=== PATIENT | male | born 1935 | race Caucasian/White ===

== ENCOUNTER → 2017-07-23 14:13 | Outpatient (CLI) | payer OTHER, SELFPAY ==
--- NOTE | 2017-07-23 14:23 | RAD_ITS ---
STUDY: X-RAY CHEST REASON FOR EXAM: Male, 82 years old. COPD pleural effusion TECHNIQUE: Frontal and lateral views of the chest. COMPARISON: March 09, 2017 FINDINGS: Chronic appearing increased interstitial lung markings. Moderate left pleural effusion. Small right pleural effusion. Lower lobe atelectasis. Enlarged heart size. Normal mediastinum and rabia. Normal visualized pulmonary arteries. There is atherosclerotic calcification of the aortic arch with tortuosity. There are diffuse degenerative changes of the visualized thoracic spine. There is degenerative osteoarthritis of the bilateral shoulders. There is no demonstrated abnormality of the visualized soft tissue structures of the upper abdomen. RAD/Chest PA and Lateral IMPRESSION: Moderate left pleural effusion. Small right pleural effusion. Lower lobe atelectasis. Electronically Signed: Truman Wilhelm MD at 18:33 EST , Service support ,
--- NOTE | 2017-07-23 14:40 | RAD_ITS ---
STUDY: X-RAY CHEST REASON FOR EXAM: Male, 82 years old. copd, pleural effusion left side decub TECHNIQUE: Single decubitus view of the chest. COMPARISON: Study done earlier today FINDINGS: Chronic appearing increased interstitial lung markings. Moderate left pleural effusion. Small right pleural effusion. Lower lobe atelectasis. Enlarged heart size. Normal mediastinum and rabia. Normal visualized pulmonary arteries. There is atherosclerotic calcification of the aortic arch with tortuosity. There are diffuse degenerative changes of the visualized thoracic spine. There is degenerative osteoarthritis of the bilateral shoulders. There is no demonstrated abnormality of the visualized soft tissue structures of the upper abdomen. RAD/Special CXR (Obl/Decub/A/L) IMPRESSION: Moderate left pleural effusion. Small right pleural effusion. Lower lobe atelectasis. Electronically Signed: Truman Wilhelm MD at 18:37 EST , Service support ,
--- NOTE | 2017-07-23 14:40 | RAD_ITS ---
STUDY: X-RAY CHEST REASON FOR EXAM: Male, 82 years old. COPD pleural effusion TECHNIQUE: Single frontal right decubitus view of the chest. COMPARISON: CR Chest Mar 09 2017 3:42pm FINDINGS: Chronic appearing increased interstitial lung markings. There are small bilateral pleural effusions. The lung woodson are hyperexpanded. Enlarged heart size. Normal mediastinum and rabia. Normal visualized pulmonary arteries. There is atherosclerotic calcification of the aortic arch with tortuosity. There are diffuse degenerative changes of the visualized thoracic spine. There is degenerative osteoarthritis of the bilateral shoulders. There is no demonstrated abnormality of the visualized soft tissue structures of the upper abdomen. RAD/Special CXR (Obl/Decub/A/L) IMPRESSION: There are small bilateral pleural effusions. Electronically Signed: Truman Wilhelm MD at 16:14 EST , Service support ,
== END ==
PROVIDERS: Family Provider Family Medicine; PCP Family Medicine; Visit Provider Internal Medicine Pulmonary Disease
DX: J44.9 Chronic obstructive pulmonary disease, unspecified (principal); J90 Pleural effusion, not elsewhere classified
CPT/HCPCS: 71046

== ENCOUNTER → 2017-08-03 10:10 | Outpatient (CLI) | payer OTHER, SELFPAY ==
[2017-08-03 12:21] LABS: International Normalized Ratio 1.1; Prothrombin Time (Protime)PT. 14.1 SECONDS (11.7-14.9)
[2017-08-03 12:22] LABS: Partial Thromboplast Time 28.5 Seconds (24.1-36.2)
== END ==
PROVIDERS: Family Provider Family Medicine; PCP Family Medicine; Visit Provider Internal Medicine Pulmonary Disease
DX: Z51.81 Encounter for therapeutic drug level monitoring (principal); Z79.01 Long term (current) use of anticoagulants
CPT/HCPCS: 36415; 85610; 85730

== ENCOUNTER → 2017-08-05 09:46 | Outpatient (CLI) | payer MEDICARE, SELFPAY ==
--- NOTE | 2017-08-05 | FLU_PTH ---
PATIENT: LEILANI FAY LOC: [facility]#:[id number] AGE/SX: 89/M ROOM: RE08/05/[address]: Dr. Cesar El MD : 1935 BED: DIS: SPEC #: [id number] RECD: 08/05/17 11:54 STATUS: JARED LUQUE #: [id number] BENNY: 08/05/17 00:[address]: Cesar El V DEPT: CYTOLOGY RECD BY: Mario Gtz ENTERED: 08/05/17 14:11 SP TYPE: Fluid OTHR DR: Dr. Ilya Diaz, DO Tissues: THORACIC FLUID Procedures: Pap Stain (control) Special Stain Group II Surgery Specimen Level IV Cell Block Cytospin Fluid HEADER OPERATION: Thoracentesis PRE-OP DIAGNOSIS: Pleural effusion TISSUE SUBMITTED: Thoracentesis fluid for cytology DIAGNOSIS CYTOLOGY Thoracentesis fluid for cytology (cytospin and cell block): Negative for malignant cells. Consistent with lymphocytic effusion. See cytology study and comment. SJ:rg 08/06/17 COMMENT Correlation with clinical findings and appropriate follow up are necessary. Immunohistochemistry ([id number]) shows lymphocytes are predominantly T-cell in nature. CYTOLOGY STUDY Slides are reviewed. The specimen consists of numerous small lymphocytes, a few macrophages, mesothelial cells and neutrophils. CYTOLOGY GROSS Received is 950 ml of cloudy miguel a fluid labeled with the patient's name and and designated per the requisition as thoracentesis. Submitted for cytology preparation including cell block. / CC:cc 08/05/17 TC:5 CPT: 06500, 40413
--- NOTE | 2017-08-05 | IMM_PTH ---
PATIENT: LEILANI FAY LOC: [facility]#:[id number] AGE/SX: 89/M ROOM: RE08/05/[address]: Dr. Cesar El MD : 1935 BED: DIS: SPEC #: [id number] RECD: 08/06/17 11:07 STATUS: JARED RETex #: [id number] BENNY: 08/05/17 00:[address]: Cesar El V DEPT: IMMUNOHISTOCHEMISTRY RECD BY: Lucila Mazariegos ENTERED: 08/06/17 11:09 SP TYPE: IMMUNO OTHR DR: Dr. Ilya Diaz, Tissues: THORACIC FLUID Procedures: CD20 (add) CD45 (add) CD5 (add) CD79A (add) CD3 (initial) PHYSICIAN & INSTITUTION [place] [id number] SPECIMEN INFORMATION: Tissue Source: Thoracentesis fluid for cytology Clinical Info: Pleural effusion Specimen Number: [id number] CPT code: 91878, 62625 x4 METHODOLOGY: Deparaffinized sections of prefer/formalin-fixed tissue or PAP/DQ stained slides are incubated with monoclonal/polyclonal antibodies/oligonucleotide probes. Localization is made via biotin free immunoperoxidase method. Appropriate controls are performed and reacted as expected. Results on target cell population are indicated in the following table: RESULTS: ANTIBODY / CLONE RESULT CD3 (PS1) positive CD5 (SP10) positive CD45 (RP2/18) positive CD79a (11E3) positive, a few cells CD20 (L26) positive, a few cells These tests were developed and their performance characteristics determined by [facility]. They may not have been cleared or approved by the U.S. Food and Drug Administration. The FDA has determined that such clearance or approval is not necessary. INTERPRETATION: Thoracentesis fluid for cytology (cell block): Consistent with lymphocytic effusion, predominantly T-cell in nature. SJ:candy 08/07/17
--- NOTE | 2017-08-05 09:51 | US_ITS ---
STUDY: ULTRASOUND GUIDED LEFT THORACENTESIS. REASON FOR EXAM: Male, 82 years old. Left pleural effusion. TECHNIQUE: Under direct sonographic guidance, the pulmonary position performed a left thoracentesis. COMPARISON: None. FINDINGS: 960 mL of miguel a-colored fluid was removed. US/Thoracentesis W US IMPRESSION: Successful ultrasound-guided left thoracentesis. Electronically Signed: Miguel Woods MD at 12:41 EST Tel [phone], Service support ,
--- NOTE | 2017-08-05 11:05 | RAD_ITS ---
STUDY: X-RAY CHEST REASON FOR EXAM: Male, 82 years old. The patient is status post left thoracentesis. TECHNIQUE: Single AP upright view of the chest. COMPARISON: Comparison is made with prior study dated July 23, 2017. FINDINGS: The patient is status post left thoracentesis. There is no evidence of pneumothorax. Residual blunting of both constraint angles with findings suggestive of bibasilar atelectasis. RAD/Chest 1 View IMPRESSION: Status post left thoracentesis. There is no evidence of pneumothorax. Electronically Signed: Miguel Woods MD at 8:23 EST Tel [phone], Service support ,
--- NOTE | 2017-08-05 11:08 | PCM.OP.BLANK ---
Operative Report Procedures ultrasound-guided thoracentesis The indication: Pleural effusion Physician: Cesar El MD Procedure: After addressing the risks and benefits of the procedure including but not limited to pneumothorax, bleeding, infection, dyspnea, chest pain the patient was placed in the sitting position with his arms on a tray table and an ultrasound was utilized to evaluate the left and right chest. The right chest showed about 3 ounces of fluid with a left chest showed about 600 cc of fluid. That area of the left chest is marked prepped draped in a sterile manner using sterile drapes gowns gloves. A safety needle with 1% lidocaine is advanced over the rib border and 2 cc of straw-colored fluid was removed The safety needle then is advanced over the rib border after a small incision is made and the catheter was advanced 6 cm while the needle is withdrawn and 1050 cc of miguel a colored fluid is removed The patient tolerated the procedure well, residual pain after the procedure is noted in the left inferior chest. Chest x-ray is yet pending The fluid was sent for cytology LDH and protein, the most likely scenario is congestive heart failure.
[2017-08-05] MEDS: Acetaminophen 500 MG Tablet 1000 MG PO (11:48)
[2017-08-05 11:55] LABS: Cytology, Body Fluid / CSF SEE PATHOLOGY REPORT
[2017-08-05 12:05] VITALS: BP 128/39; PULSE 62; RESP 16; TEMP 36.8; O2SAT 95
--- NOTE | 2017-08-05 12:17 | NURSING ---
1210 vital signs obtained, assisted with dressing and to wheelchair. reviewed discharge instructions with pt and son copy given. Deny any other questions or concerns. pt stated pain was decreasing rating 1 to 3 with deep breath.
--- NOTE | 2017-08-05 12:20 | NURSING ---
1205 band aid to left lower back with scant red/brown. no bruising or reddness noted.
[2017-08-05 12:36] LABS: LDH,Body Fluid 115 Units/l (Not Establ.); Protein, Body Fluid 4.7 g/dL (Not Establ.)
== END ==
PROVIDERS: Family Provider Family Medicine; PCP Family Medicine; Visit Provider Internal Medicine Pulmonary Disease
DX: J90 Pleural effusion, not elsewhere classified (principal)
CPT/HCPCS: 32555; 71045; 83615; 84157; 88108; 88305; 88313; 88341; 88342

== ENCOUNTER → 2017-08-21 16:38 | Outpatient (CLI) | payer MEDICARE, SELFPAY ==
[2017-08-21 18:04] LABS: Albumin, Serum 3.4 g/dL (3.2-5.0); LDH 146 U/L (87-241)
[2017-08-21 18:10] LABS: BNP,B-Type NATRIURETIC PEPTIDE 77.9 pg/mL (0-100)
== END ==
PROVIDERS: Family Provider Family Medicine; PCP Family Medicine; Visit Provider Internal Medicine Pulmonary Disease
DX: J90 Pleural effusion, not elsewhere classified (principal)
CPT/HCPCS: 36415; 82040; 83615; 83880

== ENCOUNTER → 2017-12-10 05:00 | Outpatient (REF) | payer MEDICARE, SELFPAY ==
[2017-12-10 07:50] LABS: Prothrombin Time Fingerstick 23.2 SEC (11.9-14.4)
== END ==
DX: Z79.01 Long term (current) use of anticoagulants (principal)
CPT/HCPCS: 36416; 85610

== ENCOUNTER 2017-12-12 19:22 | Inpatient (IN) | payer MEDICARE, SELFPAY ==
[2017-12-12] VITALS (10 sets, daily range): BP systolic 144–155; BP diastolic 53–67; PULSE 62–66; RESP 12–34; TEMP 36.6–36.9; O2SAT 100; BMI 33.1; BMI 30.9
--- NOTE | 2017-12-12 19:29 | EKG12_ITS ---
Test Reason : Blood Pressure : / mmHG Vent. Rate : 064 BPM Atrial Rate : 064 BPM P-R Int : 170 ms QRS Dur : 088 ms QT Int : 450 ms P-R-T Axes : 018 016 015 degrees QTc Int : 464 ms Normal sinus rhythm Low voltage QRS Septal infarct , age undetermined Abnormal ECG Confirmed by DORIS BECKER, LINDA ([id number]), newspaper managing editor PENELOPE PRESTON ([id number]) on 12/14/2017 3:12:32 PM Referred By: ROSALBA Confirmed By:LINDA GEORGE MD
--- NOTE | 2017-12-12 19:35 | RAD_ITS ---
STUDY: X-RAY CHEST REASON FOR EXAM: Male, 82 years old. Chest pain TECHNIQUE: Shortness of breath COMPARISON: 08/05/2017 FINDINGS: There is airspace opacity noted throughout the right lung and in the left lower lobe. This may be due to infection or edema. Clinical correlation is recommended. There is a small right pleural effusion and moderate left pleural effusion. There is no pneumothorax. The heart is enlarged, but stable The visualized osseous structures are within normal limits. RAD/Chest 1 View (Portable) IMPRESSION: Airspace opacity noted throughout the right lung and in the left lower lobe. This may be due to infection or edema and clinical correlation is recommended. Small right pleural effusion and moderate left pleural effusion. Electronically Signed: Deni Alvares, at 19:56 EDT Tel , Service support ,
[2017-12-12] MEDS: Nitroglycerin Oint 1 INCH PACKET TRANSDERM. (19:39)
[2017-12-12] MEDS: Aspirin 81 MG TAB.CHEW 324 MG PO (19:40)
[2017-12-12 20:00] LABS: Absolute Lymphocyte Count 0.33 X10^3/ul (0.83-4.51); Absolute Neutrophil Count 6.2 X10^3/uL (2.0-7.7); Basophil# 0.02 X10^3/uL; Basophil% 0.3 % (0-1); Eosinophil# 0.03 X10^3/uL; Eosinophils% 0.4 % (0-5); Hematocrit 26.5 % (40-54); Hemoglobin 8.1 g/dl (13.0-16.5); Lymphocyte # 0.33 X10^3/ul (4.0); Lymphocyte % 4.5 % (19-41); Mean Corp Hgb Conc 30.6 g/gl (32-36); Mean Corpuscular Volume 85.2 fL (80-94); Mean Platelet Vol. 11.9 fl (6.2-12.0); Monocyte# 0.75 X10^3/uL; Monocyte% 10.2 % (0-10); Neutrophil # 6.23 X10^3/uL (2.7-7.7); Neutrophil % 84.5 % (47-70); POSITIVE COUNT NO; POSITIVE MORPHOLOGY NO; Platelet Count 263 K/mm3 (150-450); RBC Distribution Width CV 15.6 % (11.6-14.6); RBC Distribution Width SD 48.5 fl (35.1-43.9); Red Blood Count 3.11 M/mm3 (4.6-6.2); White Blood Count 7.4 K/mm3 (4.4-11.0)
[2017-12-12 20:07] LABS: International Normalized Ratio 1.7; Prothrombin Time (Protime)PT. 20.4 SECONDS (11.7-14.9)
[2017-12-12 20:08] LABS: Differential Indicated SCAN CRITERIA MET; POSITIVE DIFFERENTIAL YES
[2017-12-12 20:28] LABS: Anion Gap 6 (5-15); BUN 25 mg/dL (7-18); BUN/Creat Ratio 15.7 RATIO (10-20); Calcium,Total 8.2 mg/dL (8.5-10.1); Chloride 104 mmol/L (98-107); Creatinine, Serum 1.59 mg/dL (0.70-1.30); EST Glomerular Filtration Rate 44 mL/min (>60); Est Glom Filt Rate - Afr Amer 54 mL/min (>60); Estimated Creatinine Clearance 29.48 ml/min; Glucose 168 mg/dL (74-106); Potassium 4.7 mmol/L (3.5-5.1); Sodium Level 140 mmol/L (136-145)
[2017-12-12 20:29] LABS: BNP,B-Type NATRIURETIC PEPTIDE 267.5 pg/mL (0-100)
--- NOTE | 2017-12-12 20:32 | ED.DCSUM_ITS ---
- ER Visit Summary Date of Service: 12/12/17 Chief Complaint: Shortness of breath History of Present Illness: The patient is a 82 M 3 of CHF and COPD who is on 2 L of oxygen chronically and BiPAP at night presented with increasing dyspnea. Over the past 3 days, the patient has worsening dyspnea. He denies cough. He denies chest pain. He does admit increased leg swelling. He is also been constipated without any bowel movements over the past 3 days. He states that tonight, he does feel like he cannot comfortable. The patient was hypoxic with saturations in the low 80s on his 3 L. He has not had fever chills. He denies any other symptoms. Physical Examination: Vital signs reviewed General: Well-nourished, well-developed Head: Normocephalic, atraumatic Eyes: Pupils equal and reactive, extraocular muscles intact Neck, supple, no lymphadenopathy Heart: Regular rate and rhythm Respiratory: No distress, crackles in the bases bilaterally Abdomen: Soft, nontender, nondistended, no peritoneal signs Back: Nontender Extremities: Nontender, 1+ symmetric edema, no cords Skin: Normal color no rash Neuro: Alert and oriented, no focal or lateralizing deficits Test Results: [] Emergency Department Course and Treatment: The patient was on a nonrebreather on arrival. He was placed on BiPAP with improvement of his aeration. His chest x-ray does show evidence of volume overload. The patient does have anemia , and I have no old to compare to. He has no evidence of GI bleeding. EKG shows no acute ischemic change. Cardiac enzymes are normal. With the patient' s hypoxia, evidence of volume overload, pleural effusions, dyspnea I do feel that he will benefit from admission for diuresis. He is started on IV Lasix. He did have nitro placed on his chest. The patient was also given an enema for his constipation. He was discussed with the hospitalist will be admitted at this time. Treatment Plan: [] Disposition: Admission Impression: 1. Acute dyspnea 2. Exacerbation of CHF 3. Bilateral pleural effusions This note was generated with [employer] software. It may contain incorrect words, spelling, and punctuation that were not noted in review of the chart prior to signing ED Disposition - Plan for ED Patient: Chief Complaint: Shortness of Breath Referrals: Ilya Diaz DO [Primary Care Provider] -
[2017-12-12 20:33] LABS: Differential Comment SCANNED
[2017-12-12] MEDS: Furosemide 40 MG/4 ML Vial IV (21:04)
--- NOTE | 2017-12-12 21:52 | HP.PCM_ITS ---
Problem List (1) Anemia Status: Acute (2) Heart failure Status: Acute (3) SOB (shortness of breath) Status: Acute (4) CAD (coronary artery disease) Status: Acute (5) FRANK (acute kidney injury) Status: Acute History of Present Illness Date of Admission: 12/12/17 Chief Complaint: Hypoxic respiratory failure The patient is a 82 year old male w/ h/o CAD, afib, HTN, lipidemia and COPD admitted for SOB. He has been SOB for the past few days. SOB has worsened in the last 24 hours. No cough associated with SOB. SOB is constant and severe. No chest pain. No other symptoms. He also noted increase swelling in the legs. Past Medical History Allergies Penicillins Allergy (Verified 12/12/17 19:31) Unknown Home Medications: Ambulatory Orders Medication Instructions Recorded Acetaminophen [Tylenol Extra 1,000 mg PO Q6H PRN PRN 12/12/17 Strength] Albuterol Aerosols [Ventolin 2.5 mg INHALATION Q4H PRN PRN 12/12/17 Aerosols] Amiodarone HCl 200 mg PO DAILY 12/12/17 Antiarthritic Combination No.2 2 tab PO DAILY 12/12/17 [Glucosamine-Chondroitin] Budesonide/Formoterol 160/4.5 2 puff INHALATION BID 12/12/17 [Symbicort 160/4.5 Mcg Inhaler (SP)] Cholecalciferol (Vitamin D3) 2,000 unit PO DAILY 12/12/17 [Vitamin D3] Cyanocobalamin (Vitamin B-12) 1,000 mcg PO DAILY 12/12/17 [Vitamin B-12] Diltiazem HCl [Cartia Xt] 240 mg PO DAILY 12/12/17 Furosemide [Lasix] 40 mg PO DAILY 12/12/17 Levothyroxine Sodium [Synthroid] 88 mcg PO DAILY 12/12/17 Loratadine 10 mg PO DAILY PRN PRN 12/12/17 Magnesium 500 mg PO DAILY 12/12/17 Menthol/Lanolin/Calamine/Znox 1 applic TOPICAL PRN PRN 12/12/17 [Calmoseptine Ointment] Pantoprazole Sodium [Protonix] 40 mg PO DAILY 12/12/17 Potassium Chloride [K-Dur] 20 meq PO BID 12/12/17 Rosuvastatin Calcium [Crestor] 10 mg PO QHS 12/12/17 Tamsulosin HCl [Flomax] 0.4 mg PO DAILY 12/12/17 Warfarin [Coumadin ([facility])] 1 mg PO MOWEFR 12/12/17 Warfarin [Coumadin ([facility])] 2 mg PO SUTUTHSA 12/12/17 Docusate Sodium [Colace] 100 mg PO BID PRN 12/13/17 Magnesium Hydroxide [Milk Of 30 ml PO DAILY PRN PRN 12/13/17 Magnesia] Lives: Spouse/ Significant Other Smoking Status: Former smoker Alcohol: None Drugs: None Review of Systems Constitutional: Denies: Chills, Fever, Weight Change HEENT: Denies: Head Aches, Sinus Congestion, Sinus Drainage Cardiovascular: Denies: Chest Pain, Palpitations Respiratory: Denies: Cough, Shortness of breath at rest, Sputum production Gastrointestinal: Denies: Abdominal Pain, Nausea, Vomiting Genitourinary: Denies: Dysuria Musculoskeletal: Denies: Joint Pain, Joint Tenderness Skin: Denies: Rash, Wounds Neurological: Denies: Numbness, Tingling, Focal weakness Psychiatric: Denies: Anxiety, Depression, Homicidal Ideations, Suicidal Ideations Hematologic/ Lymphatic: Denies: Easy Bruising, Easy Bleeding VTE Information - Inpt Only VTE Present on Admission: No VTE Mechan Device Prophylaxis: SCD's VTE Pharm Prophylaxis ordered?: Yes Patient Problems: Active and Suspected Problems Anemia (Acute) Heart failure (Acute) SOB (shortness of breath) (Acute) CAD (coronary artery disease) (Acute) FRANK (acute kidney injury) (Acute) - Physical Exam General: Alert, Oriented x3 HEENT: Atraumatic, PERRLA, EOMI, Normocephalic Neck: Supple, No JVD, Negative Carotid Bruits Lungs: Short of Breath, Wheezes Cardiovascular: Regular rate, No murmurs Abdomen: Bowel Sounds Present, Soft, Non Tender Extremities: No edema, Capillary Refill Less than 3 Seconds Skin: No rashes, No breakdown Musculoskeletal: No Tenderness to Palpation of Joints or Extremities Neurological: Cranial nerves II-XII grossly intact Psych/Mental Status: Normal Affect, Appropriate Vital Signs Temp Pulse Resp BP Pulse Ox 98.4 F 63 33 H 144/53 H 100 12/12/17 19:29 12/12/17 21:06 12/12/17 21:06 12/12/17 21:06 12/12/17 21:06 Oxygen Delivery Method Bi-pap Weight: 87.6 kg Body Mass Index (BMI) 33.1 Laboratory Tests Past 24 Hrs 12/12/17 12/12/17 12/12/17 19:40 19:40 19:40 WBC 7.4 RBC 3.11 L Hgb 8.1 L Hct 26.5 L MCV 85.2 MCH 26.0 L MCHC 30.6 L RDW 15.6 H RDW Differential 48.5 H Plt Count 263 MPV 11.9 Immature Gran % (Auto) 0.100 Neut % (Auto) 84.5 H Lymph % (Auto) 4.5 L [place] % (Auto) 10.2 H Eos % (Auto) 0.4 Baso % (Auto) 0.3 Absolute Neuts (auto) 6.2 Absolute Lymphs (auto) 0.33 L Total Counted Not Reportable Differential Comment SCANNED PT 20.4 H INR 1.7 Sodium 140 Potassium 4.7 Chloride 104 Carbon Dioxide 30.0 Anion Gap 6 BUN 25 H Creatinine 1.59 H Estim Creat Clear Calc 29.48 Est GFR (MDRD) Af Amer 54 L Est GFR (MDRD) Non-Af 44 L BUN/Creatinine Ratio 15.7 Glucose 168 H Calcium 8.2 L Troponin I < 0.015 B-Natriuretic Peptide 12/12/17 19:40 WBC RBC Hgb Hct MCV MCH MCHC RDW RDW Differential Plt Count MPV Immature Gran % (Auto) Neut % (Auto) Lymph % (Auto) [place] % (Auto) Eos % (Auto) Baso % (Auto) Absolute Neuts (auto) Absolute Lymphs (auto) Total Counted Differential Comment PT INR Sodium Potassium Chloride Carbon Dioxide Anion Gap BUN Creatinine Estim Creat Clear Calc Est GFR (MDRD) Af Amer Est GFR (MDRD) Non-Af BUN/Creatinine Ratio Glucose Calcium Troponin I B-Natriuretic Peptide 267.5 H Assessment/Plan All Active Problems Anemia (Acute) Heart failure (Acute) SOB (shortness of breath) (Acute) CAD (coronary artery disease) (Acute) FRANK (acute kidney injury) (Acute) 82 year old male w/ h/o CAD, afib, HTN, lipidemia and COPD admitted for SOB. 1) Acute systolic heart failure: Chest xray disclosed pleural effusion and edema. 2+ edema in the lower extremity. Will start lasix IV. Will also get ECHO. Serial trops. Monitor. 2) Acute normocytic anemia: H and H trending down. Will repeat H and H. Monitor. 3) Acute hypoxic respiratory: C/w BIPAP. Diuresis. Monitor.
--- NOTE | 2017-12-12 22:02 | NURSING ---
Called ED discharge door operator, Liz at this time to confirm Pt okay to come to PCU.
[2017-12-12 23:46] LABS: Thyroid Stim Hormone (TSH) 0.66 uIU/mL (0.358-3.74)
[2017-12-13] VITALS (23 sets, daily range): BP systolic 112–147; BP diastolic 50–73; PULSE 54–82; RESP 12–25; TEMP 36.7–37.3; O2SAT 92–100
[2017-12-13 02:17] LABS: Hematocrit 23.3 % (40-54); Hemoglobin 7.1 g/dl (13.0-16.5); Mean Corp Hgb Conc 30.5 g/gl (32-36); Mean Corpuscular Hgb 25.9 pg (27.0-32.0); Platelet Count 239 K/mm3 (150-450); RBC Distribution Width CV 15.5 % (11.6-14.6); RBC Distribution Width SD 48.6 fl (35.1-43.9); Red Blood Count 2.74 M/mm3 (4.6-6.2); White Blood Count 7.9 K/mm3 (4.4-11.0)
[2017-12-13 02:20] LABS: Scan Indicated on CBC? Y/N NO
[2017-12-13 02:27] LABS: International Normalized Ratio 1.8; Prothrombin Time (Protime)PT. 21.3 SECONDS (11.7-14.9)
[2017-12-13 02:45] LABS: Anion Gap 7 (5-15); BUN 22 mg/dL (7-18); BUN/Creat Ratio 15.5 RATIO (10-20); Calcium,Total 7.9 mg/dL (8.5-10.1); Chloride 103 mmol/L (98-107); Cholesterol 112 mg/dL (200); Creatinine, Serum 1.42 mg/dL (0.70-1.30); EST Glomerular Filtration Rate 51 mL/min (>60); Est Glom Filt Rate - Afr Amer 61 mL/min (>60); Estimated Creatinine Clearance 34.29 ml/min; Glucose 104 mg/dL (74-106); High Density Lipoprotein 71 mg/dL; Sodium Level 140 mmol/L (136-145); Triglycerides 47 mg/dL; Very Low Density Lipoprotein 9 mg/dL (5-40)
[2017-12-13 02:46] LABS: BNP,B-Type NATRIURETIC PEPTIDE 275.6 pg/mL (0-100)
[2017-12-13] MEDS: Levothyroxine 88 MCG Tablet PO (05:26)
[2017-12-13 05:48] LABS: Absolute Lymphocyte Count 0.64 X10^3/ul (0.83-4.51); Absolute Neutrophil Count 5.8 X10^3/uL (2.0-7.7); Basophil# 0.04 X10^3/uL; Basophil% 0.5 % (0-1); Eosinophil# 0.21 X10^3/uL; Eosinophils% 2.7 % (0-5); Hemoglobin 6.8 g/dl (13.0-16.5); Lymphocyte # 0.64 X10^3/ul (4.0); Lymphocyte % 8.3 % (19-41); Mean Corp Hgb Conc 29.6 g/gl (32-36); Mean Corpuscular Hgb 25.8 pg (27.0-32.0); Mean Corpuscular Volume 87.1 fL (80-94); Mean Platelet Vol. 12.6 fl (6.2-12.0); Monocyte# 0.98 X10^3/uL; Monocyte% 12.8 % (0-10); Neutrophil % 75.6 % (47-70); Platelet Count 231 K/mm3 (150-450); RBC Distribution Width SD 46.1 fl (35.1-43.9); RET-HE 24.7 pg (30-35); Red Blood Count 2.64 M/mm3 (4.6-6.2); Reticulocyte Count 2.15 % (0.5-1.5); White Blood Count 7.7 K/mm3 (4.4-11.0)
[2017-12-13 05:54] LABS: POSITIVE COUNT NO; POSITIVE DIFFERENTIAL NO; POSITIVE MORPHOLOGY NO
--- NOTE | 2017-12-13 05:55 | ECHOCS_ITS ---
Reason For Study: CHF Procedure This was a 2D Doppler, Color Flow transthoracic echocardiogram. The study was technically difficult. Contrast injection was performed. Exam performed portable in patient room. Left Ventricle Normal LV size. Left ventricular systolic function is normal. The estimated ejection fraction is 60 %. Transmitral diastolic flow velocities suggest mild (stage 1) diastolic dysfunction (reversed pattern). No regional wall motion abnormalities noted. Right Ventricle Normal RV size. Atria The left atrium is moderately enlarged. Normal right atrium. Mitral Valve Normal mitral valve. Tricuspid Valve The tricuspid valve is not well visualized. Aortic Valve Normal aortic valve. Pericardium/Pleural No pericardial effusion. Medication Diluted definity 5ml given slow IV push to enhance endocardial definition. MMode/2D Measurements & Calculations LVIDd: 4.1 cm IVSd: 1.6 cm Ao root diam: 3.2 cm LVIDs: 2.6 cm LVPWd: 1.1 cm FS: 36.1 % LAV(MOD-sp4): 91.1 ml LA A4 area: 29.6 cm2 Time Measurements MV dec time: 0.56 sec Doppler Measurements & Calculations MV E max sami: 110.1 cm/sec Lat Peak E' Sami: 6.3 cm/sec Med Peak E' Sami: 4.5 cm/sec MV A max sami: 128.3 cm/sec E/E' lat: 17.6 E/E' med: 24.4 MV E/A: 0.86 MV V2 max: 151.2 cm/sec MV P1/2t max sami: 140.6 cm/sec Ao V2 max: 183.9 cm/sec MV max P.1 mmHg MV P1/2t: 137.1 msec Ao max P.5 mmHg MV V2 mean: 77.8 cm/sec MV dec slope: 300.3 cm/sec2 Ao V2 mean: 120.1 cm/sec MV mean P.9 mmHg MVA(P1/2t): 1.6 cm2 Ao mean P.6 mmHg MV V2 VTI: 65.9 cm Ao V2 VTI: 38.4 cm LV V1 max: 112.1 cm/sec PA V2 max: 116.5 cm/sec LV V1 max P.0 mmHg LV V1 mean P.6 mmHg LV V1 mean: 73.3 cm/sec LV V1 VTI: 27.0 cm Interpretation Summary Normal LV size. Left ventricular systolic function is normal. The estimated ejection fraction is 60 %. Transmitral diastolic flow velocities suggest mild (stage 1) diastolic dysfunction (reversed pattern). Contrast injection was performed. Ordering Physician: Lebron Sotelo Referring Physician: Ilya Diaz Performed By: Aaron Vieira RCS
[2017-12-13 06:23] LABS: Iron 15 ug/dL (65-175); Iron Binding Capacity,Total 274 ug/dL (250-450); PERCENT IRON SATURATION 5.5 % (15.0-55.0)
[2017-12-13] MEDS: Budesonide Respules 0.5 MG/2 ML AMPUL.NEB. INHALATION ×2 (06:50→18:34)
[2017-12-13] MEDS: Albuterol 2.5 MG/3 ML VIAL.NEB. INHALATION ×3 (06:50→18:34)
--- NOTE | 2017-12-13 09:10 | RAD_ITS ---
STUDY: X-RAY CHEST REASON FOR EXAM: Male, 82 years old. Respiratory failure, CHF TECHNIQUE: Frontal and lateral views COMPARISON: December 12, 2017 FINDINGS: The lungs are expanded. Bilateral pleural effusion, left lung and right similar to the previous study. Right upper lobe and basilar infiltrate similar to previous study. Left base infiltrate cannot be excluded. Stable cardiomegaly and slight central pulmonary vascular prominence. Normal mediastinum and rabia. Normal visualized aortic arch and descending thoracic aorta. Degenerative changes of the thoracic spine. Normal visualized ribs, clavicles, and shoulders. There is no demonstrated abnormality of the visualized soft tissue structures of the upper abdomen. RAD/Chest PA and Lateral IMPRESSION: Stable bilateral pleural effusion, left more than right. Stable infiltrate is noted. Stable cardiomegaly and central pulmonary vascular prominence. Electronically Signed: Guille Hsu DO at 9:27 EDT Tel [phone], Service support ,
[2017-12-13] MEDS: 0.9% NaCl Peripheral Flush Adult/Peds IV ×3 (09:28→17:56)
[2017-12-13] MEDS: Furosemide 100 MG/10 ML Vial 60 MG IV ×2 (09:28→17:56)
[2017-12-13] MEDS: Cyanocobalamin 500 MCG Tablet 1000 MCG PO (09:39)
[2017-12-13] MEDS: Pantoprazole Sodium 40 MG Tablet PO (09:39)
[2017-12-13] MEDS: Tamsulosin HCl 0.4 MG Capsule PO (09:40)
[2017-12-13] MEDS: dilTIAZem CD 240 MG Capsule PO (10:45)
[2017-12-13] MEDS: Amiodarone 200 MG Tablet PO (10:45)
--- NOTE | 2017-12-13 13:43 | CM.UR ---
Met face to face with patient. See attached RN case mgmt assessment. Plans on returning to [facility]. Denies anticipating any additional discharge needs. Giuseppe Larson RN, CCM.
--- NOTE | 2017-12-13 14:13 | PCM.PROGNOTE ---
Patient Problems: Active and Suspected Problems Anemia (Acute) Heart failure (Acute) SOB (shortness of breath) (Acute) FRANK (acute kidney injury) (Suspected) Subjective: Patient was seen and examined today, he has been weaned down to nasal cannula oxygen, I had a long conversation with him about his medical history, patient is very poor historian, I talked with his PCP by phone today and his PCP confirmed that the patient does have a history of anemia, last time patient had hemoglobin performed according to his PCPs records was last year and he had hemoglobin of 10.1 on 04/07/17. Patient's records show an echocardiogram performed in April 2017 with a preserved ejection fraction of 55-60%, no mention of pulmonary hypertension was noted. Patient's PCP also states that the patient has had a history of aortic stenosis in the past-it is unknown how severe the stenosis is. Patient also has a history of obstructive sleep apnea but does not know his BiPAP settings and a history of COPD. I personally reviewed the patient's chest x-ray today and it looks improved over the chest x-ray which was done on admission last night with less CHF present, there are still bilateral pleural effusions noted. Patient is receiving packed red blood cells, I have written for Venofer today in addition, patient's iron level was 15. Patient admits that he has not been taking iron at home because it makes his stool green. Patient does not know the last time he has had a colonoscopy, he thinks it was done in the past by Dr. Jean. Patient's INR was subtherapeutic on admission, I have elected to continue his Coumadin as the patient has a history in the past of atrial fibrillation. Patient agrees with a DNR comfort care arrest CODE STATUS - Physical Exam General: Alert, Oriented x3, Cooperative, No apparent distress, Well developed, - - Patient is a poor informant HEENT: Atraumatic, PERRLA, EOMI, Normocephalic Oral: Moist Mucosa Neck: Supple, No JVD, Negative Carotid Bruits, No Nuchal Rigidity, Trachea Midline, Thyroid Normal Size and Texture Lungs: No rhonchi, No wheeze, Diminished - Diminished breath sounds at the bases bilaterally Cardiovascular: Regular rate, Regular Rhythm, Normal S1, Normal S2, No murmurs, PMI Normal, No rub noted, No Gallop Abdomen: Bowel Sounds Present, Soft, Non Tender, Non-Distended, No hernias noted Extremities: No clubbing, No cyanosis, No edema, Capillary Refill Less than 3 Seconds Skin: No rashes, No breakdown Neurological: Cranial nerves II-XII grossly intact, Neuro grossly intact, Sensory exam intact to light touch and pain, Coordination normal Psych/Mental Status: Normal Affect, Appropriate, Alert and oriented to time, place, person, mood and affect Vital Signs Temp Pulse Resp BP Pulse Ox 98.9 F 79 21 H 121/58 H 98 12/13/17 12:51 12/13/17 13:41 12/13/17 13:41 12/13/17 12:51 12/13/17 12:51 Oxygen Flow Rate (L/min) 3 Oxygen Delivery Method Nasal Cannula Weight: 84.2 kg Body Mass Index (BMI) 30.9 Intake and Output for Last 24 Hours 12/11/17 12/12/17 12/13/17 23:59 23:59 23:59 Intake Total 292 / 292 943 / 943 Output Total 800 / 800 Balance 292 / 292 143 / 143 Microbiology Past 72 Hours 12/13/17 13:00 Stool Occult Blood (LUCINDA) - Final Stool Laboratory Tests Past 24 Hrs 12/12/17 12/13/17 12/13/17 23:27 02:05 02:05 WBC 7.9 RBC 2.74 L Hgb 7.1 L Hct 23.3 L MCV 85.0 MCH 25.9 L MCHC 30.5 L RDW 15.5 H RDW Differential 48.6 H Plt Count 239 MPV 11.0 Immature Gran % (Auto) Neut % (Auto) Lymph % (Auto) Benson % (Auto) Eos % (Auto) Baso % (Auto) Absolute Neuts (auto) Absolute Lymphs (auto) Total Counted Immature Plt Fraction Retic Count Immature Retic Fraction Retic Hgb Equivalent PT INR Sodium 140 Potassium 4.0 Chloride 103 Carbon Dioxide 30.0 Anion Gap 7 BUN 22 H Creatinine 1.42 H Estim Creat Clear Calc 34.29 Est GFR (MDRD) Af Amer 61 Est GFR (MDRD) Non-Af 51 L BUN/Creatinine Ratio 15.5 Glucose 104 Calcium 7.9 L Iron TIBC Iron Saturation Troponin I < 0.015 B-Natriuretic Peptide Triglycerides 47 Cholesterol 112 LDL Cholesterol 32 VLDL Cholesterol 9 HDL Cholesterol 71 Vitamin B12 Folate Blood Type Antibody Screen Crossmatch 12/13/17 12/13/17 12/13/17 02:05 02:05 02:05 WBC RBC Hgb Hct MCV MCH MCHC RDW RDW Differential Plt Count MPV Immature Gran % (Auto) Neut % (Auto) Lymph % (Auto) Benson % (Auto) Eos % (Auto) Baso % (Auto) Absolute Neuts (auto) Absolute Lymphs (auto) Total Counted Immature Plt Fraction Retic Count Immature Retic Fraction Retic Hgb Equivalent PT 21.3 H INR 1.8 Sodium Potassium Chloride Carbon Dioxide Anion Gap BUN Creatinine Estim Creat Clear Calc Est GFR (MDRD) Af Amer Est GFR (MDRD) Non-Af BUN/Creatinine Ratio Glucose Calcium Iron TIBC Iron Saturation Troponin I < 0.015 B-Natriuretic Peptide 275.6 H Triglycerides Cholesterol LDL Cholesterol VLDL Cholesterol HDL Cholesterol Vitamin B12 Folate Blood Type Antibody Screen Crossmatch 12/13/17 12/13/17 12/13/17 04:55 04:55 04:55 WBC 7.7 RBC 2.64 L Hgb 6.8 L Hct 23.0 L MCV 87.1 MCH 25.8 L MCHC 29.6 L RDW 15.0 H RDW Differential 46.1 H Plt Count 231 MPV 12.6 H Immature Gran % (Auto) 0.100 Neut % (Auto) 75.6 H Lymph % (Auto) 8.3 L Benson % (Auto) 12.8 H Eos % (Auto) 2.7 Baso % (Auto) 0.5 Absolute Neuts (auto) 5.8 Absolute Lymphs (auto) 0.64 L Total Counted Not Reportable Immature Plt Fraction 6.0 Retic Count 2.15 H Immature Retic Fraction 20.70 H Retic Hgb Equivalent 24.7 L PT INR Sodium Potassium Chloride Carbon Dioxide Anion Gap BUN Creatinine Estim Creat Clear Calc Est GFR (MDRD) Af Amer Est GFR (MDRD) Non-Af BUN/Creatinine Ratio Glucose Calcium Iron 15 L TIBC 274 Iron Saturation 5.5 L Troponin I B-Natriuretic Peptide Triglycerides Cholesterol LDL Cholesterol VLDL Cholesterol HDL Cholesterol Vitamin B12 Pending Folate 17.00 Blood Type Antibody Screen Crossmatch 12/13/17 05:44 WBC RBC Hgb Hct MCV MCH MCHC RDW RDW Differential Plt Count MPV Immature Gran % (Auto) Neut % (Auto) Lymph % (Auto) Benson % (Auto) Eos % (Auto) Baso % (Auto) Absolute Neuts (auto) Absolute Lymphs (auto) Total Counted Immature Plt Fraction Retic Count Immature Retic Fraction Retic Hgb Equivalent PT INR Sodium Potassium Chloride Carbon Dioxide Anion Gap BUN Creatinine Estim Creat Clear Calc Est GFR (MDRD) Af Amer Est GFR (MDRD) Non-Af BUN/Creatinine Ratio Glucose Calcium Iron TIBC Iron Saturation Troponin I B-Natriuretic Peptide Triglycerides Cholesterol LDL Cholesterol VLDL Cholesterol HDL Cholesterol Vitamin B12 Folate Blood Type A POSITIVE Antibody Screen NEGATIVE Crossmatch See Detail Medical Necessity - Tobacco Use Smoking Status: Former smoker Tobacco Use: Non-smoker Assessment/Plan All Active Problems Anemia (Acute) Heart failure (Acute) SOB (shortness of breath) (Acute) CAD (coronary artery disease) (Ruled-out) #1 acute diastolic congestive heart failure-patient will have an echocardiogram performed tomorrow, he will remain on IV Lasix, chest x-ray will be repeated tomorrow #2 Acute on chronic hypoxic respiratory failure-patient currently is on nasal cannula O2, he uses 2 L of nasal cannula oxygen chronically at home #3 chronic obstructive pulmonary disease #4 history of atrial fibrillation-now in sinus rhythm #5 iron deficiency anemia requiring blood transfusion-chronic in nature, I talked with the patient's POA who is his daughter, I relayed that I was concerned the patient was on Coumadin and had chronic anemia of unknown origin, she is agreed that the patient should go off his Coumadin for now, 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 Patient will be given IV Venofer again tomorrow, patient's Hemoccult of the stool is negative for blood, according to his PCP, he has had negative Hemoccult on his stool before. Patient states he believes he underwent a colonoscopy by Dr. Jean in the past, I do not have access to these records. #6 cognitive impairment-probably early dementia #7 pleural effusion-probably secondary to diastolic congestive heart failure Code Visit Inpatient E&M: 40017 Subs Hosp L2
[2017-12-13 18:10] LABS: Hematocrit 30.4 % (40-54); Hemoglobin 9.3 g/dl (13.0-16.5)
[2017-12-13] MEDS: Atorvastatin Calcium 20 MG Tablet PO (22:31)
[2017-12-13 23:33] LABS: Hematocrit 29.7 % (40-54); Hemoglobin 9.2 g/dl (13.0-16.5)
[2017-12-14] VITALS (15 sets, daily range): BP systolic 114–136; BP diastolic 48–82; PULSE 53–79; RESP 12–24; TEMP 36.9–37.2; O2SAT 93–100
--- NOTE | 2017-12-14 05:55 | RAD_ITS ---
STUDY: X-RAY CHEST REASON FOR EXAM: Male, 82 years old. Congestive heart failure. TECHNIQUE: AP and lateral views of the chest. COMPARISON: Comparison is made with prior study dated December 13, 2012. FINDINGS: EKG electrodes are seen. Stable left pleural effusion with underlying left basilar atelectasis and/or infiltration. Blunting of the right costophrenic angle. Stable atelectasis at the right lung base as well as in the right upper lobe. The vascular congestion has improved. Normal size heart. Normal mediastinum and rabia. Normal visualized pulmonary arteries. There is atherosclerotic tortuosity of the aortic arch and descending thoracic aorta. There are diffuse degenerative changes of the visualized thoracic spine. Normal visualized ribs, clavicles, and shoulders. There is no demonstrated abnormality of the visualized soft tissue structures of the upper abdomen. RAD/Chest PA and Lateral IMPRESSION: Since prior study, there has been improvement of the vascular congestion. Residual bilateral pleural effusions with bibasilar atelectasis and/or infiltrates persist worse on the left side. Stable infiltrate in the right upper lobe. Electronically Signed: Miugel Woods MD at 9:49 EDT Tel [phone], Service support ,
[2017-12-14] MEDS: Levothyroxine 88 MCG Tablet PO (06:21)
[2017-12-14 06:38] LABS: Hematocrit 29.6 % (40-54); Hemoglobin 9.5 g/dl (13.0-16.5)
[2017-12-14 06:49] LABS: Anion Gap 9 (5-15); BUN 24 mg/dL (7-18); BUN/Creat Ratio 14.5 RATIO (10-20); Calcium,Total 8.3 mg/dL (8.5-10.1); Chloride 98 mmol/L (98-107); Creatinine, Serum 1.65 mg/dL (0.70-1.30); EST Glomerular Filtration Rate 43 mL/min (>60); Est Glom Filt Rate - Afr Amer 51 mL/min (>60); Estimated Creatinine Clearance 29.51 ml/min; Glucose 99 mg/dL (74-106); Potassium 3.6 mmol/L (3.5-5.1); Sodium Level 141 mmol/L (136-145)
[2017-12-14] MEDS: Budesonide Respules 0.5 MG/2 ML AMPUL.NEB. INHALATION ×2 (07:20→19:27)
[2017-12-14] MEDS: Albuterol 2.5 MG/3 ML VIAL.NEB. INHALATION ×3 (07:20→19:27)
[2017-12-14] MEDS: Furosemide 100 MG/10 ML Vial 60 MG IV ×2 (08:25→17:34)
[2017-12-14] MEDS: Cyanocobalamin 500 MCG Tablet 1000 MCG PO (08:25)
[2017-12-14] MEDS: Amiodarone 200 MG Tablet PO (08:25)
[2017-12-14] MEDS: Pantoprazole Sodium 40 MG Tablet PO (08:25)
[2017-12-14] MEDS: Tamsulosin HCl 0.4 MG Capsule PO (08:26)
[2017-12-14] MEDS: dilTIAZem CD 240 MG Capsule PO (08:26)
[2017-12-14] MEDS: 0.9% NaCl Peripheral Flush Adult/Peds IV ×2 (08:32→17:34)
[2017-12-14 09:10] LABS: Vitamin B12 649 pg/mL (211-911)
--- NOTE | 2017-12-14 13:27 | CASEMGMT ---
Social Work Note PCU Reason for referral: Patient from assisted living/Discharge planning Summary: Chart reviewed, noting RN CM assessment. Patient is a current resident of [facility] an uses Oxygen at 2L continuously at the assisted living. Noted in record, that patient also used BIPAP at night and that moved into [facility] on 11-23-17. Interventions: Called [facility], spoke with nursing staff to confirm that patient can return to the assisted living when ready for discharge. Also called patient's daughter Uvaldo, listed as the POA, to confirm plan for return to the assisted living. Message left for Uvaldo at [phone] with this insurance underwriter sales's name and number to call back if needed. Plan: [facility] when ready for discharge. -RASHAD Velázquez, FUNERAL HOME GENERAL MANAGER
--- NOTE | 2017-12-14 17:46 | PN_ITS ---
Patient Problems: Active and Suspected Problems Anemia (Acute) Heart failure (Acute) SOB (shortness of breath) (Acute) FRANK (acute kidney injury) (Suspected) Subjective: Patient seen and examined today, he is currently on 2 L oxygen via nasal cannula , patient's chest x-ray today appeared improved with less CHF, there is still a significant left pleural effusion. Patient does not appear short of breath, echocardiogram was performed today and shows a normal EF without evidence of valvular problems. - Physical Exam General: Alert, Oriented x3, Cooperative, No apparent distress, Well developed, Well nourished HEENT: Atraumatic, PERRLA, EOMI, Normocephalic Oral: Moist Mucosa Neck: Supple, No JVD, No Nuchal Rigidity, Trachea Midline, Thyroid Normal Size and Texture Lungs: Clear to auscultation, No rhonchi, No wheeze, No rales, Diminished - Diminished breath sounds at the left base Cardiovascular: Regular rate, Regular Rhythm, Normal S1, Normal S2, No murmurs, No Ectopic Activity, PMI Normal, No rub noted, No Gallop Abdomen: Bowel Sounds Present, Soft, Non Tender, Non-Distended, No hernias noted Extremities: No edema, Capillary Refill Less than 3 Seconds Skin: No rashes, No breakdown Musculoskeletal: No Tenderness to Palpation of Joints or Extremities Neurological: Cranial nerves II-XII grossly intact, Neuro grossly intact, Sensory exam intact to light touch and pain, Coordination normal Psych/Mental Status: Normal Affect, Appropriate, Alert and oriented to time, place, person, mood and affect Vital Signs Temp Pulse Resp BP Pulse Ox 99.0 F 58 L 20 H 123/82 H 93 12/14/17 16:00 12/14/17 16:00 12/14/17 16:00 12/14/17 16:00 12/14/17 16:00 Oxygen Flow Rate (L/min) 2 Oxygen Delivery Method Nasal Cannula Weight: 80.6 kg Body Mass Index (BMI) 30.9 Intake and Output for Last 24 Hours 12/12/17 12/13/17 12/14/17 23:59 23:59 23:59 Intake Total 292 / 292 2233 / 2233 1009 / 1009 Output Total 2300 / 2300 Balance 292 / 292 -67 / -67 1009 / 1009 Microbiology Past 72 Hours 12/13/17 13:00 Stool Occult Blood (LUCINDA) - Final Stool Laboratory Tests Past 24 Hrs 12/13/17 12/13/17 12/13/17 04:55 05:44 17:58 Hgb 9.3 L Hct 30.4 L Sodium Potassium Chloride Carbon Dioxide Anion Gap BUN Creatinine Estim Creat Clear Calc Est GFR (MDRD) Af Amer Est GFR (MDRD) Non-Af BUN/Creatinine Ratio Glucose Calcium Vitamin B12 649 Crossmatch See Detail 12/13/17 12/14/17 12/14/17 23:22 06:15 06:15 Hgb 9.2 L 9.5 L Hct 29.7 L 29.6 L Sodium 141 Potassium 3.6 Chloride 98 Carbon Dioxide 34.0 H Anion Gap 9 BUN 24 H Creatinine 1.65 H Estim Creat Clear Calc 29.51 Est GFR (MDRD) Af Amer 51 L Est GFR (MDRD) Non-Af 43 L BUN/Creatinine Ratio 14.5 Glucose 99 Calcium 8.3 L Vitamin B12 Crossmatch Medical Necessity - Tobacco Use Smoking Status: Former smoker Tobacco Use: Non-smoker Assessment/Plan All Active Problems Anemia (Acute) Heart failure (Acute) SOB (shortness of breath) (Acute) CAD (coronary artery disease) (Ruled-out) #1 acute diastolic congestive heart failure-this appears to be improving, I will switch the patient to oral Lasix this afternoon #2 Acute on chronic hypoxic respiratory failure-patient currently is on nasal cannula O2 at 2 L, he uses 2 L of nasal cannula oxygen chronically at home #3 chronic obstructive pulmonary disease #4 history of atrial fibrillation-now in sinus rhythm #5 iron deficiency anemia requiring blood transfusion-chronic in nature, patient will receive another infusion of Venofer tomorrow, he received an infusion of Venofer today. Patient's hemoglobin at this time is stable #6 cognitive impairment-probably early dementia #7 pleural effusion-probably secondary to diastolic congestive heart failure, this is not affecting the patient's oxygenation at this time Code Visit Inpatient E&M: 89917 Subs Hosp L2
[2017-12-14] MEDS: Atorvastatin Calcium 20 MG Tablet PO (21:21)
[2017-12-15] VITALS (10 sets, daily range): BP systolic 111–122; BP diastolic 43–72; PULSE 52–67; RESP 12–25; TEMP 36.4–36.7; O2SAT 96–100
--- NOTE | 2017-12-15 02:05 | CPS ---
DECREASED FIO2 TO 35%
[2017-12-15] MEDS: Levothyroxine 88 MCG Tablet PO (05:45)
[2017-12-15] MEDS: Budesonide Respules 0.5 MG/2 ML AMPUL.NEB. INHALATION (06:45)
[2017-12-15] MEDS: Albuterol 2.5 MG/3 ML VIAL.NEB. INHALATION ×2 (06:45→13:08)
[2017-12-15] MEDS: Tamsulosin HCl 0.4 MG Capsule PO (09:16)
[2017-12-15] MEDS: Amiodarone 200 MG Tablet PO (09:16)
[2017-12-15] MEDS: dilTIAZem CD 240 MG Capsule PO (09:16)
[2017-12-15] MEDS: Cyanocobalamin 500 MCG Tablet 1000 MCG PO (09:17)
[2017-12-15] MEDS: Furosemide 40 MG Tablet PO (09:17)
[2017-12-15] MEDS: Pantoprazole Sodium 40 MG Tablet PO (09:17)
[2017-12-15] MEDS: 0.9% NaCl Peripheral Flush Adult/Peds IV (09:18)
--- NOTE | 2017-12-15 11:00 | PCM.DC ---
- Discharge Diagnoses Current Active Problems: Current Active and Chronic Problems Anemia (Acute) Heart failure (Acute) SOB (shortness of breath) (Acute) You will use the following diet at home:: No restrictions Your food should be the consistency of: Regular Your liquids should be the consistency of: Regular/Thin Discharge Activity: Return to Normal Activity Weight Bearing Status: Full weight bearing Allergies/Adverse Reactions: Allergies Penicillins Allergy (Verified 12/12/17 19:31) Unknown Medications to take at Discharge Acetaminophen [Tylenol] 1,000 mg PO Q6H PRN PRN 12/12/17 Albuterol Aerosols [Ventolin Aerosols] 2.5 mg INHALATION Q4H PRN PRN 12/12/17 Amiodarone HCl 200 mg PO DAILY 12/12/17 Antiarthritic Combination No.2 [Glucosamine-Chondroitin] 2 tab PO DAILY 12/12/17 Budesonide/Formoterol 160/4.5 [Symbicort 160/4.5 Mcg Inhaler (SP)] 2 puff INHALATION BID 12/12/17 Cholecalciferol (Vitamin D3) [Vitamin D3] 2,000 unit PO DAILY 12/12/17 Cyanocobalamin (Vitamin B-12) [Vitamin B-12] 1,000 mcg PO DAILY 12/12/17 Diltiazem HCl [Cartia Xt] 240 mg PO DAILY 12/12/17 Levothyroxine Sodium [Synthroid] 88 mcg PO DAILY 12/12/17 Loratadine 10 mg PO DAILY PRN PRN 12/12/17 Magnesium 500 mg PO DAILY 12/12/17 Menthol/Lanolin/Calamine/Znox [Calmoseptine Ointment] 1 applic TOPICAL PRN PRN 12/12/17 Pantoprazole Sodium [Protonix] 40 mg PO DAILY 12/12/17 Potassium Chloride [K-Dur] 20 meq PO BID 12/12/17 Rosuvastatin Calcium [Crestor] 10 mg PO QHS 12/12/17 Tamsulosin HCl [Flomax] 0.4 mg PO DAILY 12/12/17 Docusate Sodium [Colace] 100 mg PO BID PRN 12/13/17 Magnesium Hydroxide [Milk Of Magnesia] 30 ml PO DAILY PRN PRN 12/13/17 Ferrous Gluconate 325 mg PO BIDCM #60 tab 12/15/17 Furosemide [Lasix] 40 mg PO BID@1000,1800 #60 tab 12/15/17 The following prescriptions were given: Furosemide [Lasix] 40 mg PO BID@1000,1800 #60 tab Ferrous Gluconate 325 mg PO BIDCM #60 tab Primary Care Physician: Ilya Diaz DO [Primary Care Provider] - Please follow up with your Primary Care Physician in: in two weeks Test Results: Test results from this visit will be discussed in further detail at your follow-up appointment, if applicable.
--- NOTE | 2017-12-15 11:27 | CASEMGMT ---
KAT called [facility] and spoke with Usha letting her know that patient will be returning today. KAT did fax d/c instructions to [facility]. SW awaiting PT/OT to see their evaluation of patient. Clare LÓPEZ MSW
--- NOTE | 2017-12-15 13:35 | CASEMGMT ---
Patient is ready for d/c back to [facility]. KAT called his daughter and POA and she asked SW to see if [facility] can transport patient. SW called [facility] and they can come and get patient in the next 10 minutes. SW let patient know and RN know. However, patient said his son is coming. SW called patient's son and he said he is coming in, but [facility] will transport him. Plan: d/c back to [facility] SHANIKA. Clare LÓPEZ MSW
--- NOTE | 2017-12-15 18:29 | PCM.DC.SUM ---
Discharge Date and Diagnosis Date of Admission: 12/12/17 Date of Discharge: 12/15/17 - Primary Discharge Diagnosis #1 acute on chronic diastolic congestive heart failure #2 acute on chronic hypoxic respiratory failure #3 chronic obstructive pulmonary disease #4 iron deficiency anemia requiring blood transfusion-chronic in nature #5 chronic left pleural effusion-probably secondary to diastolic congestive heart failure #6 chronic kidney disease stage III Hospital Course and Treatment Operations: None Procedures: 2-D Echocardiogram, Blood transfusion Summary of Care Provided: The patient is a 82 year old M who was seen in the emergency room at [facility] with a chief complaint of increased shortness of breath over 3 day period at home. Patient chronically uses 2 L of oxygen and BiPAP at assisted living, he complained of increased leg edema, no chills or fever or purulent sputum production. Patient was a poor historian concerning several aspects of his chronic medical condition, he had not been admitted to the hospital here for congestive heart failure but had a past history of a left pleural effusion for which he had undergone thoracentesis and he also had a history of atrial fibrillation and followed up with a hide buffer in [place]. Patient arrived by squad on a nonrebreather, he was placed on BiPAP with improvement of aeration in the emergency room. Chest x-ray showed evidence of congestive heart failure with bilateral pleural effusions, cardiac enzymes were normal, labs were remarkable for a low hemoglobin at 7.1, INR was subtherapeutic at 1.8, and creatinine was elevated at 1.42, BUN was 22. Patient was admitted to PCU, he was given IV Lasix, monitored on telemetry, and his pulse ox was monitored. Patient was transfused 2 units of packed red blood cells, labs were obtained which showed the patient to be severely iron deficient, his Coumadin was stopped due to concerns of bleeding. Patient improved with IV Lasix, his oxygen was weaned down to his outpatient level of 2 L, he was given several infusions of Venofer, I had discussions with the patient's daughter who was his POA, she agreed that his Coumadin should be held due to concerns that he might be having occult bleeding which would be hard to detect. Patient's stool Hemoccult was negative. Echocardiogram performed showed a normal ejection fraction with no evidence of valvular heart disease. On 12/15/17, patient was seen and examined and felt to be in stable condition for discharge home, he was to follow-up with his hide buffer concerning whether he should resume his Coumadin, he was also instructed to follow-up with his PCP in 2 weeks for repeat CBC and chest x-ray. Patient was discharged to assisted living on 12/15/17 Discharge Activity: Return to Normal Activity Weight Bearing Status: Full weight bearing Home Medications: Medications to take at Discharge Acetaminophen [Tylenol] 1,000 mg PO Q6H PRN PRN 12/12/17 Albuterol Aerosols [Ventolin Aerosols] 2.5 mg INHALATION Q4H PRN PRN 12/12/17 Amiodarone HCl 200 mg PO DAILY 12/12/17 Antiarthritic Combination No.2 [Glucosamine-Chondroitin] 2 tab PO DAILY 12/12/17 Budesonide/Formoterol 160/4.5 [Symbicort 160/4.5 Mcg Inhaler (SP)] 2 puff INHALATION BID 12/12/17 Cholecalciferol (Vitamin D3) [Vitamin D3] 2,000 unit PO DAILY 12/12/17 Cyanocobalamin (Vitamin B-12) [Vitamin B-12] 1,000 mcg PO DAILY 12/12/17 Diltiazem HCl [Cartia Xt] 240 mg PO DAILY 12/12/17 Levothyroxine Sodium [Synthroid] 88 mcg PO DAILY 12/12/17 Loratadine 10 mg PO DAILY PRN PRN 12/12/17 Magnesium 500 mg PO DAILY 12/12/17 Menthol/Lanolin/Calamine/Znox [Calmoseptine Ointment] 1 applic TOPICAL PRN PRN 12/12/17 Pantoprazole Sodium [Protonix] 40 mg PO DAILY 12/12/17 Potassium Chloride [K-Dur] 20 meq PO BID 12/12/17 Rosuvastatin Calcium [Crestor] 10 mg PO QHS 12/12/17 Tamsulosin HCl [Flomax] 0.4 mg PO DAILY 12/12/17 Docusate Sodium [Colace] 100 mg PO BID PRN 12/13/17 Magnesium Hydroxide [Milk Of Magnesia] 30 ml PO DAILY PRN PRN 12/13/17 Ferrous Gluconate 325 mg PO BIDCM #60 tab 12/15/17 Furosemide [Lasix] 40 mg PO BID@1000,1800 #60 tab 12/15/17 Following Prescrptions Were Given to Patient: Furosemide [Lasix] 40 mg PO BID@1000,1800 #60 tab Ferrous Gluconate 325 mg PO BIDCM #60 tab Primary Care Physician: Ilya Diaz DO [Primary Care Provider] - Please follow up with your Primary Care Physician in: in two weeks Disposition: Asstd Living/Non-Skill [facility] Minutes spent on discharge:: 32 Patient Condition:: Stable Medical Necessity - Tobacco Use Smoking Status: Former smoker Tobacco Use: Non-smoker Meaningful Use Info Meaningful Use Diagnoses (Choose all that apply): CHF - CHF CAROLYN/ARB ordered at discharge?: No Reason CAROLYN/ARB not ordered?: Allergy - Not indicated due to preserved EF Documented LVEF (%): 60 Code Visit Inpatient E&M: 79945 Disch Hosp
--- NOTE | 2017-12-15 18:35 | DS.PCM_ITS ---
Discharge Date and Diagnosis Date of Admission: 12/12/17 Date of Discharge: 12/15/17 - Primary Discharge Diagnosis #1 acute on chronic diastolic congestive heart failure #2 acute on chronic hypoxic respiratory failure #3 chronic obstructive pulmonary disease #4 iron deficiency anemia requiring blood transfusion-chronic in nature #5 chronic left pleural effusion-probably secondary to diastolic congestive heart failure #6 chronic kidney disease stage III Hospital Course and Treatment Operations: None Procedures: 2-D Echocardiogram, Blood transfusion Summary of Care Provided: The patient is a 82 year old M who was seen in the emergency room at [facility] with a chief complaint of increased shortness of breath over 3 day period at home. Patient chronically uses 2 L of oxygen and BiPAP at assisted living, he complained of increased leg edema, no chills or fever or purulent sputum production. Patient was a poor historian concerning several aspects of his chronic medical condition, he had not been admitted to the hospital here for congestive heart failure but had a past history of a left pleural effusion for which he had undergone thoracentesis and he also had a history of atrial fibrillation and followed up with a fire marshal in [place]. Patient arrived by squad on a nonrebreather, he was placed on BiPAP with improvement of aeration in the emergency room. Chest x-ray showed evidence of congestive heart failure with bilateral pleural effusions, cardiac enzymes were normal, labs were remarkable for a low hemoglobin at 7.1, INR was subtherapeutic at 1.8, and creatinine was elevated at 1.42, BUN was 22. Patient was admitted to PCU, he was given IV Lasix, monitored on telemetry, and his pulse ox was monitored. Patient was transfused 2 units of packed red blood cells, labs were obtained which showed the patient to be severely iron deficient , his Coumadin was stopped due to concerns of bleeding. Patient improved with IV Lasix, his oxygen was weaned down to his outpatient level of 2 L, he was given several infusions of Venofer, I had discussions with the patient's daughter who was his POA, she agreed that his Coumadin should be held due to concerns that he might be having occult bleeding which would be hard to detect. Patient's stool Hemoccult was negative. Echocardiogram performed showed a normal ejection fraction with no evidence of valvular heart disease. On 12/15/17 , patient was seen and examined and felt to be in stable condition for discharge home, he was to follow-up with his fire marshal concerning whether he should resume his Coumadin, he was also instructed to follow-up with his PCP in 2 weeks for repeat CBC and chest x-ray. Patient was discharged to assisted living on 12/15/17 Discharge Activity: Return to Normal Activity Weight Bearing Status: Full weight bearing Home Medications: Medications to take at Discharge Acetaminophen [Tylenol] 1,000 mg PO Q6H PRN PRN 12/12/17 Albuterol Aerosols [Ventolin Aerosols] 2.5 mg INHALATION Q4H PRN PRN 12/12/17 Amiodarone HCl 200 mg PO DAILY 12/12/17 Antiarthritic Combination No.2 [Glucosamine-Chondroitin] 2 tab PO DAILY Budesonide/Formoterol 160/4.5 [Symbicort 160/4.5 Mcg Inhaler (SP)] 2 puff INHALATION BID 12/12/17 Cholecalciferol (Vitamin D3) [Vitamin D3] 2,000 unit PO DAILY 12/12/17 Cyanocobalamin (Vitamin B-12) [Vitamin B-12] 1,000 mcg PO DAILY 12/12/17 Diltiazem HCl [Cartia Xt] 240 mg PO DAILY 12/12/17 Levothyroxine Sodium [Synthroid] 88 mcg PO DAILY 12/12/17 Loratadine 10 mg PO DAILY PRN PRN 12/12/17 Magnesium 500 mg PO DAILY 12/12/17 Menthol/Lanolin/Calamine/Znox [Calmoseptine Ointment] 1 applic TOPICAL PRN PRN 12/12/17 Pantoprazole Sodium [Protonix] 40 mg PO DAILY 12/12/17 Potassium Chloride [K-Dur] 20 meq PO BID 12/12/17 Rosuvastatin Calcium [Crestor] 10 mg PO QHS 12/12/17 Tamsulosin HCl [Flomax] 0.4 mg PO DAILY 12/12/17 Docusate Sodium [Colace] 100 mg PO BID PRN 12/13/17 Magnesium Hydroxide [Milk Of Magnesia] 30 ml PO DAILY PRN PRN 12/13/17 Ferrous Gluconate 325 mg PO BIDCM #60 tab 12/15/17 Furosemide [Lasix] 40 mg PO BID@1000,1800 #60 tab 12/15/17 Following Prescrptions Were Given to Patient: Furosemide [Lasix] 40 mg PO BID@1000,1800 #60 tab Ferrous Gluconate 325 mg PO BIDCM #60 tab Primary Care Physician: Ilya Diaz DO [Primary Care Provider] - Please follow up with your Primary Care Physician in: in two weeks Disposition: Asstd Living/Non-Skill [facility] Minutes spent on discharge:: 32 Patient Condition:: Stable Medical Necessity - Tobacco Use Smoking Status: Former smoker Tobacco Use: Non-smoker Meaningful Use Info Meaningful Use Diagnoses (Choose all that apply): CHF - CHF CAROLYN/ARB ordered at discharge?: No Reason CAROLYN/ARB not ordered?: Allergy - Not indicated due to preserved EF Documented LVEF (%): 60 Code Visit Inpatient E&M: 45257 Disch Hosp
== END 2017-12-15 14:06 | disposition home or self-care (01) | DRG 291 ==
LOC: ED 20:18 → PCU 22:05
PROVIDERS: Admitting Provider Internal Medicine; Emergency Provider Emergency Medicine; Family Provider Family Medicine; PCP Family Medicine; Visit Provider Internal Medicine
DX: I50.33 Acute on chronic diastolic (congestive) heart failure (principal); J96.21 Acute and chronic respiratory failure with hypoxia; J91.8 Pleural effusion in other conditions classified elsewhere; J44.9 Chronic obstructive pulmonary disease, unspecified; D50.9 Iron deficiency anemia, unspecified; N18.3 Chronic kidney disease, stage 3 (moderate); Z87.891 Personal history of nicotine dependence; Z79.01 Long term (current) use of anticoagulants; Z66 Do not resuscitate; G47.33 Obstructive sleep apnea (adult) (pediatric); Z99.81 Dependence on supplemental oxygen
CPT/HCPCS: 36415; 36416; 71045; 71046; 80048; 80061; 82274; 82607; 82746; 83540; 83550; 83880; 84443; 84484; 85014; 85018; 85025; 85027; 85045; 85610; 86850; 86900; 86920; 86922; 93005; 93306; 94002; 94003; 94640; 97162; 97165; 99285; J1756; J7040; P9040; Q9957; A4216; C8929; J1940

== ENCOUNTER → 2018-01-04 05:00 | Outpatient (REF) | payer MEDICARE, SELFPAY ==
[2018-01-04 10:43] LABS: Hematocrit 32.6 % (40-54); Hemoglobin 9.5 g/dl (13.0-16.5); Mean Corp Hgb Conc 29.1 g/gl (32-36); Mean Corpuscular Hgb 26.6 pg (27.0-32.0); Mean Corpuscular Volume 91.3 fL (80-94); Platelet Count 198 K/mm3 (150-450); RBC Distribution Width CV 16.4 % (11.6-14.6); RBC Distribution Width SD 52.7 fl (35.1-43.9); Red Blood Count 3.57 M/mm3 (4.6-6.2); White Blood Count 7.7 K/mm3 (4.4-11.0)
[2018-01-04 10:51] LABS: BUN 22 mg/dL (7-18); BUN/Creat Ratio 12.6 RATIO (10-20); Calcium,Total 8.6 mg/dL (8.5-10.1); Creatinine, Serum 1.74 mg/dL (0.70-1.30); EST Glomerular Filtration Rate 40 mL/min (>60); Est Glom Filt Rate - Afr Amer 48 mL/min (>60); Glucose 128 mg/dL (74-106)
[2018-01-04 10:52] LABS: Anion Gap 5 (5-15); Chloride 98 mmol/L (98-107); Potassium 4.1 mmol/L (3.5-5.1); Sodium Level 139 mmol/L (136-145)
[2018-01-04 10:54] LABS: Scan Indicated on CBC? Y/N NO
== END ==
DX: J81.0 Acute pulmonary edema (principal)
CPT/HCPCS: 36415; 80048; 85027

== ENCOUNTER → 2018-03-09 10:53 | Outpatient (CLI) | payer MEDICARE, SELFPAY ==
--- NOTE | 2018-03-09 10:58 | RAD_ITS ---
STUDY: X-RAY CHEST REASON FOR EXAM: Male, 83 years old. Pleural effusion COPD TECHNIQUE: PA and lateral views of the chest. COMPARISON: December 14, 2017 chest x-ray FINDINGS: Interstitial markings are diffusely prominent there is a blunted appearance of the right costophrenic angle. There is opacification of the left lower lobe similar to prior study. There is mild to moderate cardiac enlargement. Normal mediastinum and rabia. Normal visualized pulmonary arteries. There is atherosclerotic calcification of the aortic arch with tortuosity. There are diffuse degenerative changes of the visualized thoracic spine. Normal visualized ribs, clavicles, and shoulders. There is no demonstrated abnormality of the visualized soft tissue structures of the upper abdomen. RAD/Chest PA and Lateral IMPRESSION: Findings are suspicious for pulmonary edema bilateral effusions and atelectasis. Consider CHF. Findings are unchanged since prior study. Electronically Signed: Nicole Jordan MD at 19:59 EDT Tel , Service support ,
== END ==
PROVIDERS: Family Provider Family Medicine; PCP Family Medicine; Referring Provider Internal Medicine Pulmonary Disease; Visit Provider Internal Medicine Pulmonary Disease
DX: J90 Pleural effusion, not elsewhere classified (principal); J44.9 Chronic obstructive pulmonary disease, unspecified
CPT/HCPCS: 71046

== ENCOUNTER → 2018-05-25 11:44 | Outpatient (CLI) | payer MEDICARE, SELFPAY ==
--- NOTE | 2018-05-25 11:50 | RAD_ITS ---
STUDY: X-RAY CHEST REASON FOR EXAM: Male, 83 years old. Shortness of breath TECHNIQUE: 2 views COMPARISON: March 09, 2018 FINDINGS: There is a loculated left pleural effusion and pleural reaction in the right lung base. The heart is slightly enlarged. Mild central vascular congestion. Degenerative changes of the thoracic spine. Normal visualized ribs, clavicles, and shoulders. There is no demonstrated abnormality of the visualized soft tissue structures of the upper abdomen. RAD/Chest PA and Lateral IMPRESSION: Mild cardiomegaly. Mild central vascular congestion. A loculated left-sided pleural effusion. Pleural reactive changes in the right lung base. Electronically Signed: Larry Guthrie MD at 4:43 EST Tel , Service support ,
[2018-05-25 14:01] LABS: Anion Gap 6 (5-15); BUN 26 mg/dL (7-18); Calcium,Total 8.6 mg/dL (8.5-10.1); Chloride 102 mmol/L (98-107); Creatinine, Serum 1.86 mg/dL (0.70-1.30); EST Glomerular Filtration Rate 37 mL/min (>60); Est Glom Filt Rate - Afr Amer 45 mL/min (>60); Glucose 101 mg/dL (74-106); Potassium 4.4 mmol/L (3.5-5.1); Sodium Level 141 mmol/L (136-145)
[2018-05-25 14:24] LABS: BNP,B-Type NATRIURETIC PEPTIDE 131.8 pg/mL (0-100)
--- OUTSIDE RECORDS SUMMARY | 2018-08-26 21:15 | XMS RPT_ITS ---
:1935 Author Organization [place] Support Name Relationship Address Phone GAIL LLOYD Unavailable [address] + [place] [address] R Unavailable Unavailable Unavailable ALEXIS, DERICE Unavailable [address] + [place] [address] Roberta, Gail Unavailable [address] + [place] [address] R Unavailable Unavailable Unavailable ALEXIS, DERICE Unavailable [address] + [place] [address] Roberta, Gail Unavailable [address] + [place] [address] R Unavailable Unavailable Unavailable ALEXIS, DERICE Unavailable [address] + [place] [address] Roberta, Gail Unavailable [address] + [place] [address] R Unavailable Unavailable Unavailable ALEXIS, DERICE Unavailable [address] + [place] [address] ROBERTA, GAIL Unavailable [address] + [place] [address] R Unavailable Unavailable Unavailable ALEXIS, DERICE Unavailable [address] + [place] [address] KACARMENCITA, GAIL Unavailable [address] + [place] [address] R Unavailable Unavailable Unavailable ALEXIS, DERICE Unavailable [address] + [place] [address] ROBERTA, GAIL Unavailable [address] + [place] [address] R Unavailable Unavailable Unavailable ALEXIS, DERICE Unavailable [address] + [place] [address] Roberta, Gail Unavailable [address] + [place] [address] R Unavailable Unavailable Unavailable AlexisNora Unavailable [address] + [place] [address] Kacarmencita, Gail Unavailable [address] + [place] [address] R Unavailable Unavailable Unavailable Nora Espinoza Unavailable [address] + [place] [address] KACARMENCITA, GAIL Unavailable [address] + [place] [address] R Unavailable Unavailable Unavailable NORA ESPINOZA (POA) Unavailable [address] + [place] [address] CARMENCITA, GAIL Unavailable [address] + [place] [address] R Unavailable Unavailable Unavailable NORA ESPINOZA (POA) Unavailable [address] + [place] [address] [facility], GAIL Unavailable [address] + [place] [address] R Unavailable Unavailable Unavailable NORA ESPINOZA (POA) Unavailable [address] + [place] [address] ROBERTA, GAIL Unavailable [address] + [place] [address] R Unavailable Unavailable Unavailable NORA ESPINOZA (POA) Unavailable [address] + [place] [address] ROBERTA, GAIL Unavailable [address] + [place] [address] R Unavailable Unavailable Unavailable ALEXISNORA (POA) Unavailable [address] + [place] [address] Roberta, Gail Unavailable [address] + [place] [address] R Unavailable Unavailable Unavailable Nora Espinoza Unavailable [address] + [place] [address] Roberta, Gail Unavailable [address] + [place] [address] R Unavailable Unavailable Unavailable Alexis, Derice Unavailable [address] + [place] [address] HODAN RENE Unavailable Unavailable + HODAN RENE Unavailable Unavailable + ALEXIS DERICE Unavailable Unavailable + ALEXIS DERICE Unavailable Unavailable + KAUF, GAIL Unavailable [address] + [place] [address] R Unavailable Unavailable Unavailable ALEXIS, DERICE Unavailable [address] + [place] [address] KAUF, GAIL Unavailable [address] + [place] [address] R Unavailable Unavailable Unavailable ALEXIS, DERICE Unavailable [address] + [place] [address] KACARMENCITA, GAIL Unavailable [address] + [place] [address] R Unavailable Unavailable Unavailable ALEXIS DERICE Unavailable [address] + [place] [address] KACARMENCITA, GAIL Unavailable [address] + [place] [address] R Unavailable Unavailable Unavailable ALEXIS, DERICE Unavailable [address] + [place] [address] Care Team Providers Name Role Phone AFTAB NASH MD Attending Unavailable ILYA DIAZ DO Primary Care Unavailable Cassidy Leong Attending Unavailable Fish, Cassidy Referring Unavailable Giron, Quentin Primary Care Unavailable Giron, Quentin Attending Unavailable Giron, Quentin Primary Care Unavailable Giron, Quentin Attending Unavailable Giron, Quentin Primary Care Unavailable Giron, Quentin Attending Unavailable Giron, Quentin Attending Unavailable Mack, Quentin Attending Unavailable Cesar El Attending Unavailable Cesar El Referring Unavailable Mack, Quentin Primary Care Unavailable Cesar El Attending Unavailable Ilya Diaz Primary Care Unavailable MADDIE HUFFMAN Referring Unavailable Cesar El Attending Unavailable Cesar El Referring Unavailable Ilya Diaz Primary Care Unavailable Cesar El Attending Unavailable Cesar El Referring Unavailable Ilya Diaz Primary Care Unavailable Sibkary, Cesar Attending Unavailable Sibilia, Cesar Referring Unavailable Joe, Ilya Primary Care Unavailable Place, Joann Attending Unavailable Luray, Ilya Primary Care Unavailable Ashleigh, Lerbon Admitting Unavailable Tereletsky, Kt Attending Unavailable Ashleigh, Lebron Admitting Unavailable Luray, Ilya Primary Care Unavailable Ashleigh, Lebron Consulting Unavailable Shae Lucas Attending Unavailable Ashleigh, Lebron Admitting Unavailable Tereletsky, Kt Attending Unavailable Luray, Ilya Primary Care Unavailable Tereletsky, Kt Consulting Unavailable Ashleigh, Lebron Admitting Unavailable Tereletsky, Kt Attending Unavailable Joe, Ilya Primary Care Unavailable Tereletsky, Kt Consulting Unavailable Ashleigh, Lebron Admitting Unavailable Tereletsky, Kt Attending Unavailable Joe, Ilya Primary Care Unavailable Tereletsky, Kt Consulting Unavailable Place, Joann Attending Unavailable Isreal Massey Attending Unavailable Sibilia, Cesar Attending Unavailable Sibilia, Cesar Referring Unavailable Joe, Ilya Primary Care Unavailable PROBLEMS PROBLEMS DATE TYPE CONDITION / CODE ATTENDING STATUS SOURCE 06/29/2018 Unknown Z79.899 - Other long Quentin Giron Active [facility] term (current) drug Community therapy / Hospital Z79.899(ICD-10) Repository 06/03/2018 Unknown J90 - Pleural [facility] Giron Active [place] effusion, not Community elsewhere classified Hospital / J90(ICD-10) Repository 06/03/2018 Unknown G47.00 - Insomnia, Quentin Giron Active [facility] unspecified / Community G47.00(ICD-10) Hospital Repository 06/03/2018 Unknown E11.9 - 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 Community without Hospital complications / Repository E11.9(ICD-10) 02/18/2018 Unknown J81.0 - Acute Place, Active [facility] pulmonary edema / [facility] J81.0(ICD-10) Hospital Repository 12/22/2017 Unknown I50.21 - Acute [place], Active [place] systolic Kt [facility] (congestive) heart Hospital failure / Repository I50.21(ICD-10) 03/08/2018 Unknown 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, Active [facility] (current) use of [facility] anticoagulants / Hospital Z79.01(ICD-10) Repository PROCEDURES PROCEDURES No Procedure Records FoundRESULTS RESULTS CHEST PA AND LATERAL Observed: 06/29/2018 Status: F Source: [facility] Imaging Services [address] [place] [address] Chest PA and Lateral MR#: [id number] Acct: [id number] Name: HOMER FAY Rep #: [id number] : 1935 M 83 From: Romero Pena MD PCP: Quentin Giron MD Status: REG CLI Study: Chest PA and Lateral Date of Exam: 06/29/18 Exam# [id number] Ordering Dr: Cesar El MD STUDY: X-RAY CHEST REASON FOR EXAM: Male, 83 years old. Pleural effusion TECHNIQUE: PA and lateral chest COMPARISON: 05/25/2018 FINDINGS: Small right, moderate left layering pleural effusion, hazy to intermediately dense and for treatment and lower lungs bilaterally which may in part represent atelectasis. Underlying pneumonia is not excluded. Upper lungs clear. Mild pulmonary vascular prominence. Stable mild cardiomegaly. Nondilated aortic arch. No acute osseous or upper abdominal process. RAD/Chest PA and Lateral IMPRESSION: No significant interval change in the chest. Persistent moderate left and small right pleural effusions, bibasilar interstitial and airspace opacities likely atelectatic. There is mild cardiomegaly and mild pulmonary vascular prominence. Clinically clinically for any evidence of mild CHF. Given the persistence size and morphology of the effusions, consider loculated pleural effusions. A CT chest may be helpful in defining the morphology of the effusions and the basilar atelectasis. Electronically Signed: Romero Pena MD at 18:13 EST Tel , Service support , CC: Quentin Giron MD; Cesar El MD Corrugator Supervisor: Signed BASIC METABOLIC Collected: 06/28/2018 Status: F Source: [facility] PROFILE (BMP) 7:10 AM [facility] REPOSITORY TYPE CODE TESTS RESULT OUT OF RANGE REFERENCE UNITS LAB L501.0100 74-106 mg/dL Normal GLU 101 Result Comment: Fasting Glucose result from 100 to 125 mg/dL suggests IMPAIRED HOMEOSTASIS per A.D.A. criteria. Please note revised GLUCOSE reference range effective 2017. LAB L501.1000 7-18 mg/dL High BUN 31 LAB L501.1100 0.70-1.30 mg/dL High CREAT,SERUM 2.03 Result Comment: The validity of the calculated GFR AND GFRAA in patients over 70 years has not been determined. Clinical correlation is essential. LAB L501.1110 >60 mL/min Low EST GFR 33 Result Comment: Non- GFR Calc LAB L501.1115 >60 mL/min Low EST GFR - AA 40 Result Comment: GFR Calc LAB L501.1300 10-20 RATIO Normal BUN/CRE 15.3 LAB L501.2200 8.5-10.1 mg/dL Low CA 8.4 LAB L501.5300 136-145 mmol/L NA Normal 137 LAB L501.5600 3.5-5.1 mmol/L K Normal 3.7 LAB L501.5900 98-107 mmol/L CL Normal 99 LAB L501.6100 21.0-32.0 mmol/L High CO2 33.0 LAB L501.6200 5-15 Normal GAP 5 Performed By: #### L500.2500 #### [facility] [address] [place], [address] BASIC METABOLIC Collected: 06/21/2018 Status: F Source: [facility] PROFILE ([facility]) 6:25 AM [facility] REPOSITORY Order Comment: ROOM 112 TYPE CODE TESTS RESULT OUT OF RANGE REFERENCE UNITS LAB L501.0100 74-106 mg/dL Normal GLU 100 Result Comment: Fasting Glucose result from 100 to 125 mg/dL suggests IMPAIRED HOMEOSTASIS per A.D.A. criteria. Please note revised GLUCOSE reference range effective 2017. LAB L501.1000 7-18 mg/dL High BUN 30 LAB L501.1100 0.70-1.30 mg/dL High CREAT,SERUM 1.82 Result Comment: The validity of the calculated GFR AND GFRAA in patients over 70 years has not been determined. Clinical correlation is essential. LAB L501.1110 >60 mL/min Low EST GFR 38 Result Comment: Non- GFR Calc LAB L501.1115 >60 mL/min Low EST GFR - AA 46 Result Comment: GFR Calc LAB L501.1300 10-20 RATIO Normal BUN/CRE 16.5 LAB L501.2200 8.5-10.1 mg/dL Low CA 8.4 LAB L501.5300 136-145 mmol/L NA Normal 139 LAB L501.5600 3.5-5.1 mmol/L K Normal 4.3 LAB L501.5900 98-107 mmol/L CL Normal 102 LAB L501.6100 21.0-32.0 mmol/L Normal CO2 29.0 LAB L501.6200 5-15 Normal GAP 8 Performed By: #### L500.2500 #### [facility] [address] [place], [address] BASIC METABOLIC Collected: 06/18/2018 Status: F Source: [facility] PROFILE ([facility]) 1:45 PM [facility] REPOSITORY TYPE CODE TESTS RESULT OUT OF RANGE REFERENCE UNITS LAB L501.0100 74-106 mg/dL High GLU 161 Result Comment: Fasting Glucose result greater than or equal to 126 mg/dL suggests DIABETES MELLITUS per A.D.A. criteria. Please note revised GLUCOSE reference range effective 2017. LAB L501.1000 7-18 mg/dL High BUN 30 LAB L501.1100 0.70-1.30 mg/dL High CREAT,SERUM 1.90 Result Comment: The validity of the calculated GFR AND GFRAA in patients over 70 years has not been determined. Clinical correlation is essential. LAB L501.1110 >60 mL/min Low EST GFR 36 Result Comment: Non- GFR Calc LAB L501.1115 >60 mL/min Low EST GFR - AA 44 Result Comment: GFR Calc LAB L501.1300 10-20 RATIO Normal BUN/CRE 15.8 LAB L501.2200 8.5-10.1 mg/dL Low CA 8.4 LAB L501.5300 136-145 mmol/L NA Normal 141 LAB L501.5600 3.5-5.1 mmol/L K Normal 4.0 LAB L501.5900 98-107 mmol/L CL Normal 104 LAB L501.6100 21.0-32.0 mmol/L Normal CO2 29.0 LAB L501.6200 5-15 Normal GAP 8 Performed By: #### L500.2500 #### [facility] [address] [place], [place], [id number] BASIC METABOLIC Collected: 06/10/2018 Status: F Source: [facility] PROFILE (BMP) 11:38 AM [facility] REPOSITORY TYPE CODE TESTS RESULT OUT OF RANGE REFERENCE UNITS LAB L501.0100 74-106 mg/dL Normal GLU 90 Result Comment: Please note revised GLUCOSE reference range effective 2017. LAB L501.1000 7-18 mg/dL High BUN 29 LAB L501.1100 0.70-1.30 mg/dL High CREAT,SERUM 1.64 Result Comment: The validity of the calculated GFR AND GFRAA in patients over 70 years has not been determined. Clinical correlation is essential. LAB L501.1110 >60 mL/min Low EST GFR 43 Result Comment: Non- GFR Calc LAB L501.1115 >60 mL/min Low EST GFR - AA 52 Result Comment: GFR Calc LAB L501.1300 10-20 RATIO Normal BUN/CRE 17.7 LAB L501.2200 8.5-10.1 mg/dL Low CA 8.3 LAB L501.5300 136-145 mmol/L NA Normal 141 LAB L501.5600 3.5-5.1 mmol/L K Normal 4.4 LAB L501.5900 98-107 mmol/L CL Normal 100 LAB L501.6100 21.0-32.0 mmol/L Normal CO2 31.0 LAB L501.6200 5-15 Normal GAP 10 Performed By: #### L500.2500 #### [facility] [address] [place], [place], [address] CBC W/DIFF, AUTOMATED Collected: 06/03/2018 Status: F Source: [facility] 4:55 PM [facility] REPOSITORY TYPE CODE TESTS RESULT OUT OF RANGE REFERENCE UNITS LAB L100.1000 4.4-11.0 K/mm3 Normal WBC 7.1 LAB L100.1200 4.6-6.2 M/mm3 Low RBC 3.59 LAB L100.1300 13.0-16.5 g/dl Low HGB 9.3 LAB L100.1400 40-54 % Low HCT 31.2 LAB L100.1500 80-94 fL Normal MCV 86.9 LAB L100.1600 27.0-32.0 pg Low MCH 25.9 LAB L100.1700 32-36 g/gl Low MCHC 29.8 LAB L100.1810 11.6-14.6 % High RDW CV 16.4 LAB L100.1820 35.1-43.9 fl High RDW SD 52.5 LAB L100.1900 150-450 K/mm3 Normal PLT 263 LAB L100.2000 6.2-12.0 fl Normal MPV 11.7 LAB L100.2100 47-70 % Normal NEUT% 68.6 LAB L100.2200 19-41 % Low LY% 13.0 LAB L100.2300 0-10 % High MONO% 10.6 LAB L100.2400 0-5 % High EO% 7.1 LAB L100.2500 0-1 % Normal BASO% 0.4 LAB L100.2550 0.0-0.9 % Normal IM GRAN % 0.300 Result Comment: IG% - Immature Granulocytes (promyelocytes, myelocytes and metamyelocytes) > 1% indicates that a LEFT SHIFT is Present. LAB L100.2620 2.0-7.7 X10 3/uL Normal Absolute Neut 4.8 LAB L100.2720 0.83-4.51 X10 3/ul Normal Absolute Lymph 0.92 Performed By: #### L100.0100, L501.9985, L500.4050, L501.9520 #### [facility] [address] [place], [place], [id number] HEMOGLOBIN A1C Collected: 06/03/2018 Status: F Source: [facility] 4:55 PM [facility] REPOSITORY TYPE CODE TESTS RESULT OUT OF RANGE REFERENCE UNITS LAB L501.9985 4.2-6.3 % High HGB A1C 6.5 Performed By: #### L100.0100, L501.9985, L500.4050, L501.9520 #### [facility] [address] [place], [place], [id number] COMPREHENSIVE METABOLIC Collected: 06/03/2018 Status: F Source: [facility] [place] 4:55 PM [facility] REPOSITORY TYPE CODE TESTS RESULT OUT OF RANGE REFERENCE UNITS LAB L501.0100 74-106 mg/dL High GLU 123 Result Comment: Fasting Glucose result from 100 to 125 mg/dL suggests IMPAIRED HOMEOSTASIS per A.D.A. criteria. Please note revised GLUCOSE reference range effective 2017. LAB L501.1000 7-18 mg/dL High BUN 29 LAB L501.1100 0.70-1.30 mg/dL High CREAT,SERUM 2.14 Result Comment: The validity of the calculated GFR AND GFRAA in patients over 70 years has not been determined. Clinical correlation is essential. LAB L501.1110 >60 mL/min Low EST GFR 31 Result Comment: Non- GFR Calc LAB L501.1115 >60 mL/min Low EST GFR - AA 38 Result Comment: GFR Calc LAB L501.1300 10-20 RATIO Normal BUN/CRE 13.6 LAB L501.1500 6.4-8.2 g/dL T Normal PROT 7.8 LAB L501.1800 3.2-5.0 g/dL Normal ALB 3.2 LAB L501.1950 2.2-4.2 g/dL High GLOB 4.6 LAB L501.2000 0.9-2.4 RATIO Low A/G 0.7 LAB L501.2200 8.5-10.1 mg/dL Low CA 8.2 LAB L501.4100 15-37 U/L Normal AST 15 LAB L501.4305 45-117 U/L Normal ALK P 75 LAB L501.4405 16-61 U/L Normal ALT 16 LAB L501.4600 0.20-1.00 mg/dL T Normal BILI 0.20 LAB L501.5300 136-145 mmol/L NA Normal 138 LAB L501.5600 3.5-5.1 mmol/L K Normal 3.7 LAB L501.5900 98-107 mmol/L CL Normal 98 LAB L501.6100 21.0-32.0 mmol/L High CO2 33.0 LAB L501.6200 5-15 Normal GAP 7 Performed By: #### L100.0100, L501.9985, L500.4050, L501.9520 #### [facility] [address] [place], [address] THYROID STIM HORMONE Collected: 06/03/2018 Status: F Source: [facility] (TSH) 4:55 PM [facility] REPOSITORY TYPE CODE TESTS RESULT OUT OF RANGE REFERENCE UNITS LAB L501.9520 0.358-3.74 uIU/mL Normal TSH 3.24 Performed By: #### L100.0100, L501.9985, L500.4050, L501.9520 #### [facility] [address] [place], [address] BNP,B-TYPE NATRIURETIC Collected: 06/03/2018 Status: F Source: [facility] PEPTIDE 4:55 PM [facility] REPOSITORY TYPE CODE TESTS RESULT OUT OF RANGE REFERENCE UNITS LAB L503.6620 0-100 pg/mL Normal B-TYPE 91.8 ELIEZER PEP Performed By: #### L503.6620 #### [facility] [address] [facility] [place], [address] CRP, HIGH SENSITIVITY Collected: 06/03/2018 Status: F Source: [facility] CARDIAC 4:55 PM [facility] REPOSITORY TYPE CODE TESTS RESULT OUT OF RANGE REFERENCE UNITS LAB L501.6750 mg/L High CRP HIGH 14.00 SENS Result Comment: Low Relative Risk of CVD <1.0 mg/L Average Relative Risk of CVD 1.0 - 3.0 mg/L High Relative Risk of CVD >3.0 mg/L Performed By: #### L501.6750 #### [facility] [address], [address] BASIC METABOLIC Collected: 05/25/2018 Status: F Source: [facility] PROFILE (BMP) 11:52 AM [facility] REPOSITORY TYPE CODE TESTS RESULT OUT OF RANGE REFERENCE UNITS LAB L501.0100 74-106 mg/dL Normal GLU 101 Result Comment: Fasting Glucose result from 100 to 125 mg/dL suggests IMPAIRED HOMEOSTASIS per A.D.A. criteria. Please note revised GLUCOSE reference range effective 2017. LAB L501.1000 7-18 mg/dL High BUN 26 LAB L501.1100 0.70-1.30 mg/dL High CREAT,SERUM 1.86 Result Comment: The validity of the calculated GFR AND GFRAA in patients over 70 years has not been determined. Clinical correlation is essential. LAB L501.1110 >60 mL/min Low EST GFR 37 Result Comment: Non- GFR Calc LAB L501.1115 >60 mL/min Low EST GFR - AA 45 Result Comment: GFR Calc LAB L501.1300 10-20 RATIO Normal BUN/CRE 14.0 LAB L501.2200 8.5-10.1 mg/dL CA Normal 8.6 LAB L501.5300 136-145 mmol/L NA Normal 141 LAB L501.5600 3.5-5.1 mmol/L K Normal 4.4 LAB L501.5900 98-107 mmol/L CL Normal 102 LAB L501.6100 21.0-32.0 mmol/L High CO2 33.0 LAB L501.6200 5-15 Normal GAP 6 Performed By: #### L500.2500 #### [facility] [address] [facility] [place], [address] BNP,B-TYPE NATRIURETIC Collected: 05/25/2018 Status: F Source: [facility] [place] 11:52 AM [facility] REPOSITORY TYPE CODE TESTS RESULT OUT OF RANGE REFERENCE UNITS LAB L503.6620 0-100 pg/mL High B-TYPE 131.8 ELIEZER PEP Performed By: #### L503.6620 #### [facility] [address] [place], [address] CHEST PA AND LATERAL Observed: 05/25/2018 Status: F Source: [facility] 11:50 AM [facility] REPOSITORY [facility] Imaging Services [address] [place] [address] Chest PA and Lateral MR#: [id number] Acct: [id number] Name: HOMER FAY Rep #: [id number] : 1935 M 83 From: Lrary Guthrie MD PCP: Quentin Giron MD Status: REG CLI Study: Chest PA and Lateral Date of Exam: 05/25/18 Exam# [id number] Ordering Dr: Cassidy Leong [employer]ER CLEANER-Jacinto STUDY: X-RAY CHEST REASON FOR EXAM: Male, 83 years old. Shortness of breath TECHNIQUE: 2 views COMPARISON: 2018 FINDINGS: There is a loculated left pleural effusion and pleural reaction in the right lung base. The heart is slightly enlarged. Mild central vascular congestion. Degenerative changes of the thoracic spine. Normal visualized ribs, clavicles, and shoulders. There is no demonstrated abnormality of the visualized soft tissue structures of the upper abdomen. RAD/Chest PA and Lateral IMPRESSION: Mild cardiomegaly. Mild central vascular congestion. A loculated left-sided pleural effusion. Pleural reactive changes in the right lung base. Electronically Signed: Larry Guthrie MD at 4:43 EST Tel , Service support , CC: TRAVIS Leong; Quentin Giron MD Corrugator Supervisor: Signed CHEST PA AND LATERAL Observed: 2018 Status: F Source: [facility] 10:58 AM [facility] REPOSITORY [facility] Imaging Services [address] [place] [address] Chest PA and Lateral MR#: [id number] Acct: [id number] Name: Homer Fay Rep #: [id number] : 1935 M 83 From: Nicole Jordan MD PCP: Ilya Diaz DO Status: REG CLI Study: Chest PA and Lateral Date of Exam: 03/09/18 Exam# [id number] Ordering Dr: Cesar El MD STUDY: X-RAY CHEST REASON FOR EXAM: Male, 83 years old. Pleural effusion COPD TECHNIQUE: PA and lateral views of the chest. COMPARISON: December 14, 2017 chest x-ray FINDINGS: Interstitial markings are diffusely prominent there is a blunted appearance of the right costophrenic angle. There is opacification of the left lower lobe similar to prior study. There is mild to moderate cardiac enlargement. Normal mediastinum and rabia. Normal visualized pulmonary arteries. There is atherosclerotic calcification of the aortic arch with tortuosity. There are diffuse degenerative changes of the visualized thoracic spine. Normal visualized ribs, clavicles, and shoulders. There is no demonstrated abnormality of the visualized soft tissue structures of the upper abdomen. RAD/Chest PA and Lateral IMPRESSION: Findings are suspicious for pulmonary edema bilateral effusions and atelectasis. Consider CHF. Findings are unchanged since prior study. Electronically Signed: Nicole Jordan MD at 19:59 EDT Tel , Service support , CC: Ilya Diaz DO; Cesar El MD Corrugator Supervisor: Signed BASIC METABOLIC Collected: 01/04/2018 Status: F Source: [facility] PROFILE (BMP) 10:00 AM [facility] REPOSITORY Order Comment: 112 TYPE CODE TESTS RESULT OUT OF RANGE REFERENCE UNITS LAB L501.0100 74-106 mg/dL High GLU 128 Result Comment: Fasting Glucose result greater than or equal to 126 mg/dL suggests DIABETES MELLITUS per A.D.A. criteria. Please note revised GLUCOSE reference range effective 2017. LAB L501.1000 7-18 mg/dL High BUN 22 LAB L501.1100 0.70-1.30 mg/dL High CREAT,SERUM 1.74 Result Comment: The validity of the calculated GFR AND GFRAA in patients over 70 years has not been determined. Clinical correlation is essential. LAB L501.1110 >60 mL/min Low EST GFR 40 Result Comment: Non- GFR Calc LAB L501.1115 >60 mL/min Low EST GFR - AA 48 Result Comment: GFR Calc LAB L501.1300 10-20 RATIO Normal BUN/CRE 12.6 LAB L501.2200 8.5-10.1 mg/dL CA Normal 8.6 LAB L501.5300 136-145 mmol/L NA Normal 139 LAB L501.5600 3.5-5.1 mmol/L K Normal 4.1 LAB L501.5900 98-107 mmol/L CL Normal 98 LAB L501.6100 21.0-32.0 mmol/L High CO2 36.0 LAB L501.6200 5-15 Normal GAP 5 Performed By: #### L500.2500 #### [facility] [address] [place], [address] CBC-COMPLETE BLOOD CNT Collected: 01/04/2018 Status: F Source: [facility] NO DIFF 10:00 AM [facility] REPOSITORY Order Comment: 112 TYPE CODE TESTS RESULT OUT OF RANGE REFERENCE UNITS LAB L100.1000 4.4-11.0 K/mm3 Normal WBC 7.7 LAB L100.1200 4.6-6.2 M/mm3 Low RBC 3.57 LAB L100.1300 13.0-16.5 g/dl Low HGB 9.5 LAB L100.1400 40-54 % Low HCT 32.6 LAB L100.1500 80-94 fL Normal MCV 91.3 LAB L100.1600 27.0-32.0 pg Low MCH 26.6 LAB L100.1700 32-36 g/gl Low MCHC 29.1 LAB L100.1810 11.6-14.6 % High RDW CV 16.4 LAB L100.1820 35.1-43.9 fl High RDW SD 52.7 LAB L100.1900 150-450 K/mm3 Normal PLT 198 LAB L100.2000 6.2-12.0 fl Normal MPV 12.0 Performed By: #### L100.0500 #### [facility] [address] [place], [address] DISCHARGE SUMMARY Observed: 12/15/2017 Status: F Source: [place] 6:43 PM [facility] REPOSITORY [facility] Medical Records Department [address] [place] [address] Discharge Summary 12/15/17 1829 MR#: [id number] Acct: [id number] Name: HOMER FAY Rep #: [id number] : 1935 82 From: Kt Cunningham DO PCP: Ilya Diaz DO Status: DIS IN Y Location: U [id number] Discharge Date and Diagnosis Date of Admission: 12/12/17 Date of Discharge: 12/15/17 - Primary Discharge Diagnosis #1 acute on chronic diastolic congestive heart failure #2 acute on chronic hypoxic respiratory failure #3 chronic obstructive pulmonary disease #4 iron deficiency anemia requiring blood transfusion-chronic in nature #5 chronic left pleural effusion-probably secondary to diastolic congestive heart failure #6 chronic kidney disease stage III Hospital Course and Treatment Operations: None Procedures: 2-D Echocardiogram, Blood transfusion Summary of Care Provided: The patient is a 82 year old M who was seen in the emergency room at [facility] with a chief complaint of increased shortness of breath over 3 day period at home. Patient chronically uses 2 L of oxygen and BiPAP at assisted living, he complained of increased leg edema, no chills or fever or purulent sputum production. Patient was a poor historian concerning several aspects of his chronic medical condition, he had not been admitted to the hospital here for congestive heart failure but had a past history of a left pleural effusion for which he had undergone thoracentesis and he also had a history of atrial fibrillation and followed up with a student life vice president in [place]. Patient arrived by squad on a nonrebreather, he was placed on BiPAP with improvement of aeration in the emergency room. Chest x-ray showed evidence of congestive heart failure with bilateral pleural effusions, cardiac enzymes were normal, labs were remarkable for a low hemoglobin at 7.1, INR was subtherapeutic at 1.8, and creatinine was elevated at 1.42, BUN was 22. Patient was admitted to PCU, he was given IV Lasix, monitored on telemetry, and his pulse ox was monitored. Patient was transfused 2 units of packed red blood cells, labs were obtained which showed the patient to be severely iron deficient, his Coumadin was stopped due to concerns of bleeding. Patient improved with IV Lasix, his oxygen was weaned down to his outpatient level of 2 L, he was given several infusions of Venofer, I had discussions with the patient's daughter who was his POA, she agreed that his Coumadin should be held due to concerns that he might be having occult bleeding which would be hard to detect. Patient's stool Hemoccult was negative. Echocardiogram performed showed a normal ejection fraction with no evidence of valvular heart disease. On 12/15/17, patient was seen and examined and felt to be in stable condition for discharge home, he was to follow-up with his student life vice president concerning whether he should resume his Coumadin, he was also instructed to follow-up with his PCP in 2 weeks for repeat CBC and chest x-ray. Patient was discharged to assisted living on 12/15/17 Discharge Activity: Return to Normal Activity Weight Bearing Status: Full weight bearing Home Medications: Medications to take at Discharge Acetaminophen [Tylenol] 1,000 mg PO Q6H PRN PRN 12/12/17 Albuterol Aerosols [Ventolin Aerosols] 2.5 mg INHALATION Q4H PRN PRN 12/12/17 Amiodarone HCl 200 mg PO DAILY 12/12/17 Antiarthritic Combination No.2 [Glucosamine-Chondroitin] 2 tab PO DAILY 12/12/17 Budesonide/Formoterol 160/4.5 [Symbicort 160/4.5 Mcg Inhaler (SP)] 2 puff INHALATION BID 12/12/17 Cholecalciferol (Vitamin D3) [Vitamin D3] 2,000 unit PO DAILY 12/12/17 Cyanocobalamin (Vitamin B-12) [Vitamin B-12] 1,000 mcg PO DAILY 12/12/17 Diltiazem HCl [Cartia Xt] 240 mg PO DAILY 12/12/17 Levothyroxine Sodium [Synthroid] 88 mcg PO DAILY 12/12/17 Loratadine 10 mg PO DAILY PRN PRN 12/12/17 Magnesium 500 mg PO DAILY 12/12/17 Menthol/Lanolin/Calamine/Znox [Calmoseptine Ointment] 1 applic TOPICAL PRN PRN 12/12/17 Pantoprazole Sodium [Protonix] 40 mg PO DAILY 12/12/17 Potassium Chloride [K-Dur] 20 meq PO BID 12/12/17 Rosuvastatin Calcium [Crestor] 10 mg PO QHS 12/12/17 Tamsulosin HCl [Flomax] 0.4 mg PO DAILY 12/12/17 Docusate Sodium [Colace] 100 mg PO BID PRN 12/13/17 Magnesium Hydroxide [Milk Of Magnesia] 30 ml PO DAILY PRN PRN 12/13/17 Ferrous Gluconate 325 mg PO BIDCM #60 tab 12/15/17 Furosemide [Lasix] 40 mg PO BID@1000,1800 #60 tab 12/15/17 Following Prescrptions Were Given to Patient: Furosemide [Lasix] 40 mg PO BID@1000,1800 #60 tab Ferrous Gluconate 325 mg PO BIDCM #60 tab Primary Care Physician: Ilya Diaz DO [Primary Care Provider] - Please follow up with your Primary Care Physician in: in two weeks Disposition: Asstd Living/Non-Skill NH Minutes spent on discharge:: 32 Patient Condition:: Stable Medical Necessity - Tobacco Use Smoking Status: Former smoker Tobacco Use: Non-smoker Meaningful Use Info Meaningful Use Diagnoses (Choose all that apply): CHF - CHF CAROLYN/ARB ordered at discharge?: No Reason CAROLYN/ARB not ordered?: Allergy - Not indicated due to preserved EF Documented LVEF (%): 60 Code Visit Inpatient E AND M: [id number] Disch Hosp 12/15/17 1843 <Electronically signed by Kt Cunningham DO> Date Kt Cunningham DO Cosigner Signature (if applicable): Date CC: Ilya Diaz DO; Kt Cunningham DO Signed DISCHARGE INSTRUCTION Observed: 12/15/2017 Status: F Source: [place] 11:02 AM [facility] REPOSITORY [facility] Medical Records Department [address] [place] [address] Instructions for Home/Discharge Instructions 12/15/17 1100 MR#: [id number] Acct: [id number] Name: HOMER FAY Rep #: [id number] : 1935 82 From: Kt Cunningham DO PCP: Ilya Diaz DO Status: ADM IN - Discharge Diagnoses Current Active Problems: Current Active and Chronic Problems Anemia (Acute) Heart failure (Acute) SOB (shortness of breath) (Acute) You will use the following diet at home:: No restrictions Your food should be the consistency of: Regular Your liquids should be the consistency of: Regular/Thin Discharge Activity: Return to Normal Activity Weight Bearing Status: Full weight bearing Allergies/Adverse Reactions: Allergies Penicillins Allergy (Verified 12/12/17 19:31) Unknown Medications to take at Discharge Acetaminophen [Tylenol] 1,000 mg PO Q6H PRN PRN 12/12/17 Albuterol Aerosols [Ventolin Aerosols] 2.5 mg INHALATION Q4H PRN PRN 12/12/17 Amiodarone HCl 200 mg PO DAILY 12/12/17 Antiarthritic Combination No.2 [Glucosamine-Chondroitin] 2 tab PO DAILY 12/12/17 Budesonide/Formoterol 160/4.5 [Symbicort 160/4.5 Mcg Inhaler (SP)] 2 puff INHALATION BID 12/12/17 Cholecalciferol (Vitamin D3) [Vitamin D3] 2,000 unit PO DAILY 12/12/17 Cyanocobalamin (Vitamin B-12) [Vitamin B-12] 1,000 mcg PO DAILY 12/12/17 Diltiazem HCl [Cartia Xt] 240 mg PO DAILY 12/12/17 Levothyroxine Sodium [Synthroid] 88 mcg PO DAILY 12/12/17 Loratadine 10 mg PO DAILY PRN PRN 12/12/17 Magnesium 500 mg PO DAILY 12/12/17 Menthol/Lanolin/Calamine/Znox [Calmoseptine Ointment] 1 applic TOPICAL PRN PRN 12/12/17 Pantoprazole Sodium [Protonix] 40 mg PO DAILY 12/12/17 Potassium Chloride [K-Dur] 20 meq PO BID 12/12/17 Rosuvastatin Calcium [Crestor] 10 mg PO QHS 12/12/17 Tamsulosin HCl [Flomax] 0.4 mg PO DAILY 12/12/17 Docusate Sodium [Colace] 100 mg PO BID PRN 12/13/17 Magnesium Hydroxide [Milk Of Magnesia] 30 ml PO DAILY PRN PRN 12/13/17 Ferrous Gluconate 325 mg PO BIDCM #60 tab 12/15/17 Furosemide [Lasix] 40 mg PO BID@1000,1800 #60 tab 12/15/17 The following prescriptions were given: Furosemide [Lasix] 40 mg PO BID@1000,1800 #60 tab Ferrous Gluconate 325 mg PO BIDCM #60 tab Primary Care Physician: Ilya Diaz DO [Primary Care Provider] - Please follow up with your Primary Care Physician in: in two weeks Test Results: Test results from this visit will be discussed in further detail at your follow-up appointment, if applicable. 12/15/17 1102 <Electronically signed by Kt Cunningham DO> Date Kt Cunningham DO CC: Ilya Diaz DO ECHO, COMPLETE W/ Observed: 12/14/2017 Status: F Source: [place] CONTRAST 4:32 PM [facility] REPOSITORY [facility] Cardiovascular Services [address] [place] [address] Echo Complete W/ Contrast 12/14/17 1439 MR#: [id number] Acct: [id number] Name: HOMER FAY Rep #: [id number] : 1935 82 From: Isreal Massey MD Attending Dr: Kt Cunningham DO Status: ADM IN Ordering Dr: Lebron Sotelo MD Date: 12/13/17 Location: [facility] Sex: M C Admitted: 12/12/17 Reason For Study: CHF Procedure This was a 2D Doppler, Color Flow transthoracic echocardiogram. The study was technically difficult. Contrast injection was performed. Exam performed portable in patient room. Left Ventricle Normal LV size. Left ventricular systolic function is normal. The estimated ejection fraction is 60 %. Transmitral diastolic flow velocities suggest mild (stage 1) diastolic dysfunction (reversed pattern). No regional wall motion abnormalities noted. Right Ventricle Normal RV size. Atria The left atrium is moderately enlarged. Normal right atrium. Mitral Valve Normal mitral valve. Tricuspid Valve The tricuspid valve is not well visualized. Aortic Valve Normal aortic valve. Pericardium/Pleural No pericardial effusion. Medication Diluted definity 5ml given slow IV push to enhance endocardial definition. MMode/2D Measurements AND Calculations LVIDd: 4.1 cm IVSd: 1.6 cm Ao root diam: 3.2 cm LVIDs: 2.6 cm LVPWd: 1.1 cm FS: 36.1 % LAV(MOD-sp4): 91.1 ml LA A4 area: 29.6 cm2 Time Measurements MV dec time: 0.56 sec Doppler Measurements AND Calculations MV E max sami: 110.1 cm/sec Lat Peak E' Sami: 6.3 cm/sec Med Peak E' Sami: 4.5 cm/sec MV A max sami: 128.3 cm/sec E/E' lat: 17.6 E/E' med: 24.4 MV E/A: 0.86 MV V2 max: 151.2 cm/sec MV P1/2t max sami: 140.6 cm/sec Ao V2 max: 183.9 cm/sec MV max P.1 mmHg MV P1/2t: 137.1 msec Ao max P.5 mmHg MV V2 mean: 77.8 cm/sec MV dec slope: 300.3 cm/sec2 Ao V2 mean: 120.1 cm/sec MV mean P.9 mmHg MVA(P1/2t): 1.6 cm2 Ao mean P.6 mmHg MV V2 VTI: 65.9 cm Ao V2 VTI: 38.4 cm LV V1 max: 112.1 cm/sec PA V2 max: 116.5 cm/sec LV V1 max P.0 mmHg LV V1 mean P.6 mmHg LV V1 mean: 73.3 cm/sec LV V1 VTI: 27.0 cm Interpretation Summary Normal LV size. Left ventricular systolic function is normal. The estimated ejection fraction is 60 %. Transmitral diastolic flow velocities suggest mild (stage 1) diastolic dysfunction (reversed pattern). Contrast injection was performed. Ordering Physician: Lebron Sotelo Referring Physician: Ilya iDaz Performed By: Aaron Vieira RCS 12/14/17 1631 Date Isreal Massey MD CC: Ilya Diaz DO; Kt Cunningham DO; Lebron Sotelo MD Date Dictated: 12/14/17 1439 Date Transcribed: 12/14/171630 Corrugator Supervisor: Signed 12 LEAD ELECTROCARDIOGRAM Observed: 12/14/2017 Status: F Source: [place] 3:13 PM [facility] REPOSITORY [facility] Cardiovascular Services [address] [place] [id number] 12 Lead EKG 12/12/171943 MR#: [id number] Acct: [id number] Name: HOMER FAY Rep #: [id number] : 1935 82 From: Isreal Massey MD Attending Dr: Kt Cunningham DO Status: ADM IN Ordering Dr: Herb Tracy MD Date: 12/12/17 Location: [facility] Sex: M C Admitted: 12/12/17 Test Reason : Blood Pressure : / mmHG Vent. Rate : 064 BPM Atrial Rate : 064 BPM P-R Int : 170 ms QRS Dur : 088 ms QT Int : 450 ms P-R-T Axes : 018 016 015 degrees QTc Int : 464 ms Normal sinus rhythm Low voltage QRS Septal infarct , age undetermined Abnormal ECG Confirmed by ISREAL MASSEY MD ([id number]), editorial manager PENELOPE PRESTON ([id number]) on 12/14/2017 3:12:32 PM Referred By: ROSALBA Confirmed By:ISREAL MASSEY MD 12/14/17 1512 Date Isreal Massey MD CC: Ilya Diaz DO; Kt Cunningham DO; Herb Tracy MD Signed BASIC METABOLIC Collected: 12/14/2017 Status: F Source: [place] PROFILE ([facility]) 6:15 AM [facility] REPOSITORY TYPE CODE TESTS RESULT OUT OF RANGE REFERENCE UNITS LAB L501.0100 74-106 mg/dL Normal GLU 99 Result Comment: Please note revised GLUCOSE reference range effective 2017. LAB L501.1000 7-18 mg/dL High BUN 24 LAB L501.1100 0.70-1.30 mg/dL High CREAT,SERUM 1.65 Result Comment: The validity of the calculated GFR AND GFRAA in patients over 70 years has not been determined. Clinical correlation is essential. LAB L501.1110 >60 mL/min Low EST GFR 43 Result Comment: Non- GFR Calc LAB L501.1115 >60 mL/min Low EST GFR - AA 51 Result Comment: GFR Calc LAB L501.1255 ml/min Normal Estimated CRCL 29.51 LAB L501.1300 10-20 RATIO Normal BUN/CRE 14.5 LAB L501.2200 8.5-10 mg/dL Low .1 CA 8.3 LAB L501.5300 136-14 mmol/L Normal 5 NA 141 LAB L501.5600 3.5-5. mmol/L Normal 1 K 3.6 LAB L501.5900 98-107 mmol/L Normal CL 98 LAB L501.6100 21.0-3 mmol/L High 2.0 CO2 34.0 LAB L501.6200 5-15 Normal GAP 9 Performed By: #### L500.2500 #### [facility] [address] [place], [address] HH, HEMOGLOBIN AND Collected: 12/14/2017 Status: F Source: [place] HEMATOCRIT 6:15 AM [facility] REPOSITORY TYPE CODE TESTS RESULT OUT OF RANGE REFERENCE UNITS LAB L100.1300 13.0-16.5 g/dl Low HGB 9.5 LAB L100.1400 40-54 % Low HCT 29.6 Performed By: #### L100.0600 #### [facility] [address] [place], [address] CHEST PA AND LATERAL Observed: 12/14/2017 Status: F Source: [place] 12:00 AM [facility] REPOSITORY [facility] Imaging Services [address] [facility] [place] [address] Chest PA and Lateral MR#: [id number] Acct: [id number] Name: HOMER FAY Rep #: [id number] : 1935 M 82 From: Miguel Woods MD PCP: Ilya Diaz DO Status: ADM IN Study: Chest PA and Lateral Date of Exam: 12/14/17 Exam# [id number] Ordering Dr: Kt Cunningham DO STUDY: X-RAY CHEST REASON FOR EXAM: Male, 82 years old. Congestive heart failure. TECHNIQUE: AP and lateral views of the chest. COMPARISON: Comparison is made with prior study dated December 13, 2012. FINDINGS: EKG electrodes are seen. Stable left pleural effusion with underlying left basilar atelectasis and/or infiltration. Blunting of the right costophrenic angle. Stable atelectasis at the right lung base as well as in the right upper lobe. The vascular congestion has improved. Normal size heart. Normal mediastinum and rabia. Normal visualized pulmonary arteries. There is atherosclerotic tortuosity of the aortic arch and descending thoracic aorta. There are diffuse degenerative changes of the visualized thoracic spine. Normal visualized ribs, clavicles, and shoulders. There is no demonstrated abnormality of the visualized soft tissue structures of the upper abdomen. RAD/Chest PA and Lateral IMPRESSION: Since prior study, there has been improvement of the vascular congestion. Residual bilateral pleural effusions with bibasilar atelectasis and/or infiltrates persist worse on the left side. Stable infiltrate in the right upper lobe. Electronically Signed: Miguel Woods MD at 9:49 EDT Tel [phone], Service support , CC: Ilya Diaz DO; Kt Cunningham DO Corrugator Supervisor: Signed HEMOGLOBIN Collected: 12/13/2017 Status: F Source: [place] 11:22 PM [facility] REPOSITORY TYPE CODE TESTS RESULT OUT OF RANGE REFERENCE UNITS LAB L100.1300 13.0-16.5 g/dl Low HGB 9.2 Performed By: #### L100.1300, L100.1400 #### [facility] [address] [place], [place], [id number] HEMATOCRIT Collected: 12/13/2017 Status: F Source: [place] 11:22 PM [facility] REPOSITORY TYPE CODE TESTS RESULT OUT OF RANGE REFERENCE UNITS LAB L100.1400 40-54 % Low HCT 29.7 Performed By: #### L100.1300, L100.1400 #### [facility] [address] [place], [place], [phone] ([phone]) HEMOGLOBIN Collected: 12/13/2017 Status: F Source: [place] 5:58 PM [facility] REPOSITORY TYPE CODE TESTS RESULT OUT OF RANGE REFERENCE UNITS LAB L100.1300 13.0-16.5 g/dl Low HGB 9.3 Performed By: #### L100.1300, L100.1400 #### [facility] [address] [place], [address] HEMATOCRIT Collected: 12/13/2017 Status: F Source: [place] 5:58 PM [facility] REPOSITORY TYPE CODE TESTS RESULT OUT OF RANGE REFERENCE UNITS LAB L100.1400 40-54 % Low HCT 30.4 Performed By: #### L100.1300, L100.1400 #### [facility] [address] [place], [address] Observed: 12/13/2017 Status: F Source: [place] STOOL OCCULT BLOOD 1:00 PM [facility] IFOB REPOSITORY STOB iFOB Occult Blood Negative Performed By: #### M100.7900 #### [facility] [address] [place], [address] TYPE AND SCREEN Collected: 12/13/2017 Status: F Source: [place] 5:44 AM [facility] REPOSITORY Order Comment: CMV NEG? N Number of units to transfuse: 2 Reason for Ordering Blood: Acute Are the blood/blood products to be transfused? Y Is the patient having/had surgery? N Give When? When Ready Irradiated? N Leukodepleted? Y TYPE CODE TESTS RESULT OUT OF RANGE REFERENCE UNITS LAB B10.0800 A Normal BLOOD TYPE GEL POSITIVE LAB B100.4000 Normal Antibody NEGATIVE Screen Performed By: #### B101.7450 #### [facility] [place], [address] RC Collected: 12/13/2017 Status: F Source: [place] 5:44 AM [facility] REPOSITORY TYPE CODE TESTS RESULT OUT OF REFERENCE UNITS RANGE LAB U100.0000 [id number] TRANSFUSED PRODUCT: T AND S with Crossmatch, Red Cells COUNT: 2 Performed By: #### U100.0000 #### Non-[facility] - refer to report for specific site HISTORY AND PHYSICAL Observed: 12/13/2017 Status: F Source: [place] EXAM 4:59 AM [facility] REPOSITORY [facility] Medical Records Department [address] [place] [address] History and Physical 12/12/17 2152 MR#: [id number] Acct: [id number] Name: HOMER FAY Kiana Rep #: [id number] : 1935 82 From: Lebron Sotelo MD PCP: Ilya Diaz DO Status: ADM IN Y Location: [place] [address] Problem List (1) Anemia Status: Acute (2) Heart failure Status: Acute (3) SOB (shortness of breath) Status: Acute (4) CAD (coronary artery disease) Status: Acute (5) FRANK (acute kidney injury) Status: Acute History of Present Illness Date of Admission: 12/12/17 Chief Complaint: Hypoxic respiratory failure The patient is a 82 year old male w/ h/o CAD, afib, HTN, lipidemia and COPD admitted for SOB. He has been SOB for the past few days. SOB has worsened in the last 24 hours. No cough associated with SOB. SOB is constant and severe. No chest pain. No other symptoms. He also noted increase swelling in the legs. Past Medical History Allergies Penicillins Allergy (Verified 12/12/17 19:31) Unknown Home Medications: Ambulatory Orders Medication Instructions Recorded Acetaminophen [Tylenol Extra 1,000 mg PO Q6H PRN PRN 12/12/17 Strength] Albuterol Aerosols [Ventolin 2.5 mg INHALATION Q4H PRN PRN 12/12/17 Lives: Spouse/ Significant Other Smoking Status: Former smoker Alcohol: None Drugs: None Review of Systems Constitutional: Denies: Chills, Fever, Weight Change HEENT: Denies: Head Aches, Sinus Congestion, Sinus Drainage Cardiovascular: Denies: Chest Pain, Palpitations Respiratory: Denies: Cough, Shortness of breath at rest, Sputum production Gastrointestinal: Denies: Abdominal Pain, Nausea, Vomiting Genitourinary: Denies: Dysuria Musculoskeletal: Denies: Joint Pain, Joint Tenderness Skin: Denies: Rash, Wounds Neurological: Denies: Numbness, Tingling, Focal weakness Psychiatric: Denies: Anxiety, Depression, Homicidal Ideations, Suicidal Ideations Hematologic/ Lymphatic: Denies: Easy Bruising, Easy Bleeding VTE Information - Inpt Only VTE Present on Admission: No VTE Mechan Device Prophylaxis: SCD's VTE Pharm Prophylaxis ordered?: Yes Patient Problems: Active and Suspected Problems Anemia (Acute) Heart failure (Acute) SOB (shortness of breath) (Acute) CAD (coronary artery disease) (Acute) FRANK (acute kidney injury) (Acute) - Physical Exam General: Alert, Oriented x3 HEENT: Atraumatic, PERRLA, EOMI, Normocephalic Neck: Supple, No JVD, Negative Carotid Bruits Lungs: Short of Breath, Wheezes Cardiovascular: Regular rate, No murmurs Abdomen: Bowel Sounds Present, Soft, Non Tender Extremities: No edema, Capillary Refill Less than 3 Seconds Skin: No rashes, No breakdown Musculoskeletal: No Tenderness to Palpation of Joints or Extremities Neurological: Cranial nerves II-XII grossly intact Psych/Mental Status: Normal Affect, Appropriate Vital Signs Temp Pulse Resp BP Pulse Ox 98.4 F 63 33 H 144/53 H 100 12/12/17 19:29 12/12/17 21:06 12/12/17 21:06 12/12/17 21:06 12/12/17 21:06 Oxygen Delivery Method Bi-pap Weight: 87.6 kg Body Mass Index (BMI) 33.1 Laboratory Tests Past 24 Hrs WBC 7.4 RBC 3.11 L Hgb 8.1 L Hct 26.5 L WBC RBC Hgb Hct MCV MCH MCHC RDW RDW Differential Plt Count MPV Immature Gran % (Auto) Neut % (Auto) Lymph % (Auto) Chaves % (Auto) Assessment/Plan All Active Problems Anemia (Acute) Heart failure (Acute) SOB (shortness of breath) (Acute) CAD (coronary artery disease) (Acute) FRANK (acute kidney injury) (Acute) 82 year old male w/ h/o CAD, afib, HTN, lipidemia and COPD admitted for SOB. 1) Acute systolic heart failure: Chest xray disclosed pleural effusion and edema. 2+ edema in the lower extremity. Will start lasix IV. Will also get ECHO. Serial trops. Monitor. 2) Acute normocytic anemia: H and H trending down. Will repeat H and H. Monitor. 3) Acute hypoxic respiratory: C/w BIPAP. Diuresis. Monitor. 12/13/17 0459 <Electronically signed by Lebron Sotelo MD> Date Lebron Sotelo MD Cosigner Signature: Date (if applicable) CC: Ilya Diaz DO; Lebron Sotelo MD Signed CBC W/DIFF, AUTOMATED Collected: 12/13/2017 Status: F Source: [place] 4:55 AM [facility] REPOSITORY TYPE CODE TESTS RESULT OUT OF RANGE REFERENCE UNITS LAB L100.1000 4.4-11.0 K/mm3 Normal WBC 7.7 LAB L100.1200 4.6-6.2 M/mm3 Low RBC 2.64 LAB L100.1300 13.0-16.5 g/dl Low HGB 6.8 LAB L100.1400 40-54 % Low HCT 23.0 LAB L100.1500 80-94 fL Normal MCV 87.1 LAB L100.1600 27.0-32.0 pg Low MCH 25.8 LAB L100.1700 32-36 g/gl Low MCHC 29.6 LAB L100.1810 11.6-14.6 % High RDW CV 15.0 LAB L100.1820 35.1-43.9 fl High RDW SD 46.1 LAB L100.1900 150-450 K/mm3 Normal PLT 231 LAB L100.2000 6.2-12.0 fl High MPV 12.6 LAB L100.2100 47-70 % High NEUT% 75.6 LAB L100.2200 19-41 % Low LY% 8.3 LAB L100.2300 0-10 % High MONO% 12.8 LAB L100.2400 0-5 % Normal EO% 2.7 LAB L100.2500 0-1 % Normal BASO% 0.5 LAB L100.2550 0.0-0.9 % Normal IM GRAN % 0.100 Result Comment: IG% - Immature Granulocytes (promyelocytes, myelocytes and metamyelocytes) > 1% indicates that a LEFT SHIFT is Present. LAB L100.2620 2.0-7.7 X10 3/uL Normal Absolute Neut 5.8 LAB L100.2720 0.83-4.51 X10 3/ul Low Absolute Lymph 0.64 Performed By: #### L100.0100, L100.9950 #### [facility] [address] [place], [place], [id number] RETIC PANEL Collected: 12/13/2017 Status: F Source: [place] 4:55 AM [facility] REPOSITORY TYPE CODE TESTS RESULT OUT OF RANGE REFERENCE UNITS LAB L101.0000 0.5-1.5 % High RETIC 2.15 LAB L101.0060 3.00-15.90 % High IM RET FRACTION 20.70 LAB L101.0090 30-35 pg Low RET-HE 24.7 LAB L101.0110 1.0-7.9 % Normal IPF 6.0 Result Comment: Low PLT + Low IPF suggest a bone marrow production disorder Low PLT + high IPF suggests peripheral destruction (e.g.ITP, TTP, HIT, DIC, autoimmune) or bone marrow recovery Trending of serial IPF measurements is recommended when evaluating for bone marrow respones Value above normal range indicates an increase in RBC cellular response from bone marrow. Performed By: #### L100.0100, L100.9950 #### [facility] Laboratory [address] [facility]. [place], [place], [address] IRON+IRON BINDING Collected: 12/13/2017 Status: F Source: [facility] CAPACITY 4:55 AM [facility] REPOSITORY TYPE CODE TESTS RESULT OUT OF RANGE REFERENCE UNITS LAB L503.6075 250-450 ug/dL TIBC Normal 274 LAB L503.6150 65-175 ug/dL Low IRON 15 LAB L503.6250 15.0-55.0 % Low IRON SATURATION 5.5 Performed By: #### L503.6030, L506.0250 #### [facility] [address] [facility]. [place], [place], [address] FOLATES, (FOLIC ACID) Collected: 12/13/2017 Status: F Source: [facility] 4:55 AM [facility] REPOSITORY TYPE CODE TESTS RESULT OUT OF RANGE REFERENCE UNITS LAB L506.0250 3.1-55.4 ng/mL Normal FOLATES 17.00 Performed By: #### L503.6030, L506.0250 #### [facility] [address] [facility] [place], [address] VITAMIN B12 Collected: 12/13/2017 Status: F Source: [place] 4:55 AM [facility] REPOSITORY TYPE CODE TESTS RESULT OUT OF RANGE REFERENCE UNITS LAB L503.0105 211-911 pg/mL Normal Vitamin B12 649 Performed By: #### L503.0105 #### [facility] [address] [facility] [place], [address] BASIC METABOLIC Collected: 12/13/2017 Status: F Source: [place] PROFILE (BMP) 2:05 AM [facility] REPOSITORY TYPE CODE TESTS RESULT OUT OF RANGE REFERENCE UNITS LAB L501.0100 74-106 mg/dL Normal GLU 104 Result Comment: Fasting Glucose result from 100 to 125 mg/dL suggests IMPAIRED HOMEOSTASIS per A.D.A. criteria. Please note revised GLUCOSE reference range effective 2017. LAB L501.1000 7-18 mg/dL High BUN 22 LAB L501.1100 0.70-1.30 mg/dL High CREAT,SERUM 1.42 Result Comment: The validity of the calculated GFR AND GFRAA in patients over 70 years has not been determined. Clinical correlation is essential. LAB L501.1110 >60 mL/min Low EST GFR 51 Result Comment: Non- GFR Calc LAB L501.1115 >60 mL/min Normal EST GFR - AA 61 Result Comment: GFR Calc LAB L501.1255 ml/min Normal Estimated CRCL 34.29 LAB L501.1300 10-20 RATIO Normal BUN/CRE 15.5 LAB L501.2200 8.5-10 mg/dL Low .1 CA 7.9 LAB L501.5300 136-14 mmol/L Normal 5 NA 140 LAB L501.5600 3.5-5. mmol/L Normal 1 K 4.0 LAB L501.5900 98-107 mmol/L Normal CL 103 LAB L501.6100 21.0-3 mmol/L Normal 2.0 CO2 30.0 LAB L501.6200 5-15 Normal GAP 7 Performed By: #### L501.9520, L500.2500, L500.4100 #### [facility] [address] [place], [address] LIPID PROFILE Collected: 12/13/2017 Status: F Source: [place] 2:05 AM [facility] REPOSITORY TYPE CODE TESTS RESULT OUT OF RANGE REFERENCE UNITS LAB L501.4900 200 mg/dL Normal CHOL 112 Result Comment: <200 mg/dL Desirable 200-240 mg/dL Borderline >240 mg/dL High Risk LAB L501.5000 mg/dL Normal TRIG 47 Result Comment: The drugs N-Acetylcysteine and Metamizole may falsely depress this assay. Serum Triglycerides Reference Interval Normal <150 mg/dL Borderline high 150 - 199 mg/dL High 200 - 499 mg/dL Very High > or = 500 mg/dL LAB L501.6400 mg/dL Normal HDL 71 Result Comment: The drugs N-Acetylcysteine and Metamizole may falsely depress this assay. Reference Range HDL <40 mg/dL Low HDL Cholesterol HDL >or= 60 mg/dL High HDL Cholesterol LAB L501.6500 0-130 mg/dL Normal LDL 32 LAB L501.6600 5-40 mg/dL Normal VLDL 9 Performed By: #### L501.9520, L500.2500, L500.4100 #### [facility] [address] [facility] [place], [address] CBC-COMPLETE BLOOD CNT Collected: 12/13/2017 Status: F Source: [place] NO DIFF 2:05 AM [facility] REPOSITORY TYPE CODE TESTS RESULT OUT OF RANGE REFERENCE UNITS LAB L100.1000 4.4-11.0 K/mm3 Normal WBC 7.9 LAB L100.1200 4.6-6.2 M/mm3 Low RBC 2.74 LAB L100.1300 13.0-16.5 g/dl Low HGB 7.1 LAB L100.1400 40-54 % Low HCT 23.3 LAB L100.1500 80-94 fL Normal MCV 85.0 LAB L100.1600 27.0-32.0 pg Low MCH 25.9 LAB L100.1700 32-36 g/gl Low MCHC 30.5 LAB L100.1810 11.6-14.6 % High RDW CV 15.5 LAB L100.1820 35.1-43.9 fl High RDW SD 48.6 LAB L100.1900 150-450 K/mm3 Normal PLT 239 LAB L100.2000 6.2-12.0 fl Normal MPV 11.0 Performed By: #### L100.0500 #### [facility] [address] [place], [place], [address] PROTHROMBIN TIME W/INR Collected: 12/13/2017 Status: F Source: [place] 2:05 AM [facility] REPOSITORY TYPE CODE TESTS RESULT OUT OF RANGE REFERENCE UNITS LAB L300.4150 11.7-14.9 SECONDS High PROTIME 21.3 LAB L300.4200 Normal INR 1.8 Performed By: #### L300.3900 #### [facility] [address] [place], [address] TROPONIN-I Collected: 12/13/2017 Status: F Source: [place] 2:05 AM [facility] REPOSITORY Order Comment: 'TROP' Serial specimen #1, #2 or #3: 3 TYPE CODE TESTS RESULT OUT OF RANGE REFERENCE UNITS LAB L501.4010 <0.045 ng/mL Normal < 0.015 TROPONIN-I Result Comment: TROPONIN-I EXPECTED VALUES <0.045 Negative 0.045 - 0.590 Consistent with Cardiac Damage > OR = 0.600 Critical Value Not every elevated troponin is indicative of IN. These values should be used with clinical judgement in examining the patient's clinical picture for diagnosis. To establish a diagnosis of IN versus myocardial injury, there must be a demonstrated rise and/or fall in the troponin values, in addition to ischemic symptoms, EKG changes, new regional wall motion abnormality, and/or angiographical evidence. PLEASE NOTE: REFERENCE RANGES EDITED 17 Performed By: #### L501.4010 #### [facility] [address] [place], [address] BNP,B-TYPE NATRIURETIC Collected: 12/13/2017 Status: F Source: [place] PEPTIDE 2:05 AM [facility] REPOSITORY TYPE CODE TESTS RESULT OUT OF RANGE REFERENCE UNITS LAB L503.6620 0-100 pg/mL High B-TYPE 275.6 [place]ER PEP Performed By: #### L503.6620 #### [facility] [address] [place], [address] CHEST PA AND LATERAL Observed: 12/13/2017 Status: F Source: [place] 12:00 AM [facility] REPOSITORY [facility] Imaging Services [address] [place] [address] Chest PA and Lateral MR#: [id number] Acct: [id number] Name: HOMER FAY Kiana Rep #: [id number] : 1935 M 82 From: Guille Hsu DO PCP: Ilya Diaz DO Status: ADM IN Study: Chest PA and Lateral Date of Exam: 12/13/17 Exam# [id number] Ordering Dr: Lebron Sotelo MD STUDY: X-RAY CHEST REASON FOR EXAM: Male, 82 years old. Respiratory failure, CHF TECHNIQUE: Frontal and lateral views COMPARISON: December 12, 2017 FINDINGS: The lungs are expanded. Bilateral pleural effusion, left lung and right similar to the previous study. Right upper lobe and basilar infiltrate similar to previous study. Left base infiltrate cannot be excluded. Stable cardiomegaly and slight central pulmonary vascular prominence. Normal mediastinum and rabia. Normal visualized aortic arch and descending thoracic aorta. Degenerative changes of the thoracic spine. Normal visualized ribs, clavicles, and shoulders. There is no demonstrated abnormality of the visualized soft tissue structures of the upper abdomen. RAD/Chest PA and Lateral IMPRESSION: Stable bilateral pleural effusion, left more than right. Stable infiltrate is noted. Stable cardiomegaly and central pulmonary vascular prominence. Electronically Signed: Guille Hsu DO at 9:27 EDT Tel [phone], Service support , CC: Ilya Diaz DO; Lebron Sotelo MD Corrugator Supervisor: Signed TROPONIN-I Collected: 12/12/2017 Status: F Source: [place] 11:27 PM [facility] REPOSITORY Order Comment: 'TROP' Serial specimen #1, #2 or #3: 2 TYPE CODE TESTS RESULT OUT OF RANGE REFERENCE UNITS LAB L501.4010 <0.045 ng/mL Normal < 0.015 TROPONIN-I Result Comment: TROPONIN-I EXPECTED VALUES <0.045 Negative 0.045 - 0.590 Consistent with Cardiac Damage > OR = 0.600 Critical Value Not every elevated troponin is indicative of IN. These values should be used with clinical judgement in examining the patient's clinical picture for diagnosis. To establish a diagnosis of IN versus myocardial injury, there must be a demonstrated rise and/or fall in the troponin values, in addition to ischemic symptoms, EKG changes, new regional wall motion abnormality, and/or angiographical evidence. PLEASE NOTE: REFERENCE RANGES EDITED 17 Performed By: #### L501.4010 #### [facility] [address] [place], [address] EMERGENCY DEPARTMENT Observed: 12/12/2017 Status: F Source: [facility] SUMMARY 9:21 PM [facility] REPOSITORY [facility] Medical Records Department [address] [place] [address] Emergency Department Summary 12/12/17 2030 MR#: [id number] Acct: [id number] Name: HOMER FAY Rep #: [id number] : 1935 82 From: Herb Tracy MD PCP: Ilya Diaz DO Status: REG ER - ER Visit Summary Date of Service: 12/12/17 Chief Complaint: Shortness of breath History of Present Illness: The patient is a 82 M 3 of CHF and COPD who is on 2 L of oxygen chronically and BiPAP at night presented with increasing dyspnea. Over the past 3 days, the patient has worsening dyspnea. He denies cough. He denies chest pain. He does admit increased leg swelling. He is also been constipated without any bowel movements over the past 3 days. He states that tonight, he does feel like he cannot comfortable. The patient was hypoxic with saturations in the low 80s on his 3 L. He has not had fever chills. He denies any other symptoms. Physical Examination: Vital signs reviewed General: Well-nourished, well-developed Head: Normocephalic, atraumatic Eyes: Pupils equal and reactive, extraocular muscles intact Neck, supple, no lymphadenopathy Heart: Regular rate and rhythm Respiratory: No distress, crackles in the bases bilaterally Abdomen: Soft, nontender, nondistended, no peritoneal signs Back: Nontender Extremities: Nontender, 1+ symmetric edema, no cords Skin: Normal color no rash Neuro: Alert and oriented, no focal or lateralizing deficits Test Results: [] Emergency Department Course and Treatment: The patient was on a nonrebreather on arrival. He was placed on BiPAP with improvement of his aeration. His chest x-ray does show evidence of volume overload. The patient does have anemia, and I have no old to compare to. He has no evidence of GI bleeding. EKG shows no acute ischemic change. Cardiac enzymes are normal. With the patient's hypoxia, evidence of volume overload, pleural effusions, dyspnea I do feel that he will benefit from admission for diuresis. He is started on IV Lasix. He did have nitro placed on his chest. The patient was also given an enema for his constipation. He was discussed with the hospitalist will be admitted at this time. Treatment Plan: [] Disposition: Admission Impression: 1. Acute dyspnea 2. Exacerbation of CHF 3. Bilateral pleural effusions This note was generated with [employer] software. It may contain incorrect words, spelling, and punctuation that were not noted in review of the chart prior to signing ED Disposition - Plan for ED Patient: Chief Complaint: Shortness of Breath Referrals: Ilya Diaz, DO [Primary Care Provider] - What to do if you have Problems For any increased pain, shortness of breath, bleeding, nausea or vomiting, chest pain, or any unexpected problems, contact your Primary Care Provider. Call [facility] ([phone]) or report to the closest Emergency Room. Call 911 if necessary. 12/12/172120 <Electronically signed by Herb Tracy MD> Date Herb Tracy MD Cosigner Signature (If Indicated): Date CC: Ilya Diaz DO CBC W/DIFF, AUTOMATED Collected: 12/12/2017 Status: F Source: [facility] 7:40 PM [facility] REPOSITORY TYPE CODE TESTS RESULT OUT OF RANGE REFERENCE UNITS LAB L100.1000 4.4-11.0 K/mm3 Normal WBC 7.4 LAB L100.1200 4.6-6.2 M/mm3 Low RBC 3.11 LAB L100.1300 13.0-16.5 g/dl Low HGB 8.1 LAB L100.1400 40-54 % Low HCT 26.5 LAB L100.1500 80-94 fL Normal MCV 85.2 LAB L100.1600 27.0-32.0 pg Low MCH 26.0 LAB L100.1700 32-36 g/gl Low MCHC 30.6 LAB L100.1810 11.6-14.6 % High RDW CV 15.6 LAB L100.1820 35.1-43.9 fl High RDW SD 48.5 LAB L100.1900 150-450 K/mm3 Normal PLT 263 LAB L100.2000 6.2-12.0 fl Normal MPV 11.9 LAB L100.2100 47-70 % High NEUT% 84.5 LAB L100.2200 19-41 % Low LY% 4.5 LAB L100.2300 0-10 % High MONO% 10.2 LAB L100.2400 0-5 % Normal EO% 0.4 LAB L100.2500 0-1 % Normal BASO% 0.3 LAB L100.2550 0.0-0.9 % Normal IM GRAN % 0.100 Result Comment: IG% - Immature Granulocytes (promyelocytes, myelocytes and metamyelocytes) > 1% indicates that a LEFT SHIFT is Present. LAB L100.2620 2.0-7.7 X10 3/uL Normal Absolute Neut 6.2 LAB L100.2720 0.83-4.51 X10 3/ul Low Absolute Lymph 0.33 LAB L100.4500 Normal SMEAR COMMENT SCANNED Result Comment: LYMPHOPENIA NOTED Performed By: #### L100.0100 #### [facility] [address] [facility]. [place], [place], [address] PROTHROMBIN TIME W/INR Collected: 12/12/2017 Status: F Source: [place] 7:40 PM [facility] REPOSITORY TYPE CODE TESTS RESULT OUT OF RANGE REFERENCE UNITS LAB L300.4150 11.7-14.9 SECONDS High PROTIME 20.4 LAB L300.4200 Normal INR 1.7 Performed By: #### L300.3900 #### [facility] [address] [place], [place], [address] BASIC METABOLIC Collected: 12/12/2017 Status: F Source: [place] PROFILE (BMP) 7:40 PM [facility] REPOSITORY TYPE CODE TESTS RESULT OUT OF RANGE REFERENCE UNITS LAB L501.0100 74-106 mg/dL High GLU 168 Result Comment: Fasting Glucose result greater than or equal to 126 mg/dL suggests DIABETES MELLITUS per A.D.A. criteria. Please note revised GLUCOSE reference range effective 2017. LAB L501.1000 7-18 mg/dL High BUN 25 LAB L501.1100 0.70-1.30 mg/dL High CREAT,SERUM 1.59 Result Comment: The validity of the calculated GFR AND GFRAA in patients over 70 years has not been determined. Clinical correlation is essential. LAB L501.1110 >60 mL/min Low EST GFR 44 Result Comment: Non- GFR Calc LAB L501.1115 >60 mL/min Low EST GFR - AA 54 Result Comment: GFR Calc LAB L501.1255 ml/min Normal Estimated CRCL 29.48 LAB L501.1300 10-20 RATIO Normal BUN/CRE 15.7 LAB L501.2200 8.5-10 mg/dL Low .1 CA 8.2 LAB L501.5300 136-14 mmol/L Normal 5 NA 140 LAB L501.5600 3.5-5. mmol/L Normal 1 K 4.7 Result Comment: Moderate Hemolysis, Result may be falsely increased. LAB L501.5900 98-107 mmol/L Normal CL 104 LAB L501.6100 21.0-32.0 mmol/L Normal CO2 30.0 LAB L501.6200 5-15 Normal 6 GAP Performed By: #### L500.2500, L501.4010 #### [facility] [address] [place], [address] TROPONIN-I Collected: 12/12/2017 Status: F Source: [facility] 7:40 PM [facility] REPOSITORY TYPE CODE TESTS RESULT OUT OF RANGE REFERENCE UNITS LAB L501.4010 <0.045 ng/mL Normal < 0.015 TROPONIN-I Result Comment: TROPONIN-I EXPECTED VALUES <0.045 Negative 0.045 - 0.590 Consistent with Cardiac Damage > OR = 0.600 Critical Value Not every elevated troponin is indicative of IN. These values should be used with clinical judgement in examining the patient's clinical picture for diagnosis. To establish a diagnosis of IN versus myocardial injury, there must be a demonstrated rise and/or fall in the troponin values, in addition to ischemic symptoms, EKG changes, new regional wall motion abnormality, and/or angiographical evidence. PLEASE NOTE: REFERENCE RANGES EDITED 17 Performed By: #### L500.2500, L501.4010 #### [facility] [address] [place], [address] BNP,B-TYPE NATRIURETIC Collected: 12/12/2017 Status: F Source: [facility] PEPTIDE 7:40 PM [facility] REPOSITORY TYPE CODE TESTS RESULT OUT OF RANGE REFERENCE UNITS LAB L503.6620 0-100 pg/mL High B-TYPE 267.5 ELIEZER PEP Performed By: #### L503.6620 #### [facility] [address] [place], [address] THYROID STIM HORMONE Collected: 12/12/2017 Status: F Source: [place] (TSH) 7:40 PM [facility] REPOSITORY TYPE CODE TESTS RESULT OUT OF RANGE REFERENCE UNITS LAB L501.9520 0.358-3.74 uIU/mL Normal TSH 0.66 Performed By: #### L501.9520, L500.2500, L500.4100 #### [facility] [address] [place], [address] CHEST 1 VIEW Observed: 12/12/2017 Status: F Source: [place] (PORTABLE) 7:31 PM [facility] REPOSITORY [facility] Imaging Services [address] [place] [address] Chest 1 View (Portable) MR#: [id number] Acct: [id number] Name: HOMER FAY Rep #: [id number] : 1935 M 82 From: Deni Alvares MD PCP: Ilya Diaz DO Status: REG ER Study: Chest 1 View (Portable) Date of Exam: 12/12/17 Exam# [id number] Ordering Dr: Herb Tracy MD STUDY: X-RAY CHEST REASON FOR EXAM: Male, 82 years old. Chest pain TECHNIQUE: Shortness of breath COMPARISON: 08/05/2017 FINDINGS: There is airspace opacity noted throughout the right lung and in the left lower lobe. This may be due to infection or edema. Clinical correlation is recommended. There is a small right pleural effusion and moderate left pleural effusion. There is no pneumothorax. The heart is enlarged, but stable The visualized osseous structures are within normal limits. RAD/Chest 1 View (Portable) IMPRESSION: Airspace opacity noted throughout the right lung and in the left lower lobe. This may be due to infection or edema and clinical correlation is recommended. Small right pleural effusion and moderate left pleural effusion. Electronically Signed: Deni Alvares, at 19:56 EDT Tel , Service support , CC: Ilya Diaz DO; Herb Tracy MD Corrugator Supervisor: Signed PROTIME W/INR Collected: 12/10/2017 Status: F Source: [place] FINGERSTICK 7:10 AM [facility] REPOSITORY TYPE CODE TESTS RESULT OUT OF REFERENCE UNITS RANGE LAB L9200.1001 11.9-14.4 SEC High PROTIME ISTAT 23.2 Result Comment: Reference Range 11.9 - 14.4 LAB L9200.2000 Normal INR ISTAT 2.00 Result Comment: Critical Value > 3.5 Performed By: #### L9200.0000 #### [facility] Point of Care [address] [place] [address] XR SHOULDER MINIMUM 2 Observed: 10/15/2017 Status: F Source: [facility] VIEWS RIGHT 6:18 AM [facility] REPOSITORY ORIGINAL XR SHOULDER MINIMUM 2 VIEWS RIGHT CLINICAL STATEMENT: RIGHT shoulder pain. COMPARISON: None FINDINGS: No fracture or dislocation is identified. There is moderate acromioclavicular joint degenerative change. The included thoracic structures are normal. IMPRESSION: No acute fracture or dislocation. Acromioclavicular joint degenerative change. Interpreted By: Herb Majano MD Preliminary Report By: Herb Majano MD Electronically Signed By: Herb Majano MD Dictated Date: 10/15/2017 6:32:27 AM Prelim Date: 10/15/2017 6:32:27 AM Sign Date: 10/15/2017 6:34:01 AM XR ANKLE MINIMUM 3 Observed: 10/15/2017 Status: F Source: [facility] VIEWS RIGHT 6:18 AM [facility] REPOSITORY ORIGINAL XR ANKLE MINIMUM 3 VIEWS RIGHT CLINICAL STATEMENT: RIGHT ankle pain. COMPARISON: None FINDINGS: No acute fracture or dislocation is identified. The ankle mortise and talar dome are normal. The joint spaces are maintained. There is no radiopaque foreign body. There is soft tissue swelling. IMPRESSION: No acute fracture or dislocation. Interpreted By: Herb Majano MD Preliminary Report By: Herb Majano MD Electronically Signed By: Herb Majano MD Dictated Date: 10/15/2017 6:34:11 AM Prelim Date: 10/15/2017 6:34:11 AM Sign Date: 10/15/2017 6:37:59 AM ALBUMIN, SERUM Collected: 08/21/2017 Status: F Source: [place] 4:44 PM [facility] REPOSITORY Order Comment: Serial Specimen #1, #2 or #3? 1 TYPE CODE TESTS RESULT OUT OF RANGE REFERENCE UNITS LAB L501.1800 3.2-5.0 g/dL Normal ALB 3.4 Performed By: #### L501.1800, L504.2610 #### [facility] [address] [place], [address] LDH Collected: 08/21/2017 Status: F Source: [place] 4:44 PM [facility] REPOSITORY Order Comment: Serial Specimen #1, #2 or #3? 1 TYPE CODE TESTS RESULT OUT OF RANGE REFERENCE UNITS LAB L504.2610 87-241 U/L Normal LDH 146 Performed By: #### L501.1800, L504.2610 #### [facility] [address] [place], [address] BNP,B-TYPE NATRIURETIC Collected: 08/21/2017 Status: F Source: [place] PEPTIDE 4:44 PM [facility] REPOSITORY TYPE CODE TESTS RESULT OUT OF RANGE REFERENCE UNITS LAB L503.6620 0-100 pg/mL Normal B-TYPE 77.9 ELIEZER PEP Performed By: #### L503.6620 #### [facility] [address] [place], [address] PROTEIN, BODY FLUID Collected: 08/05/2017 Status: F Source: [facility] 11:50 AM [facility] REPOSITORY Order Comment: Specimen Source: PL TYPE CODE TESTS RESULT OUT OF RANGE REFERENCE UNITS LAB L503.0300 Not Establ. g/dL Normal 4.7 PROTEIN,BF Performed By: #### L503.0300, L504.0250 #### [facility] [address] [place], [address] LDH,BODY FLUID Collected: 08/05/2017 Status: F Source: [facility] [place] 11:50 AM [facility] REPOSITORY Order Comment: Specimen Source: PL TYPE CODE TESTS RESULT OUT OF RANGE REFERENCE UNITS LAB L504.0250 Not Establ. Units/l Normal LDH,BF 115 Performed By: #### L503.0300, L504.0250 #### [facility] [address] [place], [address] OPERATIVE REPORT Observed: 08/05/2017 Status: F Source: [facility] 11:12 AM [facility] REPOSITORY [facility] Medical Records Department [address] [place] [address] Operative Report 08/05/17 1108 MR#: [id number] Acct: [id number] Name: HOMER FAY Rep #: [id number] : 1935 82 From: Cesar El MD PCP: Ilya Diaz DO Status: REG CLI Y Location: US Operative Report Procedures ultrasound-guided thoracentesis The indication: Pleural effusion Physician: Cesar El MD Procedure: After addressing the risks and benefits of the procedure including but not limited to pneumothorax, bleeding, infection, dyspnea, chest pain the patient was placed in the sitting position with his arms on a tray table and an ultrasound was utilized to evaluate the left and right chest. The right chest showed about 3 ounces of fluid with a left chest showed about 600 cc of fluid. That area of the left chest is marked prepped draped in a sterile manner using sterile drapes gowns gloves. A safety needle with 1% lidocaine is advanced over the rib border and 2 cc of straw-colored fluid was removed The safety needle then is advanced over the rib border after a small incision is made and the catheter was advanced 6 cm while the needle is withdrawn and 1050 cc of miguel a colored fluid is removed The patient tolerated the procedure well, residual pain after the procedure is noted in the left inferior chest. Chest x-ray is yet pending The fluid was sent for cytology LDH and protein, the most likely scenario is congestive heart failure. 08/05/17 1112 <Electronically signed by Cesar El MD> Date Cesar El MD CC: Ilya Diaz DO; Cesar El MD Signed CYTOLOGY, BODY FLUID / Collected: 08/05/2017 Status: F Source: [facility] CSF 11:00 AM [facility] REPOSITORY Order Comment: Specimen Source: PL TYPE CODE TESTS RESULT OUT OF RANGE REFERENCE UNITS LAB L350.1000 SEE Normal PATHOLOGY CYTOLOGY,BF REPORT /CSF Result Comment: Specimen submitted to Anatomical Pathology Department for testing. Performed By: #### L350.1000 #### [facility] [address] [facility] [place], [address] CHEST 1 VIEW Observed: 08/05/2017 Status: F Source: [facility] 10:57 AM [facility] REPOSITORY [facility] Imaging Services [address] [place] [address] Chest 1 View MR#: [id number] Acct: [id number] Name: HOMER FAY Rep #: [id number] : 1935 M 82 From: Miguel Woods MD PCP: Ilya Diaz DO Status: REG CLI Study: Chest 1 View Date of Exam: 08/05/17 Exam# [id number] Ordering Dr: Cesar El MD STUDY: X-RAY CHEST REASON FOR EXAM: Male, 82 years old. The patient is status post left thoracentesis. TECHNIQUE: Single AP upright view of the chest. COMPARISON: Comparison is made with prior study dated July 23, 2017. FINDINGS: The patient is status post left thoracentesis. There is no evidence of pneumothorax. Residual blunting of both constraint angles with findings suggestive of bibasilar atelectasis. RAD/Chest 1 View IMPRESSION: Status post left thoracentesis. There is no evidence of pneumothorax. Electronically Signed: Miguel Woods MD at 8:23 EST Tel [phone], Service support , CC: Ilya Diaz DO; Cesar El MD Corrugator Supervisor: Signed THORACENTESIS W US Observed: 08/05/2017 Status: F Source: [place] 9:54 AM [facility] REPOSITORY [facility] Imaging Services [address] [place] [address] Thoracentesis W US MR#: [id number] Acct: [id number] Name: HOMER FAY Rep #: [id number] : 1935 M 82 From: Miguel Woods MD PCP: Ilya Diaz DO Status: REG CLI Study: Thoracentesis W US Date of Exam: 08/05/17 Exam# [id number] Ordering Dr: Cesar El MD STUDY: ULTRASOUND GUIDED LEFT THORACENTESIS. REASON FOR EXAM: Male, 82 years old. Left pleural effusion. TECHNIQUE: Under direct sonographic guidance, the pulmonary position performed a left thoracentesis. COMPARISON: None. FINDINGS: 960 mL of miguel a-colored fluid was removed. US/Thoracentesis W US IMPRESSION: Successful ultrasound-guided left thoracentesis. Electronically Signed: Miguel Woods MD at 12:41 EST Tel [phone], Service support , CC: Ilya Diaz DO; Cesar El MD Corrugator Supervisor: Signed FLUID/WASHING Observed: 08/05/2017 Status: F Source: [place] 12:00 AM [facility] REPOSITORY Patient: HOMER FAY : 1935 (82/M) Acct Num: [id number] Phys: Nikko BECKER,Cesar Unit Num: [id number] Loc: US Specimen: [id number] Received: 08/05/17 1154 Spec Type: Fluid TISSUES TISSUES: THORACIC FLUID COMMENT Correlation with clinical findings and appropriate follow up are necessary. Immunohistochemistry ([id number]) shows lymphocytes are predominantly T-cell in nature. CYTOLOGY GROSS Received is 950 ml of cloudy miguel a fluid labeled with the patient's name and and designated per the requisition as thoracentesis. Submitted for cytology preparation including cell block. / CC:cc 08/05/17 TC:5 CPT: 00837, 49581 CYTOLOGY STUDY Slides are reviewed. The specimen consists of numerous small lymphocytes, a few macrophages, mesothelial cells and neutrophils. DIAGNOSIS CYTOLOGY Thoracentesis fluid for cytology (cytospin and cell block): Negative for malignant cells. Consistent with lymphocytic effusion. See cytology study and comment. SJ:candy 08/06/17 HEADER OPERATION: Thoracentesis PRE-OP DIAGNOSIS: Pleural effusion TISSUE SUBMITTED: Thoracentesis fluid for cytology Signed Abilio Rai 08/06/17 <signature on file> Performed By: #### PFLU #### [facility] [place], [address] IMMUNOHISTOCHEMISTRY Observed: 08/05/2017 Status: F Source: [place] 12:00 AM [facility] REPOSITORY Patient: HOMER FAY : 1935 (82/M) Acct Num: [id number] Phys: Nikko BECKER,Cesar Unit Num: [id number] Loc: Specimen: [id number] Received: 08/06/171106 Spec Type: IMMUNO TISSUES TISSUES: THORACIC FLUID SPECIMEN INFORMATION: Tissue Source: Thoracentesis fluid for cytology Clinical Info: Pleural effusion Specimen Number: [id number] CPT code: 76566, 91460 x4 METHODOLOGY: Deparaffinized sections of prefer/formalin-fixed tissue or PAP/DQ stained slides are incubated with monoclonal/polyclonal antibodies/oligonucleotide probes. Localization is made via biotin free immunoperoxidase method. Appropriate controls are performed and reacted as expected. Results on target cell population are indicated in the following table: RESULTS: ANTIBODY / CLONE RESULT CD3 (PS1) positive CD5 (SP10) positive CD45 (RP2/18) positive CD79a (11E3) positive, a few cells CD20 (L26) positive, a few cells These tests were developed and their performance characteristics determined by [facility]. They may not have been cleared or approved by the U.S. Food and Drug Administration. The FDA has determined that such clearance or approval is not necessary. INTERPRETATION: Thoracentesis fluid for cytology (cell block): Consistent with lymphocytic effusion, predominantly T-cell in nature. SJ:candy 08/07/17 PHYSICIAN AND INSTITUTION [address] [address] Signed Abilio Rai 08/07/17 <signature on file> Performed By: #### PIMM #### [facility] [address] [place] [address]. [place], [address] PROTHROMBIN TIME W/INR Collected: 08/03/2017 Status: F Source: [place] 10:20 AM [facility] REPOSITORY TYPE CODE TESTS RESULT OUT OF RANGE REFERENCE UNITS LAB L300.4150 11.7-14.9 SECONDS Normal PROTIME 14.1 LAB L300.4200 Normal INR 1.1 Performed By: #### L300.3900, L300.4310 #### [facility] [address] [place] [address]. [place], [place], [id number] PARTIAL THROMBOPLAST Collected: 08/03/2017 Status: F Source: [place] TIME 10:20 AM [facility] REPOSITORY TYPE CODE TESTS RESULT OUT OF RANGE REFERENCE UNITS LAB L300.4310 24.1-36.2 Seconds Normal PTT 28.5 Performed By: #### L300.3900, L300.4310 #### [facility] [address] [place], [address] SPECIAL CXR Observed: 07/23/2017 Status: F Source: [place] (OBL/DECUB/A/L) 2:28 PM [facility] REPOSITORY [facility] Imaging Services [address] [place] [address] Special CXR (Obl/Decub/A/L) MR#: [id number] Acct: [id number] Name: HOMER FAY Rep #: [id number] : 1935 M 82 From: Truman Wilhelm MD PCP: Ilya Diaz DO Status: REG CLI Study: Special CXR (Obl/Decub/A/L) Date of Exam: 07/23/17 Exam# [id number] Ordering Dr: Cesar El MD STUDY: X-RAY CHEST REASON FOR EXAM: Male, 82 years old. COPD pleural effusion TECHNIQUE: Single frontal right decubitus view of the chest. COMPARISON: CR Chest 2017 3:42pm FINDINGS: Chronic appearing increased interstitial lung markings. There are small bilateral pleural effusions. The lung woodson are hyperexpanded. Enlarged heart size. Normal mediastinum and rabia. Normal visualized pulmonary arteries. There is atherosclerotic calcification of the aortic arch with tortuosity. There are diffuse degenerative changes of the visualized thoracic spine. There is degenerative osteoarthritis of the bilateral shoulders. There is no demonstrated abnormality of the visualized soft tissue structures of the upper abdomen. RAD/Special CXR (Obl/Decub/A/L) IMPRESSION: There are small bilateral pleural effusions. Electronically Signed: Truman Wilhelm MD at 16:14 EST , Service support , CC: Ilya Diaz DO; Cesar El MD Corrugator Supervisor: Signed SPECIAL CXR Observed: 07/23/2017 Status: F Source: [place] (OBL/DECUB/A/L) 2:28 PM [facility] REPOSITORY [facility] Imaging Services [address] [place] [address] Special CXR (Obl/Decub/A/L) MR#: [id number] Acct: [id number] Name: HOMER FAY Rep #: [id number] : 1935 M 82 From: Truman Wilhelm MD PCP: Ilya Diaz DO Status: REG CLI Study: Special CXR (Obl/Decub/A/L) Date of Exam: 07/23/17 Exam# [id number] Ordering Dr: Cesar El MD STUDY: X-RAY CHEST REASON FOR EXAM: Male, 82 years old. copd, pleural effusion left side decub TECHNIQUE: Single decubitus view of the chest. COMPARISON: Study done earlier today FINDINGS: Chronic appearing increased interstitial lung markings. Moderate left pleural effusion. Small right pleural effusion. Lower lobe atelectasis. Enlarged heart size. Normal mediastinum and rabia. Normal visualized pulmonary arteries. There is atherosclerotic calcification of the aortic arch with tortuosity. There are diffuse degenerative changes of the visualized thoracic spine. There is degenerative osteoarthritis of the bilateral shoulders. There is no demonstrated abnormality of the visualized soft tissue structures of the upper abdomen. RAD/Special CXR (Obl/Decub/A/L) IMPRESSION: Moderate left pleural effusion. Small right pleural effusion. Lower lobe atelectasis. Electronically Signed: Truman Wilhelm MD at 18:37 EST , Service support , CC: Ilya Diaz DO; Cesar El MD Corrugator Supervisor: Signed CHEST PA AND LATERAL Observed: 07/23/2017 Status: F Source: [place] 2:23 PM [facility] REPOSITORY [facility] Imaging Services [address] [place] [address] Chest PA and Lateral MR#: [id number] Acct: [id number] Name: HOMER FAY Rep #: [id number] : 1935 M 82 From: Truman Wilhelm MD PCP: Ilya Diaz DO Status: REG CLI Study: Chest PA and Lateral Date of Exam: 07/23/17 Exam# [id number] Ordering Dr: Cesar El MD STUDY: X-RAY CHEST REASON FOR EXAM: Male, 82 years old. COPD pleural effusion TECHNIQUE: Frontal and lateral views of the chest. COMPARISON: 2017 FINDINGS: Chronic appearing increased interstitial lung markings. Moderate left pleural effusion. Small right pleural effusion. Lower lobe atelectasis. Enlarged heart size. Normal mediastinum and rabia. Normal visualized pulmonary arteries. There is atherosclerotic calcification of the aortic arch with tortuosity. There are diffuse degenerative changes of the visualized thoracic spine. There is degenerative osteoarthritis of the bilateral shoulders. There is no demonstrated abnormality of the visualized soft tissue structures of the upper abdomen. RAD/Chest PA and Lateral IMPRESSION: Moderate left pleural effusion. Small right pleural effusion. Lower lobe atelectasis. Electronically Signed: Truman Wilhelm MD at 18:33 EST , Service support , CC: Ilya El MD Corrugator Supervisor: Signed ALLERGIES ALLERGIES DATE TYPE / CODE NAME / CODE REACTION SEVERITY SOURCE 12/12/2017 Drug Penicillins/ Unknown Unknown [facility] Allergy/4160 [id number](R Hospital 05561(SNOMED XNORM) Repository CT) ENCOUNTERS ENCOUNTERS ADMIT/DISCHARGE ACCOUNT NUMBER ADMITTING ENCOUNTER LOCATION SOURCE CLASS 06/29/2018 [id number] [facility] ding:MTRAD Repository 06/28/2018 [id number] Ambulatory General acute hospital ding:JOSEE.BRO Repository [place] 06/21/2018 [id number] Ambulatory General acute hospital ding:[facility] Repository [place] 06/18/2018 [id number] Ambulatory General acute hospital ding:JOSEE.BRO Repository [place] 06/10/2018 [id number] Ambulatory General acute hospital ding:MFPLAB Repository 06/03/2018 [id number] Ambulatory General acute hospital ding:MFPLAB Repository 05/25/2018 [id number] Ambulatory General acute hospital ding:MTLAB Repository 2018 [id number] Ambulatory General acute hospital ding:MTRAD Repository 01/04/2018 [id number] Ambulatory General acute hospital ding:JOSEE.BRO Repository [place] 12/12/2017/12/16/19 [id number] Lebron Sotelo Inpatient [place] ding:PCURoom Repository : IRI806Qkl: 1 12/12/2017 [id number] Lebron Sotelo Ambulatory BMSBuilding: [place] BMS[facility] Repository 12/12/2017 [id number] Ashleigh Lebron Ambulatory BMSBuilding: [place] [facility]MS[facility] Repository 12/12/2017 [id number] Ashleigh Lebron Ambulatory BMSBuilding: [place] BMS[facility] Repository 12/12/2017 [id number] Ashleigh Lebron Ambulatory BMSBuilding: [place] BMS[facility] Repository 12/12/2017/12/16/19 [id number] Ambulatory BMSBuilding: [place] [facility] Repository 12/10/2017 [id number] Ambulatory General acute hospital ding:SARANYA Repository [place] 10/15/2017/10/16/19 [id number] Emergency BBuilding:JOHN Dos Santos [facility] Repository 08/21/2017 [id number] Ambulatory General acute hospital ding:MTLAB Repository 08/05/2017 [id number] Ambulatory General acute hospital ding:US Repository 08/03/2017 [id number] Ambulatory General acute hospital ding:MTLAB Repository 07/23/2017 [id number] Community Hospital ding:MTLAB Repository PAYERS PAYERS ENCOUNTER GUARANTOR PAYER SUBSCRIBER SOURCE 06/29/2018 HOMER [place] MACRIN[place]OB: Community ASSISTED [id number] [facility] [id number] [facility] [place] [address]Wxg: (330) Number: [phone] () [id number] Date: [place], [place] [address]PC: 06/29/2018 Secondary NOT GIVENUNK [place] Insurance:SELF PAY [facility] Number: Effective Repository Date:2018-06-29 06/28/2018 HOMER AMADODALE Insurance:[place] MACRIN[place]OB: Community ASSISTED [id number] [facility] [id number] Hospital [place], [place] [address]Skz: (330) Number: [phone] () [id number] Date: [place], [place] [address]RG: 06/28/2018 Secondary NOT GIVENUNK [place] Insurance:SELF PAY [facility] Number: Effective Repository Date:2018-06-28 06/21/2018 VINCENT J Primary VINCENT J [place] Insurance:[place] MACRINODOB: Community ASSISTED [id number] [facility] [id number] Hospital [place], [place] [address]Vev: (330) Number: [phone] () [id number] Date: [facility], [place] [address]HP: 06/21/2018 Secondary NOT GIVENUNK [place] Insurance:SELF PAY [facility] Number: Effective Repository Date:2018-06-21 06/18/2018 HOMER Shipley [place] Insurance:[place] MACRIN[place]OB: Community ASSISTED [id number] [facility] [id number] Hospital [place], [place]ository [place] [address]Epv: (330) Number: [phone] () [id number] Date: [place], [place] [address]DH: 06/18/2018 Secondary NOT GIVENUNK [place] Insurance:SELF PAY [facility] Number: Effective Repository Date:2018-06-18 06/10/2018 HOMER Shipley [place] Insurance:[place] MACRIN[place]OB: Community ASSISTED [id number] [facility] [id number] Hospital [place], [place]ository [place] [address]Qnh: (330) Number: [phone] () [id number] Date: [place], [place] [address]AJ: 06/10/2018 Secondary NOT GIVENUNK [place] Insurance:SELF PAY [facility] Number: Effective Repository Date:2018-06-10 06/03/2018 HOMER Shipley [place] Insurance:[place] MACRIN[place]OB: Community ASSISTED [id number] [facility] [id number] Hospital [place], [place]ository [place] [address]Guj: (330) Number: [phone] () [id number] Date: [facility], [place] [address]JV: 06/03/2018 Secondary NOT GIVENUNK [place] Insurance:SELF PAY [facility] Number: Effective Repository Date:2018-06-03 05/25/2018 HOMER Bruno Primary HOMER Aguilaroster [place] Insurance:[place] MACRINODOB: Community ASSISTED [id number] [facility] CARE [id number] Hospital [place], [place]ository [place] [address]Dbv: (330) Number: [phone] () [id number] Date: [place], [place] [address]BD: 05/25/2018 Secondary NOT GIVENUNK [place] Insurance:SELF PAY [facility] Number: Effective Repository Date:2018-05-25 2018 HOMER Bruno Primary HOMER Aguilaroster [place] Insurance:[place] MACRIN[place]OB: Community ASSISTED [id number] [facility] CARE [id number] Hospital [place], [place]ository [place] [address]Zne: (330) Number: [phone] () [id number] Date: [facility], [place] [address]IN: 2018 Secondary NOT GIVENUNK [place] Insurance:SELF PAY [facility] Number: Effective Repository Date:2018 01/04/2018 HOMER Bruno Primary HOMER Aguilaroster [place] Insurance:[place] MACRINODOB: Community ASSISTED [id number] [facility] [id number] Hospital [place], [place]ository [place] [address]Flt: (330) Number: [phone] () [id number] Date: [facility], [place] [address]ER: 01/04/2018 Secondary NOT GIVENUNK [place] Insurance:SELF PAY [facility] Number: Effective Repository Date:2018-01-04 12/12/2017 HOMER Bruno Primary HOMER Aguilaroster [place] Insurance:[place] MACRINODOB: Community ASSISTED [id number] [facility] [id number] Hospital [place], [place]ository [place] [address]Nwp: (330) Number: [phone] () [id number] Date: [facility], [place] [address]SI: 12/12/2017 Secondary NOT GIVENUNK [place] Insurance:SELF PAY [facility] Number: Effective Repository Date:2017-12-12 12/12/2017 HOMER Bruno Primary HOMER Shipley [place] Insurance[place] MACRIN[place]OB: Community ASSISTED [id number] [facility] [id number] Hospital [place], MEDICAREPolicy Repository [place] [address]Pvq: (330) Number: [phone] () [id number] Date: [facility], [place] [address]AI: 12/12/2017 Secondary NOT GIVENUNK [place] Insurance:SELF PAY [facility] Number: Effective Repository Date:2017-12-12 12/12/2017 HOMER Bruno Primary HOMER Shipley [place] Insurance:[place] MACRIN[place]OB: Community ASSISTED [id number] [facility] [id number] Hospital [place], [place]ository [place] [address]Aqb: (330) Number: [phone] () [id number] Date: [facility], [place] [address]YL: 12/12/2017 Secondary NOT GIVENUNK [place] Insurance:SELF PAY [facility] Number: Effective Repository Date:2017-12-12 12/12/2017 HOMER Bruno Primary HOMER Aguilaroster [place] Insurance:[place] MACRIN[place]OB: Community ASSISTED [id number] [facility] [id number] Hospital [place], MEDICARE[place] Repository [place] [address]Iyt: (330) Number: [phone] () [id number] Date: [facility] [place] [address]TE: 12/12/2017 Secondary NOT GIVENUNK [place] Insurance:SELF PAY [facility] Number: Effective Repository Date:2017-12-12 12/12/2017 HOMER Shipley [place] Insurance:[place] MACRIN[place]OB: Community ASSISTED [id number] [facility] [id number] Hospital [place], MED[place]ARE[place]ository [place] [address]Uxg: (330) Number: [phone] () [id number] Date: [place], [place] [address]GV: 12/12/2017 Secondary NOT GIVENUNK [place] Insurance:SELF PAY [facility] Number: Effective Repository Date:2017-12-12 12/12/2017 HOMER Shipley [place] Insurance[place] MACRIN[place]OB: Community ASSISTED [id number] [facility] [id number] Hospital [place], MEDICARE[place]ository [place] [address]Rjx: (330) Number: [phone] () [id number] Date: [place], [place] [address]HY: 12/12/2017 Secondary NOT GIVENUNK [place] Insurance:SELF PAY [facility] Number: Effective Repository Date:2017-12-12 12/10/2017 HOMER SANCHEZRINOBROOKDALE Insurance:[place] MACRINODOB: Community ASSISTED [id number] [facility] [id number] Hospital [place], MED[place]Policy [place]ository [place] [address]Ydn: (330) Number: [phone] () [id number] Date: [place], [place] [address]OA: 12/10/2017 Secondary NOT GIVENUNK [place] Insurance:SELF PAY [facility] Number: Effective Repository Date:2017-12-10 10/15/2017 HOMER SANCHEZMASTERODOB: Primary HOMER Bruno [facility] [place] Insurance:SECURECARE MACRINODOB: [facility] [place] MEDICAREPolicy [id number] Repository [address]Zzh: (410) Number: [address] [place] [phone] () [id number] [place] Date:2017-10-15 [address]Vjc: (141) [id number] [phone] Name:[id number] [facility] ()Tel: ([phone]) PXPL GGr [phone] () [place], [place] [address]QX: 08/21/2017 HOMER Bruno [id number] Primary VINCENT J [place] [facility], Insurance:[place] MACRINODOB: [facility] [address]Ncz: (459) [facility] [id number] (HP) MEDICAREPolicy Repository Number: [id number] Date: [place], [place] [address]PR: 08/21/2017 Secondary NOT GIVENUNK [place] Insurance:SELF PAY [facility] Hospital Number: Effective Repository Date:2017-08-21 08/05/2017 VINCENT J [id number] Primary VINCENT J [place] [facility], Insurance:[place]: Community [place] [id number]: (449) [facility] [id number] [phone] ([place]) MEDICAREPolicy Repository Number: [id number] Date: [place], [place] [address]RK: 08/05/2017 Secondary NOT GIVENUNK [place] Insurance:SELF PAY [facility] Hospital Number: Effective Repository Date:2017-07-23 08/03/2017 Homer Bruno [id number] Primary HOMER Shipley [facility], Insurance:[facility] CITY[facility]INODOB: [facility] [address]Mvr: (330) PLAN [address] [address] ([facility] Number: Repository [id number] Date: [place], [place] [address]FT: 08/03/2017 Secondary NOT GIVENUNK [place] Insurance:SELF PAY [facility] Number: Effective Repository Date:2017-08-03 07/23/2017 Homer Bruno [id number] Primary HOMER Shipley [facility], Insurance:HEALTH MACRINODOB: [facility] [address]Fpr: (330) PLAN [facility] [id number] [address] () [place] Number: Repository [id number] Date: [place], [place] [address]PJ: 07/23/2017 Secondary NOT GIVENUNK [place] Insurance:SELF PAY [facility] Number: Effective Repository Date:2017-07-23
== END ==
PROVIDERS: Family Provider Family Medicine; PCP Family Medicine; Referring Provider Nurse Practitioner Family; Visit Provider Nurse Practitioner Family
DX: J90 Pleural effusion, not elsewhere classified (principal)
CPT/HCPCS: 36415; 71046; 80048; 83880

== ENCOUNTER → 2018-06-03 16:53 | Outpatient (CLI) | payer MEDICARE, SELFPAY ==
[2017-12-12 22:53] VITALS: BMI 30.9
[2018-06-03 17:59] LABS: Absolute Lymphocyte Count 0.92 X10^3/ul (0.83-4.51); Absolute Neutrophil Count 4.8 X10^3/uL (2.0-7.7); Basophil# 0.03 X10^3/uL; Basophil% 0.4 % (0-1); Eosinophils% 7.1 % (0-5); Hematocrit 31.2 % (40-54); Hemoglobin 9.3 g/dl (13.0-16.5); Lymphocyte # 0.92 X10^3/ul (4.0); Mean Corp Hgb Conc 29.8 g/gl (32-36); Mean Corpuscular Hgb 25.9 pg (27.0-32.0); Mean Corpuscular Volume 86.9 fL (80-94); Mean Platelet Vol. 11.7 fl (6.2-12.0); Monocyte# 0.75 X10^3/uL; Monocyte% 10.6 % (0-10); Neutrophil # 4.83 X10^3/uL (2.7-7.7); Neutrophil % 68.6 % (47-70); Platelet Count 263 K/mm3 (150-450); RBC Distribution Width CV 16.4 % (11.6-14.6); RBC Distribution Width SD 52.5 fl (35.1-43.9); Red Blood Count 3.59 M/mm3 (4.6-6.2); White Blood Count 7.1 K/mm3 (4.4-11.0)
[2018-06-03 18:03] LABS: POSITIVE COUNT NO; POSITIVE DIFFERENTIAL NO; POSITIVE MORPHOLOGY NO
[2018-06-03 18:20] LABS: BNP,B-Type NATRIURETIC PEPTIDE 91.8 pg/mL (0-100)
[2018-06-03 18:35] LABS: Hemoglobin A1c 6.5 % (4.2-6.3)
[2018-06-03 19:16] LABS: ALB/GLOB Ratio 0.7 RATIO (0.9-2.4); AST(SGOT) 15 U/L (15-37); Alanine Aminotransfer ALT/SGPT 16 U/L (16-61); Albumin, Serum 3.2 g/dL (3.2-5.0); Alkaline Phosphatase 75 U/L (45-117); Anion Gap 7 (5-15); BUN 29 mg/dL (7-18); BUN/Creat Ratio 13.6 RATIO (10-20); Calcium,Total 8.2 mg/dL (8.5-10.1); Chloride 98 mmol/L (98-107); Creatinine, Serum 2.14 mg/dL (0.70-1.30); EST Glomerular Filtration Rate 31 mL/min (>60); Est Glom Filt Rate - Afr Amer 38 mL/min (>60); Globulin 4.6 g/dL (2.2-4.2); Glucose 123 mg/dL (74-106); Potassium 3.7 mmol/L (3.5-5.1); Protein, Total 7.8 g/dL (6.4-8.2); Sodium Level 138 mmol/L (136-145); Thyroid Stim Hormone (TSH) 3.24 uIU/mL (0.358-3.74)
== END ==
PROVIDERS: Family Provider Family Medicine; PCP Family Medicine; Visit Provider Family Medicine
DX: J90 Pleural effusion, not elsewhere classified (principal); E11.9 Type 2 diabetes mellitus without complications; G47.00 Insomnia, unspecified
CPT/HCPCS: 36415; 80053; 83036; 83880; 84443; 85025; 86141

== ENCOUNTER → 2018-06-10 11:38 | Outpatient (CLI) | payer MEDICARE, SELFPAY ==
[2017-12-12 22:53] VITALS: BMI 30.9
[2018-06-10 14:26] LABS: Anion Gap 10 (5-15); BUN 29 mg/dL (7-18); BUN/Creat Ratio 17.7 RATIO (10-20); Calcium,Total 8.3 mg/dL (8.5-10.1); Chloride 100 mmol/L (98-107); Creatinine, Serum 1.64 mg/dL (0.70-1.30); EST Glomerular Filtration Rate 43 mL/min (>60); Est Glom Filt Rate - Afr Amer 52 mL/min (>60); Glucose 90 mg/dL (74-106); Potassium 4.4 mmol/L (3.5-5.1); Sodium Level 141 mmol/L (136-145)
== END ==
PROVIDERS: Family Provider Family Medicine; PCP Family Medicine; Visit Provider Family Medicine
DX: R79.89 Other specified abnormal findings of blood chemistry (principal)
CPT/HCPCS: 36415; 80048

== ENCOUNTER → 2018-06-18 13:45 | Outpatient (REF) | payer MEDICARE, SELFPAY ==
[2018-06-18 14:44] LABS: Anion Gap 8 (5-15); BUN 30 mg/dL (7-18); BUN/Creat Ratio 15.8 RATIO (10-20); Calcium,Total 8.4 mg/dL (8.5-10.1); Chloride 104 mmol/L (98-107); EST Glomerular Filtration Rate 36 mL/min (>60); Est Glom Filt Rate - Afr Amer 44 mL/min (>60); Glucose 161 mg/dL (74-106); Sodium Level 141 mmol/L (136-145)
== END ==
PROVIDERS: Visit Provider Family Medicine
DX: J44.9 Chronic obstructive pulmonary disease, unspecified (principal); R60.9 Edema, unspecified; Z79.899 Other long term (current) drug therapy
CPT/HCPCS: 36415; 80048

== ENCOUNTER → 2018-06-21 04:00 | Outpatient (REF) | payer MEDICARE, SELFPAY ==
[2018-06-21 07:31] LABS: Anion Gap 8 (5-15); BUN 30 mg/dL (7-18); BUN/Creat Ratio 16.5 RATIO (10-20); Calcium,Total 8.4 mg/dL (8.5-10.1); Chloride 102 mmol/L (98-107); Creatinine, Serum 1.82 mg/dL (0.70-1.30); EST Glomerular Filtration Rate 38 mL/min (>60); Est Glom Filt Rate - Afr Amer 46 mL/min (>60); Glucose 100 mg/dL (74-106); Potassium 4.3 mmol/L (3.5-5.1); Sodium Level 139 mmol/L (136-145)
== END ==
PROVIDERS: Visit Provider Family Medicine
DX: J44.9 Chronic obstructive pulmonary disease, unspecified (principal); Z79.899 Other long term (current) drug therapy
CPT/HCPCS: 36415; 80048

== ENCOUNTER → 2018-06-28 07:10 | Outpatient (REF) | payer MEDICARE, SELFPAY ==
[2018-06-28 08:27] LABS: Anion Gap 5 (5-15); BUN 31 mg/dL (7-18); BUN/Creat Ratio 15.3 RATIO (10-20); Calcium,Total 8.4 mg/dL (8.5-10.1); Chloride 99 mmol/L (98-107); Creatinine, Serum 2.03 mg/dL (0.70-1.30); EST Glomerular Filtration Rate 33 mL/min (>60); Est Glom Filt Rate - Afr Amer 40 mL/min (>60); Glucose 101 mg/dL (74-106); Potassium 3.7 mmol/L (3.5-5.1); Sodium Level 137 mmol/L (136-145)
--- OUTSIDE RECORDS SUMMARY | 2018-08-30 15:15 | XMS RPT_ITS ---
:1935 Author Organization [place] Support Name Relationship Address Phone GAIL LLOYD Unavailable [address] + [place] [address] R Unavailable Unavailable Unavailable ALEXIS, DERICE Unavailable [address] + [place] [address] Roberta, Gail Unavailable [address] + [place] [address] R Unavailable Unavailable Unavailable ALEXIS, DERICE Unavailable [address] + [place] [address] ROBERTA, GAIL Unavailable [address] + [place] [address] R Unavailable Unavailable Unavailable ALEXIS, DERICE Unavailable [address] + [place] [address] Roberta, Gail Unavailable [address] + [place] [address] R Unavailable Unavailable Unavailable ALEXIS, DERICE Unavailable [address] + [place] [address] ROBERTA, GAIL Unavailable [address] + [place] [address] R Unavailable Unavailable Unavailable ALEXIS, DERICE Unavailable [address] + [place] [address] KACARMENCITA, GAIL Unavailable [address] + [place] [address] R Unavailable Unavailable Unavailable ALEXIS, DERICE Unavailable [address] + [place] [address] ROBERTA, GALI Unavailable [address] + [place] [address] R Unavailable Unavailable Unavailable ALEXIS, DERICE Unavailable [address] + [place] [address] Roberta, Gail Unavailable [address] + [place] [address] R Unavailable Unavailable Unavailable AlexisNora Unavailable [address] + [place] [address] Kacarmencita, Gail Unavailable [address] + [place] [address] R Unavailable Unavailable Unavailable Nora Espinoza Unavailable [address] + [place] [address] KACARMENCITA, GAIL Unavailable [address] + [place] [address] R Unavailable Unavailable Unavailable NORA ESPINOZA (POA) Unavailable [address] + [place] [address] CARMENCITA, GAIL Unavailable [address] + [place] [address] R Unavailable Unavailable Unavailable NORA ESPINOZA (POA) Unavailable [address] + [place] [address] [facility], GAIL Unavailable [address] + [place] [address] R Unavailable Unavailable Unavailable NORA ESPINOZA (POA) Unavailable [address] + [place] [address] ROBERTA, GAIL Unavailable [address] + [place] [address] R Unavailable Unavailable Unavailable NORA ESPINOZA (POA) Unavailable [address] + [place] [address] ROBERTA, GAIL Unavailable [address] + [place] [address] R Unavailable Unavailable Unavailable ALEXISNORA (POA) Unavailable [address] + [place] [address] Roberta, Gail Unavailable [address] + [place] [address] R Unavailable Unavailable Unavailable Nora Espinoza Unavailable [address] + [place] [address] Roberta, Gail Unavailable [address] + [place] [address] R Unavailable Unavailable Unavailable Alexis, Derice Unavailable [address] + [place] [address] HODAN RENE Unavailable Unavailable + HODAN RENE Unavailable Unavailable + ALEXIS DERICE Unavailable Unavailable + ALEXIS DERICE Unavailable Unavailable + KAUF, GAIL Unavailable [address] + [place] [address] R Unavailable Unavailable Unavailable ALEXIS, DERICE Unavailable [address] + [place] [address] KAUF, GAIL Unavailable [address] + [place] [address] R Unavailable Unavailable Unavailable ALEXIS, DERICE Unavailable [address] + [place] [address] KACARMENCITA, GAIL Unavailable [address] + [place] [address] R Unavailable Unavailable Unavailable ALEXIS DERICE Unavailable [address] + [place] [address] KACARMENCITA, GAIL Unavailable [address] + [place] [address] R Unavailable Unavailable Unavailable ALEXIS, DERICE Unavailable [address] + [place] [address] Care Team Providers Name Role Phone AFTAB [...] Quentin Attending Unavailable Cesar El Attending Unavailable Ilya Diaz Primary Care Unavailable MADDIE HUFFMAN Referring Unavailable Cesar El Attending Unavailable Cesar El Referring Unavailable Ilya Diaz Primary Care Unavailable Cesar El Attending Unavailable Cesar El Referring Unavailable Ilya Diaz Primary Care Unavailable Cesar El Attending Unavailable Cesar El Referring Unavailable Ilya Diaz Primary Care Unavailable Place, [place] Attending Unavailable Ilya Diaz Primary Care Unavailable Ashleigh, Lebron Admitting Unavailable Tereletsky, Kt Attending Unavailable Ashleigh, Lebron Admitting Unavailable Joe, Ilya Primary Care Unavailable Ashleigh, Lebron Consulting Unavailable Shae Luacs Attending Unavailable Sibilia, Cesar Attending Unavailable Sibilia, Cesar Referring Unavailable Quentin Giron Primary Care Unavailable Ashleigh, Lebron Admitting Unavailable Tereletsky, Kt Attending Unavailable [place], Ilya Primary Care Unavailable Tereletsky, Kt Consulting Unavailable Ashleigh, Lebron Admitting Unavailable Tereletsky, Kt Attending Unavailable Joe, Ilya Primary Care Unavailable Tereletsky, Kt Consulting Unavailable Ashleigh, Lebron Admitting Unavailable Tereletsky, Kt Attending Unavailable Joe, Ilya Primary Care Unavailable Tereletsky, Kt Consulting Unavailable Place, [place] Attending Unavailable Isreal Massey Attending Unavailable Sibilia, Cesar Attending Unavailable Sibilia, Cesar Referring Unavailable Joe, Ilya Primary Care Unavailable PROBLEMS PROBLEMS DATE TYPE CONDITION / CODE ATTENDING STATUS SOURCE 07/02/2018 Unknown Z79.899 - Other long Quentin Giron Active [facility] term (current) drug Community therapy / Hospital Z79.899(ICD-10) Repository 06/03/2018 Unknown J90 - Pleural Quentin Giron Active [place] effusion, not Community elsewhere classified Hospital / J90(ICD-10) Repository 06/03/2018 Unknown G47.00 - Insomnia, Quentin Giron Active [facility] unspecified / Community G47.00(ICD-10) Hospital Repository 06/03/2018 Unknown E11.9 - 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 Community without Hospital complications / Repository E11.9(ICD-10) 02/18/2018 Unknown J81.0 - Acute Place, Active [facility] pulmonary edema / [facility] J81.0(ICD-10) Hospital Repository 12/22/2017 Unknown I50.21 - Acute Tereletsky, Active [place] systolic Kt [facility] (congestive) heart Hospital failure / Repository I50.21(ICD-10) 03/08/2018 Unknown 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, 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 [facility] (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) use of [facility] anticoagulants / Hospital Z79.01(ICD-10) Repository PROCEDURES PROCEDURES No Procedure Records FoundRESULTS RESULTS CHEST PA AND LATERAL Observed: 06/29/2018 Status: F Source: [facility] 3[facility] PM [facility] Imaging Services [address] [place] [address] Chest PA and Lateral MR#: [id number] Acct: [id number] Name: HOMER FAY Rep #: [id number] : 1935 M 83 From: Romero Pena MD PCP: Quentin Giron MD Status: REG CLI Study: Chest PA and Lateral Date of Exam: 06/29/18 Exam# [id number] Ordering Dr: Cesar El MD STUDY: X-RAY [...] CC: Quentin Giron MD; Cesar El MD Hamper Maker: Signed BASIC METABOLIC Collected: 06/28/2018 Status: F Source: [facility] PROFILE (BMP) 7:10 AM [facility] [place] [place] REPOSITORY TYPE CODE TESTS RESULT OUT OF [...] GAP 5 Performed By: #### L500.2500 #### [facility] [address] [place], [address] BASIC METABOLIC Collected: 06/21/2018 Status: F Source: [facility] PROFILE ([facility]) 6:25 AM [facility] [place] [place] REPOSITORY Order Comment: ROOM 112 TYPE CODE [...] GAP 8 Performed By: #### L500.2500 #### [facility] [address] [place], [address] BASIC METABOLIC Collected: 06/18/2018 Status: F Source: [facility] PROFILE ([facility]) 1:45 PM [facility] [place] [place] REPOSITORY TYPE CODE TESTS RESULT OUT OF [...] GAP 8 Performed By: #### L500.2500 #### [facility] [address] [place], [place], [address] BASIC METABOLIC Collected: 06/10/2018 Status: F Source: [facility] PROFILE (BMP) 11:38 AM [facility] [place] [place] REPOSITORY TYPE CODE TESTS RESULT OUT OF [...] GAP 10 Performed By: #### L500.2500 #### [facility] [address] [place], [place], [address] CBC W/DIFF, AUTOMATED Collected: 06/03/2018 Status: F Source: [facility] 4:55 PM [facility] [place] [place] REPOSITORY TYPE CODE TESTS RESULT OUT OF [...] By: #### L100.0100, L501.9985, L500.4050, L501.9520 #### [facility] [address] [place], [place], [id number] HEMOGLOBIN A1C Collected: 06/03/2018 Status: F Source: [facility] 4:55 PM [facility] [place] [place] REPOSITORY TYPE CODE TESTS RESULT OUT OF RANGE REFERENCE UNITS LAB L501.9985 4.2-6.3 % High HGB A1C 6.5 Performed By: #### L100.0100, L501.9985, L500.4050, L501.9520 #### [facility] [address] [place], [place], [address] COMPREHENSIVE METABOLIC Collected: 06/03/2018 Status: F Source: [facility] SCHMIDT 4:55 PM [facility] [place] [place] REPOSITORY TYPE CODE TESTS RESULT OUT OF [...] By: #### L100.0100, L501.9985, L500.4050, L501.9520 #### [facility] [address] [place], [address] THYROID STIM HORMONE Collected: 06/03/2018 Status: F Source: [facility] (TSH) 4:55 PM [facility] [place] [place] REPOSITORY TYPE CODE TESTS RESULT OUT OF RANGE REFERENCE UNITS LAB L501.9520 0.358-3.74 uIU/mL Normal TSH 3.24 Performed By: #### L100.0100, L501.9985, L500.4050, L501.9520 #### [facility] [address] [place], [address] BNP,B-TYPE NATRIURETIC Collected: 06/03/2018 Status: F Source: [facility] PEPTIDE 4:55 PM [facility] [place] [place] REPOSITORY TYPE CODE TESTS RESULT OUT OF RANGE REFERENCE UNITS LAB L503.6620 0-100 pg/mL Normal B-TYPE 91.8 ELIEZER PEP Performed By: #### L503.6620 #### [facility] [address] [facility] [place], [address] CRP, HIGH SENSITIVITY Collected: 06/03/2018 Status: F Source: [facility] CARDIAC 4:55 PM [facility] [place] [place] REPOSITORY TYPE CODE TESTS RESULT OUT OF RANGE REFERENCE UNITS LAB L501.6750 mg/L High CRP HIGH 14.00 SENS Result Comment: Low Relative Risk of CVD <1.0 mg/L Average Relative Risk of CVD 1.0 - 3.0 mg/L High Relative Risk of CVD >3.0 mg/L Performed By: #### L501.6750 #### [facility] [address] [place], [address] BASIC METABOLIC Collected: 05/25/2018 Status: F Source: [facility] PROFILE (BMP) 11:52 AM [facility] [place] [place] REPOSITORY TYPE CODE TESTS RESULT OUT OF [...] GAP 6 Performed By: #### L500.2500 #### [facility] [address] [facility] [place], [address] BNP,B-TYPE NATRIURETIC Collected: 05/25/2018 Status: F Source: [facility] PEPTIDE 11:52 AM [facility] [place] [place] REPOSITORY TYPE CODE TESTS RESULT OUT OF RANGE REFERENCE UNITS LAB L503.6620 0-100 pg/mL High B-TYPE 131.8 ELIEZER PEP Performed By: #### L503.6620 #### [facility] [address] [place], [address] CHEST PA AND LATERAL Observed: 05/25/2018 Status: F Source: [facility] 11:50 AM [facility] REPOSITORY [facility] Imaging Services [address] [place] [address] Chest PA and Lateral MR#: [id number] Acct: [id number] Name: HOMER FAY Rep #: [id number] : 1935 M 83 From: Larry Guthrie MD PCP: Quentin Giron MD Status: REG CLI Study: Chest PA and Lateral Date of Exam: 05/25/18 Exam# [id number] Ordering Dr: Cassidy Leong SQUAD BOSS-Jacinto STUDY: X-RAY CHEST REASON FOR EXAM: Male, [...] , CC: TRAVIS Leong; Quentin Giron MD Hamper Maker: Signed CHEST PA AND LATERAL Observed: 2018 Status: F Source: [facility] 10:58 AM [facility] [place] [place] REPOSITORY [facility] Imaging Services [address] [place] [address] Chest PA and Lateral MR#: [id number] Acct: [id number] Name: Homer Fay Rep #: [id number] : 1935 M 83 From: Nicole Jordan MD PCP: Ilya Diaz DO Status: REG CLI Study: Chest PA and Lateral Date of Exam: 03/09/18 Exam# [id number] Ordering Dr: Cesar El MD STUDY: X-RAY [...] CC: Ilya Diaz DO; Cesar El MD Hamper Maker: Signed BASIC METABOLIC Collected: 01/04/2018 Status: F Source: [facility] PROFILE (BMP) 10:00 AM [facility] [place] [place] REPOSITORY Order Comment: 112 TYPE CODE TESTS [...] GAP 5 Performed By: #### L500.2500 #### [facility] [address] [facility] [place], [address] CBC-COMPLETE BLOOD CNT Collected: 01/04/2018 Status: F Source: [facility] NO DIFF 10:00 AM [facility] [place] [place] REPOSITORY Order Comment: 112 TYPE CODE TESTS [...] MPV 12.0 Performed By: #### L100.0500 #### [facility] [address] [place], [address] DISCHARGE SUMMARY Observed: 12/15/2017 Status: F Source: [facility] 6:43 PM [facility] [place] [place] REPOSITORY [facility] Medical Records Department [address] [place] [address] Discharge Summary 12/15/17 1829 MR#: [id number] Acct: [id number] Name: HOMER FAY Rep #: [id number] : 1935 82 From: Kt Cunningham DO PCP: Ilya Diaz DO Status: DIS IN Y Location: U [id number] Discharge Date and Diagnosis Date of Admission: [...] was seen in the emergency room at [facility] with a chief complaint of increased shortness [...] atrial fibrillation and followed up with a principal cloud architect in [place]. Patient arrived by squad on a nonrebreather, [...] home, he was to follow-up with his principal cloud architect concerning whether he should resume his Coumadin, [...] 60 Code Visit Inpatient E AND M: [id number] Disch Hosp 12/15/17 1843 <Electronically signed by Kt Cunningham DO> Date Kt Cunningham DO Cosigner Signature (if applicable): Date CC: Ilya Diaz DO; Kt Cunningham DO Signed DISCHARGE INSTRUCTION Observed: 12/15/2017 Status: F Source: [facility] 11:02 AM [facility] [place] [place] REPOSITORY [facility] Medical Records Department [address] [place] [address] Instructions for Home/Discharge Instructions 12/15/17 1100 MR#: [id number] Acct: [id number] Name: HOMER FAY Rep #: [id number] : 1935 82 From: Kt Cunningham DO [...] Status: F Source: [facility] CONTRAST 4:32 PM [facility] [place] [place] REPOSITORY [facility] Cardiovascular Services [address] [place] [address] Echo Complete W/ Contrast 12/14/17 1439 MR#: [id number] Acct: [id number] Name: HOMER FAY Rep #: [id number] : 1935 82 From: Isreal Massey MD Attending Dr: Kt Cunningham DO Status: ADM IN Ordering Dr: Lebron Sotelo MD Date: 12/13/17 Location: [facility] Sex: M C Admitted: 12/12/17 Reason For [...] Ordering Physician: Lebron Sotelo Referring Physician: Ilya Diaz Performed By: Aaron Vieira RCS 12/14/17 1631 Date Isreal Massey MD CC: Ilya Diaz DO; Kt Cunningham DO; Lebron Sotelo MD Date Dictated: 12/14/17 1439 Date Transcribed: 12/14/171630 Hamper Maker: Signed 12 LEAD ELECTROCARDIOGRAM Observed: 12/14/2017 Status: F Source: [facility] [place] 3:13 PM [facility] [place] [place] REPOSITORY [facility] Cardiovascular Services [address] [place] [address] 12 Lead EKG 12/12/171943 MR#: [id number] Acct: [id number] Name: HOMER FAY Rep #: [id number] : 1935 82 From: Isreal Massey MD Attending Dr: Kt Cunningham DO Status: ADM IN Ordering Dr: Herb Tracy MD Date: 12/12/17 Location: [facility] Sex: M C Admitted: 12/12/17 Test Reason [...] ECG Confirmed by ISREAL MASSEY MD ([id number]), deputy editor in chief PENELOPE PRESTON ([id number]) on 12/14/2017 3:12:32 PM Referred By: ROSALBA Confirmed By:ISREAL MASSEY MD 12/14/17 1512 Date Isreal Massey MD CC: Ilya Diaz DO; Kt Cunningham DO; Herb Tracy MD Signed BASIC METABOLIC Collected: 12/14/2017 Status: F Source: [facility] PROFILE ([facility]) 6:15 AM [facility] [place] [place] REPOSITORY TYPE CODE TESTS RESULT OUT OF [...] GAP 9 Performed By: #### L500.2500 #### [facility] [address] [place], [address] HH, HEMOGLOBIN AND Collected: 12/14/2017 Status: F Source: [facility] HEMATOCRIT 6:15 AM [facility] [place] [place] REPOSITORY TYPE CODE TESTS RESULT OUT OF RANGE REFERENCE UNITS LAB L100.1300 13.0-16.5 g/dl Low HGB 9.5 LAB L100.1400 40-54 % Low HCT 29.6 Performed By: #### L100.0600 #### [facility] [address] [place], [address] CHEST PA AND LATERAL Observed: 12/14/2017 Status: F Source: [facility] 12:00 AM [facility] [place] [place] REPOSITORY [facility] Imaging Services [address] [facility] [place] [address] Chest PA and Lateral MR#: [id number] Acct: [id number] Name: HOMER FAY Rep #: [id number] : 1935 M 82 From: Miguel Woods MD PCP: Ilya Diaz DO Status: ADM IN Study: Chest PA and Lateral Date of Exam: 12/14/17 Exam# [id number] Ordering Dr: Kt Cunningham DO STUDY: X-RAY [...] Miguel Woods MD at 9:49 EDT Tel [phone], Service support , CC: Ilya Diaz DO; Kt Cunningham DO Hamper Maker: Signed HEMOGLOBIN Collected: 12/13/2017 Status: F Source: [facility] 11:22 PM [facility] [place] [place] REPOSITORY TYPE CODE TESTS RESULT OUT OF RANGE REFERENCE UNITS LAB L100.1300 13.0-16.5 g/dl Low HGB 9.2 Performed By: #### L100.1300, L100.1400 #### [facility] [address] [place], [place], [address] HEMATOCRIT Collected: 12/13/2017 Status: F Source: [facility] 11:22 PM [facility] [place] [place] REPOSITORY TYPE CODE TESTS RESULT OUT OF RANGE REFERENCE UNITS LAB L100.1400 40-54 % Low HCT 29.7 Performed By: #### L100.1300, L100.1400 #### [facility] [address] [place], [place], [id number] ([address]) HEMOGLOBIN Collected: 12/13/2017 Status: F Source: [facility] [place] 5:58 PM [facility] [place] [place] REPOSITORY TYPE CODE TESTS RESULT OUT OF RANGE REFERENCE UNITS LAB L100.1300 13.0-16.5 g/dl Low HGB 9.3 Performed By: #### L100.1300, L100.1400 #### [facility] [address] [place], [address] HEMATOCRIT Collected: 12/13/2017 Status: F Source: [facility] 5:58 PM [facility] [place] [place] REPOSITORY TYPE CODE TESTS RESULT OUT OF RANGE REFERENCE UNITS LAB L100.1400 40-54 % Low HCT 30.4 Performed By: #### L100.1300, L100.1400 #### [facility] [address] [place], [address] Observed: 12/13/2017 Status: F Source: [facility] STOOL OCCULT BLOOD 1:00 PM [facility] [place] [place] IFOB REPOSITORY STOB iFOB Occult Blood Negative Performed By: #### M100.7900 #### [facility] [address] [place], [address] TYPE AND SCREEN Collected: 12/13/2017 Status: F Source: [facility] 5:44 AM [facility] [place] [place] REPOSITORY Order Comment: CMV NEG? N Number [...] NEGATIVE Screen Performed By: #### B101.7450 #### [facility] [place], [address] RC Collected: 12/13/2017 Status: F Source: [facility] [place] 5:44 AM [facility] [place] [place] REPOSITORY TYPE CODE TESTS RESULT OUT OF REFERENCE UNITS RANGE LAB U100.0000 [id number] TRANSFUSED PRODUCT: T AND S with Crossmatch, Red Cells COUNT: 2 Performed By: #### U100.0000 #### Non-[facility] - refer to report for specific site HISTORY AND PHYSICAL Observed: 12/13/2017 Status: F Source: QUINETN EXAM 4:59 AM [facility] [place] [place] REPOSITORY [facility] Medical Records Department [address] [place] [address] History and Physical 12/12/17 2152 MR#: [id number] Acct: [id number] Name: HOMER FAY Kiana Rep #: [id number] : 1935 82 From: Lebron Sotelo MD PCP: Ilya Diaz DO Status: ADM IN Y Location: [place] [address] Problem List (1) Anemia Status: Acute (2) [...] (Auto) Neut % (Auto) Lymph % (Auto) Mccracken % (Auto) Assessment/Plan All Active Problems Anemia [...] 12/13/2017 Status: F Source: [facility]INT[facility] 4:55 AM [facility] [place] [place] REPOSITORY TYPE CODE TESTS RESULT OUT OF [...] Performed By: #### L100.0100, L100.9950 #### [facility] [address] [place], [place], [address] RETIC PANEL Collected: 12/13/2017 Status: F Source: [facility] 4:55 AM [facility] [place] [place] REPOSITORY TYPE CODE TESTS RESULT OUT OF [...] marrow. Performed By: #### L100.0100, L100.9950 #### [facility] [address] [facility] [place], [place], [address] IRON+IRON BINDING Collected: 12/13/2017 Status: F Source: [facility] CAPACITY 4:55 AM [facility] [place] [place] REPOSITORY TYPE CODE TESTS RESULT OUT OF RANGE REFERENCE UNITS LAB L503.6075 250-450 ug/dL TIBC Normal 274 LAB L503.6150 65-175 ug/dL Low IRON 15 LAB L503.6250 15.0-55.0 % Low IRON SATURATION 5.5 Performed By: #### L503.6030, L506.0250 #### [facility] [address] [facility] [place], [place], [address] FOLATES, (FOLIC ACID) Collected: 12/13/2017 Status: F Source: [place] 4:55 AM [facility] [place] [place] REPOSITORY TYPE CODE TESTS RESULT OUT OF RANGE REFERENCE UNITS LAB L506.0250 3.1-55.4 ng/mL Normal FOLATES 17.00 Performed By: #### L503.6030, L506.0250 #### [facility] [address] [place], [address] VITAMIN B12 Collected: 12/13/2017 Status: F Source: [place] 4:55 AM [facility] [place] [place] REPOSITORY TYPE CODE TESTS RESULT OUT OF RANGE REFERENCE UNITS LAB L503.0105 211-911 pg/mL Normal Vitamin B12 649 Performed By: #### L503.0105 #### [facility] [address] [facility] [place], [address] BASIC METABOLIC Collected: 12/13/2017 Status: F Source: [facility] PROFILE (BMP) 2:05 AM [facility] [place] [place] REPOSITORY TYPE CODE TESTS RESULT OUT OF [...] Performed By: #### L501.9520, L500.2500, L500.4100 #### [facility] [address] [place], [address] LIPID PROFILE Collected: 12/13/2017 Status: F Source: [facility] 2:05 AM [facility] [place] [place] REPOSITORY TYPE CODE TESTS RESULT OUT OF [...] Performed By: #### L501.9520, L500.2500, L500.4100 #### [facility] [address] [facility] [place], [address] CBC-COMPLETE BLOOD CNT Collected: 12/13/2017 Status: F Source: [facility] NO DIFF 2:05 AM [facility] [place] [place] REPOSITORY TYPE CODE TESTS RESULT OUT OF [...] MPV 11.0 Performed By: #### L100.0500 #### [facility] [address] [place], [place], [address] PROTHROMBIN TIME W/INR Collected: 12/13/2017 Status: F Source: [facility] 2:05 AM [facility] [place] [place] REPOSITORY TYPE CODE TESTS RESULT OUT OF RANGE REFERENCE UNITS LAB L300.4150 11.7-14.9 SECONDS High PROTIME 21.3 LAB L300.4200 Normal INR 1.8 Performed By: #### L300.3900 #### [facility] [address] [place], [address] TROPONIN-I Collected: 12/13/2017 Status: F Source: [facility]INT[facility] 2:05 AM [facility] [place] [place] REPOSITORY Order Comment: 'TROP' Serial specimen #1, #2 or #3: 3 TYPE CODE TESTS RESULT OUT OF RANGE REFERENCE UNITS LAB L501.4010 <0.045 ng/mL Normal < 0.015 TROPONIN-I Result Comment: TROPONIN-I EXPECTED VALUES <0.045 Negative 0.045 - 0.590 Consistent with Cardiac Damage > OR = 0.600 Critical Value Not every elevated troponin is indicative of ND. These values should be used with clinical judgement in examining the patient's clinical picture for diagnosis. To establish a diagnosis of ND versus myocardial injury, there must be a demonstrated rise and/or fall in the troponin values, in addition to ischemic symptoms, EKG changes, new regional wall motion abnormality, and/or angiographical evidence. PLEASE NOTE: REFERENCE RANGES EDITED 17 Performed By: #### L501.4010 #### [facility] [address] [place], [address] BNP,B-TYPE NATRIURETIC Collected: 12/13/2017 Status: F Source: QUINTEN PEPTIDE 2:05 AM [facility] [place] [place] REPOSITORY TYPE CODE TESTS RESULT OUT OF RANGE REFERENCE UNITS LAB L503.6620 0-100 pg/mL High B-TYPE 275.6 ELIEZER PEP Performed By: #### L503.6620 #### [facility] [address] [place], [address] CHEST PA AND LATERAL Observed: 12/13/2017 Status: F Source: QUINTEN 12:00 AM [facility] [place] [place] REPOSITORY [facility] Imaging Services [address] [place] [address] Chest PA and Lateral MR#: [id number] Acct: [id number] Name: HOMER FAY Kiana Rep #: [id number] : 1935 M 82 From: Guille Hsu DO PCP: Ilya Diaz DO Status: ADM IN Study: Chest PA and Lateral Date of Exam: 12/13/17 Exam# [id number] Ordering Dr: Lebron Sotelo MD STUDY: X-RAY [...] Guille Hsu DO at 9:27 EDT Tel [phone], Service support , CC: Ilya Diaz DO; Lebron Sotelo MD Hamper Maker: Signed TROPONIN-I Collected: 12/12/2017 Status: F Source: QUINTEN 11:27 PM [facility] [place] [place] REPOSITORY Order Comment: 'TROP' Serial specimen #1, #2 or #3: 2 TYPE CODE TESTS RESULT OUT OF RANGE REFERENCE UNITS LAB L501.4010 <0.045 ng/mL Normal < 0.015 TROPONIN-I Result Comment: TROPONIN-I EXPECTED VALUES <0.045 Negative 0.045 - 0.590 Consistent with Cardiac Damage > OR = 0.600 Critical Value Not every elevated troponin is indicative of ND. These values should be used with clinical judgement in examining the patient's clinical picture for diagnosis. To establish a diagnosis of ND versus myocardial injury, there must be a demonstrated rise and/or fall in the troponin values, in addition to ischemic symptoms, EKG changes, new regional wall motion abnormality, and/or angiographical evidence. PLEASE NOTE: REFERENCE RANGES EDITED 17 Performed By: #### L501.4010 #### [facility] [address] [place], [address] EMERGENCY DEPARTMENT Observed: 12/12/2017 Status: F Source: DU BOIS SUMMARY 9:21 PM [facility] [place] [place] REPOSITORY [facility] Medical Records Department [address] [place] [address] Emergency Department Summary 12/12/17 2030 MR#: [id number] Acct: [id number] Name: HOMER FAY Rep #: [id number] : 1935 82 From: Herb Tracy MD [...] pleural effusions This note was generated with Groxisation software. It may contain incorrect words, spelling, [...] your Primary Care Provider. Call [facility] ([phone]) or report to the closest Emergency Room. Call 911 if necessary. 12/12/172120 <Electronically signed by Herb Tracy MD> Date Herb Tracy MD Cosigner Signature (If Indicated): Date CC: Ilya Diaz DO CBC W/DIFF, AUTOMATED Collected: 12/12/2017 Status: F Source: DU BOIS 7:40 PM [facility] [place] [place] REPOSITORY TYPE CODE TESTS RESULT OUT OF [...] LYMPHOPENIA NOTED Performed By: #### L100.0100 #### [facility] [address] [facility] [place], [place], [address] PROTHROMBIN TIME W/INR Collected: 12/12/2017 Status: F Source: QUINTEN 7:40 PM [facility] [place] [place] REPOSITORY TYPE CODE TESTS RESULT OUT OF RANGE REFERENCE UNITS LAB L300.4150 11.7-14.9 SECONDS High PROTIME 20.4 LAB L300.4200 Normal INR 1.7 Performed By: #### L300.3900 #### [facility] [address] [place], [place], [address] BASIC METABOLIC Collected: 12/12/2017 Status: F Source: QUINTEN PROFILE (BMP) 7:40 PM [facility] [place] [place] REPOSITORY TYPE CODE TESTS RESULT OUT OF [...] GAP Performed By: #### L500.2500, L501.4010 #### [facility] [address] [place], [address] TROPONIN-I Collected: 12/12/2017 Status: F Source: DU BOIS 7:40 PM [facility] [place] [place] REPOSITORY TYPE CODE TESTS RESULT OUT OF RANGE REFERENCE UNITS LAB L501.4010 <0.045 ng/mL Normal < 0.015 TROPONIN-I Result Comment: TROPONIN-I EXPECTED VALUES <0.045 Negative 0.045 - 0.590 Consistent with Cardiac Damage > OR = 0.600 Critical Value Not every elevated troponin is indicative of ND. These values should be used with clinical judgement in examining the patient's clinical picture for diagnosis. To establish a diagnosis of ND versus myocardial injury, there must be a demonstrated rise and/or fall in the troponin values, in addition to ischemic symptoms, EKG changes, new regional wall motion abnormality, and/or angiographical evidence. PLEASE NOTE: REFERENCE RANGES EDITED 17 Performed By: #### L500.2500, L501.4010 #### [facility] [address] [place], [address] BNP,B-TYPE NATRIURETIC Collected: 12/12/2017 Status: F Source: DU BOIS PEPTIDE 7:40 PM [facility] [place] [place] REPOSITORY TYPE CODE TESTS RESULT OUT OF RANGE REFERENCE UNITS LAB L503.6620 0-100 pg/mL High B-TYPE 267.5 ELIEZER PEP Performed By: #### L503.6620 #### [facility] [address] [place], [address] THYROID STIM HORMONE Collected: 12/12/2017 Status: F Source: QUINTEN (TSH) 7:40 PM [facility] [place] [place] REPOSITORY TYPE CODE TESTS RESULT OUT OF RANGE REFERENCE UNITS LAB L501.9520 0.358-3.74 uIU/mL Normal TSH 0.66 Performed By: #### L501.9520, L500.2500, L500.4100 #### [facility] [address] [place], [address] CHEST 1 VIEW Observed: 12/12/2017 Status: F Source: QUINTEN (PORTABLE) 7:31 PM [facility] [place] [place] REPOSITORY [facility] Imaging Services [address] [place] [address] Chest 1 View (Portable) MR#: [id number] Acct: [id number] Name: HOMER FAY Rep #: [id number] : 1935 M 82 From: Deni Alvares MD PCP: Ilya Diaz DO Status: REG ER Study: Chest 1 View (Portable) Date of Exam: 12/12/17 Exam# [id number] Ordering Dr: Herb Tracy MD STUDY: X-RAY [...] CC: Ilya Diaz DO; Herb Tracy MD Hamper Maker: Signed PROTIME W/INR Collected: 12/10/2017 Status: F Source: QUINTEN FINGERSTICK 7:10 AM [facility] [place] REPOSITORY TYPE CODE TESTS RESULT OUT OF REFERENCE UNITS RANGE LAB L9200.1001 11.9-14.4 SEC High PROTIME ISTAT 23.2 Result Comment: Reference Range 11.9 - 14.4 LAB L9200.2000 Normal INR ISTAT 2.00 Result Comment: Critical Value > 3.5 Performed By: #### L9200.0000 #### [facility] Point of Care [address] [place] [address] XR SHOULDER MINIMUM 2 Observed: 10/15/2017 Status: F Source: Neighborhoods VIEWS RIGHT 6:18 AM [facility] REPOSITORY ORIGINAL [...] MINIMUM 3 Observed: 10/15/2017 Status: F Source: [facility] VIEWS RIGHT 6:18 AM [facility] REPOSITORY ORIGINAL [...] 08/21/2017 Status: F Source: QUINTEN 4:44 PM [facility] [place] [place] REPOSITORY Order Comment: Serial Specimen #1, #2 or #3? 1 TYPE CODE TESTS RESULT OUT OF RANGE REFERENCE UNITS LAB L501.1800 3.2-5.0 g/dL Normal ALB 3.4 Performed By: #### L501.1800, L504.2610 #### [facility] [address] [place], [address] LDH Collected: 08/21/2017 Status: F Source: QUINTEN 4:44 PM [facility] [place] [place] REPOSITORY Order Comment: Serial Specimen #1, #2 or #3? 1 TYPE CODE TESTS RESULT OUT OF RANGE REFERENCE UNITS LAB L504.2610 87-241 U/L Normal LDH 146 Performed By: #### L501.1800, L504.2610 #### [facility] [address] [place], [address] BNP,B-TYPE NATRIURETIC Collected: 08/21/2017 Status: F Source: QUINTEN PEPTIDE 4:44 PM [facility] [place] [place] REPOSITORY TYPE CODE TESTS RESULT OUT OF RANGE REFERENCE UNITS LAB L503.6620 0-100 pg/mL Normal B-TYPE 77.9 ELIEZER PEP Performed By: #### L503.6620 #### [facility] [address] [place], [address] PROTEIN, BODY FLUID Collected: 08/05/2017 Status: F Source: DU BOIS 11:50 AM [facility] [place] [place] REPOSITORY Order Comment: Specimen Source: PL TYPE CODE TESTS RESULT OUT OF RANGE REFERENCE UNITS LAB L503.0300 Not Establ. g/dL Normal 4.7 PROTEIN,BF Performed By: #### L503.0300, L504.0250 #### [facility] [address] [place], [address] LDH,BODY FLUID Collected: 08/05/2017 Status: F Source: DU BOIS 11:50 AM [facility] [place] [place] REPOSITORY Order Comment: Specimen Source: PL TYPE CODE TESTS RESULT OUT OF RANGE REFERENCE UNITS LAB L504.0250 Not Establ. Units/l Normal LDH,BF 115 Performed By: #### L503.0300, L504.0250 #### [facility] [address] [place], [address] OPERATIVE REPORT Observed: 08/05/2017 Status: F Source: DU BOIS 11:12 AM [facility] [place] [place] REPOSITORY [facility] Medical Records Department [address] [place] [address] Operative Report 08/05/17 1108 MR#: [id number] Acct: [id number] Name: HOMER FAY Rep #: [id number] : 1935 82 From: Cesar El MD [...] FLUID / Collected: 08/05/2017 Status: F Source: DU BOIS CSF 11:00 AM [facility] [place] [place] REPOSITORY Order Comment: Specimen Source: PL TYPE CODE TESTS RESULT OUT OF RANGE REFERENCE UNITS LAB L350.1000 SEE Normal PATHOLOGY CYTOLOGY,BF REPORT /CSF Result Comment: Specimen submitted to Anatomical Pathology Department for testing. Performed By: #### L350.1000 #### [facility] [address] [facility] [place], [address] CHEST 1 VIEW Observed: 08/05/2017 Status: F Source: DU BOIS 10:57 AM [facility] [place] [place] REPOSITORY [facility] Imaging Services [address] [place] [address] Chest 1 View MR#: [id number] Acct: [id number] Name: HOMER FAY Rep #: [id number] : 1935 M 82 From: Miguel Woods MD PCP: Ilya Diaz DO Status: REG CLI Study: Chest 1 View Date of Exam: 08/05/17 Exam# [id number] Ordering Dr: Cesar El MD STUDY: X-RAY [...] Miguel Woods MD at 8:23 EST Tel [phone], Service support , CC: Ilya Diaz DO; Cesar El MD Hamper Maker: Signed THORACENTESIS W US Observed: 08/05/2017 Status: F Source: QUINTEN 9:54 AM [facility] [place] [place] REPOSITORY [facility] Imaging Services [address] [place] [address] Thoracentesis W US MR#: [id number] Acct: [id number] Name: HOMER FAY Rep #: [id number] : 1935 M 82 From: Miguel Woods MD PCP: Iyla Diaz DO Status: REG CLI Study: Thoracentesis W US Date of Exam: 08/05/17 Exam# [id number] Ordering Dr: Cesar El MD STUDY: ULTRASOUND GUIDED LEFT THORACENTESIS. REASON FOR EXAM: Male, 82 years old. Left pleural effusion. TECHNIQUE: Under direct sonographic guidance, the pulmonary position performed a left thoracentesis. COMPARISON: None. FINDINGS: 960 mL of miguel a-colored fluid was removed. US/Thoracentesis W US IMPRESSION: Successful ultrasound-guided left thoracentesis. Electronically Signed: Miguel Woods MD at 12:41 EST Tel [phone], Service support , CC: Ilya Diaz DO; Cesar El MD Hamper Maker: Signed FLUID/WASHING Observed: 08/05/2017 Status: F Source: QUINTEN 12:00 AM [facility] [place] [place] REPOSITORY Patient: HOMER FAY : 1935 (82/M) Acct Num: [id number] Phys: Nikko BECKER,Cesar Unit Num: [id number] Loc: US Specimen: [id number] Received: 08/05/17 1154 Spec Type: Fluid TISSUES TISSUES: THORACIC FLUID COMMENT Correlation with clinical findings and appropriate follow up are necessary. Immunohistochemistry ([id number]) shows lymphocytes are predominantly T-cell in nature. CYTOLOGY GROSS Received is 950 ml of cloudy miguel a fluid labeled with the patient's name and and designated per the requisition as thoracentesis. Submitted for cytology preparation including cell block. / CC:cc 08/05/17 TC:5 CPT: 96595, 27103 CYTOLOGY STUDY Slides are reviewed. The specimen [...] on file> Performed By: #### PFLU #### [facility] [place], [address] IMMUNOHISTOCHEMISTRY Observed: 08/05/2017 Status: F Source: QUINTEN 12:00 AM [facility] [place] [place] REPOSITORY Patient: HOMER FAY : 1935 (82/M) Acct Num: [id number] Phys: Nikko BECKER,Cesar Unit Num: [id number] Loc: Specimen: [id number] Received: 08/06/171106 Spec Type: IMMUNO TISSUES TISSUES: THORACIC FLUID SPECIMEN INFORMATION: Tissue Source: Thoracentesis fluid for cytology Clinical Info: Pleural effusion Specimen Number: [id number] CPT code: 64067, 48236 x4 METHODOLOGY: Deparaffinized sections of prefer/formalin-fixed tissue [...] developed and their performance characteristics determined by [facility]. They may not have been cleared or approved by the U.S. Food and Drug Administration. The FDA has determined that such clearance or approval is not necessary. INTERPRETATION: Thoracentesis fluid for cytology (cell block): Consistent with lymphocytic effusion, predominantly T-cell in nature. SJ:candy 08/07/17 PHYSICIAN AND INSTITUTION [address] [address] Signed Abilio Rai 08/07/17 <signature on file> Performed By: #### PIMM #### [facility] [address] [place] [address]. [place], [address] PROTHROMBIN TIME W/INR Collected: 08/03/2017 Status: F Source: DU BOIS 10:20 AM [facility] [place] [place] REPOSITORY TYPE CODE TESTS RESULT OUT OF RANGE REFERENCE UNITS LAB L300.4150 11.7-14.9 SECONDS Normal PROTIME 14.1 LAB L300.4200 Normal INR 1.1 Performed By: #### L300.3900, L300.4310 #### [facility] [address] [place] [address]. [place], [place], [address] PARTIAL THROMBOPLAST Collected: 08/03/2017 Status: F Source: QUINTEN TIME 10:20 AM [facility] [place] [place] REPOSITORY TYPE CODE TESTS RESULT OUT OF RANGE REFERENCE UNITS LAB L300.4310 24.1-36.2 Seconds Normal PTT 28.5 Performed By: #### L300.3900, L300.4310 #### [facility] [address] [place], [address] SPECIAL CXR Observed: 07/23/2017 Status: F Source: QUINTEN (OBL/DECUB/A/L) 2:28 PM [facility] REPOSITORY [facility] Imaging Services [address] [place] [address] Special CXR (Obl/Decub/A/L) MR#: [id number] Acct: [id number] Name: HOMER FAY Rep #: [id number] : 1935 M 82 From: Truman Wilhelm MD PCP: Ilya Diaz DO Status: REG CLI Study: Special CXR (Obl/Decub/A/L) Date of Exam: 07/23/17 Exam# [id number] Ordering Dr: Cesar El MD STUDY: X-RAY [...] CC: Ilya Diaz DO; Cesar El MD Hamper Maker: Signed SPECIAL CXR Observed: 07/23/2017 Status: F Source: DU BOIS (OBL/DECUB/A/L) 2:28 PM [facility] [place] [place] REPOSITORY [facility] Imaging Services [address] [place] [address] Special CXR (Obl/Decub/A/L) MR#: [id number] Acct: [id number] Name: HOMER FAY Rep #: [id number] : 1935 M 82 From: Truman Wilhelm MD PCP: Ilya Diaz DO Status: REG CLI Study: Special CXR (Obl/Decub/A/L) Date of Exam: 07/23/17 Exam# [id number] Ordering Dr: Cesar El MD STUDY: X-RAY [...] CC: Ilya Diaz DO; Cesar El MD Hamper Maker: Signed CHEST PA AND LATERAL Observed: 07/23/2017 Status: F Source: QUINTEN 2:23 PM [facility] [place] [place] REPOSITORY [facility] Imaging Services [address] [place] [address] Chest PA and Lateral MR#: [id number] Acct: [id number] Name: HOMER FAY Rep #: [id number] : 1935 M 82 From: Truman Wilhelm MD PCP: Ilya Diaz DO Status: REG CLI Study: Chest PA and Lateral Date of Exam: 07/23/17 Exam# [id number] Ordering Dr: Cesar El MD STUDY: X-RAY [...] Service support , CC: Ilya El MD Hamper Maker: Signed ALLERGIES ALLERGIES DATE TYPE / CODE NAME / CODE REACTION SEVERITY SOURCE 12/12/2017 Drug Penicillins/ Unknown Unknown [place] Allergy/4160 [id number]([facility] [address]70(SNOMED XNORM) Repository CT) ENCOUNTERS ENCOUNTERS ADMIT/DISCHARGE ACCOUNT NUMBER ADMITTING ENCOUNTER LOCATION SOURCE CLASS 06/29/2018 [id number] [facility] ding:MTRAD Repository 06/28/2018 [id number] Ambulatory [facility] ding:JOSEE.BRO Repository [place] 06/21/2018 [id number] Ambulatory [facility] ding:JOSEE.BRO Repository [place] 06/18/2018 [id number] Ambulatory [facility] ding:JOSEE.BRO Repository [place] 06/10/2018 [id number] Ambulatory [facility] ding:MFPLAB Repository 06/03/2018 [id number] Ambulatory [facility] ding:MFPLAB Repository 05/25/2018 [id number] Ambulatory [facility] ding:MTLAB Repository 2018 [id number] Ambulatory [facility] ding:MTRAD Repository 01/04/2018 [id number] Ambulatory [facility] ding:JOSEE.BRO Repository [place] 12/12/2017/12/16/19 [id number] Lebron [place]otelo [place] ding:PCURoom Repository : TBJ417Lux: 1 12/12/2017 [id number] Lebron Sotelo Ambulatory BMSBuilding: [facility] [facility] Repository 12/12/2017 [id number] Ashleigh Lebron Ambulatory BMSBuilding: [place] [facility] Repository 12/12/2017 [id number] Ashleigh Lebron Ambulatory BMSBuilding: [place] [facility] Repository 12/12/2017 [id number] Ashleigh Lebron Ambulatory BMSBuilding: [place] [facility] Repository 12/12/2017/12/16/19 [id number] Ambulatory BMSBuilding: [place] [facility] Repository 12/10/2017 [id number] Ambulatory [facility] ding:SARANYA Repository [place] 10/15/2017/10/16/19 [id number] Emergency BBuilding:JOHN Dos Santos 18 [facility] Repository 08/21/2017 [id number] Ambulatory [facility] ding:MTLAB Repository 08/05/2017 [id number] Ambulatory [facility] ding:US Repository 08/03/2017 [id number] Ambulatory [facility] ding:MTLAB Repository 07/23/2017 [id number] [facility] ding:MTLAB Repository PAYERS PAYERS ENCOUNTER GUARANTOR PAYER SUBSCRIBER SOURCE 06/29/2018 HOMER [place] Insurance:[place] MACR[place]OB: Community ASSISTED [id number] [facility] [id number] [place] [address]Kwb: (330) Number: [phone] () [id number] Date: [place], [place] [address]NF: 06/29/2018 Secondary NOT GIVENUNK [place] Insurance:SELF PAY [facility] Number: Effective Repository Date:2018-06-29 06/28/2018 HOMER [place]ALE Insurance:[place] MACRINODOB: Community ASSISTED [id number] [facility] [id number] [place] [address]Cgf: (330) Number: [phone] () [id number] Date: [place], [place] [address]IU: 06/28/2018 Secondary NOT GIVENUNK [place] Insurance:SELF PAY [facility] Number: Effective Repository Date:2018-06-28 06/21/2018 VINCENT J Primary VINCENT J Quint[place] Insurance:[place] MACRINODOB: Community ASSISTED [id number] [facility] [id number] [place] [address]Ujk: (330) Number: [phone] () [id number] Date: [facility] [place] [address]YH: 06/21/2018 Secondary NOT GIVENUNK [place] Insurance:SELF PAY [facility] Number: Effective Repository Date:2018-06-21 06/18/2018 HOMER Shipley [place] Insurance[place] MACRINODOB: Community ASSISTED [id number] [facility] [id number] [place] [address]Tvd: (330) Number: [phone] () [id number] Date: [place], [place] [address]JO: 06/18/2018 Secondary NOT GIVENUNK [place] Insurance:SELF PAY [facility] Number: Effective Repository Date:2018-06-18 06/10/2018 HOMER Shipley [place] Insurance:[place] MACRIN[place]OB: Community ASSISTED [id number] [facility] [id number] [place] [address]Itw: (330) Number: [phone] () [id number] Date: [place], [place] [address]JJ: 06/10/2018 Secondary NOT GIVENUNK [place] Insurance:SELF PAY [facility] Number: Effective Repository Date:2018-06-10 06/03/2018 HOMER Shipley [place] Insurance:[place]CRIN[place]OB: Community ASSISTED [id number] [facility] [id number] [facility] [place] [address]Auw: (330) Number: [phone] () [id number] Date: [facility], [place] [address]EO: 06/03/2018 Secondary NOT GIVENUNK [place] Insurance:SELF PAY [facility] Number: Effective Repository Date:2018-06-03 05/25/2018 HOMER Bruno Primary HOMER [place] Insurance:[place] MACRIN[place]OB: Community ASSISTED [id number] [facility] [id number] [facility] [place] [address]Hdp: (330) Number: [phone] () [id number] Date: [place], [place] [address]WO: 05/25/2018 Secondary NOT GIVENUNK [place] Insurance:SELF PAY [facility] Number: Effective Repository Date:2018-05-25 2018 HOMER Bruno Primary HOMER [place] Insurance:[place] MACRIN[place]OB: Community ASSISTED [id number] [facility] [id number] [facility] [place] [address]Rgn: (330) Number: [phone] () [id number] Date: [facility], [place] [address]ZY: 2018 Secondary NOT GIVENUNK [place] Insurance:SELF PAY [facility] Number: Effective Repository Date:2018 01/04/2018 HOMER Bruno Primary HOMER [place] Insurance:[place] MACRINODOB: Community ASSISTED [id number] [facility] [id number] [facility] [place] [address]Mec: (330) Number: [phone] () [id number] Date: [facility], [place] [address]BU: 01/04/2018 Secondary NOT GIVENUNK [place] Insurance:SELF PAY [facility] Number: Effective Repository Date:2018-01-04 12/12/2017 HOMER Bruno Primary HOMER [place]oster [place] Insurance[place] MACRIN[place]OB: Community ASSISTED [id number] [facility] [id number] [facility] [place] [address]Tnk: (330) Number: [phone] () [id number] Date: [facility], [place] [address]OJ: 12/12/2017 Secondary NOT GIVENUNK [place] Insurance:SELF PAY [facility] Number: Effective Repository Date:2017-12-12 12/12/2017 HOMER Bruno Primary HOMER Shipley [place] Insurance:[place] MACRIN[place]OB: Community ASSISTED [id number] [facility] [id number] [facility] [place] [address]Zpo: (330) Number: [phone] () [id number] Date: [facility], [place] [address]CK: 12/12/2017 Secondary NOT GIVENUNK [place] Insurance:SELF PAY [facility] Number: Effective Repository Date:2017-12-12 12/12/2017 HOMER Bruno Primary HOMER Shipley [place] Insurance[place] MACRIN[place]OB: Community ASSISTED [id number] [facility] [id number] [facility] [place] [address]Kcf: (330) Number: [phone] () [id number] Date: [facility], [place] [address]GX: 12/12/2017 Secondary NOT GIVENUNK [place] Insurance:SELF PAY [facility] Number: Effective Repository Date:2017-12-12 12/12/2017 HOMER Bruno Primary HOMER [place]ilaroster [place] Insurance[place] MACRINODOB: Community ASSISTED [id number] [facility] [id number] [place] [address]Aje: (330) Number: [phone] () [id number] Date: [facility] [place] [address]TT: 12/12/2017 Secondary NOT GIVENUNK [place] Insurance:SELF PAY [facility] Number: Effective Repository Date:2017-12-12 12/12/2017 HOMER Shipley [place] MACRIN[place]OB: Community ASSISTED [id number] [facility] [id number] [facility] [place], [place] [address]Tfe: (330) Number: [phone] () [id number] Date: [place], [place] [address]VO: 12/12/2017 Secondary NOT GIVENUNK [place] Insurance:SELF PAY [facility] Number: Effective Repository Date:2017-12-12 12/12/2017 HOMER Shipley [place] Insurance:[place] MACRINODOB: Community ASSISTED [id number] [facility] [id number] [facility] [place], [place]ository [place] [address]Ruu: (330) Number: [phone] () [id number] Date: [place], [place] [address]EK: 12/12/2017 Secondary NOT GIVENUNK [place] Insurance:SELF PAY [facility] Number: Effective Repository Date:2017-12-12 12/10/2017 HOMER SANCHE[place] Insurance:[place] MACRIN[place]OB: Community ASSISTED [id number] [facility] [id number] [facility] [place], [place]ository [place] [address]Tjx: (330) Number: [phone] () [id number] Date: [place], [place] [address]RV: 12/10/2017 Secondary NOT GIVENUNK Quinten Insurance:SELF PAY [facility] Number: Effective Repository Date:2017-12-10 10/15/2017 HOMER SANCHEZMASTERODOB: Primary HOMER Bruno [facility] [place] Insurance:SECURECARE MACRINODOB: Foundation [place], [place] THP MEDICAREPolicy [id number] Repository [address]Yyg: (620) Number: [address] [phone] () [id number] [place] Date:2017-10-15 [address]Npe: [phone] Name:[id number] [facility] ()Tel: [phone] NIUH [phone] () [place], [place] [address]NY: 08/21/2017 HOMER Bruno [id number] Primary VINCENT J [place] [facility], Insurance:[place] MACRINODOB: [facility] [address]Gps: (273) [facility] [id number] ([place]) MEDICAREPolicy Repository Number: [id number] Date: [place], [place] [address]YS: 08/21/2017 Secondary NOT GIVENUNK Quinten Insurance:SELF PAY [facility] Number: Effective Repository Date:2017-08-21 08/05/2017 VINCENT J [id number] Primary VINCENT J [place] [facility], Insurance:[place]OB: Community [place] [address]Bzy: ([phone]) [facility] [id number] [phone] ([place]) MEDICAREPolicy Repository Number: [id number] Date: [place], [place] [address]MM: 08/05/2017 Secondary NOT GIVENUNK Quinten Insurance:SELF PAY [facility] Number: Effective Repository Date:2017-07-23 08/03/2017 Homer Bruno [id number] Primary HOMER Shipley [facility], Insurance:[facility] ENIDRINODOB: [facility] [address]Ziy: (330) PLAN [address] [address] [facility]: Repository [id number] Date: [place], [place] [address]XY: 08/03/2017 Secondary NOT GIVENUNK Quinten Insurance:SELF PAY [facility] Number: Effective Repository Date:2017-08-03 07/23/2017 Homer Bruno [id number] Primary HOMER Shipley [facility], Insurance:HEALTH MACRINODOB: [facility] [address]Gpm: (330) PLAN [facility] [id number] [address] () [place] LYMEPolicy Number: Repository [id number] Date: [place], [place] [address]NA: 07/23/2017 Secondary NOT GIVENUNK Quinetn Insurance:SELF PAY [facility] Number: Effective Repository Date:2017-07-23
== END ==
PROVIDERS: Visit Provider Family Medicine
DX: I50.9 Heart failure, unspecified (principal); J44.9 Chronic obstructive pulmonary disease, unspecified; Z79.899 Other long term (current) drug therapy
CPT/HCPCS: 36415; 80048

== ENCOUNTER → 2018-06-29 15:02 | Outpatient (CLI) | payer MEDICARE, SELFPAY ==
[2017-12-12 22:53] VITALS: BMI 30.9
--- NOTE | 2018-06-29 15:09 | RAD_ITS ---
STUDY: X-RAY CHEST REASON FOR EXAM: Male, 83 years old. Pleural effusion TECHNIQUE: PA and lateral chest COMPARISON: 05/25/2018 FINDINGS: Small right, moderate left layering pleural effusion, hazy to intermediately dense and for treatment and lower lungs bilaterally which may in part represent atelectasis. Underlying pneumonia is not excluded. Upper lungs clear. Mild pulmonary vascular prominence. Stable mild cardiomegaly. Nondilated aortic arch. No acute osseous or upper abdominal process. RAD/Chest PA and Lateral IMPRESSION: No significant interval change in the chest. Persistent moderate left and small right pleural effusions, bibasilar interstitial and airspace opacities likely atelectatic. There is mild cardiomegaly and mild pulmonary vascular prominence. Clinically clinically for any evidence of mild CHF. Given the persistence size and morphology of the effusions, consider loculated pleural effusions. A CT chest may be helpful in defining the morphology of the effusions and the basilar atelectasis. Electronically Signed: Romero Pena MD at 18:13 EST Tel , Service support ,
--- OUTSIDE RECORDS SUMMARY | 2018-08-31 21:16 | XMS RPT_ITS ---
:1935 Author Organization [place] Support Name Relationship Address Phone GAIL LLOYD Unavailable [address] + [place] [address] R Unavailable Unavailable Unavailable ALEXIS, DERICE Unavailable [address] + [place] [address] Roberta, Gail Unavailable [address] + [place] [address] R Unavailable Unavailable Unavailable ALEXIS, DERICE Unavailable [address] + [place] [address] ROBERTA, GAIL Unavailable [address] + [place] [address] R Unavailable Unavailable Unavailable ALEXIS, DERICE Unavailable [address] + [place] [address] Roberta, Gail Unavailable [address] + [place] [address] R Unavailable Unavailable Unavailable ALEXIS, DERICE Unavailable [address] + [place] [address] ROBERTA, GAIL Unavailable [address] + [place] [address] R Unavailable Unavailable Unavailable ALEXIS, DERICE Unavailable [address] + [place] [address] KACARMENCITA, GAIL Unavailable [address] + [place] [address] R Unavailable Unavailable Unavailable ALEXIS, DERICE Unavailable [address] + [place] [address] ROBERTA, GAIL Unavailable [address] + [place] [address] R Unavailable Unavailable Unavailable LAEXIS, DERICE Unavailable [address] + [place] [address] Roberta, Gail Unavailable [address] + [place] [address] R Unavailable Unavailable Unavailable AlexisNora Unavailable [address] + [place] [address] Kacarmencita, Gail Unavailable [address] + [place] [address] R Unavailable Unavailable Unavailable Nora Espinoza Unavailable [address] + [place] [address] KACARMENCITA, GAIL Unavailable [address] + [place] [address] R Unavailable Unavailable Unavailable NORA ESPINOZA (POA) Unavailable [address] + [place] [address] CARMENCITA, GAIL Unavailable [address] + [place] [address] R Unavailable Unavailable Unavailable NORA ESPINOZA (POA) Unavailable [address] + [place] [address] [facility], GAIL Unavailable [address] + [place] [address] R Unavailable Unavailable Unavailable NORA ESPINOZA (POA) Unavailable [address] + [place] [address] ROBERTA, GAIL Unavailable [address] + [place] [address] R Unavailable Unavailable Unavailable NORA ESPINOZA (POA) Unavailable [address] + [place] [address] ROBERTA, GAIL Unavailable [address] + [place] [address] R Unavailable Unavailable Unavailable ALEXISNORA (POA) Unavailable [address] + [place] [address] Roberta, Gail Unavailable [address] + [place] [address] R Unavailable Unavailable Unavailable Nora Espinoza Unavailable [address] + [place] [address] Roberta, Gail Unavailable [address] + [place] [address] R Unavailable Unavailable Unavailable Alexis Derice Unavailable [address] + [place] [address] HODAN RENE Unavailable Unavailable + HODAN RENE Unavailable Unavailable + ALEXIS DERICE Unavailable Unavailable + ALEXISLINDSEYICE Unavailable Unavailable + KAUF, GAIL Unavailable [address] + [place] [address] R Unavailable Unavailable Unavailable ALEXIS, DERICE Unavailable [address] + [place] [address] KAUF, GAIL Unavailable [address] + [place] [address] R Unavailable Unavailable Unavailable ALEXIS DERICE Unavailable [address] + [place] [address] KACARMENCITA, GAIL Unavailable [address] + [place] [address] R Unavailable Unavailable Unavailable ALEXISLINDSEYICE Unavailable [address] + [place] [address] KACARMENCITA, GAIL Unavailable [address] + [place] [address] R Unavailable Unavailable Unavailable ALEXIS DERICE Unavailable [address] + [place] [address] Care Team Providers Name Role Phone AFTAB NASH MD Attending Unavailable ILYA DIAZ DO Primary Care Unavailable Quentin Giron Attending Unavailable Quentin Giron Attending Unavailable Ceasr El Attending Unavailable Ilya Diaz Primary Care Unavailable MADDIE HUFFMAN Referring Unavailable Cesar El Attending Unavailable Cesar El Referring Unavailable Ilya Diaz Primary Care Unavailable Cesar El Attending Unavailable Nikko Cesar Referring Unavailable Ilya Diaz Primary Care Unavailable Ashleigh, Lebron Admitting Unavailable Joe Ilya Primary Care Unavailable Ashleigh, Lebron Consulting Unavailable Shae Lucas Attending Unavailable Cesar El Attending Unavailable Cesar El Referring Unavailable Quentin Giron Primary Care Unavailable Ashleigh, Lebron Admitting Unavailable Kt Cunningham Attending Unavailable Ilya Diaz Primary Care Unavailable Tereletsky, Kt Consulting Unavailable Giron, Quentin Attending Unavailable Giron, Quentin Attending Unavailable Giron, Quentin Primary Care Unavailable Giron, Quentin Attending Unavailable Giron, Quentin Primary Care Unavailable Cassidy Leong Attending Unavailable Cassidy Leong Referring Unavailable Giron, Quentin Primary Care Unavailable Birmingham, Ilya Primary Care Unavailable Ashleigh, Lebron Admitting Unavailable Tereletsky, Kt Attending Unavailable Sibilia, Cesar Attending Unavailable Sibilia, Cesar Referring Unavailable Joe, Ilya Primary Care Unavailable Place, [place] Attending Unavailable Ashleigh, Lebron Admitting Unavailable Tereletsky, Kt Attending Unavailable Joe, Ilya Primary Care Unavailable Tereletsky, Kt Consulting Unavailable Ashleigh, Lebron Admitting Unavailable Tereletsky, Kt Attending Unavailable Joe, Ilya Primary Care Unavailable Tereletsky, Kt Consulting Unavailable Isreal Massey Attending Unavailable Sibilia, Cesar Attending Unavailable Sibilia, Cesar Referring Unavailable [place], Ilya Primary Care Unavailable Place, [place] Attending Unavailable PROBLEMS PROBLEMS DATE TYPE CONDITION / CODE ATTENDING STATUS SOURCE 07/02/2018 Unknown Z79.899 - Other long Quentin Giron Active [facility] term (current) drug Community therapy / Hospital Z79.899(ICD-10) Repository 06/03/2018 Unknown J90 - Pleural Quentin Giron Active [place] effusion, not Community elsewhere classified Hospital / J90(ICD-10) Repository 06/03/2018 Unknown G47.00 - Insomnia, Quentin Giron Active [facility] unspecified / Community G47.00(ICD-10) Hospital Repository 06/03/2018 Unknown E11.9 - 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 Community without Hospital complications / Repository E11.9(ICD-10) 02/18/2018 Unknown J81.0 - Acute Place, Active [facility] pulmonary edema / [facility] J81.0(ICD-10) Hospital Repository 12/22/2017 Unknown I50.21 - Acute Tereletsky, Active [place] systolic Kt [facility] (congestive) heart Hospital failure / Repository I50.21(ICD-10) 03/08/2018 Unknown 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, 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 [facility] (current) use of [facility] anticoagulants / Hospital Z79.01(ICD-10) Repository PROCEDURES PROCEDURES No Procedure Records FoundRESULTS RESULTS CHEST PA AND LATERAL Observed: 06/29/2018 Status: F Source: [facility] Imaging Services [address] [place] [address] Chest PA and Lateral MR#: [id number] Acct: [id number] Name: HOMER FAY Rep #: [id number] : 1935 M 83 From: Romero Pena MD PCP: Quentin Giron MD Status: REG CLI Study: Chest PA and Lateral Date of Exam: 06/29/18 Exam# [id number] Ordering Dr: Cesar El MD STUDY: X-RAY [...] CC: Quentin Giron MD; Cesar El MD Transfer Knitter: Signed BASIC METABOLIC Collected: 06/28/2018 Status: F Source: [place] PROFILE (BMP) 7:10 AM [facility] REPOSITORY TYPE CODE TESTS RESULT OUT OF [...] GAP 5 Performed By: #### L500.2500 #### [facility] Laboratory [address] [place], [address] BASIC METABOLIC Collected: 06/21/2018 Status: F Source: [place] PROFILE ([facility]) 6:25 AM [facility] REPOSITORY Order Comment: ROOM 112 TYPE CODE [...] GAP 8 Performed By: #### L500.2500 #### [facility] [address] [place], [address] BASIC METABOLIC Collected: 06/18/2018 Status: F Source: [place] PROFILE ([facility]) 1:45 PM [facility] REPOSITORY TYPE CODE TESTS RESULT OUT OF [...] GAP 8 Performed By: #### L500.2500 #### [facility] [address] [place], [place], [address] BASIC METABOLIC Collected: 06/10/2018 Status: F Source: [place] PROFILE (BMP) 11:38 AM [facility] REPOSITORY TYPE CODE TESTS RESULT OUT OF [...] GAP 10 Performed By: #### L500.2500 #### [facility] [address] [place], [place], [address] CBC W/DIFF, AUTOMATED Collected: 06/03/2018 Status: F Source: [place] 4:55 PM [facility] REPOSITORY TYPE CODE TESTS RESULT OUT OF [...] By: #### L100.0100, L501.9985, L500.4050, L501.9520 #### [facility] [address] [place], [place], [address] HEMOGLOBIN A1C Collected: 06/03/2018 Status: F Source: [place] 4:55 PM [facility] REPOSITORY TYPE CODE TESTS RESULT OUT OF RANGE REFERENCE UNITS LAB L501.9985 4.2-6.3 % High HGB A1C 6.5 Performed By: #### L100.0100, L501.9985, L500.4050, L501.9520 #### [facility] [address] [place], [place], [address] COMPREHENSIVE METABOLIC Collected: 06/03/2018 Status: F Source: [place] 4:55 PM [facility] REPOSITORY TYPE CODE TESTS RESULT OUT OF [...] By: #### L100.0100, L501.9985, L500.4050, L501.9520 #### [facility] [address] [place], [address] THYROID STIM HORMONE Collected: 06/03/2018 Status: F Source: [place] ([facility]) 4:55 PM [facility] REPOSITORY TYPE CODE TESTS RESULT OUT OF RANGE REFERENCE UNITS LAB L501.9520 0.358-3.74 uIU/mL Normal TSH 3.24 Performed By: #### L100.0100, L501.9985, L500.4050, L501.9520 #### [facility] [address] [place], [address] BNP,B-TYPE NATRIURETIC Collected: 06/03/2018 Status: F Source: [place] PEPTIDE 4:55 PM [facility] REPOSITORY TYPE CODE TESTS RESULT OUT OF RANGE REFERENCE UNITS LAB L503.6620 0-100 pg/mL Normal B-TYPE 91.8 ELIEZER PEP Performed By: #### L503.6620 #### [facility] [address] [facility], [address] CRP, HIGH SENSITIVITY Collected: 06/03/2018 Status: F Source: [place] CARDIAC 4:55 PM [facility] REPOSITORY TYPE CODE TESTS RESULT OUT OF RANGE REFERENCE UNITS LAB L501.6750 mg/L High CRP HIGH 14.00 SENS Result Comment: Low Relative Risk of CVD <1.0 mg/L Average Relative Risk of CVD 1.0 - 3.0 mg/L High Relative Risk of CVD >3.0 mg/L Performed By: #### L501.6750 #### [facility] [address] [place], [address] BASIC METABOLIC Collected: 05/25/2018 Status: F Source: [place] PROFILE (BMP) 11:52 AM [facility] REPOSITORY TYPE CODE TESTS RESULT OUT OF [...] GAP 6 Performed By: #### L500.2500 #### [facility] [address] [facility], [address] BNP,B-TYPE NATRIURETIC Collected: 05/25/2018 Status: F Source: [place] PEPTIDE 11:52 AM [facility] REPOSITORY TYPE CODE TESTS RESULT OUT OF RANGE REFERENCE UNITS LAB L503.6620 0-100 pg/mL High B-TYPE 131.8 ELIEZER PEP Performed By: #### L503.6620 #### [facility] [address] [place], [address] CHEST PA AND LATERAL Observed: 05/25/2018 Status: F Source: [place] 11:50 AM [facility] HOSPITAL REPOSITORY [facility] Imaging Services [address] [place] [address] Chest PA and Lateral MR#: [id number] Acct: [id number] Name: HOMER FAY Rep #: [id number] : 1935 M 83 From: Larry Guthrie MD PCP: Quentin Giron MD Status: REG CLI Study: Chest PA and Lateral Date of Exam: 05/25/18 Exam# [id number] Ordering Dr: Cassidy Leong RN PLASTIC SURGERY-Jacinto STUDY: X-RAY CHEST REASON FOR EXAM: Male, [...] , CC: TRAVIS Leong; Quentin Giron MD Transfer Knitter: Signed CHEST PA AND LATERAL Observed: 2018 Status: F Source: [place] 10:58 AM [facility] REPOSITORY [facility] Imaging Services [address] [place] [address] Chest PA and Lateral MR#: [id number] Acct: [id number] Name: Homer Fay Rep #: [id number] : 1935 M 83 From: Nicole Jordan MD PCP: Ilya Diaz DO Status: REG CLI Study: Chest PA and Lateral Date of Exam: 03/09/18 Exam# [id number] Ordering Dr: Cesar El MD STUDY: X-RAY [...] CC: Ilya Diaz DO; Cesar El MD Transfer Knitter: Signed BASIC METABOLIC Collected: 01/04/2018 Status: F Source: [place] PROFILE (BMP) 10:00 AM [facility] REPOSITORY Order Comment: 112 TYPE CODE TESTS [...] GAP 5 Performed By: #### L500.2500 #### [facility] [address] [facility] [place], [address] CBC-COMPLETE BLOOD CNT Collected: 01/04/2018 Status: F Source: [place] NO DIFF 10:00 AM [facility] REPOSITORY Order Comment: 112 TYPE CODE TESTS [...] MPV 12.0 Performed By: #### L100.0500 #### [facility] [address] [facility] [place], [address] DISCHARGE SUMMARY Observed: 12/15/2017 Status: F Source: [place] 6:43 PM [facility] REPOSITORY [facility] Medical Records Department [address] [place] [address] Discharge Summary 12/15/17 1829 MR#: [id number] Acct: [id number] Name: HOMER FAY Rep #: [id number] : 1935 82 From: Kt Cunningham DO PCP: Ilya Diaz DO Status: DIS IN Y Location: U [id number] Discharge Date and Diagnosis Date of Admission: [...] was seen in the emergency room at [facility] with a chief complaint of increased shortness [...] atrial fibrillation and followed up with a dust collector operator in [place]. Patient arrived by squad on a nonrebreather, [...] home, he was to follow-up with his dust collector operator concerning whether he should resume his Coumadin, [...] 60 Code Visit Inpatient E AND M: [id number] Disch Hosp 12/15/17 1843 <Electronically signed by Kt Cunningham DO> Date Kt Cunningham DO Cosigner Signature (if applicable): Date CC: Ilya Diaz DO; Kt Cunningham DO Signed DISCHARGE INSTRUCTION Observed: 12/15/2017 Status: F Source: [place] 11:02 AM [facility] REPOSITORY [facility] Medical Records Department [address] [place] [address] Instructions for Home/Discharge Instructions 12/15/17 1100 MR#: [id number] Acct: [id number] Name: HOMER FAY Rep #: [id number] : 1935 82 From: Kt Cunningham DO [...] CONTRAST 4:32 PM [facility] REPOSITORY [facility] Cardiovascular Services [address] [place] [address] Echo Complete W/ Contrast 12/14/17 1439 MR#: [id number] Acct: [id number] Name: HOMER FAY Rep #: [id number] : 1935 82 From: Isreal Massey MD Attending Dr: Kt Cunningham DO Status: ADM IN Ordering Dr: Lebron Sotelo MD Date: 12/13/17 Location: [facility] Sex: M C Admitted: 12/12/17 Reason For [...] Date Dictated: 12/14/17 1439 Date Transcribed: 12/14/171630 Transfer Knitter: Signed 12 LEAD ELECTROCARDIOGRAM Observed: 12/14/2017 Status: F Source: [place] 3:13 PM [facility] REPOSITORY [facility] Cardiovascular Services [address] [place] [address] 12 Lead EKG 12/12/171943 MR#: [id number] Acct: [id number] Name: HOMER FAY Rep #: [id number] : 1935 82 From: Isreal Massey MD Attending Dr: Kt Cunningham DO Status: ADM IN Ordering Dr: Herb Tracy MD Date: 12/12/17 Location: [facility] Sex: M C Admitted: 12/12/17 Test Reason [...] ECG Confirmed by ISREAL MASSEY MD ([id number]), material expeditor PENELOPE PRESTON ([id number]) on 12/14/2017 3:12:32 PM Referred By: ROSALBA Confirmed By:ISREAL MASSEY MD 12/14/17 1512 Date Isreal Massey MD CC: Ilya Diza DO; Kt Cunningham DO; Herb Tracy MD Signed BASIC METABOLIC Collected: 12/14/2017 Status: F Source: [place] PROFILE ([facility]) 6:15 AM [facility] REPOSITORY TYPE CODE TESTS RESULT OUT OF [...] GAP 9 Performed By: #### L500.2500 #### [facility] [address] [place], [address] HH, HEMOGLOBIN AND Collected: 12/14/2017 Status: F Source: [place] HEMATOCRIT 6:15 AM [facility] REPOSITORY TYPE CODE TESTS RESULT OUT OF RANGE REFERENCE UNITS LAB L100.1300 13.0-16.5 g/dl Low HGB 9.5 LAB L100.1400 40-54 % Low HCT 29.6 Performed By: #### L100.0600 #### [facility] [address] [place], [address] CHEST PA AND LATERAL Observed: 12/14/2017 Status: F Source: [place] 12:00 AM [facility] REPOSITORY [facility] Imaging Services [address] [facility] [address] Chest PA and Lateral MR#: [id number] Acct: [id number] Name: HOMER FAY Rep #: [id number] : 1935 M 82 From: Miguel Woods MD PCP: Ilya Diaz DO Status: ADM IN Study: Chest PA and Lateral Date of Exam: 12/14/17 Exam# [id number] Ordering Dr: Kt Cunningham DO STUDY: X-RAY [...] Miguel Woods MD at 9:49 EDT Tel [phone], Service support , CC: Ilya Diaz DO; Kt Cunningham DO Transfer Knitter: Signed HEMOGLOBIN Collected: 12/13/2017 Status: F Source: [place] 11:22 PM [facility] REPOSITORY TYPE CODE TESTS RESULT OUT OF RANGE REFERENCE UNITS LAB L100.1300 13.0-16.5 g/dl Low HGB 9.2 Performed By: #### L100.1300, L100.1400 #### [facility] Laboratory [address] [place], [place], [address] HEMATOCRIT Collected: 12/13/2017 Status: F Source: [place] 11:22 PM [facility] REPOSITORY TYPE CODE TESTS RESULT OUT OF RANGE REFERENCE UNITS LAB L100.1400 40-54 % Low HCT 29.7 Performed By: #### L100.1300, L100.1400 #### [facility] Laboratory [address] [place], [place], [id number] (474) HEMOGLOBIN Collected: 12/13/2017 Status: F Source: [place] 5:58 PM [facility] REPOSITORY TYPE CODE TESTS RESULT OUT OF RANGE REFERENCE UNITS LAB L100.1300 13.0-16.5 g/dl Low HGB 9.3 Performed By: #### L100.1300, L100.1400 #### [facility] [address] [place], [address] HEMATOCRIT Collected: 12/13/2017 Status: F Source: [place] 5:58 PM [facility] REPOSITORY TYPE CODE TESTS RESULT OUT OF RANGE REFERENCE UNITS LAB L100.1400 40-54 % Low HCT 30.4 Performed By: #### L100.1300, L100.1400 #### [facility] [address] [place], [address] Observed: 12/13/2017 Status: F Source: [place] STOOL OCCULT BLOOD 1:00 PM [facility] IFOB REPOSITORY STOB iFOB Occult Blood Negative Performed By: #### M100.7900 #### [facility] [address] [place], [address] TYPE AND SCREEN Collected: 12/13/2017 Status: F Source: [place] 5:44 AM [facility] REPOSITORY Order Comment: CMV NEG? N Number [...] NEGATIVE Screen Performed By: #### B101.7450 #### [facility] Laboratory [facility] [place], [address] RC Collected: 12/13/2017 Status: F Source: [place] 5:44 AM [facility] REPOSITORY TYPE CODE TESTS RESULT OUT OF REFERENCE UNITS RANGE LAB U100.0000 [id number] TRANSFUSED PRODUCT: T AND S with Crossmatch, Red Cells COUNT: 2 Performed By: #### U100.0000 #### Non-[facility] Laboratory - refer to report for specific site HISTORY AND PHYSICAL Observed: 12/13/2017 Status: F Source: [place] EXAM 4:59 AM [facility] REPOSITORY [facility] Medical Records Department [address] [place] [address] History and Physical 12/12/17 2152 MR#: [id number] Acct: [id number] Name: HOMER FAY Kiana Rep #: [id number] : 1935 82 From: Lebron Sotelo MD PCP: Ilya Diaz DO Status: ADM IN Y Location: [place] [address] Problem List (1) Anemia Status: Acute (2) [...] (Auto) Neut % (Auto) Lymph % (Auto) Prentiss % (Auto) Assessment/Plan All Active Problems Anemia [...] Diuresis. Monitor. 12/13/17 0459 <Electronically signed by Leborn Sotelo MD> Date Lebron Sotelo MD Cosigner Signature: Date (if applicable) CC: Ilya Diaz DO; Lebron Sotelo MD Signed CBC W/DIFF, AUTOMATED Collected: 12/13/2017 Status: F Source: [place] 4:55 AM [facility] REPOSITORY TYPE CODE TESTS RESULT OUT OF [...] Performed By: #### L100.0100, L100.9950 #### [facility] Laboratory [address] [place], [place], [address] RETIC PANEL Collected: 12/13/2017 Status: F Source: [place] 4:55 AM [facility] REPOSITORY TYPE CODE TESTS RESULT OUT OF [...] marrow. Performed By: #### L100.0100, L100.9950 #### [facility] [address] [facility] [place], [place], [address] IRON+IRON BINDING Collected: 12/13/2017 Status: F Source: [place] CAPACITY 4:55 AM [facility] REPOSITORY TYPE CODE TESTS RESULT OUT OF RANGE REFERENCE UNITS LAB L503.6075 250-450 ug/dL TIBC Normal 274 LAB L503.6150 65-175 ug/dL Low IRON 15 LAB L503.6250 15.0-55.0 % Low IRON SATURATION 5.5 Performed By: #### L503.6030, L506.0250 #### [facility] [address] [facility] [place], [place], [address] FOLATES, (FOLIC ACID) Collected: 12/13/2017 Status: F Source: [place] 4:55 AM [facility] REPOSITORY TYPE CODE TESTS RESULT OUT OF RANGE REFERENCE UNITS LAB L506.0250 3.1-55.4 ng/mL Normal FOLATES 17.00 Performed By: #### L503.6030, L506.0250 #### [facility] [address] [facility] [place], [address] VITAMIN B12 Collected: 12/13/2017 Status: F Source: [place] 4:55 AM [facility] REPOSITORY TYPE CODE TESTS RESULT OUT OF RANGE REFERENCE UNITS LAB L503.0105 211-911 pg/mL Normal Vitamin B12 649 Performed By: #### L503.0105 #### [facility] [address] [facility] [place], [address] BASIC METABOLIC Collected: 12/13/2017 Status: F Source: [place] PROFILE (BMP) 2:05 AM [facility] REPOSITORY TYPE CODE TESTS RESULT OUT OF [...] Performed By: #### L501.9520, L500.2500, L500.4100 #### [facility] [address] [place], [address] LIPID PROFILE Collected: 12/13/2017 Status: F Source: [place] 2:05 AM [facility] REPOSITORY TYPE CODE TESTS RESULT OUT OF [...] Performed By: #### L501.9520, L500.2500, L500.4100 #### [facility] [address] [facility] [place], [address] CBC-COMPLETE BLOOD CNT Collected: 12/13/2017 Status: F Source: [place] NO DIFF 2:05 AM [facility] REPOSITORY TYPE CODE TESTS RESULT OUT OF [...] MPV 11.0 Performed By: #### L100.0500 #### [facility] Laboratory [address] [place], [place], [address] PROTHROMBIN TIME W/INR Collected: 12/13/2017 Status: F Source: [place] 2:05 AM [facility] REPOSITORY TYPE CODE TESTS RESULT OUT OF RANGE REFERENCE UNITS LAB L300.4150 11.7-14.9 SECONDS High PROTIME 21.3 LAB L300.4200 Normal INR 1.8 Performed By: #### L300.3900 #### [facility] [address] [place], [address] TROPONIN-I Collected: 12/13/2017 Status: F Source: [place] 2:05 AM [facility] REPOSITORY Order Comment: 'TROP' Serial specimen #1, #2 or #3: 3 TYPE CODE TESTS RESULT OUT OF RANGE REFERENCE UNITS LAB L501.4010 <0.045 ng/mL Normal < 0.015 TROPONIN-I Result Comment: TROPONIN-I EXPECTED VALUES <0.045 Negative 0.045 - 0.590 Consistent with Cardiac Damage > OR = 0.600 Critical Value Not every elevated troponin is indicative of NV. These values should be used with clinical judgement in examining the patient's clinical picture for diagnosis. To establish a diagnosis of NV versus myocardial injury, there must be a demonstrated rise and/or fall in the troponin values, in addition to ischemic symptoms, EKG changes, new regional wall motion abnormality, and/or angiographical evidence. PLEASE NOTE: REFERENCE RANGES EDITED 17 Performed By: #### L501.4010 #### [facility] [address] [place], [address] BNP,B-TYPE NATRIURETIC Collected: 12/13/2017 Status: F Source: [place] PEPTIDE 2:05 AM [facility] REPOSITORY TYPE CODE TESTS RESULT OUT OF RANGE REFERENCE UNITS LAB L503.6620 0-100 pg/mL High B-TYPE 275.6 ELIEZER PEP Performed By: #### L503.6620 #### [facility] [address] [facility] [place], [address] CHEST PA AND LATERAL Observed: 12/13/2017 Status: F Source: [place] 12:00 AM [facility] REPOSITORY [facility] Imaging Services [address] [place] [address] Chest PA and Lateral MR#: [id number] Acct: [id number] Name: HOMER FAY Kiana Rep #: [id number] : 1935 M 82 From: Guille Hsu DO PCP: Ilya Diaz DO Status: ADM IN Study: Chest PA and Lateral Date of Exam: 12/13/17 Exam# [id number] Ordering Dr: Lebron Sotelo MD STUDY: X-RAY [...] Guille Hsu DO at 9:27 EDT Tel [phone], Service support , CC: Ilya Diaz DO; Lebron Sotelo MD Transfer Knitter: Signed TROPONIN-I Collected: 12/12/2017 Status: F Source: [place] 11:27 PM [facility] REPOSITORY Order Comment: 'TROP' Serial specimen #1, #2 or #3: 2 TYPE CODE TESTS RESULT OUT OF RANGE REFERENCE UNITS LAB L501.4010 <0.045 ng/mL Normal < 0.015 TROPONIN-I Result Comment: TROPONIN-I EXPECTED VALUES <0.045 Negative 0.045 - 0.590 Consistent with Cardiac Damage > OR = 0.600 Critical Value Not every elevated troponin is indicative of NV. These values should be used with clinical judgement in examining the patient's clinical picture for diagnosis. To establish a diagnosis of NV versus myocardial injury, there must be a demonstrated rise and/or fall in the troponin values, in addition to ischemic symptoms, EKG changes, new regional wall motion abnormality, and/or angiographical evidence. PLEASE NOTE: REFERENCE RANGES EDITED 17 Performed By: #### L501.4010 #### [facility] [address] [place], [address] EMERGENCY DEPARTMENT Observed: 12/12/2017 Status: F Source: [place] SUMMARY 9:21 PM [facility] REPOSITORY [facility] Medical Records Department [address] [place] [address] Emergency Department Summary 12/12/17 2030 MR#: [id number] Acct: [id number] Name: HOMER FAY Rep #: [id number] : 1935 82 From: Herb Tracy MD [...] pleural effusions This note was generated with [employer] software. It may contain incorrect words, spelling, [...] your Primary Care Provider. Call [facility] ([phone]) or report to the closest Emergency Room. Call 911 if necessary. 12/12/172120 <Electronically signed by Herb Tracy MD> Date Herb Tracy MD Cosigner Signature (If Indicated): Date CC: Ilya Diaz DO CBC W/DIFF, AUTOMATED Collected: 12/12/2017 Status: F Source: [place] 7:40 PM [facility] REPOSITORY TYPE CODE TESTS RESULT OUT OF [...] LYMPHOPENIA NOTED Performed By: #### L100.0100 #### [facility] [address] [facility] [place], [place], [address] PROTHROMBIN TIME W/INR Collected: 12/12/2017 Status: F Source: [place] 7:40 PM [facility] REPOSITORY TYPE CODE TESTS RESULT OUT OF RANGE REFERENCE UNITS LAB L300.4150 11.7-14.9 SECONDS High PROTIME 20.4 LAB L300.4200 Normal INR 1.7 Performed By: #### L300.3900 #### [facility] [address] [place], [place], [address] BASIC METABOLIC Collected: 12/12/2017 Status: F Source: [place] PROFILE (BMP) 7:40 PM [facility] REPOSITORY TYPE CODE TESTS RESULT OUT OF [...] GAP Performed By: #### L500.2500, L501.4010 #### [facility] [address] [place], [address] TROPONIN-I Collected: 12/12/2017 Status: F Source: [place] 7:40 PM [facility] REPOSITORY TYPE CODE TESTS RESULT OUT OF RANGE REFERENCE UNITS LAB L501.4010 <0.045 ng/mL Normal < 0.015 TROPONIN-I Result Comment: TROPONIN-I EXPECTED VALUES <0.045 Negative 0.045 - 0.590 Consistent with Cardiac Damage > OR = 0.600 Critical Value Not every elevated troponin is indicative of NV. These values should be used with clinical judgement in examining the patient's clinical picture for diagnosis. To establish a diagnosis of NV versus myocardial injury, there must be a demonstrated rise and/or fall in the troponin values, in addition to ischemic symptoms, EKG changes, new regional wall motion abnormality, and/or angiographical evidence. PLEASE NOTE: REFERENCE RANGES EDITED 17 Performed By: #### L500.2500, L501.4010 #### [facility] [address] [place], [address] BNP,B-TYPE NATRIURETIC Collected: 12/12/2017 Status: F Source: [place] PEPTIDE 7:40 PM [facility] REPOSITORY TYPE CODE TESTS RESULT OUT OF RANGE REFERENCE UNITS LAB L503.6620 0-100 pg/mL High B-TYPE 267.5 ELIEZER PEP Performed By: #### L503.6620 #### [facility] [address] [place], [address] THYROID STIM HORMONE Collected: 12/12/2017 Status: F Source: [place] (TSH) 7:40 PM [facility] REPOSITORY TYPE CODE TESTS RESULT OUT OF RANGE REFERENCE UNITS LAB L501.9520 0.358-3.74 uIU/mL Normal TSH 0.66 Performed By: #### L501.9520, L500.2500, L500.4100 #### [facility] [address] [place], [address] CHEST 1 VIEW Observed: 12/12/2017 Status: F Source: [place] (PORTABLE) 7:31 PM [facility] REPOSITORY [facility] Imaging Services [address] [place] [address] Chest 1 View (Portable) MR#: [id number] Acct: [id number] Name: HOMER FAY Rep #: [id number] : 1935 M 82 From: Deni Alvares MD PCP: Ilya Diaz DO Status: REG ER Study: Chest 1 View (Portable) Date of Exam: 12/12/17 Exam# [id number] Ordering Dr: Herb Tracy MD STUDY: X-RAY [...] CC: Ilya Diaz DO; Herb Tracy MD Transfer Knitter: Signed PROTIME W/INR Collected: 12/10/2017 Status: F Source: [place] FINGERSTICK 7:10 AM [facility] REPOSITORY TYPE CODE TESTS RESULT OUT OF REFERENCE UNITS RANGE LAB L9200.1001 11.9-14.4 SEC High PROTIME ISTAT 23.2 Result Comment: Reference Range 11.9 - 14.4 LAB L9200.2000 Normal INR ISTAT 2.00 Result Comment: Critical Value > 3.5 Performed By: #### L9200.0000 #### [facility] Point of Care [address] [place] [address] XR SHOULDER MINIMUM 2 Observed: 10/15/2017 Status: F Source: [facility] VIEWS RIGHT 6:18 AM [facility] REPOSITORY ORIGINAL [...] MINIMUM 3 Observed: 10/15/2017 Status: F Source: [facility] VIEWS RIGHT 6:18 AM [facility] REPOSITORY ORIGINAL [...] QUINTEN 4:44 PM [facility] REPOSITORY Order Comment: Serial Specimen #1, #2 or #3? 1 TYPE CODE TESTS RESULT OUT OF RANGE REFERENCE UNITS LAB L501.1800 3.2-5.0 g/dL Normal ALB 3.4 Performed By: #### L501.1800, L504.2610 #### [facility] [address] [place], [address] LDH Collected: 08/21/2017 Status: F Source: [place] 4:44 PM [facility] REPOSITORY Order Comment: Serial Specimen #1, #2 or #3? 1 TYPE CODE TESTS RESULT OUT OF RANGE REFERENCE UNITS LAB L504.2610 87-241 U/L Normal LDH 146 Performed By: #### L501.1800, L504.2610 #### [facility] [address] [place], [address] BNP,B-TYPE NATRIURETIC Collected: 08/21/2017 Status: F Source: [place] PEPTIDE 4:44 PM [facility] REPOSITORY TYPE CODE TESTS RESULT OUT OF RANGE REFERENCE UNITS LAB L503.6620 0-100 pg/mL Normal B-TYPE 77.9 ELIEZER PEP Performed By: #### L503.6620 #### [facility] [address] [place], [address] PROTEIN, BODY FLUID Collected: 08/05/2017 Status: F Source: [place] 11:50 AM [facility] REPOSITORY Order Comment: Specimen Source: PL TYPE CODE TESTS RESULT OUT OF RANGE REFERENCE UNITS LAB L503.0300 Not Establ. g/dL Normal 4.7 PROTEIN,BF Performed By: #### L503.0300, L504.0250 #### [facility] [address] [place], [address] LDH,BODY FLUID Collected: 08/05/2017 Status: F Source: [place] 11:50 AM [facility] REPOSITORY Order Comment: Specimen Source: PL TYPE CODE TESTS RESULT OUT OF RANGE REFERENCE UNITS LAB L504.0250 Not Establ. Units/l Normal LDH,BF 115 Performed By: #### L503.0300, L504.0250 #### [facility] [address] [place], [address] OPERATIVE REPORT Observed: 08/05/2017 Status: F Source: [place] 11:12 AM [facility] REPOSITORY [facility] Medical Records Department [address] [place] [address] Operative Report 08/05/17 1108 MR#: [id number] Acct: [id number] Name: HOMER FAY Rep #: [id number] : 1935 82 From: Cesar El MD [...] FLUID / Collected: 08/05/2017 Status: F Source: [place] CSF 11:00 AM [facility] REPOSITORY Order Comment: Specimen Source: PL TYPE CODE TESTS RESULT OUT OF RANGE REFERENCE UNITS LAB L350.1000 SEE Normal PATHOLOGY CYTOLOGY,BF REPORT /CSF Result Comment: Specimen submitted to Anatomical Pathology Department for testing. Performed By: #### L350.1000 #### [facility] [address] [facility] [place], [address] CHEST 1 VIEW Observed: 08/05/2017 Status: F Source: [place] 10:57 AM [facility] REPOSITORY [facility] Imaging Services [address] [place] [address] Chest 1 View MR#: [id number] Acct: [id number] Name: HOMER FAY Rep #: [id number] : 1935 M 82 From: Miguel Woods MD PCP: Ilya Diaz DO Status: REG CLI Study: Chest 1 View Date of Exam: 08/05/17 Exam# [id number] Ordering Dr: Cesar El MD STUDY: X-RAY [...] Miguel Woods MD at 8:23 EST Tel [phone], Service support , CC: Ilya Diaz DO; Cesar El MD Transfer Knitter: Signed THORACENTESIS W US Observed: 08/05/2017 Status: F Source: [place] 9:54 AM [facility] REPOSITORY [facility] Imaging Services [address] [place] [address] Thoracentesis W US MR#: [id number] Acct: [id number] Name: HOMER FAY Rep #: [id number] : 1935 M 82 From: Miguel Woods MD PCP: Ilya Diaz DO Status: REG CLI Study: Thoracentesis W US Date of Exam: 08/05/17 Exam# [id number] Ordering Dr: Cesar El MD STUDY: ULTRASOUND GUIDED LEFT THORACENTESIS. REASON FOR EXAM: Male, 82 years old. Left pleural effusion. TECHNIQUE: Under direct sonographic guidance, the pulmonary position performed a left thoracentesis. COMPARISON: None. FINDINGS: 960 mL of miguel a-colored fluid was removed. US/Thoracentesis W US IMPRESSION: Successful ultrasound-guided left thoracentesis. Electronically Signed: Miguel Woods MD at 12:41 EST Tel [phone], Service support , CC: Ilya Diaz DO; Cesar El MD Transfer Knitter: Signed FLUID/WASHING Observed: 08/05/2017 Status: F Source: [place] 12:00 AM [facility] REPOSITORY Patient: HOMER FAY : 1935 (82/M) Acct Num: [id number] Phys: Nikko BECKER,Cesar Unit Num: [id number] Loc: US Specimen: [id number] Received: 08/05/17 1154 Spec Type: Fluid TISSUES TISSUES: THORACIC FLUID COMMENT Correlation with clinical findings and appropriate follow up are necessary. Immunohistochemistry ([id number]) shows lymphocytes are predominantly T-cell in nature. CYTOLOGY GROSS Received is 950 ml of cloudy miguel a fluid labeled with the patient's name and and designated per the requisition as thoracentesis. Submitted for cytology preparation including cell block. / CC:cc 08/05/17 TC:5 CPT: 73742, 74626 CYTOLOGY STUDY Slides are reviewed. The specimen [...] on file> Performed By: #### PFLU #### [facility] [place], [address] IMMUNOHISTOCHEMISTRY Observed: 08/05/2017 Status: F Source: [place] 12:00 AM [facility] REPOSITORY Patient: HOMER FAY : 1935 (82/M) Acct Num: [id number] Phys: Nikko BECKER,Cesar Unit Num: [id number] Loc: Specimen: [id number] Received: 08/06/171106 Spec Type: IMMUNO TISSUES TISSUES: THORACIC FLUID SPECIMEN INFORMATION: Tissue Source: Thoracentesis fluid for cytology Clinical Info: Pleural effusion Specimen Number: [id number] CPT code: 19591, 45788 x4 METHODOLOGY: Deparaffinized sections of prefer/formalin-fixed tissue [...] developed and their performance characteristics determined by [facility]. They may not have been cleared or approved by the U.S. Food and Drug Administration. The FDA has determined that such clearance or approval is not necessary. INTERPRETATION: Thoracentesis fluid for cytology (cell block): Consistent with lymphocytic effusion, predominantly T-cell in nature. SJ:candy 08/07/17 PHYSICIAN [facility] INSTIT[facility] [address] [address] Signed Abilio Rai 08/07/17 <signature on file> Performed By: #### PIMM #### [facility] [address] [place] [address]. [place], [address] PROTHROMBIN TIME W/INR Collected: 08/03/2017 Status: F Source: [place] 10:20 AM [facility] REPOSITORY TYPE CODE TESTS RESULT OUT OF RANGE REFERENCE UNITS LAB L300.4150 11.7-14.9 SECONDS Normal PROTIME 14.1 LAB L300.4200 Normal INR 1.1 Performed By: #### L300.3900, L300.4310 #### [facility] [address] [place] [address]. [place], [place], [address] PARTIAL THROMBOPLAST Collected: 08/03/2017 Status: F Source: [place] TIME 10:20 AM [facility] REPOSITORY TYPE CODE TESTS RESULT OUT OF RANGE REFERENCE UNITS LAB L300.4310 24.1-36.2 Seconds Normal PTT 28.5 Performed By: #### L300.3900, L300.4310 #### [facility] [address] [place], [address] SPECIAL CXR Observed: 07/23/2017 Status: F Source: [place] (OBL/DECUB/A/L) 2:28 PM [facility] REPOSITORY [facility] Imaging Services [address] [place] [address] Special CXR (Obl/Decub/A/L) MR#: [id number] Acct: [id number] Name: HOMER FAY Rep #: [id number] : 1935 M 82 From: Truman Wilhelm MD PCP: Ilya Diaz DO Status: REG CLI Study: Special CXR (Obl/Decub/A/L) Date of Exam: 07/23/17 Exam# [id number] Ordering Dr: Cesar El MD STUDY: X-RAY [...] CC: Ilya Diaz DO; Cesar El MD Transfer Knitter: Signed SPECIAL CXR Observed: 07/23/2017 Status: F Source: [place] (OBL/DECUB/A/L) 2:28 PM [facility] REPOSITORY [facility] Imaging Services [address] [place] [address] Special CXR (Obl/Decub/A/L) MR#: [id number] Acct: [id number] Name: HOMER FAY Rep #: [id number] : 1935 M 82 From: Truman Wilhelm MD PCP: Ilya Diaz DO Status: REG CLI Study: Special CXR (Obl/Decub/A/L) Date of Exam: 07/23/17 Exam# [id number] Ordering Dr: Cesar El MD STUDY: X-RAY [...] CC: Ilya Diaz DO; Cesar El MD Transfer Knitter: Signed CHEST PA AND LATERAL Observed: 07/23/2017 Status: F Source: [place] 2:23 PM [facility] REPOSITORY [facility] Imaging Services [address] [place] [address] Chest PA and Lateral MR#: [id number] Acct: [id number] Name: HOMER FAY Rep #: [id number] : 1935 M 82 From: Truman Wilhelm MD PCP: Ilya Diaz DO Status: REG CLI Study: Chest PA and Lateral Date of Exam: 07/23/17 Exam# [id number] Ordering Dr: Cesar El MD STUDY: X-RAY [...] Service support , CC: Ilya El MD Transfer Knitter: Signed ALLERGIES ALLERGIES DATE TYPE / CODE NAME / CODE REACTION SEVERITY SOURCE 12/12/2017 Drug Penicillins/ Unknown Unknown [facility] Allergy/4160 [id number](R [facility] [address](SNOMED XNORM) Repository CT) ENCOUNTERS ENCOUNTERS ADMIT/DISCHARGE ACCOUNT NUMBER ADMITTING ENCOUNTER LOCATION SOURCE CLASS 06/29/2018 [id number] [facility] ding:MTRAD Repository 06/28/2018 [id number] Ambulatory General acute hospital ding:JOSEE.BRO Repository [place] 06/21/2018 [id number] Ambulatory General acute hospital ding:JOSEE.BRO Repository [place] 06/18/2018 [id number] Ambulatory General acute hospital ding:OLS.BRO Repository [place] 06/10/2018 [id number] Ambulatory General acute hospital ding:MFPLAB Repository 06/03/2018 [id number] Ambulatory General acute hospital ding:MFPLAB Repository 05/25/2018 [id number] Ambulatory General acute hospital ding:MTLAB Repository 2018 [id number] Ambulatory General acute hospital ding:MTRAD Repository 01/04/2018 [id number] Ambulatory General acute hospital ding:JOSEE.BRO Repository [place] 12/12/2017 [id number] Lebron Sotelo Ambulatory BMSBuilding: [place] [facility] Repository 12/12/2017 [id number] Ashleigh Lebron Ambulatory BMSBuilding: [place] [facility] Repository 12/12/2017/12/16/19 [id number] Lebron Sotelo [place] ding:PCURoom Repository : XUR164Enh: 1 12/12/2017 [id number] Ashleigh Lebron Ambulatory BMSBuilding: [place] [facility] Repository 12/12/2017 [id number] Ashleigh Lebron Ambulatory BMSBuilding: [place] [facility] Repository 12/12/2017/12/16/19 [id number] Ambulatory BMSBuilding: [place] [facility] Repository 12/10/2017 [id number] Ambulatory General acute hospital ding:SARANYA Repository [place] 10/15/2017/10/16/19 [id number] Emergency BBuilding:JOHN [place] 18 [facility] Repository 08/21/2017 [id number] Ambulatory General acute hospital ding:MTLAB Repository 08/05/2017 [id number] Ambulatory General acute hospital ding:US Repository 08/03/2017 [id number] Ambulatory General acute hospital ding:MTLAB Repository 07/23/2017 [id number] [facility] ding:MTLAB Repository PAYERS PAYERS ENCOUNTER GUARANTOR PAYER SUBSCRIBER SOURCE 06/29/2018 HOMER [place]CR[place]: Community ASSISTED [id number] [facility] [id number] [facility] [place] [address]Djc: (330) Number: [phone] () [id number] Date: [place], [place] [address]HR: 06/29/2018 Secondary NOT GIVENUNK [place] Insurance:SELF PAY [facility] Number: Effective Repository Date:2018-06-29 06/28/2018 HOMER [place] Insurance[place] MACRINODOB: Community ASSISTED [id number] [facility] [id number] [facility] [place], [place]ository [place] [address]Jzy: (330) Number: [phone] () [id number] Date: [place], [place] [address]KI: 06/28/2018 Secondary NOT GIVENUNK [place] Insurance:SELF PAY [facility] Number: Effective Repository Date:2018-06-28 06/21/2018 VINCENT J Primary VINCENT J [place] Insurance[place] MACRINODOB: Community ASSISTED [id number] [facility] [id number] Hospital [place], [place] [address]Mwk: (330) Number: [phone] () [id number] Date: [facility], [place] [address]TE: 06/21/2018 Secondary NOT GIVENUNK [place] Insurance:SELF PAY [facility] Number: Effective Repository Date:2018-06-21 06/18/2018 HOMER Shipley [place] MACRINODOB: Community ASSISTED [id number] [facility] [id number] Hospital [place], [place]ository [place] [address]Nkx: (330) Number: [phone] () [id number] Date: [place], [place] [address]IC: 06/18/2018 Secondary NOT GIVENUNK [place] Insurance:SELF PAY [facility] Number: Effective Repository Date:2018-06-18 06/10/2018 HOMER Shipley [place]IN[place]OB: Community ASSISTED [id number] [facility] [id number] Hospital [place], [place] [address]Wih: (330) Number: [phone] () [id number] Date: [place], [place] [address]BK: 06/10/2018 Secondary NOT GIVENUNK [place] Insurance:SELF PAY [facility] Number: Effective Repository Date:2018-06-10 06/03/2018 HOMER Shipley [place] Insurance[place] MACRIN[place]OB: Community ASSISTED [id number] [facility] [id number] Hospital [place], [place] [address]Mof: (330) Number: [phone] () [id number] Date: [facility], [place] [address]KS: 06/03/2018 Secondary NOT GIVENUNK [place] Insurance:SELF PAY [facility] Number: Effective Repository Date:2018-06-03 05/25/2018 HOMER Bruno Primary HOMER Aguilaroster [place] Insurance[place] MACRIN[place]OB: Community ASSISTED [id number] [facility] CARE [id number] Hospital [place], [place]ository [place] [address]Kqi: (330) Number: [phone] () [id number] Date: [place], [place] [address]VR: 05/25/2018 Secondary NOT GIVENUNK [place] Insurance:SELF PAY [facility] Number: Effective Repository Date:2018-05-25 2018 HOMER Bruno Primary HOMER [place]ilaroster [place] Insurance[place] MACRIN[place]OB: Community ASSISTED [id number] [facility] CARE [id number] Hospital [place]ository [place] [address]Bdb: (330) Number: [phone] () [id number] Date: [facility], [place] [address]UI: 2018 Secondary NOT GIVENUNK [place] Insurance:SELF PAY [facility] Number: Effective Repository Date:2018 01/04/2018 HOMER Bruno Primary HOMER [place] Insurance[place] MACRIN[place]OB: Community ASSISTED [id number] [facility] [id number] Hospital [place], [place]ository [place] [address]Igz: (330) Number: [phone] () [id number] Date: [facility], [place] [address]RP: 01/04/2018 Secondary NOT GIVENUNK [place] Insurance:SELF PAY [facility] Number: Effective Repository Date:2018-01-04 12/12/2017 HOMER Bruno Primary HOMER [place] MACRIN[place]OB: Community ASSISTED [id number] [facility] [id number] [facility] [place], [place] [address]Uvv: (330) Number: [phone] () [id number] Date: [facility], [place] [address]IS: 12/12/2017 Secondary NOT GIVENUNK [place] Insurance:SELF PAY [facility] Number: Effective Repository Date:2017-12-12 12/12/2017 HOMER Bruno Primary HOMER Shipley [place] MACRIN[place]OB: Community ASSISTED [id number] [facility] [id number] [facility] [place], [place]ository [place] [address]Rze: (330) Number: [phone] () [id number] Date: [facility], [place] [address]JQ: 12/12/2017 Secondary NOT GIVENUNK [place] Insurance:SELF PAY [facility] Number: Effective Repository Date:2017-12-12 12/12/2017 HOMER Bruno Primary HOMER Shipley [place] MACRIN[place]OB: Community ASSISTED [id number] [facility] [id number] Hospital [place], [place] [address]Hxu: (330) Number: [phone] () [id number] Date: [facility], [place] [address]NE: 12/12/2017 Secondary NOT GIVENUNK [place] Insurance:SELF PAY [facility] Number: Effective Repository Date:2017-12-12 12/12/2017 HOMER Bruno Primary HOMER [place] MACRIN[place]OB: Community ASSISTED [id number] [facility] [id number] Hospital [place] [address]Ayp: (330) Number: [phone] () [id number] Date: [facility] [place] [id number]: 12/12/2017 Secondary NOT GIVENUNK [place] Insurance:SELF PAY [facility] Number: Effective Repository Date:2017-12-12 12/12/2017 HOMER Shipley [place]: Community ASSISTED [id number] [facility] [id number] [facility] [place], MEDICAREPolicy Repository [place] [address]Jdd: (330) Number: [phone] () [id number] Date: [place], [place] [address]DR: 12/12/2017 Secondary NOT GIVENUNK [place] Insurance:SELF PAY [facility] Number: Effective Repository Date:2017-12-12 12/12/2017 HOMER Shipley [place]OB: Community ASSISTED [id number] [facility] [id number] Hospital [place], MEDICAREPolicy [place]ository [place] [address]Wni: (330) Number: [phone] () [id number] Date: [place], [place] [address]YH: 12/12/2017 Secondary NOT GIVENUNK [place] Insurance:SELF PAY [facility] Number: Effective Repository Date:2017-12-12 12/10/2017 [place]OB: Community ASSISTED [id number] [facility] [id number] Hospital [place], MEDICARE[place] Repository [place] [address]Qct: (330) Number: [phone] () [id number] Date: [place], [place] [address]JG: 12/10/2017 Secondary NOT GIVENUNK [place] Insurance:SELF PAY [facility] Number: Effective Repository Date:2017-12-10 10/15/2017 HOMER SANCHEZMASTERODOB: Primary HOMER Bruno [facility] [place] Insurance:SECURECARE MACRINODOB: Foundation [place], [place] THP MEDICAREPolicy [id number] Repository [address]Lts: (349) Number: [address] [place] [place] [phone] () [id number] [place] Date:2017-10-15 [id number]: ([phone]) [id number] [phone] Name:[id number] [facility] ()Tel: [phone] TUSX IGo [phone] () [place], [place] [address]QD: 08/21/2017 HOMER Bruno [id number] Primary VINCENT J [place] [facility], Insurance:[place]IN[place]OB: [facility]ly [facility] [address]Qpm: (288) [facility] [id number] (HP) MEDICAREPolicy Repository Number: [id number] Date: [place], [place] [address]IQ: 08/21/2017 Secondary NOT GIVENUNK [place] Insurance:SELF PAY [facility] Number: Effective Repository Date:2017-08-21 08/05/2017 VINCENT J [id number] Primary VINCENT J [place] [facility], Insurance:[place]: Community [place] [id number]: (424) [facility] [id number] [address] ([place]) MEDICAREPolicy Repository Number: [id number] Date: [place], [place] [address]TE: 08/05/2017 Secondary NOT GIVENUNK [place] Insurance:SELF PAY [facility] Number: Effective Repository Date:2017-07-23 08/03/2017 Homer Bruno [id number] Primary HOMER Shipley [facility], Insurance:[facility]: [facility] [address]Drn: (330) PLAN [address] [address] [facility] Number: Repository [id number] Date: [place], [place] [address]PT: 08/03/2017 Secondary NOT GIVENUNK [place] Insurance:SELF PAY [facility] Number: Effective Repository Date:2017-08-03 07/23/2017 Homer Bruno [id number] Primary HOMER Shipley [facility], Insurance:HEALTH MACRINODOB: [facility] [address]Bsc: (330) PLAN [facility] [id number] [address] () [place]: Repository [id number] Date: [place], [place] [address]OX: 07/23/2017 Secondary NOT GIVENUNK [place] Insurance:SELF PAY [facility] Number: Effective Repository Date:2017-07-23
== END ==
PROVIDERS: Family Provider Family Medicine; PCP Family Medicine; Referring Provider Internal Medicine Pulmonary Disease; Visit Provider Internal Medicine Pulmonary Disease
DX: J90 Pleural effusion, not elsewhere classified (principal)
CPT/HCPCS: 71046

== ENCOUNTER → 2018-11-16 13:48 | Outpatient (CLI) | payer MEDICARE, SELFPAY ==
--- NOTE | 2018-11-16 13:50 | US_ITS ---
STUDY: RENAL ULTRASOUND - COMPLETE REASON FOR EXAM: Male, 83 years old. Stage III chronic renal disease. TECHNIQUE: Ultrasound evaluation of the kidneys was performed with real-time and static correa-scale imaging. COMPARISON: None. FINDINGS: RIGHT KIDNEY: with mild renal atrophy. The right kidney measures 9.8 cm x 5.0 cm x 4.8 cm. There is a normal cortex of the right kidney. The renal cortex measures 1.2 cm. There is no right renal mass or cyst. There are no right renal calculi. There is no right hydronephrosis. DISTAL RIGHT URETER: There is non-visualization of the distal right ureter. There is no demonstrated right ureterovesical junction calculus. There is a visualized right ureteral jet. LEFT KIDNEY: Normal location of the left kidney, which is normal in size. The left kidney measures 11.6 cm x 5.2 sided by 4.6 cm. There is a normal cortex of the left kidney. The renal cortex measures 1.1 cm. There is no left renal mass or cyst. There are no left renal calculi. There is no left hydronephrosis. DISTAL LEFT URETER: There is non-visualization of the distal left ureter. There is no demonstrated left ureterovesical junction calculus. There is no demonstrated left ureteral jet. BLADDER: The distended urinary bladder has a volume of 71 ml. There is a normal wall thickness of the distended urinary bladder. There is no demonstrated mass within the urinary bladder. There are no demonstrated bladder calculi. US/Kidney and Bladder IMPRESSION: Mild right renal atrophy. Electronically Signed: Miguel Woods, at 10:14 EDT , Service support ,
== END ==
PROVIDERS: Family Provider Family Medicine; PCP Family Medicine; Referring Provider Internal Medicine Nephrology; Visit Provider Internal Medicine Nephrology
DX: N18.3 Chronic kidney disease, stage 3 (moderate) (principal)
CPT/HCPCS: 76770

== ENCOUNTER 2018-11-21 12:53 | Emergency (ER) | payer MEDICARE, SELFPAY ==
[2018-11-21 12:54] VITALS: BP 141/61; PULSE 54; RESP 20; TEMP 35.6; O2SAT 92; BMI 32.8
[2018-11-21 13:18] VITALS: O2SAT 99
[2018-11-21 13:24] VITALS: BP 170/51; PULSE 51; RESP 21; O2SAT 99
--- NOTE | 2018-11-21 13:38 | EKG12_ITS ---
Test Reason : SOB Blood Pressure : / mmHG Vent. Rate : 052 BPM Atrial Rate : 052 BPM P-R Int : 194 ms QRS Dur : 098 ms QT Int : 514 ms P-R-T Axes : 030 024 043 degrees QTc Int : 478 ms Sinus bradycardia Low voltage QRS Borderline ECG Confirmed by DORIS BECKER, LINDA ([id number]), editor dictionary PENELOPE PRESTON ([id number]) on 11/22/2018 1:16:54 PM Referred By: Carolyn Andre Confirmed By:LINDA GEORGE MD
--- NOTE | 2018-11-21 13:41 | RAD_ITS ---
STUDY: X-RAY CHEST REASON FOR EXAM: Male, 83 years old. Chest pain TECHNIQUE: Frontal view of the chest COMPARISON: X-Ray Chest June 29 2018 FINDINGS: There are moderate bilateral airspace infiltrate. There is a small right effusion and moderate left effusion. The heart is enlarged. The visualized osseous structures are within normal limits. RAD/Chest 1 View (Portable) IMPRESSION: Moderate bilateral airspace infiltrates, small right effusion, moderate left effusion, and cardiomegaly. Electronically Signed: Cirilo Martinez, at 14:13 EDT Tel , Service support ,
[2018-11-21] MEDS: Ipratropium/Albuterol Sulfate 3 ML AMPUL.NEB INHALATION (13:47)
[2018-11-21 13:53] VITALS: PULSE 53; RESP 23
[2018-11-21 13:53] LABS: Absolute Lymphocyte Count 0.74 X10^3/ul (0.83-4.51); Absolute Neutrophil Count 4.7 X10^3/uL (2.0-7.7); Basophil# 0.04 X10^3/uL; Basophil% 0.6 % (0-1); Eosinophil# 0.35 X10^3/uL; Eosinophils% 5.3 % (0-5); Hematocrit 32.2 % (40-54); Lymphocyte # 0.74 X10^3/ul (4.0); Lymphocyte % 11.3 % (19-41); Mean Corp Hgb Conc 31.1 g/gl (32-36); Mean Corpuscular Hgb 28.7 pg (27.0-32.0); Mean Corpuscular Volume 92.3 fL (80-94); Mean Platelet Vol. 11.3 fl (6.2-12.0); Monocyte# 0.77 X10^3/uL; Monocyte% 11.7 % (0-10); Neutrophil # 4.66 X10^3/uL (2.7-7.7); Neutrophil % 70.9 % (47-70); Platelet Count 186 K/mm3 (150-450); RBC Distribution Width CV 15.2 % (11.6-14.6); RBC Distribution Width SD 51.6 fl (35.1-43.9); Red Blood Count 3.49 M/mm3 (4.6-6.2); White Blood Count 6.6 K/mm3 (4.4-11.0)
[2018-11-21 13:55] LABS: POSITIVE COUNT NO; POSITIVE DIFFERENTIAL NO; POSITIVE MORPHOLOGY NO
--- NOTE | 2018-11-21 13:59 | ED.VIS.GEN ---
History of Present Illness Chief Complaint: Shortness of Breath Informant: Patient, Family Onset: Weeks Current Severity: Mild Narrative: The patient is here with family who reports that 4 weeks he has had progressively worsening lower extremity edema weight gain he is baseline weight is 185 today he was weighed he was about 205, per the family has congestive heart failure CAD OPD A. fib he is on home O2 2 L lives at [facility] assisted living, the nurses they are supposed to weigh him but apparently the patient prefers to weigh himself and report the weights to the nurses and he is indicating that his weight has not changed but apparently today the nurses themselves weighed him and he was found to be 205. He denies chest pain abdominal pain he has had normal bowel bladder habits he is taking Lasix 40 mill grams twice daily he follows up with cardiology indicates she is doing well otherwise at the nursing center he is able to undergo all of his daily activities he denies any fever cough chest pain some orthopnea sent PND but he is able to sleep at night Past Medical History - Allergies and Home Meds Allergies/Adverse Reactions: Allergies Penicillins Allergy (Verified 11/21/18 12:58) Unknown Primary Care Physician: Quentin Giron MD [Primary Care Provider] - Smoking Status: Former smoker Review of Systems General: Denies: Chills, Fever, Sweats Eyes: Denies: Visual changes - bilaterally, Diplopia ENT: Denies: Rhinorrhea, Sore throat Cardiovascular: Denies: Chest pain, Palpitations Respiratory: Reports: Dyspnea, Dyspnea on exertion, Orthopnea. Denies: Cough Gastrointestinal: Denies: Abdominal pain, Nausea, Vomiting, Diarrhea, Melena, Hematochezia Genitourinary: Denies: Dysuria, Hematuria, Frequency Musculoskeletal: Denies: Back pain, Extremity Pain Skin: Denies: Rash, Wounds Neurological: Denies: Headache, Weakness, Numbness Physical Exam Vital Signs/Narrative: Vital Signs Temp Pulse Resp BP Pulse Ox 11/21/18 13:53 53 L 23 H 11/21/18 13:24 51 L 21 H 170/51 H 99 11/21/18 12:54 96.1 F L 54 L 20 H 141/61 H 92 General: Well nourished, Well developed, No Acute Distress, - - He is in no distress resting comfortably bed speaking full sentences his vital signs are unremarkable on 2 L his pulse ox is 95 he indicates if he could just get the edema to go down he feels he is fine at home indicates he has been taking his Lasix he has had appropriate urine output with Lasix no concerns on his part of urinary retention Head: Normocephalic, Atraumatic Eyes: Perrl, EOMI ENT: Moist mucous membranes, No rhinorrhea Neck: Supple, Nontender Cardiovascular: Regular rate, Regular rhythm, No murmurs Respiratory: No distress, Chest nontender, Diminished, Decreased Air Movement Abdomen: Soft, Nontender, Normal bowel sounds Back: Nontender, Normal Inspection Extremities: Nontender, Edema, - - He has 4+ edema to his lower extremities is moving all 4 he is awake and alert Skin: Normal color, No rash Neurological: Alert, Oriented x3, Cranial nerves II-XII grossly intact, Normal Strength, Normal Sensation Psychological: Normal affect, Normal Mood Diagnostic/Tx/Re-eval - Medical Decision Making At this time screening labs were obtained IV Lasix x-rays EKG ED Disposition - Plan for ED Patient: Referrals: Quentin Giron MD [Primary Care Provider] -
[2018-11-21 14:11] LABS: Anion Gap 4 (5-15); BUN 26 mg/dL (7-18); BUN/Creat Ratio 13.9 RATIO (10-20); Calcium,Total 8.3 mg/dL (8.5-10.1); Chloride 103 mmol/L (98-107); Creatinine, Serum 1.87 mg/dL (0.70-1.30); EST Glomerular Filtration Rate 37 mL/min (>60); Est Glom Filt Rate - Afr Amer 44 mL/min (>60); Estimated Creatinine Clearance 27.49 ml/min; Glucose 126 mg/dL (74-106); Potassium 4.7 mmol/L (3.5-5.1); Sodium Level 137 mmol/L (136-145)
[2018-11-21] MEDS: Furosemide 100 MG/10 ML Vial 80 MG IV (14:19)
[2018-11-21 14:31] VITALS: BP 131/72; PULSE 54; RESP 15; O2SAT 96
--- NOTE | 2018-11-21 15:05 | ED.DEP ---
ED Disposition - Plan for ED Patient: Instructions: ED CHF General Referrals: Quentin Giron MD [Primary Care Provider] - Isreal Massey MD [[facility]] - Additional Instructions: Please make sure you follow-up with your outpatient providers Thursday or Thursday, Take Lasix 80 mg in the morning and 40 mg in the morning for 3 days and then resume 40 mg morning 40 mg evening Nurses must perform and record and log your weights
[2018-11-21 15:23] VITALS: PULSE 53; RESP 16; O2SAT 96
== END 2018-11-21 15:24 | disposition home or self-care (01) ==
PROVIDERS: Emergency Provider Emergency Medicine; Family Provider Family Medicine; PCP Family Medicine
DX: J44.1 Chronic obstructive pulmonary disease with (acute) exacerbation (principal); J90 Pleural effusion, not elsewhere classified; N28.9 Disorder of kidney and ureter, unspecified; I48.91 Unspecified atrial fibrillation; I25.10 Atherosclerotic heart disease of native coronary artery without angina pectoris; Z99.81 Dependence on supplemental oxygen; Z79.899 Other long term (current) drug therapy; Z87.891 Personal history of nicotine dependence
CPT/HCPCS: 71045; 80048; 83880; 84484; 85025; 93005; 94640; 96374; 99285; J1940

== ENCOUNTER → 2018-11-22 16:28 | Outpatient (CLI) | payer MEDICARE, SELFPAY ==
[2018-11-21 12:54] VITALS: BMI 32.8
[2018-11-22 18:14] LABS: ALB/GLOB Ratio 0.7 RATIO (0.9-2.4); AST(SGOT) 15 U/L (15-37); Alanine Aminotransfer ALT/SGPT 14 U/L (16-61); Albumin, Serum 3.2 g/dL (3.2-5.0); Alkaline Phosphatase 76 U/L (45-117); Anion Gap 8 (5-15); BUN 31 mg/dL (7-18); BUN/Creat Ratio 14.9 RATIO (10-20); Calcium,Total 8.4 mg/dL (8.5-10.1); Chloride 101 mmol/L (98-107); Creatinine, Serum 2.08 mg/dL (0.70-1.30); EST Glomerular Filtration Rate 32 mL/min (>60); Est Glom Filt Rate - Afr Amer 39 mL/min (>60); Globulin 4.3 g/dL (2.2-4.2); Glucose 128 mg/dL (74-106); Protein, Total 7.5 g/dL (6.4-8.2); Sodium Level 141 mmol/L (136-145)
== END ==
PROVIDERS: Family Provider Family Medicine; PCP Family Medicine; Referring Provider Family Medicine; Visit Provider Family Medicine
DX: I50.9 Heart failure, unspecified (principal)
CPT/HCPCS: 36415; 80053

== ENCOUNTER → 2018-11-26 | Outpatient (REF) | payer MEDICARE, SELFPAY ==
[2018-11-21 12:54] VITALS: BMI 32.8
[2018-11-26 08:09] LABS: ALB/GLOB Ratio 0.7 RATIO (0.9-2.4); AST(SGOT) 16 U/L (15-37); Alanine Aminotransfer ALT/SGPT 13 U/L (16-61); Albumin, Serum 2.9 g/dL (3.2-5.0); Alkaline Phosphatase 65 U/L (45-117); Anion Gap 6 (5-15); BUN 33 mg/dL (7-18); BUN/Creat Ratio 16.2 RATIO (10-20); Calcium,Total 8.4 mg/dL (8.5-10.1); Chloride 100 mmol/L (98-107); Creatinine, Serum 2.04 mg/dL (0.70-1.30); EST Glomerular Filtration Rate 33 mL/min (>60); Est Glom Filt Rate - Afr Amer 40 mL/min (>60); Globulin 4.2 g/dL (2.2-4.2); Glucose 106 mg/dL (74-106); Potassium 3.7 mmol/L (3.5-5.1); Protein, Total 7.1 g/dL (6.4-8.2); Sodium Level 140 mmol/L (136-145)
== END | disposition home or self-care (01) ==
PROVIDERS: Visit Provider Family Medicine
DX: I50.9 Heart failure, unspecified (principal)
CPT/HCPCS: 36415; 80053

== ENCOUNTER 2018-12-06 10:51 | Inpatient (IN) | payer MEDICARE, SELFPAY ==
[2018-12-06] VITALS (17 sets, daily range): BP systolic 117–152; BP diastolic 42–96; PULSE 52–76; RESP 16–28; TEMP 36.4–37.4; O2SAT 89–99; BMI 36.3; BMI 36.4; BMI 33.7
--- NOTE | 2018-12-06 11:05 | EKG12_ITS ---
Test Reason : SOB Blood Pressure : / mmHG Vent. Rate : 050 BPM Atrial Rate : 050 BPM P-R Int : 184 ms QRS Dur : 074 ms QT Int : 470 ms P-R-T Axes : 057 030 026 degrees QTc Int : 428 ms Sinus bradycardia Low voltage QRS Borderline ECG Confirmed by KAILASH BECKER, MARSHA ([id number]), film or videotape editor URBANO PHELPS ([id number]) on 12/08/2018 12:12:09 PM Referred By: Quentin Carbajal Confirmed By:MARSHA LINDER MD
--- NOTE | 2018-12-06 11:08 | ED.VIS.GEN ---
History of Present Illness Chief Complaint: Shortness of Breath Informant: Patient, Family Current Severity: Moderate Narrative: Presents from assisted with increasing shortness of breath low pulse ox and leg edema and weight gain he has history of all the above he was seen per week in the emergency department he was treated and managed he refused admission he has been taking his Lasix has been providing urine output but despite that has had increasing weight gain and leg edema probably per assisted personnel despite use with 3 L of home O2 his pulse ox was low. Here his vital signs are normal on 3 L his pulse ox is 93% he is resting comfortably in no distress he does believe he is gained weight since his last visit to the emergency department Past Medical History - Allergies and Home Meds Allergies/Adverse Reactions: Allergies Penicillins Allergy (Verified 11/21/18 12:58) Unknown Primary Care Physician: Quentin Giron MD [Primary Care Provider] - Past Medical History: - - congestive heart failure renal insufficiency Smoking Status: Former smoker Review of Systems General: Denies: Chills, Fever, Sweats Eyes: Denies: Visual changes - bilaterally, Diplopia ENT: Denies: Rhinorrhea, Sore throat Cardiovascular: Denies: Chest pain, Palpitations Respiratory: Reports: Dyspnea, Dyspnea on exertion. Denies: Cough Gastrointestinal: Denies: Abdominal pain, Nausea, Vomiting, Diarrhea, Melena, Hematochezia Genitourinary: Denies: Dysuria, Hematuria, Frequency Musculoskeletal: Denies: Back pain, Extremity Pain Skin: Denies: Rash, Wounds Neurological: Denies: Headache, Weakness, Numbness Physical Exam Vital Signs/Narrative: Vital Signs Temp Pulse Resp BP Pulse Ox 12/06/18 10:57 98.0 F 53 L 25 H 117/79 93 General: Well nourished, Well developed, No Acute Distress Head: Normocephalic, Atraumatic Eyes: Perrl, EOMI ENT: Moist mucous membranes, No rhinorrhea Neck: Supple, Nontender Cardiovascular: Regular rate, Regular rhythm, No murmurs, - - Distant heart tones Respiratory: No distress, CTA bilaterally, Chest nontender, Diminished - Has diminished breath sounds at the bases, - Abdomen: Soft, Nontender, Nondistended, Normal bowel sounds Back: Nontender, Normal Inspection Extremities: Nontender, - - 4+ edema left greater than right Skin: Normal color, No rash Neurological: Alert, Oriented x3, Cranial nerves II-XII grossly intact, Normal Strength, Normal Sensation Psychological: Normal affect, Normal Mood Diagnostic/Tx/Re-eval - Medical Decision Making Worsening congestive heart failure leg edema weight gain shortness of breath despite therapy at nursing center he has increase his Lasix given all the above screening labs obtained IV fluids IV Lasix patient's EKG shows sinus bradycardia 50 no acute injury pattern intervals otherwise unremarkable, the chest x-ray shows bilateral pleural effusions with signs of CHF that screening labs are generally unremarkable please see those reports, creatinine 1.76 he has been treated with IV Lasix he is resting comfortably bed no signs of cardiopulmonary distress or failure at this time given his failure of outpatient therapy grossly worsening symptomatology have asked the hospitalist team for further management admission Admit stable Final impression Acute congestive heart failure, failed outpatient therapy ED Disposition - Plan for ED Patient: Diagnosis: Heart failure, SOB (shortness of breath) Referrals: Quentin Giron MD [Primary Care Provider] -
--- NOTE | 2018-12-06 11:11 | RAD_ITS ---
STUDY: X-RAY CHEST REASON FOR EXAM: Male, 83 years old. Chest pain. TECHNIQUE: Single AP portable view of the chest. COMPARISON: Comparison is made with prior study dated November 21, 2018. FINDINGS: EKG electrodes are seen. There is evidence of a small bilateral pleural effusions worse on the left side superimposed on the vascular congestion and CHF. Bibasilar atelectasis. Follow-up is recommended. There is mild cardiac enlargement. Normal mediastinum and rabia. Normal visualized pulmonary arteries. Normal visualized aortic arch and descending thoracic aorta. Normal visualized thoracic spine. Normal visualized ribs, clavicles, and shoulders. There is no demonstrated abnormality of the visualized soft tissue structures of the upper abdomen. RAD/Chest 1 View (Portable) IMPRESSION: Bilateral pleural effusions with the CHF. Follow-up is recommended. Bibasilar atelectasis. Electronically Signed: Miguel Woods, at 11:29 EDT , Service support ,
--- NOTE | 2018-12-06 11:12 | NURSING ---
NO LW OR POA
[2018-12-06] MEDS: Furosemide 100 MG/10 ML Vial 80 MG IV (11:36)
[2018-12-06 11:48] LABS: Absolute Lymphocyte Count 0.91 X10^3/ul (0.83-4.51); Absolute Neutrophil Count 5.6 X10^3/uL (2.0-7.7); Basophil# 0.03 X10^3/uL; Basophil% 0.4 % (0-1); Eosinophil# 0.26 X10^3/uL; Eosinophils% 3.5 % (0-5); Hematocrit 31.6 % (40-54); Hemoglobin 9.9 g/dl (13.0-16.5); Lymphocyte # 0.91 X10^3/ul (4.0); Lymphocyte % 12.2 % (19-41); Mean Corp Hgb Conc 31.3 g/gl (32-36); Mean Corpuscular Hgb 28.6 pg (27.0-32.0); Mean Corpuscular Volume 91.3 fL (80-94); Mean Platelet Vol. 11.4 fl (6.2-12.0); Monocyte# 0.69 X10^3/uL; Monocyte% 9.2 % (0-10); Neutrophil # 5.58 X10^3/uL (2.7-7.7); Neutrophil % 74.6 % (47-70); Platelet Count 200 K/mm3 (150-450); RBC Distribution Width CV 15.4 % (11.6-14.6); RBC Distribution Width SD 51.3 fl (35.1-43.9); Red Blood Count 3.46 M/mm3 (4.6-6.2); White Blood Count 7.5 K/mm3 (4.4-11.0)
[2018-12-06 11:51] LABS: POSITIVE COUNT NO; POSITIVE DIFFERENTIAL NO; POSITIVE MORPHOLOGY NO
[2018-12-06 12:06] LABS: Anion Gap 1 (5-15); BUN 24 mg/dL (7-18); BUN/Creat Ratio 13.6 RATIO (10-20); Calcium,Total 8.5 mg/dL (8.5-10.1); Chloride 106 mmol/L (98-107); Creatinine, Serum 1.76 mg/dL (0.70-1.30); EST Glomerular Filtration Rate 39 mL/min (>60); Est Glom Filt Rate - Afr Amer 48 mL/min (>60); Estimated Creatinine Clearance 28.19 ml/min; Glucose 93 mg/dL (74-106); Potassium 4.3 mmol/L (3.5-5.1); Sodium Level 138 mmol/L (136-145)
[2018-12-06 12:27] LABS: BNP,B-Type NATRIURETIC PEPTIDE 185.6 pg/mL (0-100)
--- NOTE | 2018-12-06 13:00 | ED.RN ---
CATHETER INSERRTED AFTER PT WAS UNABLE TO STAND AND TRANSFER TO BEDSIDE DUE TO DIZZINESS AND FEELING THAT HE WAS UNABLE TO FULLY URINATE. AFTER PT URINATED ROUGHLY 300ML PT WAS HAD THE CATHETER PLACED AND ANOTHER 300 ML CAME OUT IMMEDIATELY
--- NOTE | 2018-12-06 13:56 | HP.PCM_ITS ---
Problem List (1) (HFpEF) heart failure with preserved ejection fraction Status: Acute Qualifiers: Heart failure chronicity: acute on chronic Qualified Code(s): I50.33 - Acute on chronic diastolic (congestive) heart failure History of Present Illness Date of Admission: 12/06/18 Chief Complaint: shortness of breath The patient is a 83 year old M who for the past several weeks has been slowly putting on weight and getting more swollen. Patient currently weighs around 225 pounds and then several months ago was less than 200. Was seen in the emergency room couple weeks ago for heart failure and patient wanted to go home. Patient on x-ray was found to have pulmonary vascular congestion have elevated BNP of 185.6. Patient received 80 mg of IV Lasix. Patient was on Lasix 40 mg twice daily at his assisted living and to try cutting back medications that had a sodium as a part of their structure, including pantoprazole sodium. Patient is on between 2 to 3 L of oxygen at his facility and has had to be increased to 5-6 in the emergency room. Patient is breathing comfortably at this time. [] Past Medical History Medical History: Medical History (Last Updated 12/06/18 @ 14:01 by Quentin Carbajal DO) (HFpEF) heart failure with preserved ejection fraction I50.30 Afib I48.91 taken off anticoagulation by Dr. Jenkins. Anemia D64.9 CKD (chronic kidney disease), stage III N18.3 Chronic respiratory failure J96.10 Allergies Penicillins Allergy (Verified 11/21/18 12:58) Unknown Home Medications: Ambulatory Orders Medication Instructions Recorded Acetaminophen [Tylenol] 1,000 mg PO Q6H PRN PRN 12/12/17 Antiarthritic Combination No.2 2 tab PO DAILY 12/12/17 [Glucosamine-Chondroitin] Budesonide/Formoterol 160/4.5 2 puff INHALATION BID 12/12/17 [Symbicort 160/4.5 Mcg Inhaler (SP)] Levothyroxine Sodium [Synthroid] 88 mcg PO DAILY 12/12/17 Menthol/Lanolin/Calamine/Znox 1 applic TOPICAL PRN PRN 12/12/17 [Calmoseptine Ointment] Rosuvastatin Calcium [Crestor] 10 mg PO QHS 12/12/17 Tamsulosin HCl [Flomax] 0.4 mg PO DAILY 12/12/17 Amiodarone HCl [Pacerone] 200 mg PO DAILY 12/06/18 Cholecalciferol (Vitamin D3) 2,000 unit PO DAILY 12/06/18 [Vitamin D3] Cyanocobalamin (Vitamin B-12) 1,000 mcg PO DAILY 12/06/18 [B-12] Diltiazem HCl [Cartia Xt] 240 mg PO DAILY 12/06/18 Esomeprazole Mag Trihydrate 40 mg PO DAILY 12/06/18 [Nexium] Ferrous Gluconate 324 mg PO BID 12/06/18 Furosemide [Lasix] 40 mg PO DAILY@1200 12/06/18 Magnesium 500 mg PO DAILY 12/06/18 Polyethylene Glycol 3350 [Miralax] 8.5 gm PO DAILY 12/06/18 Potassium Chloride [Klor-Con M10] 20 meq PO BID 12/06/18 Lives: Alone - in assisted living Smoking Status: Former smoker Tobacco Use: Non-smoker Alcohol: None Drugs: None - *Family History Maternal History Items: Heart Disease Review of Systems Constitutional: Denies: Chills, Fever, Weight Change Eyes: Denies: Blurred vision, Double vision HEENT: Denies: Head Aches, Sinus Congestion, Sinus Drainage Cardiovascular: Reports: Edema, Palpitations. Denies: Chest Pain Respiratory: Reports: Shortness of Breath. Denies: Cough, Sputum production Gastrointestinal: Denies: Abdominal Pain, Nausea, Vomiting Genitourinary: Denies: Dysuria Musculoskeletal: Denies: Joint Pain, Joint Tenderness Skin: Denies: Rash, Wounds Neurological: Denies: Numbness, Tingling, Focal weakness Psychiatric: Denies: Anxiety, Depression Endocrine: Reports: Change in Body Habitus - 20+ pounds in past several months Hematologic/ Lymphatic: Reports: Easy Bruising, Easy Bleeding, Hx of blood clot VTE Information - Inpt Only VTE Present on Admission: No VTE Mechan Device Prophylaxis: None VTE Pharm Prophylaxis ordered?: Yes Patient Problems: Active and Suspected Problems (Last Updated 12/06/18 @ 14:01 by Quentin Carbajal DO) Heart failure (Acute) SOB (shortness of breath) (Acute) (HFpEF) heart failure with preserved ejection fraction (Acute) - Physical Exam General: Alert, Cooperative, No apparent distress HEENT: Atraumatic, PERRLA, EOMI, Normocephalic Oral: Moist Mucosa, No Gingival or Mucosal Lesions/ Ulcerations Neck: No Nodes, Thyroid Normal Size and Texture Lungs: Clear to auscultation, Normal air movement, No rhonchi, No wheeze, No rales Cardiovascular: Regular rate, Regular Rhythm, Normal S1, Normal S2, No murmurs Abdomen: Bowel Sounds Present, Soft, Non Tender, Non-Distended, No Hepato- splenomegaly Extremities: No Calf Tenderness, Edema Skin: No rashes, No breakdown Musculoskeletal: No Tenderness to Palpation of Joints or Extremities, No Muscle Wasting Neurological: Cranial nerves II-XII grossly intact, Neuro grossly intact, Coordination normal Psych/Mental Status: Normal Affect, Appropriate Vital Signs Temp Pulse Resp BP Pulse Ox 36.7 C 56 L 27 H 152/96 H 94 12/06/18 12:58 12/06/18 12:58 12/06/18 12:58 12/06/18 12:58 12/06/18 12:58 Oxygen Flow Rate (L/min) 4 Oxygen Delivery Method Nasal Cannula Weight: 102.3 kg Body Mass Index (BMI) 36.3 Intake and Output for Last 24 Hours 12/04/18 12/05/18 12/06/18 23:59 23:59 23:59 Output Total 600 / 600 Balance -600 / -600 Laboratory Tests Past 24 Hrs 12/06/18 12/06/18 12/06/18 11:37 11:37 11:37 WBC 7.5 RBC 3.46 L Hgb 9.9 L Hct 31.6 L MCV 91.3 MCH 28.6 MCHC 31.3 L RDW 15.4 H RDW Differential 51.3 H Plt Count 200 MPV 11.4 Immature Gran % (Auto) 0.100 Neut % (Auto) 74.6 H Lymph % (Auto) 12.2 L [place] % (Auto) 9.2 Eos % (Auto) 3.5 Baso % (Auto) 0.4 Absolute Neuts (auto) 5.6 Absolute Lymphs (auto) 0.91 Total Counted Not Reportable Sodium 138 Potassium 4.3 Chloride 106 Carbon Dioxide 31.0 Anion Gap 1 L BUN 24 H Creatinine 1.76 H Estim Creat Clear Calc 28.19 Est GFR (MDRD) Af Amer 48 L Est GFR (MDRD) Non-Af 39 L BUN/Creatinine Ratio 13.6 Glucose 93 Calcium 8.5 Troponin I < 0.015 B-Natriuretic Peptide 185.6 H EKG reviewed and showed normal sinus rhythm. EKG reviewed and showed normal sinus rhythm Chest x-ray reviewed and showed edema, unchanged from November 21. Assessment/Plan All Active Problems (Last Updated 12/06/18 @ 14:01 by Quentin Carbajal DO) Anemia (Acute) Heart failure (Acute) SOB (shortness of breath) (Acute) CAD (coronary artery disease) (Ruled-out) (HFpEF) heart failure with preserved ejection fraction (Acute) 1. Acute heart failure with preserved ejection fraction * EF of 60% from echocardiogram on December 14, 2017 * IV Lasix * Hold CAROLYN inhibitor/angiotensin receptor jennifer given chronic kidney disease * Strict I's and O's * Fluid restrict 1500 cc/day * Patient has follow-up appointment with cardiology on the third. 2. Chronic kidney disease stage III * Appears to be at baseline * Monitor while on Lasix * Patient to follow-up with nephrology in January 3. Anemia * May be anemia of chronic disease 4. Advanced care planning: Verified with patient and daughter that he is full CODE STATUS. 5. VTE prophylaxis: Moderate risk. Lovenox. 6. History of atrial fibrillation * Currently in normal sinus rhythm * had been following Dr. Jenkins who saw him a year or so ago, took him off of Coumadin because he was no longer in atrial fibrillation * Check records from Dr. Jenkins's office Code Visit Inpatient E&M: 84781 Init Hosp L3
--- NOTE | 2018-12-06 14:23 | CASEMGMT ---
RN CM Assessment Introduced role of RN CM to patient and Dtr Uvaldo Espinoza at bedside.? Patient is alert, oriented and able?to participate in RN CM Assessment. ?Care providers, pharmacy, and demographics verified. Presentation: Was seen in ER 11/21/18 for SOB, refused admission. C/o increased SOB, weight gain, Low pulse ox-93% on 3L, on lasix. Re-Admit: No Barriers/Issues: States has seen Nephro Dr Andre and states they keep putting off the appointments. States needs to see them d/t being in Lasix and kidney function. Considering switching to a different Wildlife Rehabilitator. PCP: Quentin Giron Specialists: Cardio- Dr Massey- (1st appt to see this Thursday), last Senior Lead Java Developer Dr Loo in [place]. Pulm- Dr El Preferred Pharmacy: [facility] Insurance: [place] [employer] Rx Benefit:?Yes LNOK: Dtr Uvaldo Espinoza LW/HPOA: Yes both, aware not on file. Dtr [facility] has the papers with her this visit, CM informed can give to nurse to scan in file. HPOA- Dtr Uvaldo Espinoza. Living Arrangements:?Lives at [facility] ADL?s: Ambulates with walker, Independent with ADLs. Facility does bring meds to patient. Transportation: Son Cesar Urbano, same upon DC DME: Home O2 2Lprn- [facility], CPAP, Neb, Glucometer- facility checks once/week, Shower Chair, Walker, WC, Bed-head and foot raise/lower. HHC: Past-[place] [facility]: Past-[facility] Goal: Back to [facility], does not think will have any needs. Denies any questions or concerns. Aware CM remains available for any emerging needs. DC PLAN: Home with no anticipated needs identified at this time. Luca Jackson RNCM
--- NOTE | 2018-12-06 15:03 | ED.RN ---
REPORTS CALLED TO [facility]
[2018-12-06] MEDS: Albuterol 2.5 MG/3 ML VIAL.NEB. INHALATION ×2 (15:49→19:10)
[2018-12-06] MEDS: Acetaminophen 325 MG Tablet 650 MG PO ×2 (17:14→22:26)
[2018-12-06] MEDS: Furosemide 40 MG/4 ML Vial IV (17:15)
[2018-12-06] MEDS: Tamsulosin HCl 0.4 MG Capsule PO (18:28)
[2018-12-06] MEDS: Ferrous Gluconate 324 MG Tablet PO (18:29)
[2018-12-06] MEDS: Budesonide Respules 0.5 MG/2 ML AMPUL.NEB. INHALATION (19:10)
--- NOTE | 2018-12-06 20:34 | SLEEP ---
help set up pt's own Home BiPAP unit with 3 lpm O2 bled inline.
[2018-12-06] MEDS: Atorvastatin Calcium 20 MG Tablet PO (22:26)
[2018-12-07] VITALS (14 sets, daily range): BP systolic 121–128; BP diastolic 44–70; PULSE 48–98; RESP 16–20; TEMP 36.8–37.3; O2SAT 92–96
[2018-12-07] MEDS: Levothyroxine 88 MCG Tablet PO (05:45)
[2018-12-07] MEDS: Acetaminophen 325 MG Tablet 650 MG PO (05:47)
[2018-12-07 06:38] LABS: Anion Gap 7 (5-15); BUN 23 mg/dL (7-18); BUN/Creat Ratio 13.2 RATIO (10-20); Calcium,Total 8.3 mg/dL (8.5-10.1); Chloride 104 mmol/L (98-107); Creatinine, Serum 1.74 mg/dL (0.70-1.30); EST Glomerular Filtration Rate 40 mL/min (>60); Est Glom Filt Rate - Afr Amer 48 mL/min (>60); Estimated Creatinine Clearance 28.52 ml/min; Glucose 100 mg/dL (74-106); Potassium 3.9 mmol/L (3.5-5.1); Sodium Level 142 mmol/L (136-145); Thyroid Stim Hormone (TSH) 1.38 uIU/mL (0.358-3.74)
[2018-12-07] MEDS: Budesonide Respules 0.5 MG/2 ML AMPUL.NEB. INHALATION ×2 (07:02→19:20)
[2018-12-07] MEDS: Albuterol 2.5 MG/3 ML VIAL.NEB. INHALATION ×3 (07:02→19:20)
--- NOTE | 2018-12-07 08:54 | CASEMGMT ---
Patient has a Healthcare POA and Healthcare LW. Patient's daughter brought copies in to [facility] this visit and they are in his paper chart. Clare LÓPEZ MSW
--- NOTE | 2018-12-07 09:33 | CASEMGMT ---
Patient is from [facility]. SW will follow and assist with any d/c needs. Clare LÓPEZ MSW
[2018-12-07] MEDS: Furosemide 40 MG/4 ML Vial IV ×2 (10:05→17:42)
[2018-12-07] MEDS: dilTIAZem CD 240 MG Capsule PO (10:05)
[2018-12-07] MEDS: Amiodarone 200 MG Tablet PO (10:05)
[2018-12-07] MEDS: Enoxaparin 30 MG/0.3 ML Syringe SC (10:05)
[2018-12-07] MEDS: Magnesium Oxide 400 MG Tablet PO (10:05)
[2018-12-07] MEDS: Pantoprazole Sodium 40 MG Tablet PO (10:06)
[2018-12-07] MEDS: Cyanocobalamin 500 MCG Tablet 1000 MCG PO (10:07)
--- NOTE | 2018-12-07 11:41 | NURSING ---
pt called out and feeling sob and asking for oxygen to be bumped up spo2 on 3l was 88-89% and some mild dyspnea obs but pt laying down in bed. pt repositioned and sat up higher. o2 up to 4l and spo2 up to 91%. cps called for aerosol
[2018-12-07] MEDS: Ferrous Gluconate 324 MG Tablet PO ×2 (11:51→17:42)
--- NOTE | 2018-12-07 12:11 | PN_ITS ---
<Arnoldo Recinos - Last Filed: 12/07/18 13:48> Patient Problems: Active and Suspected Problems (Last Updated 12/06/18 @ 14:01 by Quentin Carbajal DO) Heart failure (Acute) SOB (shortness of breath) (Acute) (HFpEF) heart failure with preserved ejection fraction (Acute) Subjective: Pt has had significant improvement in LE edema since presentation. He thinks his weight was up at home at least 25 lbs 200--> 225. He does also have COPD and chronic hypoxic resp failure for which he sees Dr. El. He uses Bipap at night with O2 bleed in and O2 during the day. No CP, dizziness/LH, palp. - Physical Exam General: Alert, Oriented x3, Cooperative HEENT: Atraumatic, PERRLA, EOMI, Normocephalic Neck: Supple, No JVD, Negative Carotid Bruits Lungs: Clear to auscultation, Normal air movement Cardiovascular: Regular Rhythm, No murmurs Abdomen: Bowel Sounds Present, Soft, Non Tender Extremities: Capillary Refill Less than 3 Seconds, Edema - 2+ pitting BL LE Skin: No rashes, No breakdown Musculoskeletal: No Tenderness to Palpation of Joints or Extremities Neurological: Cranial nerves II-XII grossly intact Psych/Mental Status: Normal Affect, Appropriate Vital Signs Temp Pulse Resp BP Pulse Ox 99.1 F 51 L 18 121/44 H 92 12/07/18 09:30 12/07/18 09:30 12/07/18 09:30 12/07/18 09:30 12/07/18 09:30 Oxygen Flow Rate (L/min) 3 Oxygen Delivery Method Nasal Cannula Weight: 208 lb 15.971 oz Body Mass Index (BMI) 33.7 Intake and Output for Last 24 Hours 12/05/18 12/06/18 12/07/18 23:59 23:59 23:59 Intake Total 475 / 475 175 / 175 Output Total 3900 / 3900 300 / 300 Balance -3425 / -3425 -125 / -125 Laboratory Tests Past 24 Hrs 12/06/18 12/06/18 12/06/18 11:37 17:05 20:00 Sodium Potassium Chloride Carbon Dioxide Anion Gap BUN Creatinine Estim Creat Clear Calc Est GFR (MDRD) Af Amer Est GFR (MDRD) Non-Af BUN/Creatinine Ratio Glucose Calcium Troponin I < 0.015 < 0.015 B-Natriuretic Peptide 185.6 H TSH 12/07/18 05:22 Sodium 142 Potassium 3.9 Chloride 104 Carbon Dioxide 31.0 Anion Gap 7 BUN 23 H Creatinine 1.74 H Estim Creat Clear Calc 28.52 Est GFR (MDRD) Af Amer 48 L Est GFR (MDRD) Non-Af 40 L BUN/Creatinine Ratio 13.2 Glucose 100 Calcium 8.3 L Troponin I B-Natriuretic Peptide TSH 1.38 Medical Necessity - Tobacco Use Smoking Status: Former smoker Tobacco Use: Cigarettes Assessment/Plan All Active Problems (Last Updated 12/06/18 @ 14:01 by Quentin Carbajal DO) Anemia (Acute) Heart failure (Acute) SOB (shortness of breath) (Acute) CAD (coronary artery disease) (Ruled-out) (HFpEF) heart failure with preserved ejection fraction (Acute) 1. Acute diastolic CHF exacerbation - echo 12/14/2017 with EF 60%, stage 1 diastolic dysfunction. Pt with about 3.5 liters out already. Improvement in breathing and LE edema already. Continue IV diuresis. Trop neg x 3. TSH neg. 2. CKDIII - stable with diuresis 3. pAfib - in SR. taken off warfarin by Dr. Jenkins in [facility]. He has not seen a railroad police officer in >1 yr. On amio, cardizem 4. Chronic anemia - does not appear below baseline. continue PO iron. 5. Hx COPD - pt of Dr. El - no acute exacerbation - prn aerosols. 6. Hypothyroidism - synthroid. tsh normal. 7. BPH - flomax DVT ppx: lovenox DC planning: continue to diuresis overnight This patient was seen by Arnoldo Recinos PA-C under the supervision of Doctor Blil. <Aric Khan - Last Filed: 12/07/18 16:00> Subjective: Seen and examined. Patient had appointment of railroad police officer probably Dr. raymundo in the next 1 to 2 weeks and also manager process excellence in January. But before that patient is admitted with shortness of breath, dyspnea on exertion, bilateral lower extremity edema consistent with CHF exacerbation. Patient also follows Dr. El for COPD and chronic hypoxic respiratory failure. - Physical Exam General: Alert, Oriented x3, Cooperative HEENT: Atraumatic, PERRLA, EOMI, Normocephalic Neck: Supple, No JVD, Negative Carotid Bruits Lungs: Diminished, Rales - Bibasilar rales present., Rhonchi, Short of Breath Cardiovascular: Regular Rhythm, Normal S1, Normal S2 Abdomen: Bowel Sounds Present, Soft, Non Tender, Non-Distended Extremities: Capillary Refill Less than 3 Seconds, Edema Musculoskeletal: No Tenderness to Palpation of Joints or Extremities, Arthritic Changes Neurological: Deep Tendon Reflexes 2+/4 and Symmetrical, Neuro grossly intact, Motor Exam 5/5 strength throughout Vital Signs Temp Pulse Resp BP Pulse Ox 99.1 F 55 L 16 121/44 H 92 12/07/18 09:30 12/07/18 13:14 12/07/18 13:14 12/07/18 09:30 12/07/18 09:30 Oxygen Flow Rate (L/min) 4 Oxygen Delivery Method Nasal Cannula Weight: 208 lb 15.971 oz Body Mass Index (BMI) 33.7 Intake and Output for Last 24 Hours 12/05/18 12/06/18 12/07/18 23:59 23:59 23:59 Intake Total 475 / 475 175 / 175 Output Total 3900 / 3900 300 / 300 Balance -3425 / -3425 -125 / -125 Laboratory Tests Past 24 Hrs 12/06/18 12/06/18 12/07/18 17:05 20:00 05:22 Sodium 142 Potassium 3.9 Chloride 104 Carbon Dioxide 31.0 Anion Gap 7 BUN 23 H Creatinine 1.74 H Estim Creat Clear Calc 28.52 Est GFR (MDRD) Af Amer 48 L Est GFR (MDRD) Non-Af 40 L BUN/Creatinine Ratio 13.2 Glucose 100 Calcium 8.3 L Troponin I < 0.015 < 0.015 TSH 1.38 Assessment/Plan This patient was seen in conjunction with Arnoldo HERNANDEZ. I have independently interviewed and examined the patient and reviewed pertinent history, examination findings, laboratory and plan of management. I have reviewed the note and agre e with the documented findings with the few additional points. In brief, patient is admitted for acute on chronic diastolic heart failure: Patient is on diuresis IV, amiodarone, Cardizem, atorvastatin. Patient probably has seen Dr. raymundo in December 2017. Patient has CKD stage III, admitted with BUN/creatinine 26/1.87 patient has ultrasound kidneys done by Dr. Nails which reported as mild right renal atrophy. Kidney function is improving on diuresis. Patient also has significant history of COPD/emphysema and follows Dr. El. He is on BiPAP at night and oxygen through nasal cannula during daytime. Currently not in exacerbation. Other multiple comorbidities include hypothyroidism, BPH, anemia of chronic disease. Multiple comorbidities complicates the present care and expect diffic ult and delay recovery I have discussed my assessment with Arnoldo HERNANDEZ and orders have been reviewed. Active Medications Acetaminophen (Tylenol) 650 mg PO Q6H PRN PRN PRN Reason: Mild pain 1-3/Temp > 100.7 F Last Admin: 12/07/18 05:47 Dose: 650 mg Documented by: Albuterol Sulfate (Ventolin Aerosols) 2.5 mg INHALATION Q4H PRN PRN PRN Reason: SHORTNESS OF BREATH Last Admin: 12/06/18 15:49 Dose: 2.5 mg Documented by: Albuterol Sulfate (Ventolin Aerosols) 2.5 mg INHALATION Q6HWA.RT [facility] Last Admin: 12/07/18 13:14 Dose: 2.5 mg Documented by: Amiodarone HCl (Cordarone) 200 mg PO DAILY [facility] Last Admin: 12/07/18 10:05 Dose: 200 mg Documented by: Atorvastatin Calcium (Lipitor) 20 mg PO QHS [facility] Last Admin: 12/06/18 22:26 Dose: 20 mg Documented by: Budesonide (Pulmicort Aerosol) 0.5 mg INHALATION Q12H.RT [facility] Last Admin: 12/07/18 07:02 Dose: 0.5 mg Documented by: Calamine/Phenol (Calmoseptine Ointment) 1 applic TOPICAL BID PRN PRN; Protocol PRN Reason: WOUND CARE Cholecalciferol (Vitamin D) 2,000 unit PO DAILY [facility] Last Admin: 12/07/18 10:06 Dose: 2,000 unit Documented by: Cyanocobalamin (Vitamin B12) 1,000 mcg PO DAILY@0800 [facility] Last Admin: 12/07/18 10:07 Dose: 1,000 mcg Documented by: Diltiazem HCl (Cardizem Cd) 240 mg PO DAILY [facility] Last Admin: 12/07/18 10:05 Dose: 240 mg Documented by: Docusate Sodium (Colace) 100 mg PO BID PRN PRN PRN Reason: Constipation Enoxaparin Sodium (Lovenox) 30 mg SC DAILY@1000 [facility] Last Admin: 12/07/18 10:05 Dose: 30 mg Documented by: Ferrous Gluconate (Ferrous Gluconate) 324 mg PO BID@1200,1700 [facility] Last Admin: 12/07/18 11:51 Dose: 324 mg Documented by: Furosemide (Lasix) 40 mg IV BIDLX [facility] Last Admin: 12/07/18 10:05 Dose: 40 mg Documented by: Levothyroxine Sodium (Synthroid) 88 mcg PO DAILY@0600 [facility] Last Admin: 12/07/18 05:45 Dose: 88 mcg Documented by: Loratadine (Claritin) 10 mg PO DAILY PRN PRN PRN Reason: ALLERGIES Magnesium Hydroxide (Milk Of Magnesia) 30 ml PO DAILY PRN PRN PRN Reason: Constipation Magnesium Oxide (Mag-Ox 400) 400 mg PO DAILY [facility] Last Admin: 12/07/18 10:05 Dose: 400 mg Documented by: Melatonin (Melatonin) 3 mg PO QHS PRN PRN PRN Reason: INSOMNIA Ondansetron HCl (Zofran) 4 mg IV Q8H PRN PRN PRN Reason: NAUSEA/VOMITING Pantoprazole Sodium (Protonix) 40 mg PO DAILY [facility] Last Admin: 12/07/18 10:06 Dose: 40 mg Documented by: Potassium Chloride (K-Dur) 20 meq PO BIDCM [facility] Last Admin: 12/07/18 08:27 Dose: 20 meq Documented by: Sodium Chloride () 10 - 40 ml IV UD PRN PRN Reason: SALINE FLUSH Tamsulosin HCl (Flomax) 0.4 mg PO DAILY@1730 [facility] Last Admin: 12/06/18 18:28 Dose: 0.4 mg Documented by: Code Visit Inpatient E&M: 12926 Subs Hosp L3
--- NOTE | 2018-12-07 14:16 | CASEMGMT ---
Addendum entered by Clare Hoyos 12/07/18 14:25: Updates faxed to [facility]. Clare ENAMORADO Original Note: SW spoke with patient and his daughter. The plans is to return to [place]. Family may be able to transport as long as they are available. SW can also check with [place] to see if they can clam picker patient if family is not able to transport. Plan: Return to [facility] when ready. Clare LÓPEZ MSW
[2018-12-07] MEDS: Tamsulosin HCl 0.4 MG Capsule PO (17:42)
[2018-12-07] MEDS: Atorvastatin Calcium 20 MG Tablet PO (21:02)
[2018-12-08] VITALS (12 sets, daily range): BP systolic 115–126; BP diastolic 42–47; PULSE 46–63; RESP 16–19; TEMP 36.6–37.2; O2SAT 92–96
[2018-12-08] MEDS: Levothyroxine 88 MCG Tablet PO (05:02)
[2018-12-08] MEDS: Budesonide Respules 0.5 MG/2 ML AMPUL.NEB. INHALATION ×2 (06:58→18:55)
[2018-12-08] MEDS: Albuterol 2.5 MG/3 ML VIAL.NEB. INHALATION ×3 (06:58→18:55)
[2018-12-08] MEDS: Cyanocobalamin 500 MCG Tablet 1000 MCG PO (08:53)
[2018-12-08] MEDS: dilTIAZem CD 240 MG Capsule PO (08:54)
[2018-12-08] MEDS: Magnesium Oxide 400 MG Tablet PO (08:54)
[2018-12-08] MEDS: Amiodarone 200 MG Tablet PO (08:54)
[2018-12-08] MEDS: Pantoprazole Sodium 40 MG Tablet PO (08:55)
[2018-12-08] MEDS: Enoxaparin 30 MG/0.3 ML Syringe SC (09:00)
[2018-12-08] MEDS: 0.9% NaCl Peripheral Flush Adult/Peds IV (09:01)
[2018-12-08] MEDS: Furosemide 40 MG/4 ML Vial IV (09:01)
[2018-12-08] MEDS: Ferrous Gluconate 324 MG Tablet PO ×2 (12:03→17:49)
--- NOTE | 2018-12-08 12:26 | ECHOCS_ITS ---
Version 2 Reason For Study: CHF Procedure This was a 2D Doppler, Color Flow transthoracic echocardiogram. Exam performed portable in patient room. Left Ventricle Normal size and thickness. The estimated ejection fraction is 65 %. Right Ventricle Mildly dilated right ventricle. Normal systolic function. Atria The left atrium is mildly enlarged. Normal right atrium. Normal atrial septum. Mitral Valve The mitral valve is structurally normal. No prolapse or stenosis seen. Tricuspid Valve Normal tricuspid valve. Mild (1+) tricuspid valve insufficiency. Right ventricular systolic pressure estimated to be 48 mmHg. Aortic Valve Trisinus/trileaflet aortic valve. Mild diffuse aortic valve thickening. Pulmonic Valve Normal pulmonic valve. Trivial pulmonic valve insufficiency. Great Vessels Normal aortic root. Normal arch. Normal inferior vena cava. Inferior vena cava collapse with sniff. Pericardium/Pleural No pericardial effusion. Moderate size left pleural effusion. Medication Diluted definity 3ml given slow IV push to enhance endocardial definition. MMode/2D Measurements & Calculations LVIDd: 5.6 cm IVSd: 1.2 cm Ao root diam: 3.5 cm LVIDs: 2.9 cm LVPWd: 0.85 cm RVDd: 4.2 cm FS: 47.3 % LAV(MOD-bp): 71.5 ml LVAd ap4: 31.7 cm2 SV(MOD-sp4): 69.3 ml LAV(MOD-bp) Indexed: 35.3 ml/m2 EDV(MOD-sp4): 105.2 ml LAV(MOD-sp2): 64.5 ml EDV(sp4-el): 108.4 ml LAV(MOD-sp4): 63.4 ml LVAs ap4: 16.0 cm2 ESV(MOD-sp4): 35.9 ml ESV(sp4-el): 35.8 ml EF(MOD-sp4): 65.9 % EF(sp4-el): 66.9 % SV(sp4-el): 72.6 ml LA A4 area: 22.2 cm2 LA dimension(2D): 4.3 cm RA A4 area: 16.9 cm2 Time Measurements MV dec time: 0.16 sec Doppler Measurements & Calculations MV E max sami: 127.4 cm/sec Lat Peak E' Sami: 5.8 cm/sec Med Peak E' Sami: 6.8 cm/sec MV A max sami: 121.2 cm/sec E/E' lat: 21.9 E/E' med: 18.8 MV E/A: 1.1 MV V2 max: 189.1 cm/sec MV P1/2t max sami: 188.9 cm/sec Ao V2 max: 189.5 cm/sec MV max P.3 mmHg MV P1/2t: 102.3 msec Ao max P.4 mmHg MV V2 mean: 89.7 cm/sec MV dec slope: 541.1 cm/sec2 Ao V2 mean: 118.9 cm/sec MV mean P.9 mmHg MVA(P1/2t): 2.2 cm2 Ao mean P.6 mmHg MV V2 VTI: 72.7 cm Ao V2 VTI: 42.1 cm LV V1 max: 149.8 cm/sec PA V2 max: 115.6 cm/sec TR max sami: 327.3 cm/sec LV V1 max P.0 mmHg TR max P.8 mmHg Interpretation Summary The estimated ejection fraction is 65 %. Mildly dilated right ventricle. The left atrium is mildly enlarged. Mild (1+) tricuspid valve insufficiency. Right ventricular systolic pressure estimated to be 48 mmHg. Compared to echo report dated 12/14/2017, LV function has remained the same. RVSP has increased from 32 to 48 mm Hg. Moderate size left pleural effusion. The study was technically difficult. Contrast injection was performed. Ordering Physician: Aric Khan Referring Physician: Quentin Giron Performed By: Marian Bellamy RDCS, RVT
[2018-12-08 12:59] LABS: Absolute Neutrophil Count 5.4 X10^3/uL (2.0-7.7); Basophil# 0.02 X10^3/uL; Basophil% 0.3 % (0-1); Eosinophil# 0.26 X10^3/uL; Eosinophils% 3.6 % (0-5); Hematocrit 31.8 % (40-54); Hemoglobin 9.9 g/dl (13.0-16.5); Lymphocyte % 9.6 % (19-41); Mean Corp Hgb Conc 31.1 g/gl (32-36); Mean Corpuscular Hgb 28.4 pg (27.0-32.0); Mean Corpuscular Volume 91.4 fL (80-94); Monocyte# 0.91 X10^3/uL; Monocyte% 12.4 % (0-10); Neutrophil # 5.42 X10^3/uL (2.7-7.7); Platelet Count 210 K/mm3 (150-450); RBC Distribution Width CV 15.1 % (11.6-14.6); RBC Distribution Width SD 50.8 fl (35.1-43.9); Red Blood Count 3.48 M/mm3 (4.6-6.2); White Blood Count 7.3 K/mm3 (4.4-11.0)
[2018-12-08 13:01] LABS: POSITIVE COUNT NO; POSITIVE DIFFERENTIAL NO; POSITIVE MORPHOLOGY NO
[2018-12-08 13:11] LABS: Anion Gap 6 (5-15); BUN 32 mg/dL (7-18); BUN/Creat Ratio 15.7 RATIO (10-20); Calcium,Total 8.4 mg/dL (8.5-10.1); Chloride 100 mmol/L (98-107); Creatinine, Serum 2.04 mg/dL (0.70-1.30); EST Glomerular Filtration Rate 33 mL/min (>60); Est Glom Filt Rate - Afr Amer 40 mL/min (>60); Estimated Creatinine Clearance 24.32 ml/min; Glucose 142 mg/dL (74-106); Magnesium 2.5 mg/dL (1.6-2.6); Potassium 3.6 mmol/L (3.5-5.1); Sodium Level 140 mmol/L (136-145)
--- NOTE | 2018-12-08 15:35 | CASEMGMT ---
BENJY TONY NOTE: Call placed to Katie @ [facility] and she confirms pt has continuous O2 @ 2 L/M. Pt has portability and concentrator. Pay may need Home O2 qualification/walking test completed prior to discharge. If pt requires more than 2 L/M O2, will need new Script for Oxygen. Green sheet placed on chart for if pt discharges tomorrow. Guera ALLISON RN CM
--- NOTE | 2018-12-08 15:45 | PCM.PN.HOSP ---
Patient Problems: Active and Suspected Problems (Last Updated 12/06/18 @ 14:01 by Quentin Carbajal DO) Heart failure (Acute) SOB (shortness of breath) (Acute) (HFpEF) heart failure with preserved ejection fraction (Acute) Subjective: The patient is still short of breath. Patient heart rate is regular and bradycardia. Patient is from SNF and is on generally 2 to 3 L oxygen. I/O charting shows patient had about 3900 mL urine output prior to Thomson catheter removed. Currently having 300 mL urine output major and 2-3 moderate amount of urine voiding along with incontinence. He lost about 20 pounds last 2 days. Currently on 4 L of oxygen which is decreased from 6 L since admission. Heart rate in 50s. Vitals/I&O's: Vital Signs Temp Pulse Resp BP Pulse Ox 98.3 F 50 L 18 126/47 H 94 12/08/18 15:10 12/08/18 15:10 12/08/18 15:10 12/08/18 15:10 12/08/18 15:10 Oxygen Flow Rate (L/min) 4 Oxygen Delivery Method Nasal Cannula Weight: 206 lb 2.115 oz Body Mass Index (BMI) 33.7 Intake and Output for Last 24 Hours 12/06/18 12/07/18 12/08/18 23:59 23:59 23:59 Intake Total 475 / 475 655 / 715 510 / 510 Output Total 3900 / 3900 375 / 375 300 / 300 Balance -3425 / -3425 280 / 340 210 / 210 General: Alert, Oriented x3, Cooperative HEENT: Atraumatic, PERRLA, EOMI, Normocephalic Neck: Supple, No JVD, Negative Carotid Bruits Lungs: Diminished, Rhonchi - Air entry is diminished, Short of Breath Cardiovascular: Regular rate, Regular Rhythm, Normal S1, Normal S2, Murmur - Systolic murmur present over left lower sternal border. Abdomen: Bowel Sounds Present, Soft, Non Tender, Non-Distended Extremities: Capillary Refill Less than 3 Seconds, Edema - Edema is improved Skin: No rashes, No breakdown Musculoskeletal: No Tenderness to Palpation of Joints or Extremities, Arthritic Changes Neurological: Cranial nerves II-XII grossly intact Psych/Mental Status: Normal Affect, Appropriate Laboratory Results 12/08/18 12:50: Sodium 140, Potassium 3.6, Chloride 100, Carbon Dioxide 34.0 H, Anion Gap 6, BUN 32 H, Creatinine 2.04 H, Estim Creat Clear Calc 24.32, Est GFR (MDRD) Af Amer 40 L, Est GFR (MDRD) Non-Af 33 L, BUN/Creatinine Ratio 15.7, Glucose 142 H, Calcium 8.4 L, Magnesium 2.5 12/08/18 12:50: WBC 7.3, RBC 3.48 L, Hgb 9.9 L, Hct 31.8 L, MCV 91.4, MCH 28.4, MCHC 31.1 L, RDW 15.1 H, RDW Differential 50.8 H, Plt Count 210, MPV 11.0, Immature Gran % (Auto) 0.100, Neut % (Auto) 74.0 H, Lymph % (Auto) 9.6 L, Carson % (Auto) 12.4 H, Eos % (Auto) 3.6, Baso % (Auto) 0.3, Absolute Neuts (auto) 5.4, Absolute Lymphs (auto) 0.70 L, Total Counted Not Reportable Current Medications Acetaminophen (Tylenol) 650 mg PO Q6H PRN PRN PRN Reason: Mild pain 1-3/Temp > 100.7 F Last Admin: 12/07/18 05:47 Dose: 650 mg Documented by: Albuterol Sulfate (Ventolin Aerosols) 2.5 mg INHALATION Q4H PRN PRN PRN Reason: SHORTNESS OF BREATH Last Admin: 12/06/18 15:49 Dose: 2.5 mg Documented by: Albuterol Sulfate (Ventolin Aerosols) 2.5 mg INHALATION Q6HWA.RT [facility] Last Admin: 12/08/18 13:22 Dose: 2.5 mg Documented by: Amiodarone HCl (Cordarone) 200 mg PO DAILY [facility] Last Admin: 12/08/18 08:54 Dose: 200 mg Documented by: Atorvastatin Calcium (Lipitor) 20 mg PO QHS [facility] Last Admin: 12/07/18 21:02 Dose: 20 mg Documented by: Budesonide (Pulmicort Aerosol) 0.5 mg INHALATION Q12H.RT [facility] Last Admin: 12/08/18 06:58 Dose: 0.5 mg Documented by: Calamine/Phenol (Calmoseptine Ointment) 1 applic TOPICAL BID PRN PRN; Protocol PRN Reason: WOUND CARE Cholecalciferol (Vitamin D) 2,000 unit PO DAILY [facility] Last Admin: 12/08/18 08:55 Dose: 2,000 unit Documented by: Cyanocobalamin (Vitamin B12) 1,000 mcg PO DAILY@0800 [facility] Last Admin: 12/08/18 08:53 Dose: 1,000 mcg Documented by: Diltiazem HCl (Cardizem Cd) 240 mg PO DAILY [facility] Last Admin: 12/08/18 08:54 Dose: 240 mg Documented by: Docusate Sodium (Colace) 100 mg PO BID PRN PRN PRN Reason: Constipation Enoxaparin Sodium (Lovenox) 30 mg SC DAILY@1000 [facility] Last Admin: 12/08/18 09:00 Dose: 30 mg Documented by: Ferrous Gluconate (Ferrous Gluconate) 324 mg PO BID@1200,1700 [facility] Last Admin: 12/08/18 12:03 Dose: 324 mg Documented by: Furosemide (Lasix) 40 mg IV BIDLX [facility] Last Admin: 12/08/18 09:01 Dose: 40 mg Documented by: Levothyroxine Sodium (Synthroid) 88 mcg PO DAILY@0600 [facility] Last Admin: 12/08/18 05:02 Dose: 88 mcg Documented by: Loratadine (Claritin) 10 mg PO DAILY PRN PRN PRN Reason: ALLERGIES Magnesium Hydroxide (Milk Of Magnesia) 30 ml PO DAILY PRN PRN PRN Reason: Constipation Magnesium Oxide (Mag-Ox 400) 400 mg PO DAILY [facility] Last Admin: 12/08/18 08:54 Dose: 400 mg Documented by: Melatonin (Melatonin) 3 mg PO QHS PRN PRN PRN Reason: INSOMNIA Ondansetron HCl (Zofran) 4 mg IV Q8H PRN PRN PRN Reason: NAUSEA/VOMITING Pantoprazole Sodium (Protonix) 40 mg PO DAILY [facility] Last Admin: 12/08/18 08:55 Dose: 40 mg Documented by: Potassium Chloride (K-Dur) 20 meq PO BIDCM [facility] Last Admin: 12/08/18 08:52 Dose: 20 meq Documented by: Sodium Chloride () 10 - 40 ml IV UD PRN PRN Reason: SALINE FLUSH Last Admin: 12/08/18 09:01 Dose: 10 ml Documented by: Tamsulosin HCl (Flomax) 0.4 mg PO DAILY@1730 [facility] Last Admin: 12/07/18 17:42 Dose: 0.4 mg Documented by: Medical Necessity - Tobacco Use Smoking Status: Former smoker Tobacco Use: Cigarettes Assessment/Plan All Active Problems (Last Updated 12/06/18 @ 14:01 by Quentin Carbajal DO) Anemia (Acute) Heart failure (Acute) SOB (shortness of breath) (Acute) CAD (coronary artery disease) (Ruled-out) (HFpEF) heart failure with preserved ejection fraction (Acute) The patient is 83-year-old gentleman Is admitted for acute on chronic diastolic heart failure with acute on chronic hypoxic respiratory failure and was 6 L at the time of admission. He was started on Lasix 40 mg IV every 12 hourly. He has other comorbidities which include COPD/emphysema on chronic 2 to 3 L of home oxygen alf follows Dr. El. 1. Acute on chronic CHF exacerbation - echo 12/14/2017 with EF 60%, stage 1 diastolic dysfunction. Patient had good diuresis with about 20 pounds weight loss and 3.5 L diuresis prior to Thomson catheter removed. Is hard to measure urine output as patient has urine incontinence. Repeat echo was done as the patient was found to have a murmur most probably TR. Echo done on 12/06/2018 reported as EF 65%, mildly dilated RV with normal systolic function. LA mildly enlarged normal right atrium. 1+ TR, RVSP 48 mg which was 32 mmHg in December 2017. Decrease Lasix 40 mg IV daily. García wrap bandage. Trop neg x 3. TSH neg. 2. Acute on CKDIII -creatinine went up from 1.74-2.04. BUN 23 232. Bicarb 31-34. I think patient has reached to the dry weight and therefore will decrease diuresis to Lasix 40 mg daily. Allergy consult for further opinion recommendation. 3. pAfib -currently normal sinus rhythm. taken off warfarin by Dr. Jenkins in past. He has not seen a tree driller in >1 yr. On amio, cardizem. He has follow-up appointment with Dr. raymundo next month. 4. Chronic anemia -H&H is stable 9.9/31.8. Normocytic normochromic anemia. Continue iron supplement. 5. Hx COPD - pt of Dr. Sibilia - no acute exacerbation -on aerosol as needed.. 6. Hypothyroidism - synthroid. tsh normal. 7. BPH - flomax Multiple comorbidities complicates the present care and expect difficult and delay recovery DVT ppx: lovenox Code Visit Inpatient E&M: 44664 Subs Hosp L3
[2018-12-08 17:06] LABS: AST(SGOT) 13 U/L (15-37); Alanine Aminotransfer ALT/SGPT 12 U/L (16-61); Alkaline Phosphatase 65 U/L (45-117); Bilirubin, Direct 0.11 mg/dL (0.00-0.30); Globulin 4.6 g/dL (2.2-4.2); Protein, Total 7.6 g/dL (6.4-8.2)
[2018-12-08] MEDS: Tamsulosin HCl 0.4 MG Capsule PO (17:49)
[2018-12-08] MEDS: Atorvastatin Calcium 20 MG Tablet PO (21:20)
[2018-12-09] VITALS (10 sets, daily range): BP systolic 120–150; BP diastolic 45–50; PULSE 45–62; RESP 16–19; TEMP 36.8–36.9; O2SAT 91–94
[2018-12-09] MEDS: 0.9% NaCl Peripheral Flush Adult/Peds IV (06:02)
[2018-12-09] MEDS: Levothyroxine 88 MCG Tablet PO (06:02)
[2018-12-09 06:54] LABS: Anion Gap 6 (5-15); BUN 31 mg/dL (7-18); BUN/Creat Ratio 17.1 RATIO (10-20); Calcium,Total 8.2 mg/dL (8.5-10.1); Chloride 103 mmol/L (98-107); Creatinine, Serum 1.81 mg/dL (0.70-1.30); EST Glomerular Filtration Rate 38 mL/min (>60); Est Glom Filt Rate - Afr Amer 46 mL/min (>60); Estimated Creatinine Clearance 27.42 ml/min; Glucose 114 mg/dL (74-106); Magnesium 2.5 mg/dL (1.6-2.6); Potassium 3.9 mmol/L (3.5-5.1); Sodium Level 141 mmol/L (136-145)
[2018-12-09] MEDS: Budesonide Respules 0.5 MG/2 ML AMPUL.NEB. INHALATION (07:05)
[2018-12-09] MEDS: Albuterol 2.5 MG/3 ML VIAL.NEB. INHALATION ×2 (07:05→13:22)
[2018-12-09] MEDS: Cyanocobalamin 500 MCG Tablet 1000 MCG PO (09:12)
[2018-12-09] MEDS: Bumetanide 0.5 MG Tablet 1 MG PO (09:13)
[2018-12-09] MEDS: dilTIAZem CD 240 MG Capsule PO (09:14)
[2018-12-09] MEDS: Amiodarone 200 MG Tablet PO (09:14)
[2018-12-09] MEDS: Magnesium Oxide 400 MG Tablet PO (09:14)
[2018-12-09] MEDS: Pantoprazole Sodium 40 MG Tablet PO (09:15)
[2018-12-09] MEDS: Enoxaparin 30 MG/0.3 ML Syringe SC (09:16)
--- NOTE | 2018-12-09 11:50 | TREXTCAR_ITS ---
- Diet 12/06/18 15:26 Diet: Cardiac/Low Cholesterol Food consistency:: Regular Liquid Consistency:: Regular/Thin Diet: Fluid Restriction Food consistency:: Regular Liquid Consistency:: Regular/Thin Fluid restriction:: 1500 mL - Routine Orders/Code Status Suppository Type: Dulcolax 10mg Suppository Frequency: Daily PRN Routine Lab Work: CBC, BMP - On 12/13/2018 and follow-up with Dr. Bailey, the vacuum cleaner operator Code Status: Full Code - Therapies Weight Bearing: Weight bearing as tolerated Extremity Affected:: Bilateral Lower Physical Therapy: Eval and Treat Occupational Therapy: Eval and Treat Speech Therapy: Eval and Treat - Allergies/Procedures Done in Hospital Allergies/Adverse Reactions: Allergies Penicillins Allergy (Verified 11/21/18 12:58) Unknown - Type of Care/Length of Stay Estimated LOS: Convalescent Care Less Than 30 days Type of Care Needed: Skilled Rehab Potential: Good Prognosis: Good - Additional Orders/Day of Discharge Day of Discharge: 12/09/18 - Dietary and Speech Recommendations Dietitian Recommendations/Changes: Suggest diet change to Cardiac/low sodium with 1500 ml FR. - Follow Up Care Primary Care Physician: Quentin Giron MD [Primary Care Provider] - Please follow up with your Primary Care Physician in: in 1-2 week Please Follow Up With: Isreal Massey MD When: in 3-4 weeks for Afib, chf Please Follow Up With: Carolyn Andre MD When: in 2 weeks with CKD on diuretics Please Follow Up With: Cesar El MD When: 3 to 4 weeks
--- NOTE | 2018-12-09 12:11 | DS.PCM_ITS ---
Discharge Date and Diagnosis - Problem List Patient Problems: Active and Suspected Problems (Last Updated 12/06/18 @ 14:01 by Quentin Carbajal DO) Heart failure (Acute) SOB (shortness of breath) (Acute) (HFpEF) heart failure with preserved ejection fraction (Acute) Date of Admission: 12/06/18 Date of Discharge: 12/09/18 - Primary Discharge Diagnosis Active and Suspected Problems (Last Updated 12/06/18 @ 14:01 by Al Chowdhury) Heart failure (Acute) SOB (shortness of breath) (Acute) (HFpEF) heart failure with preserved ejection fraction (Acute) Hospital Course and Treatment Operations: None Summary of Care Provided: T [] The patient is 83-year-old gentleman Is admitted for acute on chronic diastolic heart failure with acute on chronic hypoxic respiratory failure and was 6 L at the time of admission. He was started on Lasix 40 mg IV every 12 hourly. 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 El. 1. Acute on chronic CHF exacerbation with biventricular failure and moderate pulmonary hypertension- echo 12/14/2017 with EF 60%, stage 1 diastolic dysfunction. Patient had good diuresis with about 20 pounds weight loss and 3.5 L diuresis prior to Thomson catheter removed. Is hard to measure urine output as patient has urine incontinence. Repeat echo was done as the patient was found to have a murmur most probably TR. Echo done on 12/06/2018 reported as EF 65%, mildly dilated RV with normal systolic function. LA mildly enlarged normal right atrium. 1+ TR, RVSP 48 mg history of moderate pulmonary hypertension which was 32 mmHg in December 2017. García wrap bandage. Trop neg x 3. TSH neg. Gradually Lasix was changed from IV 40 mg twice daily to once daily and then switch to Bumex 1 mg daily. Discussed with her anchor tack puller Dr. Andre. 2. 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 BUN 23 232. Bicarb 31-34-32. The patient had achieved dry weight. 3. pAfib -currently normal sinus rhythm. taken off warfarin by Dr. Jenkins in past. He has not seen a communication signals intelligence in >1 yr. On amio, cardizem. He has follow-up appointment with Dr. raymundo next month. The patient was advised to keep up the follow-up 4. Chronic anemia -H&H is stable 9.9/31.8. Normocytic normochromic anemia. Continue iron supplement. 5. Lung disease: Hx COPD, bilateral pleural effusion and bibasilar atelectasis: Patient is also on amiodarone. Follow with Dr. El. no acute exacerbation. Baseline Symbicort continued. Prescription also given for Mucinex. Patient advised to continue incentive spirometry. 6. Hypothyroidism - synthroid. tsh normal. 7. BPH - flomax Multiple comorbidities complicates the present care and expect difficult and delay recovery DVT ppx: lovenox Discharge medication reconciliation done. Discharge follow-up instructions completed. Discharge process discussed with the patient and all questions were answered to patient's satisfaction. Patient diuretic was changed from Lasix to Bumex. Currently on 1 mg daily but may be titrated in 2 to 3 days according to fluid overload/pulmonary edema and kidney function. Advised BMP on 12/13/2018. Follow-up with [facility] in 1 to 2 weeks. Follow-up with communication signals intelligence and flight engineer as mentioned above. Patient is being discharged SNF Total time spent, exact 35 minutes on discharge meds reconciliation, examination, review of imaging and blood test and discussion with the patient on follow-up instructions. Patient Problems: Active and Suspected Problems (Last Updated 12/06/18 @ 14:01 by Quentin Carbajal DO) Heart failure (Acute) SOB (shortness of breath) (Acute) (HFpEF) heart failure with preserved ejection fraction (Acute) Subjective: Seen and examined. Patient breathing is better. Heart rate in low 50s. Blood pressure 142/49. Patient has large urine output with incontinence therefore Bumex 1 mg working. - Physical Exam General: Alert, Oriented x3, Cooperative HEENT: Atraumatic, PERRLA, EOMI, Normocephalic Neck: Supple, No JVD, Negative Carotid Bruits Lungs: Clear to auscultation, No rhonchi, No wheeze, No rales, Diminished - Air entry is diminished in bilateral lung bases. Cardiovascular: Regular rate, Normal S1, Normal S2, No murmurs, Murmur - Systolic murmur present over left lower sternal border, TR Abdomen: Bowel Sounds Present, Soft, Non Tender, Non-Distended Extremities: Capillary Refill Less than 3 Seconds, Edema - Bilateral lower leg edema is much improved. García wrap bandage applied. Skin: No rashes, No breakdown Musculoskeletal: No Tenderness to Palpation of Joints or Extremities, Arthritic Changes Neurological: Cranial nerves II-XII grossly intact, Deep Tendon Reflexes 2+/4 and Symmetrical, Neuro grossly intact Psych/Mental Status: Normal Affect, Appropriate Vital Signs Temp Pulse Resp BP Pulse Ox 98.2 F 52 L 18 120/45 L 94 12/09/18 09:03 12/09/18 11:01 12/09/18 09:03 12/09/18 09:03 12/09/18 09:03 Oxygen Flow Rate (L/min) 4.5 Oxygen Delivery Method Nasal Cannula Weight: 206 lb 2.115 oz Body Mass Index (BMI) 33.7 Intake and Output for Last 24 Hours 12/07/18 12/08/18 12/09/18 23:59 23:59 23:59 Intake Total 655 / 715 950 / 1180 805 / 805 Output Total 375 / 375 300 / 300 Balance 280 / 340 650 / 880 805 / 805 Laboratory Tests Past 24 Hrs 12/08/18 12/08/18 12/08/18 12:50 12:50 12:50 WBC 7.3 RBC 3.48 L Hgb 9.9 L Hct 31.8 L MCV 91.4 MCH 28.4 MCHC 31.1 L RDW 15.1 H RDW Differential 50.8 H Plt Count 210 MPV 11.0 Immature Gran % (Auto) 0.100 Neut % (Auto) 74.0 H Lymph % (Auto) 9.6 L [place] % (Auto) 12.4 H Eos % (Auto) 3.6 Baso % (Auto) 0.3 Absolute Neuts (auto) 5.4 Absolute Lymphs (auto) 0.70 L Total Counted Not Reportable Sodium 140 Potassium 3.6 Chloride 100 Carbon Dioxide 34.0 H Anion Gap 6 BUN 32 H Creatinine 2.04 H Estim Creat Clear Calc 24.32 Est GFR (MDRD) Af Amer 40 L Est GFR (MDRD) Non-Af 33 L BUN/Creatinine Ratio 15.7 Glucose 142 H Calcium 8.4 L Magnesium 2.5 Total Bilirubin 0.50 Direct Bilirubin 0.11 AST 13 L ALT 12 L Alkaline Phosphatase 65 Total Protein 7.6 Albumin 3.0 L Globulin 4.6 H 12/09/18 05:40 WBC RBC Hgb Hct MCV MCH MCHC RDW RDW Differential Plt Count MPV Immature Gran % (Auto) Neut % (Auto) Lymph % (Auto) [place]bury % (Auto) Eos % (Auto) Baso % (Auto) Absolute Neuts (auto) Absolute Lymphs (auto) Total Counted Sodium 141 Potassium 3.9 Chloride 103 Carbon Dioxide 32.0 Anion Gap 6 BUN 31 H Creatinine 1.81 H Estim Creat Clear Calc 27.42 Est GFR (MDRD) Af Amer 46 L Est GFR (MDRD) Non-Af 38 L BUN/Creatinine Ratio 17.1 Glucose 114 H Calcium 8.2 L Magnesium 2.5 Total Bilirubin Direct Bilirubin AST ALT Alkaline Phosphatase Total Protein Albumin Globulin Home Medications: Medications to take at Discharge Antiarthritic Combination No.2 [Glucosamine-Chondroitin] 2 tab PO DAILY 12/12/17 Budesonide/Formoterol 160/4.5 [Symbicort 160/4.5 Mcg Inhaler (SP)] 2 puff INHALATION BID 12/12/17 Levothyroxine Sodium [Synthroid] 88 mcg PO DAILY 12/12/17 Menthol/Lanolin/Calamine/Znox [Calmoseptine Ointment] 1 applic TOPICAL PRN PRN 12/12/17 Rosuvastatin Calcium [Crestor] 10 mg PO QHS 12/12/17 Tamsulosin HCl [Flomax] 0.4 mg PO DAILY 12/12/17 Cholecalciferol (Vitamin D3) [Vitamin D3] 2,000 unit PO DAILY 12/06/18 Cyanocobalamin (Vitamin B-12) [B-12] 1,000 mcg PO DAILY 12/06/18 Diltiazem HCl [Cartia Xt] 240 mg PO DAILY 12/06/18 Esomeprazole Mag Trihydrate [Nexium] 40 mg PO DAILY 12/06/18 Ferrous Gluconate 324 mg PO BID 12/06/18 Polyethylene Glycol 3350 [Miralax] 8.5 gm PO DAILY 12/06/18 Acetaminophen [Tylenol] 500 mg PO BID PRN PRN #0 12/09/18 Albuterol Aerosols [Ventolin Aerosols] 2.5 mg INHALATION Q4H PRN PRN vial.neb. 12/09/18 Amiodarone HCl [Pacerone] 100 mg PO DAILY #0 12/09/18 Bumetanide [Bumex] 1 mg PO DAILY #30 tab 12/09/18 Guaifenesin [Mucinex] 1,200 mg PO BID #14 tab.er.12h 12/09/18 Potassium Chloride [Klor-Con M10] 20 meq PO DAILY #0 12/09/18 Following Prescrptions Were Given to Patient: Bumetanide [Bumex] 1 mg PO DAILY #30 tab Prescription Printed Guaifenesin [Mucinex] 1,200 mg PO BID #14 tab.er.12h Prescription Printed Primary Care Physician: Quentin Giron MD [Primary Care Provider] - Please follow up with your Primary Care Physician in: in 1-2 week Please Follow Up With: Isreal Raymundo MD When: in 3-4 weeks for Afib, chf Please Follow Up With: Carolyn Andre MD When: in 2 weeks with CKD on diuretics Please Follow Up With: Cesar El MD When: 3 to 4 weeks Medical Necessity - Tobacco Use Smoking Status: Former smoker Tobacco Use: Cigarettes Meaningful Use Info Meaningful Use Diagnoses (Choose all that apply): CHF - CHF GARCÍA/ARB ordered at discharge?: No Reason GARCÍA/ARB not ordered?: Worsening renal disease, Worsening renal dysfunctn Documented LVEF (%): 60 Code Visit Inpatient E&M: 40223 Disch Hosp
[2018-12-09] MEDS: Ferrous Gluconate 324 MG Tablet PO (13:10)
[2018-12-09] MEDS: Acetaminophen 325 MG Tablet 650 MG PO (14:15)
== END 2018-12-09 15:28 | disposition skilled nursing facility (03) | DRG 291 ==
LOC: ED 13:14 → PCU 14:48
PROVIDERS: Emergency Provider Emergency Medicine; Family Provider Family Medicine; PCP Family Medicine; Visit Provider Internal Medicine
DX: I50.33 Acute on chronic diastolic (congestive) heart failure (principal); J96.21 Acute and chronic respiratory failure with hypoxia; N18.3 Chronic kidney disease, stage 3 (moderate); D63.1 Anemia in chronic kidney disease; I48.91 Unspecified atrial fibrillation; I27.20 Pulmonary hypertension, unspecified; I50.82 Biventricular heart failure; J43.9 Emphysema, unspecified; E03.9 Hypothyroidism, unspecified; N40.1 Benign prostatic hyperplasia with lower urinary tract symptoms; N39.498 Other specified urinary incontinence; Z79.890 Hormone replacement therapy; Z79.51 Long term (current) use of inhaled steroids; Z99.81 Dependence on supplemental oxygen; Z79.899 Other long term (current) drug therapy; Z87.891 Personal history of nicotine dependence
CPT/HCPCS: 36415; 51702; 71045; 80048; 80076; 83735; 83880; 84443; 84484; 85025; 93005; 93306; 94640; 97162; 97166; 97530; 97535; 97802; 99251; 99285; Q9957; A4216; C8929; G0463; J1940

== ENCOUNTER → 2018-12-13 11:30 | Outpatient (REF) | payer MEDICARE, SELFPAY ==
[2018-12-06 15:19] VITALS: BMI 33.7
[2018-12-13 12:04] LABS: Hematocrit 32.1 % (40-54); Hemoglobin 9.7 g/dl (13.0-16.5); Mean Corp Hgb Conc 30.2 g/gl (32-36); Mean Corpuscular Hgb 27.9 pg (27.0-32.0); Mean Corpuscular Volume 92.2 fL (80-94); Mean Platelet Vol. 11.2 fl (6.2-12.0); Platelet Count 205 K/mm3 (150-450); RBC Distribution Width CV 14.7 % (11.6-14.6); RBC Distribution Width SD 47.5 fl (35.1-43.9); Red Blood Count 3.48 M/mm3 (4.6-6.2); White Blood Count 6.8 K/mm3 (4.4-11.0)
[2018-12-13 12:05] LABS: Scan Indicated on CBC? Y/N NO
[2018-12-13 12:27] LABS: Anion Gap 7 (5-15); BUN 27 mg/dL (7-18); BUN/Creat Ratio 14.8 RATIO (10-20); Calcium,Total 8.3 mg/dL (8.5-10.1); Chloride 106 mmol/L (98-107); Creatinine, Serum 1.83 mg/dL (0.70-1.30); EST Glomerular Filtration Rate 38 mL/min (>60); Est Glom Filt Rate - Afr Amer 46 mL/min (>60); Glucose 115 mg/dL (74-106); Potassium 3.9 mmol/L (3.5-5.1); Sodium Level 142 mmol/L (136-145)
[2018-12-15 15:57] VITALS: BMI 36.3
== END ==
PROVIDERS: Visit Provider Family Medicine
DX: I50.9 Heart failure, unspecified (principal); Z79.899 Other long term (current) drug therapy
CPT/HCPCS: 36415; 80048; 85027

== ENCOUNTER → 2018-12-15 15:57 | Outpatient (CLI) | payer MEDICARE, SELFPAY ==
[2018-12-15 15:57] VITALS: BMI 36.3
[2018-12-15 17:37] LABS: Anion Gap 7 (5-15); BUN 28 mg/dL (7-18); BUN/Creat Ratio 15.7 RATIO (10-20); Calcium,Total 8.3 mg/dL (8.5-10.1); Chloride 105 mmol/L (98-107); Creatinine, Serum 1.78 mg/dL (0.70-1.30); EST Glomerular Filtration Rate 39 mL/min (>60); Est Glom Filt Rate - Afr Amer 47 mL/min (>60); Glucose 107 mg/dL (74-106); Potassium 4.5 mmol/L (3.5-5.1); Sodium Level 140 mmol/L (136-145)
== END ==
PROVIDERS: Family Provider Family Medicine; PCP Family Medicine; Visit Provider Family Medicine
DX: I50.9 Heart failure, unspecified (principal)
CPT/HCPCS: 36415; 80048

== ENCOUNTER → 2018-12-27 | Outpatient (REF) | payer MEDICARE, SELFPAY ==
[2018-12-22 11:44] VITALS: BMI 33.9
[2018-12-27 07:34] LABS: Absolute Lymphocyte Count 0.65 X10^3/uL (0.83-4.51); Absolute Neutrophil Count 4.6 X10^3/uL (2.0-7.7); Basophil# 0.04 X10^3/uL; Basophil% 0.6 % (0-1); Eosinophils% 4.7 % (0-5); Hematocrit 31.1 % (40-54); Hemoglobin 9.4 g/dL (13.0-16.5); Lymphocyte # 0.65 X10^3/ul (4.0); Lymphocyte % 10.3 % (19-41); Mean Corp Hgb Conc 30.2 g/dL (32-36); Mean Corpuscular Hgb 28.1 pg (27.0-32.0); Mean Corpuscular Volume 92.8 fL (80-94); Mean Platelet Vol. 11.8 fl (6.2-12.0); Monocyte# 0.73 X10^3/uL; Monocyte% 11.5 % (0-10); NRBC Flagged by Analyzer 0 % (0-5); Neutrophil # 4.59 X10^3/uL (2.7-7.7); Neutrophil % 72.6 % (47-70); Platelet Count 191 K/mm3 (150-450); RBC Distribution Width CV 14.5 % (11.6-14.6); RBC Distribution Width SD 49.2 fl (35.1-43.9); Red Blood Count 3.35 M/mm3 (4.6-6.2); White Blood Count 6.3 K/mm3 (4.4-11.0)
[2018-12-27 07:56] LABS: Anion Gap 8 (5-15); BUN 24 mg/dL (7-18); BUN/Creat Ratio 15.4 RATIO (10-20); Calcium,Total 8.3 mg/dL (8.5-10.1); Chloride 101 mmol/L (98-107); Creatinine, Serum 1.56 mg/dL (0.70-1.30); EST Glomerular Filtration Rate 45 mL/min (>60); Est Glom Filt Rate - Afr Amer 55 mL/min (>60); Glucose 110 mg/dL (74-106); Potassium 3.5 mmol/L (3.5-5.1); Sodium Level 141 mmol/L (136-145)
== END | disposition home or self-care (01) ==
PROVIDERS: Visit Provider Family Medicine
DX: D64.9 Anemia, unspecified (principal); Z79.899 Other long term (current) drug therapy
CPT/HCPCS: 36415; 80048; 85025

== ENCOUNTER → 2019-01-17 05:00 | Outpatient (REF) | payer MEDICARE, SELFPAY ==
[2018-12-22 11:44] VITALS: BMI 33.9
[2019-01-17 08:18] LABS: Absolute Lymphocyte Count 0.75 X10^3/uL (0.83-4.51); Absolute Neutrophil Count 4.7 X10^3/uL (2.0-7.7); Basophil# 0.03 X10^3/uL; Basophil% 0.5 % (0-1); Eosinophil# 0.35 X10^3/uL; Eosinophils% 5.4 % (0-5); Hematocrit 33.1 % (40-54); Hemoglobin 10.2 g/dL (13.0-16.5); Lymphocyte # 0.75 X10^3/ul (4.0); Lymphocyte % 11.5 % (19-41); Mean Corp Hgb Conc 30.8 g/dL (32-36); Mean Corpuscular Hgb 28.6 pg (27.0-32.0); Mean Corpuscular Volume 92.7 fL (80-94); Mean Platelet Vol. 12.1 fl (6.2-12.0); Monocyte# 0.73 X10^3/uL; Monocyte% 11.2 % (0-10); NRBC Flagged by Analyzer 0 % (0-5); Neutrophil # 4.66 X10^3/uL (2.7-7.7); Neutrophil % 71.1 % (47-70); Platelet Count 187 K/mm3 (150-450); RBC Distribution Width CV 14.3 % (11.6-14.6); RBC Distribution Width SD 48.7 fl (35.1-43.9); RET-HE 30.1 pg (30-35); Red Blood Count 3.57 M/mm3 (4.6-6.2); Reticulocyte Count 1.16 % (0.5-1.5); White Blood Count 6.5 K/mm3 (4.4-11.0)
[2019-01-17 08:41] LABS: Albumin, Serum 2.9 g/dL (3.2-5.0); BUN 36 mg/dL (7-18); BUN/Creat Ratio 20.7 RATIO (10-20); Calcium,Total 8.2 mg/dL (8.5-10.1); Chloride 100 mmol/L (98-107); Creatinine, Serum 1.74 mg/dL (0.70-1.30); EST Glomerular Filtration Rate 40 mL/min (>60); Est Glom Filt Rate - Afr Amer 48 mL/min (>60); Glucose 115 mg/dL (74-106); Phosphorus 3.7 mg/dL (2.5-4.9); Potassium 3.4 mmol/L (3.5-5.1); Sodium Level 138 mmol/L (136-145)
[2019-01-17 08:56] LABS: Color, Urine Yellow (Yellow); Glucose, Dipstick Normal (Normal); Ketone-Dipstick Negative (Negative); Leukocyte Esterase-Dipstick Negative /ul (Negative); Nitrite-Dipstick Negative (Negative); Occult Blood-Urine 10 /ul (Negative); Protein-Dipstick 15 mg/dl (Negative); Specific Gravity, Urine 1.015 (1.002-1.030); Urine Bilirubin Dipstick Negative (Negative); Urine Clarity Clear (Clear); Urine Urobilinogen Normal (Normal)
[2019-01-17 09:50] LABS: PTHIN 182.3 pg/mL (18.4-80.1)
[2019-01-17 09:51] LABS: Vitamin D,25 Hydroxy 28.6 ng/mL (29.95-100.01)
[2019-01-17 12:08] LABS: Microalbumin,Random Urine 25.6 mg/L (NO RANGE EST.); Microalbumin:Creatinine Ratio 34.2 mg/g CRE (<30 mg/g CRE); Protein, Urine (Random) 33.3 mg/dL (<11.9); Protein:Creat Ratio 445 mg/g CRE (0-200)
== END ==
PROVIDERS: Visit Provider Family Medicine
DX: N18.3 Chronic kidney disease, stage 3 (moderate) (principal); E55.9 Vitamin D deficiency, unspecified; D64.9 Anemia, unspecified
CPT/HCPCS: 36415; 80069; 81002; 82043; 82306; 82570; 83970; 84156; 85025; 85045

== ENCOUNTER → 2019-02-02 14:26 | Outpatient (CLI) | payer MEDICARE, SELFPAY ==
[2019-02-02 10:22] VITALS: BMI 32.9
--- NOTE | 2019-02-02 14:31 | RAD_ITS ---
STUDY: X-RAY CHEST REASON FOR EXAM: Male, 83 years old. Increased shortness of breath, COPD. TECHNIQUE: PA and lateral views of the chest. COMPARISON: Portable AP upright chest x-ray December 06, 2018. FINDINGS: Ill-defined mixed interstitial and subtle alveolar densities in the lower two thirds of the bilateral lung woodson are unchanged. Differential includes pulmonary venous congestion with edema versus inflammatory change. Partially loculated small to moderate size left pleural effusion and small right pleural reaction are also stable. There is borderline to mild cardiac enlargement. Normal mediastinum. There is stable minor atherosclerotic calcification of the aortic arch. There are stable multilevel degenerative changes of the visualized thoracic spine. There is minor right lateral wedging of the T8 vertebra, likely chronic. Moderate mid lumbar levoscoliosis is suggested at the bottom of the field of view. Normal visualized ribs, clavicles, and shoulders. Fluid levels are seen in a few nondistended bowel loops in the epigastrium, suggesting a mild ileus. RAD/Chest PA and Lateral IMPRESSION: 1. Stable bilateral pulmonary venous congestion versus inflammatory change with stable bilateral pleural effusions, larger on the left. 2. Stable borderline to mild cardiac enlargement. 3. Possible mild ileus without overt bowel distention in the upper abdomen. Electronically Signed: Chuck Matias MD at 14:58 EDT , Service support ,
[2019-02-02 15:50] LABS: BNP,B-Type NATRIURETIC PEPTIDE 142.4 pg/mL (0-100)
== END ==
PROVIDERS: Family Provider Family Medicine; PCP Family Medicine; Referring Provider Nurse Practitioner Family; Visit Provider Nurse Practitioner Family
DX: I50.32 Chronic diastolic (congestive) heart failure (principal); R06.09 Other forms of dyspnea
CPT/HCPCS: 36415; 71046; 83880

== ENCOUNTER → 2019-02-03 11:50 | Outpatient (CLI) | payer MEDICARE, SELFPAY ==
[2019-02-02 10:22] VITALS: BMI 32.9
--- NOTE | 2019-02-03 11:56 | RAD_ITS ---
STUDY: X-RAY - ABDOMEN/PELVIS REASON FOR EXAM: Male, 83 years old. Ileus. TECHNIQUE: AP supine and upright views of the abdomen and pelvis on 4 images. COMPARISON: PA and lateral chest x-ray February 02, 2019. FINDINGS: Bilateral pleural effusions are again noted, larger on the left. There may be concomitant atelectasis in the lung bases, and infection is not excluded. The heart is enlarged. The bibasilar pulmonary vascular markings are poorly defined, suggesting CHF with interstitial edema. Gas and fluid levels are seen in a number of nondistended bowel loops, consistent with a mild generalized ileus. There is no demonstrated free abdominal air. The visualized liver, spleen and kidneys are grossly normal in size and morphology. There are atherosclerotic vascular calcifications. There are calcified phleboliths in the pelvis. There are diffuse degenerative changes of the visualized spine and a moderate lower lumbar levoscoliosis. RAD/Abd Inc Decub and/or Erect IMPRESSION: 1. Findings consistent with mild generalized ileus without distention. 2. Cardiomegaly with CHF, pulmonary edema, and bilateral pleural effusions again noted. 3. Aortoiliac atherosclerotic calcific plaquing. 4. Extensive degenerative changes of the spine. There is a moderate lumbar levoscoliosis. Electronically Signed: Chuck Matias MD at 12:32 EDT , Service support ,
== END ==
PROVIDERS: Family Provider Family Medicine; PCP Family Medicine; Referring Provider Family Medicine; Visit Provider Family Medicine
DX: K56.7 Ileus, unspecified (principal)
CPT/HCPCS: 74019

== ENCOUNTER → 2019-02-10 05:00 | Outpatient (REF) | payer MEDICARE, SELFPAY ==
[2019-02-02 10:22] VITALS: BMI 32.9
[2019-02-10 08:24] LABS: Anion Gap 3 (5-15); BUN 26 mg/dL (7-18); BUN/Creat Ratio 15.8 RATIO (10-20); Calcium,Total 8.2 mg/dL (8.5-10.1); Chloride 102 mmol/L (98-107); Creatinine, Serum 1.65 mg/dL (0.70-1.30); EST Glomerular Filtration Rate 42 mL/min (>60); Est Glom Filt Rate - Afr Amer 51 mL/min (>60); Glucose 113 mg/dL (74-106); Potassium 3.9 mmol/L (3.5-5.1); Sodium Level 140 mmol/L (136-145)
== END ==
DX: I50.9 Heart failure, unspecified (principal); N18.9 Chronic kidney disease, unspecified; Z79.899 Other long term (current) drug therapy
CPT/HCPCS: 36415; 80048

== ENCOUNTER → 2019-02-28 14:45 | Outpatient (CLI) | payer MEDICARE, SELFPAY ==
[2019-02-16 14:42] VITALS: BMI 33.2
--- NOTE | 2019-02-28 15:09 | RAD_ITS ---
STUDY: X-RAY CHEST REASON FOR EXAM: Male, 83 years old. COPD and cough TECHNIQUE: Single AP portable view of the chest. COMPARISON: 12/06/2018 FINDINGS: There is hyperinflation of the lungs consistent with chronic obstructive lung disease (COPD). Prominent and stable interstitial lung markings suggesting chronic interstitial lung disease. Stable left effusion There is mild cardiac enlargement. Normal mediastinum and rabia. Normal visualized pulmonary arteries. Normal visualized aortic arch and descending thoracic aorta. There are diffuse degenerative changes of the visualized thoracic spine. There is degenerative osteoarthritis of the bilateral shoulders. There is no demonstrated abnormality of the visualized soft tissue structures of the upper abdomen. RAD/Chest PA and Lateral IMPRESSION: COPD. Cardiomegaly. Interstitial lung disease is noted. Stable left-sided effusion Electronically Signed: Bertram Foley DO at 21:05 EDT Tel , Service support ,
[2019-02-28 17:55] LABS: ALB/GLOB Ratio 0.6 RATIO (0.9-2.4); AST(SGOT) 17 U/L (15-37); Alanine Aminotransfer ALT/SGPT 16 U/L (16-61); Albumin, Serum 3.1 g/dL (3.2-5.0); Alkaline Phosphatase 74 U/L (45-117); Anion Gap 8 (5-15); BUN 24 mg/dL (7-18); BUN/Creat Ratio 13.8 RATIO (10-20); Calcium,Total 8.4 mg/dL (8.5-10.1); Chloride 100 mmol/L (98-107); Creatinine, Serum 1.74 mg/dL (0.70-1.30); EST Glomerular Filtration Rate 40 mL/min (>60); Est Glom Filt Rate - Afr Amer 48 mL/min (>60); Globulin 4.9 g/dL (2.2-4.2); Glucose 118 mg/dL (74-106); Magnesium 2.2 mg/dL (1.6-2.6); Potassium 3.7 mmol/L (3.5-5.1); Sodium Level 140 mmol/L (136-145)
== END ==
PROVIDERS: Family Provider Family Medicine; PCP Family Medicine; Referring Provider Family Medicine; Visit Provider Family Medicine
DX: R05 Cough (principal)
CPT/HCPCS: 36415; 71046; 80053; 83735

== ENCOUNTER → 2019-03-02 05:00 | Outpatient (REF) | payer MEDICARE, SELFPAY ==
[2019-02-16 14:42] VITALS: BMI 33.2
[2019-03-02 09:01] LABS: BNP,B-Type NATRIURETIC PEPTIDE 177.5 pg/mL (0-100)
== END ==
PROVIDERS: Visit Provider Family Medicine
DX: J44.9 Chronic obstructive pulmonary disease, unspecified (principal); N18.9 Chronic kidney disease, unspecified; Z79.899 Other long term (current) drug therapy
CPT/HCPCS: 36415; 83880

== ENCOUNTER → 2019-03-24 14:34 | Outpatient (CLI) | payer MEDICARE, SELFPAY ==
[2019-02-16 14:42] VITALS: BMI 33.2
[2019-03-24 18:30] LABS: BNP,B-Type NATRIURETIC PEPTIDE 107.1 pg/mL (0-100)
[2019-03-24 18:33] LABS: ALB/GLOB Ratio 0.6 RATIO (0.9-2.4); AST(SGOT) 22 U/L (15-37); Alanine Aminotransfer ALT/SGPT 16 U/L (16-61); Albumin, Serum 3.1 g/dL (3.2-5.0); Alkaline Phosphatase 71 U/L (45-117); Anion Gap 10 (5-15); BUN 28 mg/dL (7-18); BUN/Creat Ratio 15.9 RATIO (10-20); Calcium,Total 8.6 mg/dL (8.5-10.1); Chloride 100 mmol/L (98-107); Creatinine, Serum 1.76 mg/dL (0.70-1.30); EST Glomerular Filtration Rate 39 mL/min (>60); Est Glom Filt Rate - Afr Amer 48 mL/min (>60); Globulin 4.8 g/dL (2.2-4.2); Glucose 131 mg/dL (74-106); Potassium 4.7 mmol/L (3.5-5.1); Protein, Total 7.9 g/dL (6.4-8.2); Sodium Level 139 mmol/L (136-145)
== END ==
PROVIDERS: Family Provider Family Medicine; PCP Family Medicine; Referring Provider Family Medicine; Visit Provider Family Medicine
DX: I50.9 Heart failure, unspecified (principal); J44.9 Chronic obstructive pulmonary disease, unspecified
CPT/HCPCS: 36415; 80053; 83880

== ENCOUNTER 2019-04-25 12:53 | Emergency (ER) | payer MEDICARE, SELFPAY ==
[2019-02-16 14:42] VITALS: BMI 33.2
[2019-04-25 12:55] VITALS: BP 140/67; PULSE 59; RESP 16; TEMP 36.6; O2SAT 99; BMI 30.9
[2019-04-25 13:04] VITALS: PULSE 77; RESP 23; O2SAT 95; O2SAT 96
--- NOTE | 2019-04-25 13:21 | EKG12_ITS ---
Test Reason : SOB Blood Pressure : / mmHG Vent. Rate : 055 BPM Atrial Rate : 055 BPM P-R Int : 192 ms QRS Dur : 094 ms QT Int : 490 ms P-R-T Axes : 050 019 031 degrees QTc Int : 468 ms Sinus bradycardia Low voltage QRS Borderline ECG Confirmed by KAILASH BECKER, MARSHA ([id number]), multimedia editor URBANO PHELPS ([id number]) on 04/27/2019 2:02:55 PM Referred By: EDWARD Confirmed By:MARSHA LINDER MD
--- NOTE | 2019-04-25 13:31 | RAD_ITS ---
STUDY: X-RAY CHEST REASON FOR EXAM: Male, 84 years old. Shortness of breath. TECHNIQUE: Single AP portable view of the chest. COMPARISON: Comparison is made with prior examination of February 28, 2019. FINDINGS: EKG electrodes are seen. Small bilateral pleural effusions more prominent on the left side. This as improved as compared to prior study. Residual increased markings at the lung bases suggestive of atelectasis and/or scarring. Loss in the right lung apex. There is mild cardiac enlargement. Normal mediastinum and rabia. Normal visualized pulmonary arteries. Normal visualized aortic arch and descending thoracic aorta. Normal visualized thoracic spine. There is degenerative osteoarthritis of the bilateral shoulders. There is no demonstrated abnormality of the visualized soft tissue structures of the upper abdomen. RAD/Chest 1 View (Portable) IMPRESSION: Improvement in the left pleural effusion with persistent bibasilar atelectasis and/or infiltrates. Follow-up is recommended. Electronically Signed: Miguel Woods, at 14:33 EST , Service support ,
[2019-04-25 13:35] LABS: Absolute Lymphocyte Count 0.69 X10^3/uL (0.83-4.51); Absolute Neutrophil Count 5.4 X10^3/uL (2.0-7.7); Basophil# 0.04 X10^3/uL; Basophil% 0.6 % (0-1); Eosinophil# 0.37 X10^3/uL; Eosinophils% 5.1 % (0-5); Hematocrit 35.6 % (40-54); Hemoglobin 10.7 g/dL (13.0-16.5); Lymphocyte # 0.69 X10^3/ul (4.0); Lymphocyte % 9.5 % (19-41); Mean Corp Hgb Conc 30.1 g/dL (32-36); Mean Corpuscular Hgb 27.5 pg (27.0-32.0); Mean Corpuscular Volume 91.5 fL (80-94); Monocyte# 0.69 X10^3/uL; Monocyte% 9.5 % (0-10); NRBC Flagged by Analyzer 0 % (0-5); Neutrophil # 5.41 X10^3/uL (2.7-7.7); Neutrophil % 74.6 % (47-70); Platelet Count 268 K/mm3 (150-450); RBC Distribution Width CV 15.3 % (11.6-14.6); RBC Distribution Width SD 51.2 fl (35.1-43.9); Red Blood Count 3.89 M/mm3 (4.6-6.2); White Blood Count 7.3 K/mm3 (4.4-11.0)
[2019-04-25 13:36] VITALS: PULSE 75; RESP 18
[2019-04-25] MEDS: Ipratropium/Albuterol Sulfate 3 ML AMPUL.NEB INHALATION (13:36)
[2019-04-25] MEDS: MethylPREDNISolone 125 MG/2 ML Vial IV (13:39)
[2019-04-25 13:51] LABS: ALB/GLOB Ratio 0.6 RATIO (0.9-2.4); AST(SGOT) 14 U/L (15-37); Alanine Aminotransfer ALT/SGPT 13 U/L (16-61); Albumin, Serum 2.8 g/dL (3.2-5.0); Alkaline Phosphatase 70 U/L (45-117); Anion Gap 4 (5-15); BUN 19 mg/dL (7-18); BUN/Creat Ratio 10.7 RATIO (10-20); Calcium,Total 8.6 mg/dL (8.5-10.1); Chloride 101 mmol/L (98-107); Creatinine, Serum 1.77 mg/dL (0.70-1.30); EST Glomerular Filtration Rate 39 mL/min (>60); Est Glom Filt Rate - Afr Amer 47 mL/min (>60); Estimated Creatinine Clearance 28.53 ml/min; Globulin 4.8 g/dL (2.2-4.2); Glucose 180 mg/dL (74-106); Potassium 3.5 mmol/L (3.5-5.1); Protein, Total 7.6 g/dL (6.4-8.2); Sodium Level 138 mmol/L (136-145)
[2019-04-25 14:03] LABS: BNP,B-Type NATRIURETIC PEPTIDE 164.7 pg/mL (0-100)
[2019-04-25 14:48] VITALS: BP 135/50; PULSE 50; RESP 25; O2SAT 96
--- NOTE | 2019-04-25 15:38 | ED.DCSUM_ITS ---
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 They sent him to the emergency department. He is on oxygen, he is normally on 3 L and upon arrival his oxygenation is in the mid and high 90s on his 3 L. He has no symptoms and denies any symptoms at the [facility]. Past Medical History - Allergies and Home Meds Allergies/Adverse Reactions: Allergies Penicillins Allergy (Verified 04/25/19 12:53) Unknown Primary Care Physician: Quentin Giron MD [Primary Care Provider] - Past Medical History: - - CHF, COPD, hypertension, hypercholesterolemia Smoking Status: Former smoker - Family History Maternal Family History: Reports: Heart Disease Review of Systems General: Denies: Fever Cardiovascular: Denies: Chest pain, Palpitations Respiratory: Denies: Dyspnea, Cough Gastrointestinal: Denies: Abdominal pain, Nausea Musculoskeletal: Denies: Myalgias Skin: Denies: Rash, Abscess Neurological: Denies: Headache, Weakness Psych: Denies: Depression Endocrine: Denies: Polyuria Hematologic: Denies: Easy bruising Physical Exam Vital Signs/Narrative: Vital Signs Temp Pulse Resp BP Pulse Ox 04/25/19 14:48 50 L 25 H 135/50 H 96 04/25/19 13:36 75 18 04/25/19 13:04 77 23 H 95 04/25/19 12:55 97.8 F 59 L 16 140/67 H 99 General: Well nourished. Negative for: Acute Distress Head: Normocephalic Eyes: Perrl ENT: Moist mucous membranes Neck: Supple Cardiovascular: Regular rate Respiratory: No distress, - - Coarse bilateral breath sounds but speaking in full sentences with minimal end expiratory wheezing Abdomen: Soft Back: Nontender Extremities: Nontender Skin: Normal color Neurological: Alert, Oriented x3 Psychological: Normal affect Diagnostic/Tx/Re-eval Chest X-Ray - ED: 1 View, Normal, Heart, Lungs - Rhythm Strip Rhythm Strip: Sinus Rhythm Rate: 55 Ectopy: None - EKG Initial EKG Interpretation: Sinus Rhythm, - - Medical Decision Making Patient is observed his oxygenation is normal on his baseline 3 L he appears well I discussed with the family we will discharge him in stable condition. ED Disposition - Plan for ED Patient: Disposition: Home or Assisted Living Instructions: Copd Flare Referrals: Quentin Giron MD [Primary Care Provider] - 3-5 Days
[2019-04-25 15:57] VITALS: BP 135/49; PULSE 63; RESP 23; O2SAT 92
--- NOTE | 2019-04-25 15:58 | ED.RN ---
IV DC'ED, CATHETER INTACT, SMALL GAUZE DRESSING PLACED. DISCHARGE INSTRUCTIONS GIVEN TO AND REVIEWED WITH PATIENT, PATIENT DENIES QUESTIONS OR CONCERNS AND VOICES UNDERSTANDING OF DISCHARGE INSTRUCTIONS. PT TO PRIVATE VEHICLE VIA WHEELCHAIR.
== END 2019-04-25 16:06 | disposition home or self-care (01) ==
PROVIDERS: Emergency Provider Emergency Medicine; Family Provider Family Medicine; PCP Family Medicine
DX: J44.9 Chronic obstructive pulmonary disease, unspecified (principal); I11.0 Hypertensive heart disease with heart failure; I50.9 Heart failure, unspecified; E78.00 Pure hypercholesterolemia, unspecified; Z79.899 Other long term (current) drug therapy; Z87.891 Personal history of nicotine dependence
CPT/HCPCS: 71045; 80053; 83880; 84484; 85025; 93005; 94640; 96374; 99285

== ENCOUNTER → 2019-05-17 05:00 | Outpatient (REF) | payer MEDICARE, SELFPAY ==
[2019-04-25 12:55] VITALS: BMI 30.9
[2019-05-17 07:39] LABS: Absolute Lymphocyte Count 0.87 X10^3/uL (0.83-4.51); Absolute Neutrophil Count 4.3 X10^3/uL (2.0-7.7); Basophil# 0.02 X10^3/uL; Basophil% 0.3 % (0-1); Eosinophil# 0.39 X10^3/uL; Eosinophils% 6.3 % (0-5); Hematocrit 32.7 % (40-54); Hemoglobin 9.8 g/dL (13.0-16.5); Lymphocyte # 0.87 X10^3/ul (4.0); Lymphocyte % 14.1 % (19-41); Mean Corpuscular Hgb 28.2 pg (27.0-32.0); Mean Corpuscular Volume 94.2 fL (80-94); Mean Platelet Vol. 11.9 fl (6.2-12.0); Monocyte# 0.62 X10^3/uL; NRBC Flagged by Analyzer 0 % (0-5); Neutrophil # 4.26 X10^3/uL (2.7-7.7); Neutrophil % 68.8 % (47-70); Platelet Count 160 K/mm3 (150-450); RBC Distribution Width CV 16.5 % (11.6-14.6); RBC Distribution Width SD 56.3 fl (35.1-43.9); Red Blood Count 3.47 M/mm3 (4.6-6.2); White Blood Count 6.2 K/mm3 (4.4-11.0)
[2019-05-17 07:46] LABS: Anion Gap 3 (5-15); BUN 27 mg/dL (7-18); BUN/Creat Ratio 15.8 RATIO (10-20); Calcium,Total 8.4 mg/dL (8.5-10.1); Chloride 102 mmol/L (98-107); Creatinine, Serum 1.71 mg/dL (0.70-1.30); EST Glomerular Filtration Rate 41 mL/min (>60); Est Glom Filt Rate - Afr Amer 49 mL/min (>60); Glucose 128 mg/dL (74-106); Potassium 4.1 mmol/L (3.5-5.1); Sodium Level 141 mmol/L (136-145)
[2019-05-17 11:50] LABS: Phosphorus 3.6 mg/dL (2.5-4.9)
[2019-05-17 12:17] LABS: PTHIN 204.5 pg/mL (18.4-80.1)
[2019-05-17 14:50] LABS: Bacteria 0 SEEN /hpf (None Seen); Mucous, Urine 0 SEEN /hpf (<or=2+); Red Blood Cells-Urine 0 SEEN /hpf (0-5); White Blood Cells 0 SEEN /hpf (0-5)
[2019-05-17 14:54] LABS: Color, Urine Yellow (Yellow); Glucose, Dipstick Normal (Normal); Ketone-Dipstick Negative (Negative); Leukocyte Esterase-Dipstick Negative /ul (Negative); Nitrite-Dipstick Negative (Negative); Occult Blood-Urine Negative /ul (Negative); Protein-Dipstick Negative (Negative); Specific Gravity, Urine 1.015 (1.002-1.030); Urine Bilirubin Dipstick Negative (Negative); Urine Clarity Clear (Clear); Urine Urobilinogen Normal (Normal)
[2019-05-17 14:59] LABS: Hyaline Cast 0-5 SEEN /lpf (0-5); Squamous Epithelial Cells - UA 0-5 SEEN /hpf (0-5)
[2019-05-17 15:15] LABS: Microalbumin,Random Urine 12.7 mg/L (NO RANGE EST.); Microalbumin:Creatinine Ratio 22.8 mg/g CRE (<30 mg/g CRE); Protein, Urine (Random) 21.1 mg/dL (<11.9); Protein:Creat Ratio 379 mg/g CRE (0-200)
== END ==
DX: I50.9 Heart failure, unspecified (principal); J44.9 Chronic obstructive pulmonary disease, unspecified; E88.09 Other disorders of plasma-protein metabolism, not elsewhere classified; N18.3 Chronic kidney disease, stage 3 (moderate); D64.9 Anemia, unspecified
CPT/HCPCS: 36415; 80048; 81001; 82040; 82043; 82570; 83970; 84100; 84156; 85025

== ENCOUNTER → 2019-06-02 05:00 | Outpatient (REF) | payer MEDICARE, SELFPAY ==
[2019-06-02 07:37] LABS: Anion Gap 6 (5-15); BUN 40 mg/dL (7-18); BUN/Creat Ratio 19.8 RATIO (10-20); Calcium,Total 8.2 mg/dL (8.5-10.1); Chloride 100 mmol/L (98-107); Creatinine, Serum 2.02 mg/dL (0.70-1.30); EST Glomerular Filtration Rate 34 mL/min (>60); Est Glom Filt Rate - Afr Amer 41 mL/min (>60); Glucose 116 mg/dL (74-106); Sodium Level 140 mmol/L (136-145)
== END ==
PROVIDERS: Family Provider Family Medicine; PCP Family Medicine; Visit Provider Family Medicine
DX: N18.9 Chronic kidney disease, unspecified (principal)
CPT/HCPCS: 36415; 80048

== ENCOUNTER 2019-06-07 10:06 | Inpatient (IN) | payer MEDICARE, SELFPAY ==
[2019-06-07] VITALS (16 sets, daily range): BP systolic 118–144; BP diastolic 46–103; PULSE 55–62; RESP 16–35; TEMP 36.6–37.1; O2SAT 84–98; BMI 34.5; BMI 32.3; BMI 32.4
--- NOTE | 2019-06-07 10:15 | EKG12_ITS ---
Test Reason : SOB Blood Pressure : / mmHG Vent. Rate : 048 BPM Atrial Rate : 048 BPM P-R Int : 182 ms QRS Dur : 094 ms QT Int : 518 ms P-R-T Axes : 027 017 030 degrees QTc Int : 462 ms Sinus bradycardia Low voltage QRS Borderline ECG Confirmed by KEYONNA ROUSE ([id number]), supervising editor news reel URBANO PHELPS ([id number]) on 06/09/2019 10:57:22 AM Referred By: Gerald Pardo Confirmed By:KEYONNA ROUSE
--- NOTE | 2019-06-07 10:27 | RAD_ITS ---
STUDY: X-RAY CHEST REASON FOR EXAM: Male, 84 years old. SOB TECHNIQUE: Single AP portable view of the chest. COMPARISON: 04/25/2019 FINDINGS: Moderate left pleural effusion and tiny right pleural effusion with bibasilar atelectasis which is unchanged. There is moderate cardiac enlargement. Normal mediastinum and rabia. Normal visualized pulmonary arteries. Normal visualized aortic arch and descending thoracic aorta. Normal visualized thoracic spine. Normal visualized ribs, clavicles, and shoulders. There is no demonstrated abnormality of the visualized soft tissue structures of the upper abdomen. RAD/Chest 1 View (Portable) IMPRESSION: No change from 04/25/2019. Electronically Signed: Romero Akins MD at 11:01 EST Tel , Service support ,
[2019-06-07 10:35] LABS: Absolute Lymphocyte Count 0.65 X10^3/uL (0.83-4.51); Absolute Neutrophil Count 6.4 X10^3/uL (2.0-7.7); Basophil# 0.03 X10^3/uL; Basophil% 0.4 % (0-1); Eosinophil# 0.26 X10^3/uL; Eosinophils% 3.2 % (0-5); Hematocrit 34.2 % (40-54); Hemoglobin 10.2 g/dL (13.0-16.5); Lymphocyte # 0.65 X10^3/ul (4.0); Lymphocyte % 8.1 % (19-41); Mean Corp Hgb Conc 29.8 g/dL (32-36); Mean Corpuscular Hgb 28.5 pg (27.0-32.0); Mean Corpuscular Volume 95.5 fL (80-94); Monocyte# 0.75 X10^3/uL; Monocyte% 9.3 % (0-10); NRBC Flagged by Analyzer 0 % (0-5); Neutrophil # 6.36 X10^3/uL (2.7-7.7); Neutrophil % 78.8 % (47-70); Platelet Count 166 K/mm3 (150-450); RBC Distribution Width CV 16.5 % (11.6-14.6); RBC Distribution Width SD 57.6 fl (35.1-43.9); Red Blood Count 3.58 M/mm3 (4.6-6.2); White Blood Count 8.1 K/mm3 (4.4-11.0)
[2019-06-07] MEDS: MethylPREDNISolone 125 MG/2 ML Vial 60 MG IV (10:45)
[2019-06-07] MEDS: Albuterol 2.5 MG/3 ML VIAL.NEB. INHALATION (10:50)
[2019-06-07] MEDS: Ipratropium/Albuterol Sulfate 3 ML AMPUL.NEB INHALATION ×4 (10:50→22:43)
[2019-06-07 10:52] LABS: Anion Gap 3 (5-15); BUN 25 mg/dL (7-18); BUN/Creat Ratio 14.5 RATIO (10-20); Calcium,Total 8.8 mg/dL (8.5-10.1); Chloride 103 mmol/L (98-107); Creatinine, Serum 1.72 mg/dL (0.70-1.30); EST Glomerular Filtration Rate 40 mL/min (>60); Est Glom Filt Rate - Afr Amer 49 mL/min (>60); Estimated Creatinine Clearance 29.36 ml/min; Glucose 144 mg/dL (74-106); Potassium 4.5 mmol/L (3.5-5.1); Sodium Level 141 mmol/L (136-145)
[2019-06-07 11:02] LABS: BNP,B-Type NATRIURETIC PEPTIDE 171.1 pg/mL (0-100)
--- NOTE | 2019-06-07 11:15 | ED.VISSUMM ---
- ER Visit Summary Date of Service: 06/07/19 Chief Complaint: [Shortness of breath] History of Present Illness: The patient is a 84 M [presents to the ER with shortness of breath that he has had since yesterday. Patient complains of cough and at times small amount of sputum production. Patient had increased abdominal distention and leg edema and about a 6 pound weight gain in the last week. Patient recently had his Bumex dose decreased. Patient does use BiPAP at night and normally wears 3 L of oxygen during the day and also when he is active he supposed to wear 6 L. He denies any chest pain. Patient has history of CHF, COPD, hypertension, bilateral pleural effusions and history of A. fib.] Physical Examination: [HEENT-PERRLA, EOMI. Cranial nerves II through XII grossly intact. TMs clear. Mucous membranes moist. No adenopathy. Cardiovascular-regular rate and rhythm without murmur or ectopy Lungs-patient has rales in the bases and tachypnea. He has conversational dyspnea. Patient has diminished breath sounds bilaterally and expiratory wheezes noted bilaterally. Abdomen-normoactive bowel sounds, soft, nontender, no rebound or rigidity, no peritoneal signs. Extremities-intact ?4, normal range of motion, normal pulses, atraumatic] +1 pretibial edema bilaterally. Test Results: [EKG obtained arrival showed a sinus bradycardia with a ventricular rate of 48 bpm with no acute segment changes. CBC with differential obtained showed a white of 8.1, hemoglobin 10, hematocrit 34, platelets 166. Chemistries unremarkable. BUN 25 and creatinine 1.72. Troponin less than 0.015. BNP was 171. Chest x-ray showed a moderate left effusion and no significant change from prior.] Emergency Department Course and Treatment: [Given DuoNeb aerosol and another albuterol aerosol. Patient given Lasix 40 mg IV.] Treatment Plan: [Admit] Disposition: [Admit] Impression: [COPD exacerbation CHF Hypoxemia] This note was generated with Audiolife dictation software. It may contain incorrect words, spelling, and punctuation that were not noted in review of the chart prior to signing ED Disposition - Plan for ED Patient: Referrals: Quentin Giron MD [Primary Care Provider] -
--- NOTE | 2019-06-07 11:40 | PCM.HP.STD ---
Problem List (1) COPD exacerbation Status: Acute (2) Diastolic heart failure Status: Acute Qualifiers: Heart failure chronicity: acute on chronic Qualified Code(s): I50.33 - Acute on chronic diastolic (congestive) heart failure (3) Essential (primary) hypertension Status: Chronic (4) Bilateral pleural effusion Status: Chronic (5) Hyperlipidemia Status: Chronic Qualifiers: Hyperlipidemia type: unspecified Qualified Code(s): E78.5 - Hyperlipidemia, unspecified (6) Acute on chronic diastolic (congestive) heart failure Status: Chronic (7) Secondary pulmonary arterial hypertension Status: Chronic (8) Paroxysmal atrial fibrillation Status: Chronic History of Present Illness Date of Admission: 06/07/19 Chief Complaint: Shortness of breath The patient is a 84 year old M who comorbidities including chronic diastolic congestive heart failure, COPD currently residing at an assisted living facility who presented with shortness of breath. Patient reports a 5-day history of progressive shortness of breath which is worsened with activity. He also did notice 5 pound weight gain over a 7-day.. Patient is on Bumex for CHF and according to patient had a recent dose adjustment. Patient upon arrival to the emergency department was found to be tachypneic and hypoxic with oxygen saturation in the mid 80s. She was placed on supplemental oxygen without much improvement. Decision was made to admit patient for subsequent management in the hospital Past Medical History Past Medical History (Chronic Problems): Chronic Problems (Last Reviewed 06/07/19 @ 12:26 by Gerald Pardo MD) Essential (primary) hypertension (Chronic) Bilateral pleural effusion (Chronic 12/2018) Hyperlipidemia (Chronic) Acute on chronic diastolic (congestive) heart failure (Chronic) Secondary pulmonary arterial hypertension (Chronic) Paroxysmal atrial fibrillation (Chronic) Medical History: Medical History (Last Reviewed 06/07/19 @ 12:26 by Gerald Pardo MD) Diastolic heart failure (Acute) I50.30 Essential (primary) hypertension (Chronic) I10 Bilateral pleural effusion (Chronic) Onset Date: 12/2018 J90 Hyperlipidemia (Chronic) E78.5 Acute on chronic diastolic (congestive) heart failure (Chronic) I50.33 Secondary pulmonary arterial hypertension (Chronic) I27.21 Paroxysmal atrial fibrillation (Chronic) I48.0 Anemia D64.9 BPH (benign prostatic hyperplasia) N40.0 CKD (chronic kidney disease), stage III N18.3 COPD (chronic obstructive pulmonary disease) J44.9 GERD (gastroesophageal reflux disease) K21.9 Hypothyroidism E03.9 Obesity E66.9 Obstructive sleep apnea G47.33 Allergies Penicillins Allergy (Verified 06/07/19 10:07) Unknown Home Medications: Ambulatory Orders Medication Instructions Recorded Antiarthritic Combination No.2 2 tab PO DAILY 12/12/17 [Glucosamine-Chondroitin] Budesonide/Formoterol 160/4.5 2 puff INHALATION BID 12/12/17 [Symbicort 160/4.5 Mcg Inhaler (SP)] Levothyroxine Sodium [Synthroid] 88 mcg PO DAILY 12/12/17 Menthol/Lanolin/Calamine/Znox 1 applic TOPICAL PRN PRN 12/12/17 [Calmoseptine Ointment] Rosuvastatin Calcium [Crestor] 10 mg PO QHS 12/12/17 Tamsulosin HCl [Flomax] 0.4 mg PO DAILY 12/12/17 Cholecalciferol (Vitamin D3) 2,000 unit PO DAILY 12/06/18 [Vitamin D3] Cyanocobalamin (Vitamin B-12) 1,000 mcg PO DAILY 12/06/18 [B-12] Esomeprazole Mag Trihydrate 40 mg PO DAILY 12/06/18 [Nexium] Ferrous Gluconate 324 mg PO BID 12/06/18 Polyethylene Glycol 3350 [Miralax] 8.5 gm PO DAILY 12/06/18 Acetaminophen [Tylenol] 500 mg PO BID PRN PRN #0 12/09/18 Albuterol Aerosols [Ventolin 2.5 mg INHALATION Q4H PRN PRN 12/09/18 Aerosols] vial.neb. Guaifenesin [Mucinex] 1,200 mg PO BID #14 tab.er.12h 12/09/18 amiodarone 200 mg tablet 200 mg PO DAILY #90 tab 12/22/18 potassium chloride 10 mEq 20 meq PO DAILY 12/22/18 tablet,extended release(part/cryst) Surgical History: Surgical History (Last Reviewed 06/07/19 @ 12:26 by Gerald Pardo MD) History of thoracentesis Onset Date: 07/2017 Z98.890 left Smoking Status: Former smoker - *Family History Maternal History Items: Heart Disease Review of Systems Constitutional: Reports: Weight Change. Denies: Anorexia, Chills, Fever, Night Sweats HEENT: Denies: Head Aches, Sinus Congestion, Sinus Drainage Cardiovascular: Reports: Edema. Denies: Chest Pain, Orthopnea, Palpitations, Paroxysmal Noc. Dyspnea Respiratory: Reports: Cough, Shortness of Breath, Shortness of breath at rest, Sputum production Gastrointestinal: Reports: Vomiting. Denies: Abdominal Pain, Hematemesis, Hematochezia, Nausea, Melena Genitourinary: Denies: Dysuria, Frequency, Hematuria, Urgency Musculoskeletal: Denies: Joint Pain, Joint Tenderness Skin: Denies: Rash Neurological: Denies: Focal weakness, Numbness, Tingling Psychiatric: Denies: Homicidal Ideations, Suicidal Ideations Hematologic/ Lymphatic: Denies: Easy Bruising, Easy Bleeding VTE Information - Inpt Only VTE Present on Admission: No VTE Mechan Device Prophylaxis: None VTE Pharm Prophylaxis ordered?: Yes Patient Problems: Active and Suspected Problems (Last Reviewed 06/07/19 @ 12:26 by Gerald Pardo MD) COPD exacerbation (Acute) Objective: GENERAL: cooperative HEENT: Atraumatic; EYES; Anicteric, Normal Conjunctiva NECK; supple, normal thyroid, RESPIRATORY: Diminished to auscultation CARDIOVASCULAR: Regular S1 S2, GI: soft, normoactive bowel sounds, : No Renal angle tenderness; EXTREMITIES: Edema left lower extremity more pronounced than the right MUSCULOSKELETAL: no muscle waisting NEURO: Awake; no lateralizing signs. SKIN: No Rash PSYCH; Flat affect - Physical Exam Vitals/I&O's: Vital Signs Temp Pulse Resp BP Pulse Ox 97.9 F 55 L 22 H 144/103 H 91 06/07/19 10:07 06/07/19 10:12 06/07/19 10:12 06/07/19 10:07 06/07/19 10:14 Oxygen Flow Rate (L/min) 4 Oxygen Delivery Method Nasal Cannula Weight: 100.1 kg Body Mass Index (BMI) 34.5 Laboratory Results 06/07/19 10:25: WBC 8.1, RBC 3.58 L, Hgb 10.2 L, Hct 34.2 L, MCV 95.5 H, MCH 28.5, MCHC 29.8 L, RDW Std Deviation 57.6 H, RDW Coeff of Zohreh 16.5 H, Plt Count 166, MPV 12.0, Immature Gran % (Auto) 0.200, Neut % (Auto) 78.8 H, Lymph % (Auto) 8.1 L, [place] % (Auto) 9.3, Eos % (Auto) 3.2, Baso % (Auto) 0.4, Absolute Neuts (auto) 6.4, Absolute Lymphs (auto) 0.65 L, Nucleated RBC % 0 06/07/19 10:25: Sodium 141, Potassium 4.5, Chloride 103, Carbon Dioxide 35.0 H, Anion Gap 3 L, BUN 25 H, Creatinine 1.72 H, Estim Creat Clear Calc 29.36, Est GFR (MDRD) Af Amer 49 L, Est GFR (MDRD) Non-Af 40 L, BUN/Creatinine Ratio 14.5, Glucose 144 H, Calcium 8.8, Troponin I < 0.015 06/07/19 10:25: B-Natriuretic Peptide 171.1 H Assessment/Plan All Active Problems (Last Reviewed 06/07/19 @ 12:26 by Gerald Pardo MD) COPD exacerbation (Acute) Diastolic heart failure (Acute) Patient is an 84-year-old gentleman with multiple comorbidities admitted with progressive shortness of breath with associated weight gain and edema as well as cough and some wheezing 1. Acute hypoxic respiratory insufficiency ~secondary to combination of COPD exacerbation as well as acute on chronic CHF with preserved ejection fraction admitted to monitored bed with management of underlying etiology 2. Acute congestive heart failure with preserved ejection fraction ~patient has known EF of 60%. Admitted to monitored bed placed on strict input and output, daily weight, diuretics with Bumex. 3. COPD with acute exacerbation ?Managed with aerosol treatment, systemic steroid and Zithromax 4. Paroxysmal atrial fibrillation ~Patient is on amiodarone regular rate controlled 5. Hypothyroidism ~patient is on levothyroxine home dose continued 6. Chronic kidney disease stage III ~patient is followed by nephrology Dr. Ya consult placed to him 7. GERD 8. Obesity with BMI of 34.6 ~Weight loss advised 9. Obstructive sleep apnea ~patient is a BiPAP at night do plan to continue with home settings 10. BPH ~patient is on Flomax did continue 11. DVT prophylaxis ~Lovenox adjusted for creatinine clearance. Advance planning; did discuss with the patient and family (patient's 2 daughters) regarding advanced directives as well as CODE STATUS. Did explain the various scenarios involved ( FULL CODE, DNR CCA, DNR CCA with no intubation, and DNR CC and what each meant) full code with CPR and temporary intubation for now. Patient's daughter who happens to be a POA will make further decisions. Patient had apparently expressed a desire not to remain on prolonged artificial sustenance. Order was placed. Time spent on discussion 22 minutes Code Visit Inpatient E&M: 38945 Init Hosp L3 Procedures: 17234 Advncd Care Plan 30 Min
[2019-06-07] MEDS: Furosemide 40 MG/4 ML Vial IV (12:12)
[2019-06-07] MEDS: Bumetanide 1 MG/4 ML Vial IV ×2 (14:37→18:14)
--- NOTE | 2019-06-07 15:25 | CON.PCM_ITS ---
Consultation - Renal PCP/ Referring MD: Requesting physician: [] Primary care physician: Quentin Giron MD Reason for Consultation:: FRANK - History of Present Illness History of Present Illness: The patient is a 84 year old M past medical history as below who presented with a chief complaint of gradually worsening shortness of breath for about 5 days prior to admission. He also did notice about 5 pounds of weight gain over 7- day.. She was is on Bumex 1 mg p.o. twice daily at home. He was found to be tachypneic and hypoxic with oxygen saturation in the mid 80s. And also thinks his abdominal girth is more enlarged and states that his shortness of breath is improving. As per family present at the bedside he still has significant dyspnea on exertion. Has nausea vomiting diarrhea abdominal pain or any other complaints at this time. He was ruled out for influenza. He denies dysuria hematuria. - Allergies Allergies: Allergies Penicillins Allergy (Verified 06/07/19 10:07) Unknown - Current Medications Current Medications: Current Medications Acetaminophen (Tylenol) 650 mg PO Q6H PRN PRN PRN Reason: Pain Score 1-3 /Temp>100.7 Al Hydroxide/Mg Hydroxide (Mylanta Ii) 30 ml PO Q6H PRN PRN PRN Reason: Gastric Burning Albuterol Sulfate (Ventolin Aerosols) 2.5 mg INHALATION Q2H PRN PRN PRN Reason: SHORTNESS OF BREATH Albuterol/Ipratropium (Duoneb) 3 ml INHALATION Q4H.RT [facility] Amiodarone HCl (Cordarone) 200 mg PO DAILY [facility] Atorvastatin Calcium (Lipitor) 20 mg PO QHS [facility] Bumetanide (Bumex) 1 mg IV BIDLX [facility] Last Admin: 06/07/19 14:37 Dose: 1 mg Documented by: Enoxaparin Sodium (Lovenox) 30 mg SC DAILY@0600 [facility] Ferrous Gluconate (Ferrous Gluconate) 324 mg PO BID@1200,1700 [facility] Guaifenesin (Mucinex) 1,200 mg PO BID [facility] Azithromycin 500 mg/ Dextrose 255 mls @ 250 mls/hr IV Q24 [facility] Stop: 06/09/19 11:02 Last Admin: 06/07/19 14:39 Dose: 250 mls/hr Documented by: Sodium Chloride () 250 mls @ 15 mls/hr IV .[id number] PRN PRN Reason: Saline Flush Sodium Chloride () 250 mls @ 15 mls/hr IV .[id number] PRN PRN Reason: Additional IVPB Infusion Levothyroxine Sodium (Synthroid) 88 mcg PO DAILY@0600 [facility] Melatonin (Melatonin) 3 mg PO QHS PRN PRN PRN Reason: INSOMNIA Methylprednisolone (Solu-Medrol) 40 mg IV Q8 [facility] Stop: 06/08/19 14:01 Last Admin: 06/07/19 14:12 Dose: 40 mg Documented by: Morphine Sulfate () 2 - 4 mg IV Q3H PRN PRN PRN Reason: Pain Score 6-10/10 Nitroglycerin (Nitrostat) 0.4 mg SUBLINGUAL Q5M PRN PRN Reason: CARDIAC/CHEST PAIN Oxycodone HCl (Oxyir) 5 mg PO Q4H PRN PRN PRN Reason: Pain Score 4-5/10 Oxycodone HCl (Oxyir) 10 mg PO Q4H PRN PRN PRN Reason: Pain Score 6-10/10 Pantoprazole Sodium (Protonix) 40 mg PO DAILY [facility] Polyethylene Glycol (Miralax) 8.5 gm PO DAILY [facility] Potassium Chloride (K-Dur) 20 meq PO DAILY@0800 [facility] Prednisone () 40 mg PO DAILY@0800 [facility] Promethazine HCl (Phenergan) 25 mg IM Q6H PRN PRN PRN Reason: Breakthrough Nausea/Vomiting Sodium Chloride () 10 - 40 ml IV UD PRN PRN Reason: SALINE FLUSH Tamsulosin HCl (Flomax) 0.4 mg PO DAILY [facility] Throat Lozenges (Cepacol Sore Throat Lozenge) 1 lozenge MUCOUS MEM Q2H PRN PRN PRN Reason: Sore Throat/Cough - Past Medical History Past Medical History (Chronic Problems): Chronic Problems (Last Reviewed 06/07/19 @ 12:26 by Gerald Pardo MD) Essential (primary) hypertension (Chronic) Bilateral pleural effusion (Chronic 12/2018) Hyperlipidemia (Chronic) Acute on chronic diastolic (congestive) heart failure (Chronic) Secondary pulmonary arterial hypertension (Chronic) Paroxysmal atrial fibrillation (Chronic) - Social History Smoking Status: Former smoker - Family History Maternal History Items: Heart Disease Review of Systems Eyes: Reports: - - The patient has no complaints unless noted in the history of present illness. Patient Problems: Active and Suspected Problems (Last Reviewed 06/07/19 @ 12:26 by Gerald Pardo MD) COPD exacerbation (Acute) - Physical Exam Vitals/I&O's: Vital Signs Temp Pulse Resp BP Pulse Ox 98.7 F 59 L 18 138/75 H 97 06/07/19 12:59 06/07/19 12:59 06/07/19 12:59 06/07/19 12:59 06/07/19 12:59 Oxygen Flow Rate (L/min) 4 Oxygen Delivery Method Nasal Cannula Weight: 93.8 kg Body Mass Index (BMI) 32.3 General: Alert, Oriented x3, Cooperative HEENT: Atraumatic, PERRLA, EOMI, Normocephalic Neck: Supple, No JVD, Negative Carotid Bruits Lungs: Clear to auscultation, Normal air movement Cardiovascular: Regular rate, No murmurs Abdomen: Bowel Sounds Present, Soft, Non Tender, - - obese Extremities: No edema, Capillary Refill Less than 3 Seconds Skin: No rashes, No breakdown Musculoskeletal: No Tenderness to Palpation of Joints or Extremities Neurological: Cranial nerves II-XII grossly intact Psych/Mental Status: Normal Affect, Appropriate Microbiology Past 72 Hours 06/07/19 13:23 Mucosa - Nasopharyngeal Influenza Types A,B Direct FA (LUCINDA) - Final Laboratory Results 06/07/19 10:25: WBC 8.1, RBC 3.58 L, Hgb 10.2 L, Hct 34.2 L, MCV 95.5 H, MCH 28.5, MCHC 29.8 L, RDW Std Deviation 57.6 H, RDW Coeff of Zohreh 16.5 H, Plt Count 166, MPV 12.0, Immature Gran % (Auto) 0.200, Neut % (Auto) 78.8 H, Lymph % (Auto) 8.1 L, [place] % (Auto) 9.3, Eos % (Auto) 3.2, Baso % (Auto) 0.4, Absolute Neuts (auto) 6.4, Absolute Lymphs (auto) 0.65 L, Nucleated RBC % 0 06/07/19 10:25: Sodium 141, Potassium 4.5, Chloride 103, Carbon Dioxide 35.0 H, Anion Gap 3 L, BUN 25 H, Creatinine 1.72 H, Estim Creat Clear Calc 29.36, Est GFR (MDRD) Af Amer 49 L, Est GFR (MDRD) Non-Af 40 L, BUN/Creatinine Ratio 14.5, Glucose 144 H, Calcium 8.8, Troponin I < 0.015 06/07/19 10:25: B-Natriuretic Peptide 171.1 H 06/07/19 13:15: Troponin I < 0.015 Current Medications Acetaminophen (Tylenol) 650 mg PO Q6H PRN PRN PRN Reason: Pain Score 1-3 /Temp>100.7 Al Hydroxide/Mg Hydroxide (Mylanta Ii) 30 ml PO Q6H PRN PRN PRN Reason: Gastric Burning Albuterol Sulfate (Ventolin Aerosols) 2.5 mg INHALATION Q2H PRN PRN PRN Reason: SHORTNESS OF BREATH Albuterol/Ipratropium (Duoneb) 3 ml INHALATION Q4H.RT [place]OL[place] Amiodarone HCl (Cordarone) 200 mg PO DAILY [facility] Atorvastatin Calcium (Lipitor) 20 mg PO QHS [facility] Bumetanide (Bumex) 1 mg IV BIDLX [facility] Last Admin: 06/07/19 14:37 Dose: 1 mg Documented by: Enoxaparin Sodium (Lovenox) 30 mg SC DAILY@0600 [facility] Ferrous Gluconate (Ferrous Gluconate) 324 mg PO BID@1200,1700 [facility] Guaifenesin (Mucinex) 1,200 mg PO BID [facility] Azithromycin 500 mg/ Dextrose 255 mls @ 250 mls/hr IV Q24 [facility] Stop: 06/09/19 11:02 Last Admin: 06/07/19 14:39 Dose: 250 mls/hr Documented by: Sodium Chloride () 250 mls @ 15 mls/hr IV .[id number] PRN PRN Reason: Saline Flush Sodium Chloride () 250 mls @ 15 mls/hr IV .[id number] PRN PRN Reason: Additional IVPB Infusion Levothyroxine Sodium (Synthroid) 88 mcg PO DAILY@0600 [facility] Melatonin (Melatonin) 3 mg PO QHS PRN PRN PRN Reason: INSOMNIA Methylprednisolone (Solu-Medrol) 40 mg IV Q8 [facility] Stop: 06/08/19 14:01 Last Admin: 06/07/19 14:12 Dose: 40 mg Documented by: Morphine Sulfate () 2 - 4 mg IV Q3H PRN PRN PRN Reason: Pain Score 6-10/10 Nitroglycerin (Nitrostat) 0.4 mg SUBLINGUAL Q5M PRN PRN Reason: CARDIAC/CHEST PAIN Oxycodone HCl (Oxyir) 5 mg PO Q4H PRN PRN PRN Reason: Pain Score 4-5/10 Oxycodone HCl (Oxyir) 10 mg PO Q4H PRN PRN PRN Reason: Pain Score 6-10/10 Pantoprazole Sodium (Protonix) 40 mg PO DAILY [facility] Polyethylene Glycol (Miralax) 8.5 gm PO DAILY [facility] Potassium Chloride (K-Dur) 20 meq PO DAILY@0800 [facility] Prednisone () 40 mg PO DAILY@0800 [facility] Promethazine HCl (Phenergan) 25 mg IM Q6H PRN PRN PRN Reason: Breakthrough Nausea/Vomiting Sodium Chloride () 10 - 40 ml IV UD PRN PRN Reason: SALINE FLUSH Tamsulosin HCl (Flomax) 0.4 mg PO DAILY [facility] Throat Lozenges (Cepacol Sore Throat Lozenge) 1 lozenge MUCOUS MEM Q2H PRN PRN PRN Reason: Sore Throat/Cough Assessment/Plan All Active Problems (Last Reviewed 06/07/19 @ 12:26 by Gerald Pardo MD) COPD exacerbation (Acute) Diastolic heart failure (Acute) CKD 3 baseline serum creatinine is 1.6?2.0 Respiratory failure multifactorial secondary to possible diastolic heart failure and COPD bp ok monitor Scr 1.7 in baseline range Noted chest x-ray and BNP at 171 continue bumex continue t/t of copdex as per primary Avoid nephrotoxins and overdiuresis Can use as needed extra dose of diuretics with careful monitoring of electrolytes and renal function. The above assessment and plan was discussed at length with the patient who voiced understanding and agrees to proceed with the plan as outlined above. He was given the opportunity to ask questions and stated that those were answered to his satisfaction. Thank you very much for allowing me to participate in the care of this patient. Please do not hesitate to call if you have any questions or concerns.
[2019-06-07] MEDS: Ferrous Gluconate 324 MG Tablet PO (18:14)
[2019-06-07] MEDS: Atorvastatin Calcium 20 MG Tablet PO (22:49)
[2019-06-07] MEDS: guaiFENesin 1,200 MG Tablet 1200 MG PO (22:49)
[2019-06-07] MEDS: 0.9% Saline Lock 10 ML Syringe IV (22:49)
[2019-06-08] VITALS (18 sets, daily range): BP systolic 111–130; BP diastolic 48–71; PULSE 51–78; RESP 16–33; TEMP 36.4–36.9; O2SAT 93–99
--- NOTE | 2019-06-08 01:50 | CPS ---
Spoke with pt about wearing a hospital BiPaP unit for the night. Pt refused to wear a hospital unit at this time and would have his brother bring his home unit in if he was to stay in the hospital for a longer period of time.
[2019-06-08 06:02] LABS: Absolute Lymphocyte Count 0.26 X10^3/uL (0.83-4.51); Absolute Neutrophil Count 6.8 X10^3/uL (2.0-7.7); Hematocrit 29.8 % (40-54); Hemoglobin 9.1 g/dL (13.0-16.5); Lymphocyte # 0.26 X10^3/ul (4.0); Lymphocyte % 3.6 % (19-41); Mean Corp Hgb Conc 30.5 g/dL (32-36); Mean Corpuscular Hgb 28.2 pg (27.0-32.0); Mean Corpuscular Volume 92.3 fL (80-94); Monocyte# 0.19 X10^3/uL; Monocyte% 2.6 % (0-10); NRBC Flagged by Analyzer 0 % (0-5); Neutrophil # 6.79 X10^3/uL (2.7-7.7); Neutrophil % 93.1 % (47-70); POSITIVE DIFFERENTIAL YES; Platelet Count 178 K/mm3 (150-450); RBC Distribution Width CV 16.6 % (11.6-14.6); RBC Distribution Width SD 55.8 fl (35.1-43.9); Red Blood Count 3.23 M/mm3 (4.6-6.2); White Blood Count 7.3 K/mm3 (4.4-11.0)
[2019-06-08 06:08] LABS: Differential Indicated SCAN CRITERIA MET
[2019-06-08] MEDS: Levothyroxine 88 MCG Tablet PO (06:14)
[2019-06-08] MEDS: Enoxaparin 30 MG/0.3 ML Syringe SC (06:14)
[2019-06-08] MEDS: 0.9% Saline Lock 10 ML Syringe IV ×3 (06:14→13:09)
[2019-06-08 06:31] LABS: Anion Gap 6 (5-15); BUN 24 mg/dL (7-18); BUN/Creat Ratio 14.7 RATIO (10-20); Calcium,Total 8.5 mg/dL (8.5-10.1); Chloride 102 mmol/L (98-107); Creatinine, Serum 1.63 mg/dL (0.70-1.30); EST Glomerular Filtration Rate 43 mL/min (>60); Est Glom Filt Rate - Afr Amer 52 mL/min (>60); Estimated Creatinine Clearance 30.98 ml/min; Glucose 191 mg/dL (74-106); Potassium 3.9 mmol/L (3.5-5.1); Sodium Level 141 mmol/L (136-145)
[2019-06-08] MEDS: Ipratropium/Albuterol Sulfate 3 ML AMPUL.NEB INHALATION ×4 (07:04→20:52)
[2019-06-08 07:23] LABS: Differential Comment SCANNED
[2019-06-08] MEDS: Amiodarone 200 MG Tablet PO (08:17)
[2019-06-08] MEDS: Bumetanide 1 MG/4 ML Vial IV ×2 (08:17→15:50)
[2019-06-08] MEDS: guaiFENesin 1,200 MG Tablet 1200 MG PO ×2 (08:18→21:09)
[2019-06-08] MEDS: Ferrous Gluconate 324 MG Tablet PO ×2 (08:18→15:50)
[2019-06-08] MEDS: Tamsulosin HCl 0.4 MG Capsule PO (08:18)
[2019-06-08] MEDS: Pantoprazole Sodium 40 MG Tablet PO (08:19)
--- NOTE | 2019-06-08 09:22 | PN_ITS ---
Patient Problems: Active and Suspected Problems (Last Reviewed 06/07/19 @ 12:26 by Gerald Pardo MD) COPD exacerbation (Acute) Reason for Visit: Acute congestive heart failure Subjective: Patient is an 84-year-old gentleman with multiple comorbidities admitted with progressive shortness of breath with associated weight gain and edema as well as cough and some wheezing Assessment of acute congestive heart failure made admitted to a monitored bed where patient is currently being managed. Objective: GENERAL: cooperative HEENT: Atraumatic; EYES; Anicteric, Normal Conjunctiva NECK; supple, normal thyroid, RESPIRATORY: Diminished to auscultation CARDIOVASCULAR: Regular S1 S2, GI: soft, normoactive bowel sounds, : No Renal angle tenderness; EXTREMITIES: Edema MUSCULOSKELETAL: no muscle waisting NEURO: Awake; no lateralizing signs. SKIN: No Rash PSYCH; Flat affect Vitals/I&O's: Vital Signs Temp Pulse Resp BP Pulse Ox 97.8 F 60 22 H 129/71 H 98 06/08/19 08:16 06/08/19 08:16 06/08/19 08:16 06/08/19 08:16 06/08/19 08:16 Oxygen Flow Rate (L/min) 3 Oxygen Delivery Method Nasal Cannula Weight: 93.9 kg Body Mass Index (BMI) 32.3 Intake and Output for Last 24 Hours 06/06/19 06/07/19 06/08/19 23:59 23:59 23:59 Intake Total 755 / 755 260 / 260 Output Total 900 / 900 Balance -145 / -145 260 / 260 Microbiology Past 72 Hours 06/07/19 13:23 Mucosa - Nasopharyngeal Influenza Types A,B Direct FA (LUCINDA) - Final Laboratory Results 06/07/19 10:25: WBC 8.1, RBC 3.58 L, Hgb 10.2 L, Hct 34.2 L, MCV 95.5 H, MCH 28.5, MCHC 29.8 L, RDW Std Deviation 57.6 H, RDW Coeff of Zohreh 16.5 H, Plt Count 166, MPV 12.0, Immature Gran % (Auto) 0.200, Neut % (Auto) 78.8 H, Lymph % (Auto) 8.1 L, [place] % (Auto) 9.3, Eos % (Auto) 3.2, Baso % (Auto) 0.4, Absolute Neuts (auto) 6.4, Absolute Lymphs (auto) 0.65 L, Nucleated RBC % 0 06/07/19 10:25: Sodium 141, Potassium 4.5, Chloride 103, Carbon Dioxide 35.0 H, Anion Gap 3 L, BUN 25 H, Creatinine 1.72 H, Estim Creat Clear Calc 29.36, Est GFR (MDRD) Af Amer 49 L, Est GFR (MDRD) Non-Af 40 L, BUN/Creatinine Ratio 14.5, Glucose 144 H, Calcium 8.8, Troponin I < 0.015 06/07/19 10:25: B-Natriuretic Peptide 171.1 H 06/07/19 13:15: Troponin I < 0.015 06/07/19 16:02: Troponin I < 0.015 06/08/19 05:40: WBC 7.3, RBC 3.23 L, Hgb 9.1 L, Hct 29.8 L, MCV 92.3, MCH 28.2, MCHC 30.5 L, RDW Std Deviation 55.8 H, RDW Coeff of Zohreh 16.6 H, Plt Count 178, MPV 12.0, Immature Gran % (Auto) 0.700, Neut % (Auto) 93.1 H, Lymph % (Auto) 3.6 L, [place] % (Auto) 2.6, Eos % (Auto) 0.0, Baso % (Auto) 0.0, Absolute Neuts (auto) 6.8, Absolute Lymphs (auto) 0.26 L, Nucleated RBC % 0, Differential Comment SCANNED 06/08/19 05:40: Sodium 141, Potassium 3.9, Chloride 102, Carbon Dioxide 33.0 H, Anion Gap 6, BUN 24 H, Creatinine 1.63 H, Estim Creat Clear Calc 30.98, Est GFR (MDRD) Af Amer 52 L, Est GFR (MDRD) Non-Af 43 L, BUN/Creatinine Ratio 14.7, Glucose 191 H, Calcium 8.5 Current Medications Acetaminophen (Tylenol) 650 mg PO Q6H PRN PRN PRN Reason: Pain Score 1-3 /Temp>100.7 Al Hydroxide/Mg Hydroxide (Mylanta Ii) 30 ml PO Q6H PRN PRN PRN Reason: Gastric Burning Albuterol Sulfate (Ventolin Aerosols) 2.5 mg INHALATION Q2H PRN PRN PRN Reason: SHORTNESS OF BREATH Albuterol/Ipratropium (Duoneb) 3 ml INHALATION Q4H.RT [facility] Last Admin: 06/08/19 07:04 Dose: 3 ml Documented by: Amiodarone HCl (Cordarone) 200 mg PO DAILY [facility] Last Admin: 06/08/19 08:17 Dose: 200 mg Documented by: Atorvastatin Calcium (Lipitor) 20 mg PO QHS [facility] Last Admin: 06/07/19 22:49 Dose: 20 mg Documented by: Bumetanide (Bumex) 1 mg IV BIDLX [facility] Last Admin: 06/08/19 08:17 Dose: 1 mg Documented by: Enoxaparin Sodium (Lovenox) 30 mg SC DAILY@0600 [facility] Last Admin: 06/08/19 06:14 Dose: 30 mg Documented by: Ferrous Gluconate (Ferrous Gluconate) 324 mg PO BID@1200,1700 [facility] Last Admin: 06/08/19 08:18 Dose: 324 mg Documented by: Guaifenesin (Mucinex) 1,200 mg PO BID [facility] Last Admin: 06/08/19 08:18 Dose: 1,200 mg Documented by: Azithromycin 500 mg/ Dextrose 255 mls @ 250 mls/hr IV Q24 [facility] Stop: 06/09/19 11:02 Last Admin: 06/08/19 08:19 Dose: 250 mls/hr Documented by: Sodium Chloride () 250 mls @ 15 mls/hr IV .[id number] PRN PRN Reason: Saline Flush Sodium Chloride () 250 mls @ 15 mls/hr IV .[id number] PRN PRN Reason: Additional IVPB Infusion Levothyroxine Sodium (Synthroid) 88 mcg PO DAILY@0600 [facility] Last Admin: 06/08/19 06:14 Dose: 88 mcg Documented by: Melatonin (Melatonin) 3 mg PO QHS PRN PRN PRN Reason: INSOMNIA Methylprednisolone (Solu-Medrol) 40 mg IV Q8 [facility] Stop: 06/08/19 14:01 Last Admin: 06/08/19 06:14 Dose: 40 mg Documented by: Morphine Sulfate () 2 - 4 mg IV Q3H PRN PRN PRN Reason: Pain Score 6-10/10 Nitroglycerin (Nitrostat) 0.4 mg SUBLINGUAL Q5M PRN PRN Reason: CARDIAC/CHEST PAIN Oxycodone HCl (Oxyir) 5 mg PO Q4H PRN PRN PRN Reason: Pain Score 4-5/10 Oxycodone HCl (Oxyir) 10 mg PO Q4H PRN PRN PRN Reason: Pain Score 6-10/10 Pantoprazole Sodium (Protonix) 40 mg PO DAILY [facility] Last Admin: 06/08/19 08:19 Dose: 40 mg Documented by: Polyethylene Glycol (Miralax) 8.5 gm PO DAILY [facility] Last Admin: 06/08/19 08:18 Dose: Not Given Documented by: Potassium Chloride (K-Dur) 20 meq PO DAILY@0800 [facility] Last Admin: 06/08/19 08:17 Dose: 20 meq Documented by: Prednisone () 40 mg PO DAILY@0800 [facility] Promethazine HCl (Phenergan) 25 mg IM Q6H PRN PRN PRN Reason: Breakthrough Nausea/Vomiting Sodium Chloride () 10 - 40 ml IV UD PRN PRN Reason: SALINE FLUSH Last Admin: 06/08/19 08:21 Dose: 10 ml Documented by: Tamsulosin HCl (Flomax) 0.4 mg PO DAILY [facility] Last Admin: 06/08/19 08:18 Dose: 0.4 mg Documented by: Throat Lozenges (Cepacol Sore Throat Lozenge) 1 lozenge MUCOUS MEM Q2H PRN PRN PRN Reason: Sore Throat/Cough STROKE Vital Signs/Narrative: Vital Signs Temp Pulse Resp BP Pulse Ox 06/08/19 08:16 97.8 F 60 22 H 129/71 H 98 06/08/19 08:06 97 06/08/19 06:49 51 L 06/08/19 06:22 98.2 F 56 L 28 H 123/56 H 99 Medical Necessity - Tobacco Use Smoking Status: Former smoker Assessment/Plan All Active Problems (Last Reviewed 06/07/19 @ 12:26 by Gerald Pardo MD) COPD exacerbation (Acute) Diastolic heart failure (Acute) Patient is an 84-year-old gentleman with multiple comorbidities admitted with progressive shortness of breath with associated weight gain and edema as well as cough and some wheezing 1. Acute hypoxic respiratory insufficiency ~secondary to combination of COPD exacerbation as well as acute on chronic CHF with preserved ejection fraction admitted to monitored bed with management of underlying etiology ?Slight improvement in breathing status. 2. Acute congestive heart failure with preserved ejection fraction ~patient has known EF of 60%. Admitted to monitored bed placed on strict input and output, daily weight, diuretics with Bumex. 3. COPD with acute exacerbation ?Managed with aerosol treatment, systemic steroid and Zithromax 4. Paroxysmal atrial fibrillation ~Patient is on amiodarone regular rate controlled 5. Hypothyroidism ~patient is on levothyroxine home dose continued 6. Chronic kidney disease stage III ~patient is followed by nephrology consult placed to him?notes from patient's sheepskin pickler were reviewed 7. GERD 8. Obesity with BMI of 34.6 ~Weight loss advised 9. Obstructive sleep apnea ~patient is a BiPAP at night do plan to continue with home settings 10. BPH ~patient is on Flomax did continue 11. DVT prophylaxis ~Lovenox adjusted for creatinine clearance. Code Visit Inpatient E&M: 70534 Subs Hosp L2
[2019-06-08] MEDS: Atorvastatin Calcium 20 MG Tablet PO (21:09)
[2019-06-09] VITALS (9 sets, daily range): BP systolic 142–151; BP diastolic 61–74; PULSE 57–82; RESP 16–18; TEMP 36.1–37.3; O2SAT 94–96
[2019-06-09] MEDS: Levothyroxine 88 MCG Tablet PO (05:10)
[2019-06-09] MEDS: Enoxaparin 30 MG/0.3 ML Syringe SC (05:10)
[2019-06-09 07:01] LABS: Absolute Lymphocyte Count 0.56 X10^3/uL (0.83-4.51); Absolute Neutrophil Count 9.3 X10^3/uL (2.0-7.7); Hematocrit 31.7 % (40-54); Hemoglobin 9.5 g/dL (13.0-16.5); Lymphocyte # 0.56 X10^3/ul (4.0); Lymphocyte % 5.2 % (19-41); Mean Corpuscular Hgb 28.1 pg (27.0-32.0); Mean Corpuscular Volume 93.8 fL (80-94); Mean Platelet Vol. 11.6 fl (6.2-12.0); Monocyte# 0.87 X10^3/uL; Monocyte% 8.1 % (0-10); NRBC Flagged by Analyzer 0 % (0-5); Neutrophil % 86.1 % (47-70); POSITIVE DIFFERENTIAL YES; Platelet Count 183 K/mm3 (150-450); RBC Distribution Width CV 16.9 % (11.6-14.6); RBC Distribution Width SD 57.4 fl (35.1-43.9); Red Blood Count 3.38 M/mm3 (4.6-6.2); White Blood Count 10.8 K/mm3 (4.4-11.0)
[2019-06-09 07:07] LABS: Differential Indicated SCAN CRITERIA MET
[2019-06-09 07:25] LABS: Anion Gap 3 (5-15); BUN 32 mg/dL (7-18); BUN/Creat Ratio 19.9 RATIO (10-20); Calcium,Total 8.6 mg/dL (8.5-10.1); Chloride 101 mmol/L (98-107); Creatinine, Serum 1.61 mg/dL (0.70-1.30); EST Glomerular Filtration Rate 44 mL/min (>60); Est Glom Filt Rate - Afr Amer 53 mL/min (>60); Estimated Creatinine Clearance 31.36 ml/min; Glucose 137 mg/dL (74-106); Potassium 3.7 mmol/L (3.5-5.1); Sodium Level 140 mmol/L (136-145)
[2019-06-09] MEDS: Ipratropium/Albuterol Sulfate 3 ML AMPUL.NEB INHALATION ×2 (07:45→10:47)
[2019-06-09] MEDS: Bumetanide 1 MG/4 ML Vial IV (08:34)
[2019-06-09] MEDS: Tamsulosin HCl 0.4 MG Capsule PO (08:34)
[2019-06-09] MEDS: Amiodarone 200 MG Tablet PO (08:34)
[2019-06-09] MEDS: Polyethylene Glycol 3350 17 GM PACKET 8.5 GM PO (08:34)
[2019-06-09] MEDS: guaiFENesin 1,200 MG Tablet 1200 MG PO (08:35)
[2019-06-09] MEDS: predniSONE 20 MG Tablet 40 MG PO (08:35)
[2019-06-09] MEDS: Ferrous Gluconate 324 MG Tablet PO (08:36)
[2019-06-09] MEDS: Pantoprazole Sodium 40 MG Tablet PO (08:36)
--- NOTE | 2019-06-09 09:46 | DCINST_ITS ---
- Discharge Diagnoses Current Active Problems: Current Active and Chronic Problems (Last Reviewed 06/07/19 @ 12:26 by Gerald Pardo MD) COPD exacerbation (Acute) You will use the following diet at home:: Fluid restricted (specify 2000 mls, 1500 mls) - 2000 Your food should be the consistency of: Regular Allergies/Adverse Reactions: Allergies Penicillins Allergy (Verified 06/07/19 10:07) Unknown Medications to take at Discharge Antiarthritic Combination No.2 [Glucosamine-Chondroitin] 2 tab PO DAILY 12/12/17 Budesonide/Formoterol 160/4.5 [Symbicort 160/4.5 Mcg Inhaler (SP)] 2 puff INHALATION BID 12/12/17 Levothyroxine Sodium [Synthroid] 88 mcg PO DAILY 12/12/17 Menthol/Lanolin/Calamine/Znox [Calmoseptine Ointment] 1 applic TOPICAL PRN PRN 12/12/17 Rosuvastatin Calcium [Crestor] 10 mg PO QHS 12/12/17 Tamsulosin HCl [Flomax] 0.4 mg PO DAILY 12/12/17 Cholecalciferol (Vitamin D3) [Vitamin D3] 2,000 unit PO DAILY 12/06/18 Cyanocobalamin (Vitamin B-12) [B-12] 1,000 mcg PO DAILY 12/06/18 Esomeprazole Mag Trihydrate [Nexium] 40 mg PO DAILY 12/06/18 Ferrous Gluconate 324 mg PO BID 12/06/18 Polyethylene Glycol 3350 [Miralax] 8.5 gm PO DAILY 12/06/18 Acetaminophen [Tylenol] 500 mg PO BID PRN PRN #0 12/09/18 Albuterol Aerosols [Ventolin Aerosols] 2.5 mg INHALATION Q4H PRN PRN vial.neb. 12/09/18 Guaifenesin [Mucinex] 1,200 mg PO BID #14 tab.er.12h 12/09/18 amiodarone 200 mg tablet 200 mg PO DAILY #90 tab 12/22/18 potassium chloride 10 mEq tablet,extended release(part/cryst) 20 meq PO DAILY 12/22/18 Bumetanide 2 mg PO DAILY #30 tab 06/09/19 predniSONE tablet 20 mg PO BIDCM #8 tab 06/09/19 The following prescriptions were given: Bumetanide 2 mg PO DAILY #30 tab Transmission Status: Pending to [facility] predniSONE tablet 20 mg PO BIDCM #8 tab Transmission Status: Pending to [facility] Primary Care Physician: Quentin Giron MD [Primary Care Provider] - Please follow up with your Primary Care Physician in: in 1 week Test Results: Test results from this visit will be discussed in further detail at your follow- up appointment, if applicable. Please Follow Up With: Jeison Ambriz MD When: in 1-2 weeks Proposed Discharge Date: 06/09/19
--- NOTE | 2019-06-09 09:47 | PCM.DC.SUM ---
Discharge Date and Diagnosis - Problem List Patient Problems: Active and Suspected Problems (Last Reviewed 06/07/19 @ 12:26 by Gerald Pardo MD) COPD exacerbation (Acute) Date of Admission: 06/07/19 Date of Discharge: 06/09/19 - Primary Discharge Diagnosis Active and Suspected Problems (Last Reviewed 06/07/19 @ 12:26 by Gerald Pardo MD) COPD exacerbation (Acute) - Secondary Discharge Diagnosis Chronic Problems (Last Reviewed 06/07/19 @ 12:26 by Gerald Pardo MD) Essential (primary) hypertension (Chronic) Bilateral pleural effusion (Chronic 12/2018) Hyperlipidemia (Chronic) Acute on chronic diastolic (congestive) heart failure (Chronic) Secondary pulmonary arterial hypertension (Chronic) Paroxysmal atrial fibrillation (Chronic) Hospital Course and Treatment Imaging Results: Clinical Impression(s) from Imaging Studies Chest X-Ray 06/07/19 10:27 IMPRESSION: No change from 04/25/2019. Electronically Signed: Romero Akins MD at 11:01 EST Tel , Service support , Operations: None Summary of Care Provided: Patient is an 84-year-old gentleman with multiple comorbidities admitted with progressive shortness of breath with associated weight gain and edema as well as cough and some wheezing 1. Acute hypoxic respiratory insufficiency ~secondary to combination of COPD exacerbation as well as acute on chronic CHF with preserved ejection fraction admitted to monitored bed with management of underlying etiology ?Slight improvement in breathing status. 2. Acute congestive heart failure with preserved ejection fraction ~patient has known EF of 60%. Admitted to monitored bed placed on strict input and output, daily weight, diuretics with Bumex. 3. COPD with acute exacerbation ?Managed with aerosol treatment, systemic steroid and Zithromax 4. Paroxysmal atrial fibrillation ~Patient is on amiodarone regular rate controlled 5. Hypothyroidism ~patient is on levothyroxine home dose continued 6. Chronic kidney disease stage III ~patient is followed by nephrology consult placed to him?notes from patient's contract accountant were reviewed 7. GERD 8. Obesity with BMI of 34.6 ~Weight loss advised 9. Obstructive sleep apnea ~patient is a BiPAP at night do plan to continue with home settings 10. BPH ~patient is on Flomax did continue 11. DVT prophylaxis ~Lovenox adjusted for creatinine clearance. Patient Problems: Active and Suspected Problems (Last Reviewed 06/07/19 @ 12:26 by Gerald Pardo MD) COPD exacerbation (Acute) Objective: GENERAL: cooperative HEENT: Atraumatic; EYES; Anicteric, Normal Conjunctiva NECK; supple, normal thyroid, RESPIRATORY: Diminished to auscultation CARDIOVASCULAR: Regular S1 S2, GI: soft, normoactive bowel sounds, : No Renal angle tenderness; EXTREMITIES: Edema MUSCULOSKELETAL: no muscle waisting NEURO: Awake; no lateralizing signs. SKIN: No Rash PSYCH; Flat affect - Physical Exam Vitals/I&O's: Vital Signs Temp Pulse Resp BP Pulse Ox 99.1 F 65 16 151/74 H 96 06/09/19 08:45 06/09/19 08:45 06/09/19 08:45 06/09/19 08:45 06/09/19 08:45 Oxygen Flow Rate (L/min) 4 Oxygen Delivery Method Nasal Cannula Weight: 94.5 kg Body Mass Index (BMI) 32.3 Intake and Output for Last 24 Hours 06/07/19 06/08/19 06/09/19 23:59 23:59 23:59 Intake Total 755 / 755 1325.00 / 1325.00 120 / 120 Output Total 900 / 900 550 / 550 200 / 200 Balance -145 / -145 775.00 / 775.00 -80 / -80 Microbiology Past 72 Hours 06/07/19 13:23 Mucosa - Nasopharyngeal Influenza Types A,B Direct FA (LUCINDA) - Final Laboratory Results 06/09/19 06:30: WBC 10.8, RBC 3.38 L, Hgb 9.5 L, Hct 31.7 L, MCV 93.8, MCH 28.1, MCHC 30.0 L, RDW Std Deviation 57.4 H, RDW Coeff of Zohreh 16.9 H, Plt Count 183, MPV 11.6, Immature Gran % (Auto) 0.600, Neut % (Auto) 86.1 H, Lymph % (Auto) 5.2 L, [place] % (Auto) 8.1, Eos % (Auto) 0.0, Baso % (Auto) 0.0, Absolute Neuts (auto) 9.3 H, Absolute Lymphs (auto) 0.56 L, Nucleated RBC % 0 06/09/19 06:30: Sodium 140, Potassium 3.7, Chloride 101, Carbon Dioxide 36.0 H, Anion Gap 3 L, BUN 32 H, Creatinine 1.61 H, Estim Creat Clear Calc 31.36, Est GFR (MDRD) Af Amer 53 L, Est GFR (MDRD) Non-Af 44 L, BUN/Creatinine Ratio 19.9, Glucose 137 H, Calcium 8.6 Current Medications Acetaminophen (Tylenol) 650 mg PO Q6H PRN PRN PRN Reason: Pain Score 1-3 /Temp>100.7 Al Hydroxide/Mg Hydroxide (Mylanta Ii) 30 ml PO Q6H PRN PRN PRN Reason: Gastric Burning Albuterol Sulfate (Ventolin Aerosols) 2.5 mg INHALATION Q2H PRN PRN PRN Reason: SHORTNESS OF BREATH Albuterol/Ipratropium (Duoneb) 3 ml INHALATION Q4H.RT REPLACED BY [facility] Last Admin: 06/09/19 07:45 Dose: 3 ml Documented by: Amiodarone HCl (Cordarone) 200 mg PO DAILY [facility] Last Admin: 06/09/19 08:34 Dose: 200 mg Documented by: Atorvastatin Calcium (Lipitor) 20 mg PO QHS [facility]PL[facility]ED BY [facility] Last Admin: 06/08/19 21:09 Dose: 20 mg Documented by: Bumetanide (Bumex) 1 mg IV BIDLX REPLACED BY [facility] Last Admin: 06/09/19 08:34 Dose: 1 mg Documented by: Enoxaparin Sodium (Lovenox) 30 mg SC DAILY@0600 [facility]PL[facility]ED BY [facility] Last Admin: 06/09/19 05:10 Dose: 30 mg Documented by: Ferrous Gluconate (Ferrous Gluconate) 324 mg PO BID@1200,1700 [facility]PL[facility] Last Admin: 06/09/19 08:36 Dose: 324 mg Documented by: Guaifenesin (Mucinex) 1,200 mg PO BID [facility] Last Admin: 06/09/19 08:35 Dose: 1,200 mg Documented by: Azithromycin 500 mg/ Dextrose 255 mls @ 250 mls/hr IV Q24 [facility] Stop: 06/09/19 11:02 Last Admin: 06/09/19 08:35 Dose: 250 mls/hr Documented by: Sodium Chloride () 250 mls @ 15 mls/hr IV .[id number] PRN PRN Reason: Saline Flush Sodium Chloride () 250 mls @ 15 mls/hr IV .[id number] PRN PRN Reason: Additional IVPB Infusion Levothyroxine Sodium (Synthroid) 88 mcg PO DAILY@0600 [facility]PL[facility]ED BY [facility] Last Admin: 06/09/19 05:10 Dose: 88 mcg Documented by: Melatonin (Melatonin) 3 mg PO QHS PRN PRN PRN Reason: INSOMNIA Morphine Sulfate () 2 - 4 mg IV Q3H PRN PRN PRN Reason: Pain Score 6-10/10 Nitroglycerin (Nitrostat) 0.4 mg SUBLINGUAL Q5M PRN PRN Reason: CARDIAC/CHEST PAIN Oxycodone HCl (Oxyir) 5 mg PO Q4H PRN PRN PRN Reason: Pain Score 4-5/10 Oxycodone HCl (Oxyir) 10 mg PO Q4H PRN PRN PRN Reason: Pain Score 6-10/10 Pantoprazole Sodium (Protonix) 40 mg PO DAILY [facility] BY [facility] Last Admin: 06/09/19 08:36 Dose: 40 mg Documented by: Polyethylene Glycol (Miralax) 8.5 gm PO DAILY [facility]PL[facility]ED BY [facility] Last Admin: 06/09/19 08:34 Dose: 8.5 gm Documented by: Potassium Chloride (K-Dur) 20 meq PO DAILY@0800 REPLACED BY [facility] Last Admin: 06/09/19 08:34 Dose: 20 meq Documented by: Prednisone () 40 mg PO DAILY@0800 REPLACED BY [facility] Last Admin: 06/09/19 08:35 Dose: 40 mg Documented by: Promethazine HCl (Phenergan) 25 mg IM Q6H PRN PRN PRN Reason: Breakthrough Nausea/Vomiting Sodium Chloride () 10 - 40 ml IV UD PRN PRN Reason: SALINE FLUSH Last Admin: 06/08/19 13:09 Dose: 10 ml Documented by: Tamsulosin HCl (Flomax) 0.4 mg PO DAILY REPLACED BY [facility] Last Admin: 06/09/19 08:34 Dose: 0.4 mg Documented by: Throat Lozenges (Cepacol Sore Throat Lozenge) 1 lozenge MUCOUS MEM Q2H PRN PRN PRN Reason: Sore Throat/Cough Discharge Diet: 8 Cup Fluid Restriciton, 2000 mg Sodium Diet Discharge Activity: No Restrictions Home Medications: Medications to take at Discharge Antiarthritic Combination No.2 [Glucosamine-Chondroitin] 2 tab PO DAILY 12/12/17 Budesonide/Formoterol 160/4.5 [Symbicort 160/4.5 Mcg Inhaler (SP)] 2 puff INHALATION BID 12/12/17 Levothyroxine Sodium [Synthroid] 88 mcg PO DAILY 12/12/17 Menthol/Lanolin/Calamine/Znox [Calmoseptine Ointment] 1 applic TOPICAL PRN PRN 12/12/17 Rosuvastatin Calcium [Crestor] 10 mg PO QHS 12/12/17 Tamsulosin HCl [Flomax] 0.4 mg PO DAILY 12/12/17 Cholecalciferol (Vitamin D3) [Vitamin D3] 2,000 unit PO DAILY 12/06/18 Cyanocobalamin (Vitamin B-12) [B-12] 1,000 mcg PO DAILY 12/06/18 Esomeprazole Mag Trihydrate [Nexium] 40 mg PO DAILY 12/06/18 Ferrous Gluconate 324 mg PO BID 12/06/18 Polyethylene Glycol 3350 [Miralax] 8.5 gm PO DAILY 12/06/18 Acetaminophen [Tylenol] 500 mg PO BID PRN PRN #0 12/09/18 Albuterol Aerosols [Ventolin Aerosols] 2.5 mg INHALATION Q4H PRN PRN vial.neb. 12/09/18 Guaifenesin [Mucinex] 1,200 mg PO BID #14 tab.er.12h 12/09/18 amiodarone 200 mg tablet 200 mg PO DAILY #90 tab 12/22/18 potassium chloride 10 mEq tablet,extended release(part/cryst) 20 meq PO DAILY 12/22/18 Bumetanide 2 mg PO DAILY #30 tab 06/09/19 predniSONE tablet 20 mg PO BIDCM #8 tab 06/09/19 Following Prescrptions Were Given to Patient: Bumetanide 2 mg PO DAILY #30 tab Transmission Status: Pending to [facility] predniSONE tablet 20 mg PO BIDCM #8 tab Transmission Status: Pending to [facility] Primary Care Physician: Quentin Giron MD [Primary Care Provider] - Please follow up with your Primary Care Physician in: in 1 week Please Follow Up With: Jeison Ambriz MD When: in 1-2 weeks Disposition: Asstd Living/Non-Skill NH Minutes spent on discharge:: 35 Patient Condition:: Stable Medical Necessity - Tobacco Use Smoking Status: Former smoker Meaningful Use Info Meaningful Use Diagnoses (Choose all that apply): CHF - CHF CAROLYN/ARB ordered at discharge?: No Reason CAROLYN/ARB not ordered?: Worsening renal disease Documented LVEF (%): 60 Code Visit Inpatient E&M: [id number] Disch Hosp
--- NOTE | 2019-06-09 10:15 | CASEMGMT ---
Patient is from [facility]. He is ready for discharge. KAT spoke with patient and he said his son will pick him up as soon as he gets a hold of him. KAT called [facility] and spoke with Destiny letting her know patient will be d/c today and SW faxed d/c instructions. Clare LÓPEZ MSW
--- NOTE | 2019-06-09 10:25 | PHA.DC.MC ---
Pharmacy Service has performed discharge medication reconciliation and counseling for this patient. 1. BUMETANIDE 2MG PO DAILY 2. PREDNISONE 20MG PO BIDCM X 4 DAYS The patient's discharge medication list was reviewed for discrepancies and discrepancies were resolved. Home Medications Antiarthritic Combination No.2 [Glucosamine-Chondroitin] 2 tab PO DAILY 12/12/17 Budesonide/Formoterol 160/4.5 [Symbicort 160/4.5 Mcg Inhaler (SP)] 2 puff INHALATION BID 12/12/17 Levothyroxine Sodium [Synthroid] 88 mcg PO DAILY 12/12/17 Menthol/Lanolin/Calamine/Znox [Calmoseptine Ointment] 1 applic TOPICAL PRN PRN 12/12/17 Rosuvastatin Calcium [Crestor] 10 mg PO QHS 12/12/17 Tamsulosin HCl [Flomax] 0.4 mg PO DAILY 12/12/17 Cholecalciferol (Vitamin D3) [Vitamin D3] 2,000 unit PO DAILY 12/06/18 Cyanocobalamin (Vitamin B-12) [B-12] 1,000 mcg PO DAILY 12/06/18 Esomeprazole Mag Trihydrate [Nexium] 40 mg PO DAILY 12/06/18 Ferrous Gluconate 324 mg PO BID 12/06/18 Polyethylene Glycol 3350 [Miralax] 8.5 gm PO DAILY 12/06/18 Acetaminophen [Tylenol] 500 mg PO BID PRN PRN #0 12/09/18 Albuterol Aerosols [Ventolin Aerosols] 2.5 mg INHALATION Q4H PRN PRN vial.neb. 12/09/18 Guaifenesin [Mucinex] 1,200 mg PO BID #14 tab.er.12h 12/09/18 amiodarone 200 mg tablet 200 mg PO DAILY #90 tab 12/22/18 potassium chloride 10 mEq tablet,extended release(part/cryst) 20 meq PO DAILY 12/22/18 Bumetanide 2 mg PO DAILY #30 tab 06/09/19 predniSONE tablet 20 mg PO BIDCM #8 tab 06/09/19 The patient was counseled on the following discharge medications and changes in medications for homegoing were reviewed. The Reason for Use, instructions for use, and potential side effects were reviewed for all new medications. The patient's questions regarding all of their medications were answered. The patient was able to verbally demonstrate an understanding of their discharge medications.
== END 2019-06-09 12:04 | disposition home or self-care (01) | DRG 190 ==
LOC: ED 10:38 → PCU 12:08
PROVIDERS: Admitting Provider Internal Medicine; Emergency Provider Emergency Medicine; Family Provider Family Medicine; PCP Family Medicine; Referring Provider Internal Medicine; Visit Provider Internal Medicine
DX: J44.1 Chronic obstructive pulmonary disease with (acute) exacerbation (principal); I50.33 Acute on chronic diastolic (congestive) heart failure; I13.0 Hypertensive heart and chronic kidney disease with heart failure and stage 1 through stage 4 chronic kidney disease, or unspecified chronic kidney disease; N18.3 Chronic kidney disease, stage 3 (moderate); I27.21 Secondary pulmonary arterial hypertension; I48.0 Paroxysmal atrial fibrillation; E78.5 Hyperlipidemia, unspecified; E03.9 Hypothyroidism, unspecified; K21.9 Gastro-esophageal reflux disease without esophagitis; G47.33 Obstructive sleep apnea (adult) (pediatric); N40.0 Benign prostatic hyperplasia without lower urinary tract symptoms; E66.9 Obesity, unspecified; Z68.34 Body mass index [BMI] 34.0-34.9, adult; Z79.51 Long term (current) use of inhaled steroids; Z79.890 Hormone replacement therapy; Z79.899 Other long term (current) drug therapy; Z87.891 Personal history of nicotine dependence
CPT/HCPCS: 36415; 71045; 80048; 83880; 84484; 85025; 87804; 93005; 94640; 94668; 99251; 99285; A4216; G0463; J1940

== ENCOUNTER → 2019-06-13 14:19 | Outpatient (CLI) | payer MEDICARE, SELFPAY ==
[2019-06-07 12:50] VITALS: BMI 32.3
--- NOTE | 2019-06-13 14:25 | RAD_ITS ---
STUDY: X-RAY - LUMBAR SPINE REASON FOR EXAM: Male, 84 years old. BILATERAL LEG WEAKNESS. TECHNIQUE: 6 view(s) of the lumbar spine were obtained. COMPARISON: None FINDINGS: There is straightening of the normal lumbar lordosis. There is scoliosis of the lumbar spine, convexity to the right. There is a normal alignment of the vertebrae. There is diffuse demineralization with multi-level endplate spondylosis. There is multi-level degenerative disc disease with multi-level disc space narrowing. There is no demonstrated fracture. There is no demonstrated spondylolysis of the pars interarticulares. There is atherosclerotic calcification of the abdominal aorta without a demonstrated aneurysm. RAD/L/S Spine Min 4 Views IMPRESSION: Diffuse osteopenia along with advanced degenerative disease. Scoliosis. No acute fracture, spondylolisthesis or pars defect. Electronically Signed: Sun Forrest MD at 0:46 EST , Service support ,
[2019-06-13 18:08] LABS: Absolute Lymphocyte Count 0.46 X10^3/uL (0.83-4.51); Absolute Neutrophil Count 11.3 X10^3/uL (2.0-7.7); Basophil# 0.01 X10^3/uL; Basophil% 0.1 % (0-1); Eosinophil# 0.01 X10^3/uL; Eosinophils% 0.1 % (0-5); Hematocrit 38.5 % (40-54); Hemoglobin 11.5 g/dL (13.0-16.5); Lymphocyte # 0.46 X10^3/ul (4.0); Lymphocyte % 3.7 % (19-41); Mean Corp Hgb Conc 29.9 g/dL (32-36); Mean Corpuscular Hgb 28.5 pg (27.0-32.0); Mean Corpuscular Volume 95.5 fL (80-94); Mean Platelet Vol. 12.2 fl (6.2-12.0); Monocyte# 0.51 X10^3/uL; Monocyte% 4.1 % (0-10); NRBC Flagged by Analyzer 0 % (0-5); Neutrophil # 11.32 X10^3/uL (2.7-7.7); Neutrophil % 91.4 % (47-70); POSITIVE DIFFERENTIAL YES; Platelet Count 260 K/mm3 (150-450); RBC Distribution Width CV 16.1 % (11.6-14.6); RBC Distribution Width SD 57.3 fl (35.1-43.9); Red Blood Count 4.03 M/mm3 (4.6-6.2); White Blood Count 12.4 K/mm3 (4.4-11.0)
[2019-06-13 18:12] LABS: ALB/GLOB Ratio 0.8 RATIO (0.9-2.4); AST(SGOT) 11 U/L (15-37); Alanine Aminotransfer ALT/SGPT 25 U/L (16-61); Albumin, Serum 3.4 g/dL (3.2-5.0); Alkaline Phosphatase 59 U/L (45-117); Anion Gap 7 (5-15); BUN 38 mg/dL (7-18); BUN/Creat Ratio 21.8 RATIO (10-20); Calcium,Total 8.5 mg/dL (8.5-10.1); Chloride 95 mmol/L (98-107); Creatinine, Serum 1.74 mg/dL (0.70-1.30); EST Glomerular Filtration Rate 40 mL/min (>60); Est Glom Filt Rate - Afr Amer 48 mL/min (>60); Globulin 4.3 g/dL (2.2-4.2); Glucose 295 mg/dL (74-106); Potassium 4.2 mmol/L (3.5-5.1); Protein, Total 7.7 g/dL (6.4-8.2); Sodium Level 137 mmol/L (136-145)
[2019-06-13 19:19] LABS: Differential Indicated SCAN CRITERIA MET
[2019-06-13 20:29] LABS: Platelet Estimate ADEQUATE (ADEQ); Red Cell Morphology NORM C+C NORMAL (NORM C&C)
== END ==
PROVIDERS: Family Provider Family Medicine; PCP Family Medicine; Referring Provider Family Medicine; Visit Provider Family Medicine
DX: J44.9 Chronic obstructive pulmonary disease, unspecified (principal); R29.898 Other symptoms and signs involving the musculoskeletal system
CPT/HCPCS: 36415; 72110; 80053; 85025

== ENCOUNTER → 2019-06-17 05:00 | Outpatient (REF) | payer MEDICARE, SELFPAY ==
[2019-06-07 12:50] VITALS: BMI 32.3
[2019-06-17 07:35] LABS: Anion Gap 2 (5-15); BUN 35 mg/dL (7-18); Calcium,Total 8.3 mg/dL (8.5-10.1); Chloride 102 mmol/L (98-107); Creatinine, Serum 1.59 mg/dL (0.70-1.30); EST Glomerular Filtration Rate 44 mL/min (>60); Est Glom Filt Rate - Afr Amer 53 mL/min (>60); Glucose 137 mg/dL (74-106); Potassium 3.8 mmol/L (3.5-5.1); Sodium Level 140 mmol/L (136-145)
== END ==
PROVIDERS: Family Provider Family Medicine; PCP Family Medicine; Visit Provider Family Medicine
DX: N18.9 Chronic kidney disease, unspecified (principal); Z79.899 Other long term (current) drug therapy
CPT/HCPCS: 36415; 80048

== ENCOUNTER 2019-06-29 18:27 | Emergency (ER) | payer MEDICARE, SELFPAY ==
[2019-06-07 12:50] VITALS: BMI 32.3
[2019-06-29 18:29] VITALS: BP 162/74; BP 169/75; PULSE 55; PULSE 59; RESP 14; RESP 17; TEMP 36.6; O2SAT 92; O2SAT 94; BMI 33.0
--- NOTE | 2019-06-29 18:58 | CT_ITS ---
STUDY: CT BRAIN WITHOUT CONTRAST REASON FOR EXAM: Male, 84 years old. LOST BALANCE AND FELL. LAC TO BACK OF HEAD. NO LOC. -- HX:COPD,HTN,DIABETES,CKD STAGE 3 RADIATION DOSAGE (If Supplied By Facility): CTDIvol = ( 44.99 ) mGy, DLP = ( 812.98 ) mGycm TECHNIQUE: Transaxial CT imaging of the brain was performed without administration of intravenous contrast material. Individualized dose optimization techniques were used for this CT. COMPARISON: No relevant priors. FINDINGS: Normal soft tissue structures. Normal calvarium. Bone island in the left orbital rim. Left lens replacement. Normal size ventricles and extra-axial spaces for the patient''s age. There are areas of decreased attenuation within the white matter tracts of the supratentorial brain, consistent with microvascular disease changes. Age-related changes of the basal ganglia. Normal brainstem. Normal cerebellum. There is no intracranial hemorrhage. There are no findings of an acute ischemic infarction. Left sphenoid sinus disease. CT/Brain/Head without Contrast IMPRESSION: No fracture or intracranial hemorrhage. Electronically Signed: Riley Monroy MD at 19:27 EST Tel , Service support ,
--- NOTE | 2019-06-29 19:01 | ED.DCSUM_ITS ---
- ER Visit Summary Date of Service: 06/29/19 Chief Complaint: Head injury History of Present Illness: The patient is a 84 M who presents with head injury that occurred today. 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 Patient states he fell backwards and hit the back of his head. Patient describes his pain is stinging. Patient states the pain is over the occipital part of his head. Patient states she also has pain in his neck. Patient denies any loss of consciousness. Patient states he was able to ambulate after the fall. Patient denies any paresthesias or weakness. Patient is unsure of his last tetanus. Physical Examination: Vital signs are stable. Patient is afebrile. Patient is in no acute distress. Cranial nerves II through XII are intact. Strength is 5/5 bilaterally in the upper and lower extremities. There are no sensory deficits noted. Pupils are equal, round, reactive to light bilaterally. Extraocular muscles are intact. There is midline cervical spine as well as cervical paraspinal tenderness. There is no bony crepitance or step-off. Range of motion was limited in all motion secondary to pain. Heart was regular rate and rhythm. Lungs are clear and equal bilaterally. Abdomen is soft and nontender. Test Results: CT scan of the brain was obtained. There is no acute intracranial abnormality. CT scan of the cervical spine was obtained. There are fractures of the spinous processes of C2, C3, C4, and C5. The posterior arch is intact. There is no encroachment on the spinal cord or spinal canal. Interpreted by the radiologist and reviewed by myself. Emergency Department Course and Treatment: Patient was placed in a cervical collar. The scalp laceration was cleaned and irrigated with copious amounts normal saline. The laceration was anesthetized 1% lidocaine with epinephrine. 6 akhil were placed. Patient tolerated the procedure well. Dressing was applied. Cervical collar was placed on the patient and maintained. Patient was advised to follow-up with his primary care physician in 5 to 7 days. Patient was instructed to maintain his cervical collar. Since the fractures are stable and the patient has a normal neurologic exam, I do not feel the patient requires emergent spine consultation at this time. Patient was instructed to maintain a reclined position for transport. Patient understood and was agreeable with the plan. All questions were answered. Disposition: Discharge home Impression: 1. Scalp laceration 2. Cervical spinous process fractures This note was generated with [employer] dictation software. It may contain incorrect words, spelling, and punctuation that were not noted in review of the chart prior to signing ED Disposition - Plan for ED Patient: Disposition: Home or Assisted Living Diagnosis: Fracture of cervical spinous process, Scalp laceration Instructions: LACERATION, Scalp Referrals: Quentin Giron MD [Primary Care Provider] - 5-7 Days
--- NOTE | 2019-06-29 19:02 | CT_ITS ---
We are attempting to reach an attending provider to discuss findings. An addendum with communication details will be sent when the communication is complete. STUDY: CT CERVICAL SPINE WITHOUT CONTRAST REASON FOR EXAM: Male, 84 years old. LOST BALANCE AND FELL. LAC TO BACK OF HEAD. NO LOC. -- HX:COPD,HTN,DIABETES,CKD STAGE 3 RADIATION DOSAGE (If Supplied By Facility): CTDIvol = ( 21.02 ) mGy, DLP = ( 392.31 ) mGycm TECHNIQUE: High resolution transaxial imaging was performed without contrast material. Sagittal and coronal images were reconstructed. Individualized dose optimization techniques were used for this CT. COMPARISON: None FINDINGS: Craniocervical junction is intact. Degenerative changes are present involving the atlantodental articulation. Normal odontoid process. Alignment is within normal limits. Multilevel degenerative disease is present. Acute fractures of the C2, C3, C4, and C5 spinous processes are present. Carotid calcifications. CT/Spine Cervical without Contras IMPRESSION: Acute fractures of the C2, C3, C4, and C5 spinous processes are present. Comment: MRI is more sensitive than CT in detecting cord injury, ligament injury, and epidural hematoma. If there is continued clinical concern for any of these entities, MRI correlation should be considered if possible. Electronically Signed: Riley Monroy MD at 19:33 EST Tel , Service support ,
[2019-06-29] MEDS: Diphth,Pertuss(Acell),Tet Vac 0.5 ML Vial IM (19:30)
--- NOTE | 2019-06-29 19:56 | ED.RN ---
PT wanted me to call his daughter. MS nunn was called and is aware he is in the ED but [facility] Updated her on POC. Daughter states family is not able to take him home and we will have to get a squad.
[2019-06-29 20:30] VITALS: PULSE 54; RESP 20; O2SAT 100
[2019-06-29 22:08] VITALS: PULSE 50; RESP 16; O2SAT 100
[2019-06-29 22:15] VITALS: BP 150/100; PULSE 60; RESP 18; O2SAT 100
[2019-06-29 23:50] VITALS: BP 149/80; PULSE 59; RESP 18; O2SAT 96
--- NOTE | 2019-06-29 23:51 | ED.RN ---
Discussion with Dr. Snow, PT should be laying back for transport. Test Pilot informed and EMS was called and gave 30-45 min eta.
== END 2019-06-30 00:21 | disposition home or self-care (01) ==
PROVIDERS: Emergency Provider Emergency Medicine; PCP Family Medicine
DX: S01.01XA Laceration without foreign body of scalp, initial encounter (principal); S12.100A Unspecified displaced fracture of second cervical vertebra, initial encounter for closed fracture; S12.200A Unspecified displaced fracture of third cervical vertebra, initial encounter for closed fracture; S12.300A Unspecified displaced fracture of fourth cervical vertebra, initial encounter for closed fracture; S12.400A Unspecified displaced fracture of fifth cervical vertebra, initial encounter for closed fracture; W01.0XXA Fall on same level from slipping, tripping and stumbling without subsequent striking against object, initial encounter; Y93.89 Activity, other specified; I48.91 Unspecified atrial fibrillation; I10 Essential (primary) hypertension; J44.9 Chronic obstructive pulmonary disease, unspecified; K21.9 Gastro-esophageal reflux disease without esophagitis; N40.0 Benign prostatic hyperplasia without lower urinary tract symptoms; Z87.891 Personal history of nicotine dependence
CPT/HCPCS: 12002; 70450; 72125; 90715; 99284

== ENCOUNTER → 2019-07-11 10:54 | Outpatient (CLI) | payer MEDICARE, SELFPAY ==
[2019-06-29 18:29] VITALS: BMI 33.0
--- NOTE | 2019-07-11 11:03 | RAD_ITS ---
STUDY: X-RAY - SACRUM/COCCYX REASON FOR EXAM: Male, 84 years old. TAILBONE PAIN S/P FALL, RECENTLY FELL AND FRACTURED MULTIPLE CERVICAL AND THORACIC VERTEBRAE TECHNIQUE: 3 view(s) of the sacrum and coccyx were obtained. COMPARISON: None. FINDINGS: There is degenerative arthrosis of the bilateral sacroiliac joints. There is demineralization of the sacral ala. Normal sacrococcygeal junction with a normal angulation. Normal coccygeal segments. Vascular calcification. Phleboliths are seen within the pelvis. This space narrowing and spondylosis in the visualized lower lumbar spine. RAD/Sacrum-Coccyx min 2 Views IMPRESSION: Degenerative changes. No acute fracture is seen. Electronically Signed: Miguel Woods, at 12:16 EST , Service support ,
== END ==
PROVIDERS: PCP Family Medicine; Referring Provider Anesthesiology Pain Medicine; Visit Provider Anesthesiology Pain Medicine
DX: M53.3 Sacrococcygeal disorders, not elsewhere classified (principal); W19.XXXA Unspecified fall, initial encounter
CPT/HCPCS: 72220

== ENCOUNTER → 2019-07-28 11:07 | Outpatient (CLI) | payer MEDICARE, SELFPAY ==
[2019-06-29 18:29] VITALS: BMI 33.0
--- NOTE | 2019-07-28 11:33 | MRI_ITS ---
STUDY: MRI LUMBAR SPINE WITHOUT CONTRAST REASON FOR EXAM: Male, 84 years old. DDD, DULL BACK PAIN INTO TAIL BONE FOR MANY YEARS, RECENT FALL TECHNIQUE: Standardized fat and water weighted pulse sequences were obtained in the sagittal and axial planes. COMPARISON: None FINDINGS: T12-L1: Mild broad disc protrusion produces mild spinal stenosis and mild bilateral neural foraminal stenosis. Normal lumbar lordosis. Mild dextroscoliosis of the thoracolumbar spine centered at L1 and more moderate levoscoliosis of the lower lumbar spine centered at L4/L5. Normal conus medullaris that terminates at the L1. Mild loss of height and wedging deformity of the L4 vertebral body consistent with a compression fracture. No marrow edema consistent with a chronic compression fracture. No retropulsion into the spinal canal. L1-2: Mild bilateral facet hypertrophy and moderate ligament flavum hypertrophy. Mild bilobed disc protrusion produces mild spinal stenosis, mild right lateral recess stenosis, moderate left lateral recess stenosis with abutment of the left L2 nerve root and mild bilateral neural foraminal stenosis. L2-3: Mild bilateral facet hypertrophy and ligament flavum hypertrophy. Moderate bilateral disc protrusion produces moderate spinal stenosis with mild right lateral recess stenosis, moderate left lateral recess stenosis with abutment of left L3 nerve root and mild bilateral neural foraminal stenosis. L3-4: Mild bilateral facet hypertrophy and ligament flavum hypertrophy. Mild broad disc protrusion produces mild spinal stenosis with mild bilateral lateral recess stenosis and mild bilateral neural foraminal stenosis. L4-5: Mild bilateral facet hypertrophy and ligament flavum hypertrophy. Mild bilobed disc protrusion with a moderate sized right foraminal protrusion produces mild spinal stenosis and moderate right neural foraminal stenosis with abutment of the exiting right L4 nerve root laterally. L5-S1: Mild bilateral facet hypertrophy and ligament flavum hypertrophy. Mild broad disc protrusion produces mild spinal stenosis and mild bilateral neural foraminal stenosis. Normal visualized sacral ala. Moderate friction related edema of the posterior subcutaneous fat. MRI/Spine Lumbar (Routine) IMPRESSION: 1. Mild chronic wedge compression fracture of L4 without retropulsion into the spinal canal. 2. S-shaped scoliosis with degenerative disc disease as described above. Electronically Signed: Romero Akins MD at 8:48 EST Tel , Service support ,
== END ==
PROVIDERS: PCP Family Medicine; Referring Provider Family Medicine; Visit Provider Family Medicine
DX: M51.37 Other intervertebral disc degeneration, lumbosacral region (principal)
CPT/HCPCS: 72148